=== PATIENT | male | born 1980 | race Caucasian/White ===

== ENCOUNTER → 2019-11-20 | Outpatient (CLI) | payer MEDICARE, MEDICAID ==
[~2019-11-20] MED LIST: METHACHOLINE KIT (J7674) INH ONE
--- NOTE | 2019-11-20 08:28 | PFTRPT ---
Visit Date: 11/20/2019 Referring Doctor: ALYCIA Tapia Marcus, M Height: 70.00 Inches Weight: 251.00 Lbs BSA: 2.30 Diagnosis: R06 Study of excellent technical quality. Pre and post bronchodilator study was done. At a baseline, forced vital capacity reduced. FEV1 out of proportion. Obstructive index is, therefore, reduced. Expiratory limb of the flow volume loop suggest flow rate limitation. Very favorable bronchodilator response is identified. IMPRESSION: Mild to moderate obstructive ventilatory impairment with favorable bronchodilator response. Please correlate clinically. MTDD
== END ==
LOC: M CARPUL 11-14 12:54
PROVIDERS: ATTEND Physician Assistant
DX: R06.00 Dyspnea, unspecified (principal)

== ENCOUNTER 2019-12-22 19:54 | Inpatient (IN) | payer MEDICARE, MEDICAID ==
[2019-12-23] MEDS ORDERED: LORazepam 1 MG TAB ONE (11:30)
[2019-12-24] MEDS ORDERED: TIOTROPIUM INHALER/CAPSULE (SPIRIVA) ONE (15:09)
[2019-12-24] MEDS ORDERED: traZODone 50 MG TAB ONE (21:19)
[2019-12-25] MEDS ORDERED: TIOTROPIUM INHALER/CAPSULE (SPIRIVA) ONE (09:25)
[2019-12-25] MEDS ORDERED: ONDANSETRON 4 MG TAB ONE (17:41)
[2019-12-25] MEDS ORDERED: OLANZapine ORAL DISINTEGRATING TAB 5MG ONE (21:15)
[2019-12-26] MEDS ORDERED: TIOTROPIUM INHALER/CAPSULE (SPIRIVA) ONE (09:17)
[2019-12-26] MEDS ORDERED: OLANZapine ORAL DISINTEGRATING TAB 5MG ONE (20:24)
[2019-12-27] MEDS ORDERED: OLANZapine ORAL DISINTEGRATING TAB 5MG ONE (21:47)
[2019-12-28] MEDS ORDERED: FLUoxetine 20 MG CAP ONE (10:59)
[2019-12-29] MEDS ORDERED: traZODone 50 MG TAB ONE ×2 (02:20→22:35)
[2019-12-29] MEDS ORDERED: OLANZapine ORAL DISINTEGRATING TAB 5MG ONE ×2 (02:20→20:21)
[2019-12-29] MEDS ORDERED: FLUoxetine 20 MG CAP ONE (07:47)
[2019-12-29] MEDS ORDERED: ACETAMINOPHEN TAB 650MG DOSE (2X325MG) ONE (21:29)
[2019-12-30] MEDS ORDERED: TIOTROPIUM INHALER/CAPSULE (SPIRIVA) ONE (09:41)
[2019-12-30] MEDS ORDERED: FLUoxetine 20 MG CAP ONE (09:41)
--- NOTE | 2020-02-04 14:25 | ECGEPIP ---
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
[2020-02-06 17:10] LABS: BASO % 0.1 % (0.0-1.0); EOS # 0.1 10^3/uL (0.0-0.5); EOS % 1.6 % (0.0-3.0); HEMATOCRIT 43.6 % (42.0-52.0); HEMOGLOBIN 14.8 g/dl (13.5-17.5); LYMPH # 1.2 10^3/uL (1.5-5.0); LYMPH % 16.7 % (24.0-44.0); MEAN CORPUSCULAR HGB CONC 33.9 g/dl (32.0-36.5); MEAN CORPUSCULAR VOLUME 85.3 fl (80.0-96.0); MONO # 0.4 10^3/uL (0.0-0.8); MONO % 5.8 % (0.0-5.0); NEUTROPHILS # 5.3 10^3/uL (1.5-8.5); NEUTROPHILS % 75.7 % (36.0-66.0); PLATELET COUNT, AUTOMATED 290 10^3/uL (150-450); RED BLOOD COUNT 5.11 10^6/uL (4.30-6.10)
[2020-03-04 16:54] LABS: ACETAMINOPHEN LEVEL < 2.0 UG/ML (10.0-30.0); ALBUMIN 3.9 GM/DL (3.2-5.2); ALT/SGPT 59 U/L (12-78); AMPHETAMINES LEVEL URINE NEGATIVE (NEGATIVE); BARBITURATES URINE NEGATIVE (NEGATIVE); BENZODIAZEPINES URINE NEGATIVE (NEGATIVE); BILIRUBIN,DIRECT 0.2 MG/DL (0.0-0.2); BILIRUBIN,TOTAL 0.8 MG/DL (0.2-1.0); BLOOD UREA NITROGEN 13 MG/DL (7-18); CALCIUM LEVEL 8.6 MG/DL (8.5-10.1); CANNABINOIDS URINE NEGATIVE (NEGATIVE); CARBON DIOXIDE LEVEL 26 MEQ/L (21-32); CHLORIDE LEVEL 109 MEQ/L (98-107); COCAINE METABOLITE URINE NEGATIVE (NEGATIVE); CREATININE FOR GFR 1.15 MG/DL (0.70-1.30); ETHYL ALCOHOL (ETHANOL) < 0.003 % (0.000-0.010); GLOMERULAR FILTRATION RATE > 60.0 (>60); GLUCOSE, FASTING 119 MG/DL (70-100); METHADONE URINE NEGATIVE (NEGATIVE); OPIATES URINE NEGATIVE (NEGATIVE); PHENCYCLIDINE URINE NEGATIVE (NEGATIVE); POTASSIUM SERUM 3.6 MEQ/L (3.5-5.1); SALICYLATE LEVEL < 1.7 MG/DL (5.0-30.0); SODIUM LEVEL 141 MEQ/L (136-145); TOTAL PROTEIN 7.1 GM/DL (6.4-8.2)
--- NOTE | 2020-03-19 21:01 | MHDSPDOC ---
[facility] Discharge Summary Discharge Summary DATE OF ADMISSION: Dec 22, 2019 at 20:23 DATE OF DISCHARGE: Dec 30, 2019 at 09:46 DISCHARGE DIAGNOSES: F43.24 Adjustment disorder with disturbance of conduct CONSULTANTS INVOLVED:[ None (basic hospitalist screening)] REASON FOR ADMISSION & TREATMENT AND PROGRESS ON THE UNIT : Patient was admitted to the inpatient mental health unit after reportedly making suicidal statements after recently being arrested for looking into a young girls window on multiple occasions and reportedly had been touching himself. He reported that there had been a community backlash and after being published in the news, he found himself quite upset and disturbed by the lack of support. He presented to the [facility] reporting that he had suicidal thoughts and he was brought here for assessment. When he was admitted, he appeared genuinely engaged but appeared highly focused on trying to move away from the current situation. He reported dissociative episodes but none of these were observed at the unit. He generally engaged somewhat socially at times but generally denies suicidality shortly after he had arrived. No signs of dissociative episodes have been placed. Reportedly, he had done this action when he was intoxicated. However, he did not demonstrate any unusual behaviors. I initially thought about doing an EEG but no objective signs or symptoms have been found and it appeared generally that this could be done at outpatient given the low acuity of the situation. Send patient home on seven day supply of 20 mg of Prozac, which was increased from his previous dose of 10 mg with positive effects including more engagement and less dysthymic mood. DISCHARGE ASSESSMENT[improved] Legal status considerations: The patient at the time of discharge did not meet criteria for involuntary admission/extension due to having a [normal] mental status exam, [fair] insight into the situation, They are engaged in the discharge process, as well as being friendly and amenable in behavioral control and havent been engaging in any observed concerning behavior or ideation recently. They decline voluntary extension/admission at this time and must be discharged in good jone, as Im unable to make a case for holding the patient against their will. They may have historical risk factors of admissions and other interactions with psychiatry however, those are not modifiable from a clinical perspective. The patient will need to be discharged in good jone. MENTAL STATUS EXAMINATION ON DISCHARGE: [General: Well dressed with good hygiene Speech: Spontaneous and fluid Thought processes: Linear and logical Thought content: Future orientated Abstract reasoning, and computation: Intact Description of associations: Intact Description of abnormal or psychotic thoughts:Denies any suicidal or homicidal ideation. Denies any auditory or visual hallucinations. Does not appear to be responding to internal stimuli. Does not appear to be endorsing any bizarre or paranoid ideation. Judgment: fair Insight: fair Orientation: Alert and orientated 3 Recent and remote memory: Intact Attention span and concentration: Intact Fund of knowledge: Adequate Mood: "okay" Affect: Euthymic with a full range] PLAN/FOLLOWUP ARRANGEMENTS: Follow up appointments made (PCP and MH in 5 days of D/C date) and safety plan completed. Safety Planning aspects completed prior to discharge [Medication supplies limited to 7 days with 4 refills to prevent accumulation to OD] [RN reviewed crisis hotline information and other aspects to empower patient to access care in interim before next appointment.] The amount of time spent in the coordination of care for this patient was approximately 30 minutes. Allergies Coded Allergies: No Known Allergies (Verified , 06/09/04) GLENDA MCFARLANE DO Mar 19, 2020 21:01
== END 2019-12-30 09:46 | disposition home or self-care (01) | DRG 882 ==
LOC: M ED 19:54 → M PSY 20:23
PROVIDERS: ADMIT Psychiatry & Neurology Addiction Medicine; ATTEND Psychiatry & Neurology Addiction Medicine
DX: F43.24 Adjustment disorder with disturbance of conduct (principal)

== ENCOUNTER 2020-06-04 18:03 | Emergency (ER) | payer MEDICARE, MEDICAID ==
[~2020-06-04] VITALS: Ht 177.8 cm; Wt 111.6 kg
--- OUTSIDE RECORDS SUMMARY | 2020-06-04 18:13 | CCD ---
Author Rajendra Slaughter Organization Unknown Address [address] [address] Phone Care Team Providers Care Tile Helper Name Role Phone Willa Hernández PCP Allergies, Adverse Reactions, Alerts No Data in Section Problem List Concept Problem Description Status Start Date Created Date Resolv ed Date Snomed Code F33.1 Major Depressive Disorder, Recurrent episode, Moderate Active 06/03/2020 Medications No Data in Section Social History Social History Element Description Concept Effective Date Smoking Status Unknown if ever smoked [id number] Immunizations No Data in Section Vital Signs No Data in Section Procedures Date Concept Id Description Targeted Site Concept Targeted Site Concept Type 06/01/2020 42494 Extended Individual Psychotherapy - 45 min CPT Patient has no history of implantable de vices Encounters Encounter Start Date End Date Encounter Type Description Diagnosis Di agnosis Desc Location Author First Name Author Last Name Npid Taxonomy Cod e Taxonomy Desc Phone Number Location Addr1 Location Addr2 Location [facility] Location [facility] Location [facility] [id number] 06/01/2020 06/01/2020 36512 Extended Individual Psych otherapy - 45 min F33.1 Major depressive disorder, recurrent, moderate Communi ty [facility] Edgar Crouch [id number] Business Advisor [id number] [id number] Plan of Treatment No Data in Section Lab Results No Data in Section Instructions No Data in Section Insurance Providers Insurance Id Policy Effective Date Policy Thru Date Company [employer] [id number] 2002 MEDICARE [id number] MEDICAID [id number] CRISIS
--- OUTSIDE RECORDS SUMMARY | 2020-06-04 18:13 | CCD | Continuity of Care Document ---
Author Author [facility] Address [address] [place] [address] Phone Support Name Relationship Address Phone Osvaldo Chito PRS [address] [place] [address] Seth Leonardo PRS [address] [place] [address] Doctor Provided, Family No PRS Unknown Unava ilable Chito Riley PRS [facility] [place] [address] [place] [address] [place] [address] Taina Claros PRS [address] [place] [address] Dawit Sampson PRS [address] [place] [address] Jeane Solis PRS Unknown Unavailable Gabriel Alcantara PRS [address] [place] [address] Jeanmarie Arteaga PRS [address] [place] [address] Bryant Villalba PRS [address] [place] [address] Cedric Adam PRS [address] [place] [address] Riki Collins PRS [address] [place] [address] Keith Grant PRS [address] [place] [address] Geoff Silva PRS [address] [place] [address] Mirna Varghese PRS [address] [place] [address] Leo Lee PRS [address] [place] [address] Tommie Pinon PRS [address] [place] [address] PaulJose Carlos PRS [address] [place] [address] [place] [address] Diogenes Thayer PRS [address] [place] [address] Dayton Hong PRS [address] [place] [address] Sincere HOLLING[place]TH PRS [address] [place] [address] Damaso Rodas PRS [address] [place] [address] Parviz Wright PRS [address] [place] [address] Jefferson Lei PRS [address] [place] [address] Allergies, Adverse Reactions, Alerts No known allergies. Medications Medication Status Dose Units Route Directions Qty Days Start Date End Date Instructions Budesonide-Formoterol (Symbicort) 160-4. 5 mcg/actuation HFA aerosol inhaler Discontinued 1 PUFFS IH 2 Times Per Day March 01, 2019 9:34am July 26, 2019 2:12pm Albuterol Sulfate Discontinued 2 INH IH Q6H March 01, 2019 9:39am October 02, 2019 2:58am Budesonide-Formoterol (Symbicort) 160-4. 5 mcg/actuation HFA aerosol inhaler Discontinued 1 PUFFS IH 2 Times Per Day July 26, 2019 2:12pm October 02, 2019 2:58am Fluoxetine (Prozac) 10 mg capsule Active 40 MG PO daily September 27, 2019 8:47am pneumococcal 23-luis ps vaccine 25 mcg/0. 5 mL injection syringe Discontinued 0.5 ML IM .1 0.5 March 31, 2020 10:22am March 31, 2020 12:46pm Afluria Qd 2019-(3yr up)(PF) (flu vac [id number] 36mos up(PF)) Discontinued 0.5 ML IM 1 Time/Once 0.5 March 31, 2020 10:22am March 31, 2020 12:46pm Budesonide-Formoterol (Symbicort) 160-4. 5 mcg/actuation HFA aerosol inhaler Discontinued 1 PUFFS IH 2 Times Per Day 10.2 March 31, 2020 11:12am April 14, 2020 11:34am Fluticasone Propion-Salmeterol (Advair H fa) 115-21 mcg/actuation HFA aerosol inhaler Discontinued 2 PUFFS IH 2 Times Per Day 12 April 14, 2020 11:34am April 17, 2020 12:37am Montelukast (Singulair) 10 mg tablet Discontinued 10 MG PO d aily April 20, 2020 10:25am May 03, 2020 5:40pm Amoxicillin Discontinued 500 MG PO Three times a day February 27, 2016 10:18am March 29, 2016 1:57pm Naproxen Discontinued 500 MG PO 2 Times Per Day February 27, 2016 10:40am March 29, 2016 1:57pm Ibuprofen Discontinued 2 00 MG PO Every 6 hours November 21, 2016 10:49am March 02, 2017 12:06pm Sulfamethoxazole-Trimethoprim (Bactrim D s Tablet) 800-160 mg tablet Discontinued 1 EACH PO 2 Times Per Day November 21, 2016 2:38pm January 20, 2017 10:29am Naproxen Discontinued 500 MG PO 2 Times Per Day NEEDED November 21, 2016 2:38 pm March 02, 2017 12:06pm Acetaminophen (Tylenol*) 500 MG tablet Discontinued 1 GM PO NEEDED May 05, 2017 9:05am April 10, 2018 11:20pm Ondansetron (Zofran Odt) 4 MG tablet,disintegrating Discontinued 4 MG PO Four Times a day PRN April 06, 2018 12:34am April 10, 2018 11:20pm Naproxen Discontinued 500 MG PO 2 Times Per Day February 24, 2019 10:51am February 24, 2019 11:27am Nabumetone Discontinued 750 MG PO 2 Times Per Day WI TH Meals 20 February 24, 2019 11:26am March 05, 2019 11:01pm Albuterol Sulfate Active 2 INH IH Q6H October 02, 2019 2:58am Budesonide-Formoterol (Symbicort) 160-4. 5 mcg/actuation HFA aerosol inhaler Discontinued 1 PUFFS IH 2 Times Per Day October 02, 2019 2:58am March 31, 2020 11:13am Tramadol Discontinued 50 MG PO Three times a day October 03, 2019 1:30pm February 14, 2020 12:10pm Take with meals only Hydroxyzine Hcl Active 25 MG PO 2 Times Per Day April 17, 2020 12:37am Aripiprazole Active 5 MG PO Once Per Day April 17, 2020 12:37am Budesonide-Formoterol (Symbicort) 160-4. 5 mcg/actuation HFA aerosol inhaler Discontinued 1 PUFFS IH 2 Times Per Day April 17, 2020 12:37am May 01, 2020 11:36am Prednisone Discontinued 0 PO .COMPLEX April 17, 2020 2:44am May 03, 2020 5:40pm orally per package directions Prednisone Discontinued 0 .ROUTE .COMPLEX May 03, 2020 5:40pm May 04, 2020 4:24pm orally per package directions Montelukast (Singulair) 10 mg tablet Activ e 10 MG PO daily May 03, 2020 5:40pm Fluticasone Furoate-Vilanterol (Breo Ell ipta) 100-25 mcg/dose blister with device Active 1 INH IH Q24H May 03, 2020 5:40pm Budesonide-Formoterol (Symbicort 80-4.5 Mcg Inhaler) 10.2 GM HFA aerosol inhaler Discontinued 2 PUFFS IH 2 Times Per Day July 17, 2014 3:20pm November 29, 2016 9:47am Perphenazine Discontinued 2 MG PO At Bedtime July 25, 2014 11:20am February 10, 2015 1:40pm Oxcarbazepine Discontinued 300 MG PO Once Per Day July 25, 2014 11:20am July 25, 2014 11:25am Citalopram Discontinued 20 MG PO Once Per Day July 25, 2014 11:20am February 10, 2015 1:40pm Trazodone Discontinued 1 00 MG PO At Bedtime July 25, 2014 11:20am February 10, 2015 1:40pm Risperidone Discontinued 1 MG PO 2 Times Per Day July 25, 2014 11:20am February 10, 2015 1:40pm Oxcarbazepine Discontinued 300 MG PO Once Per Day July 25, 2014 11:25am March 01, 2015 5:42pm Albuterol Sulfate (Ventolin Hfa) 18 GM HFA aerosol inh aler Discontinued 2 PUFFS IH Every 4 hours 2 February 10, 2015 1:59pm [facility] 7:58[facility] Oxcarbazepine Discontinued 600 MG PO 2 Times Per Day May 26, 2015 2:10pm February 27, 2018 9:34am Naproxen (Naprosyn) 500 MG tablet Di scontinued 1 TAB PO 2 Times Per Day March 29, 2016 2:16pm May 17, 2016 12:57pm Ondansetron Hcl (Zofran) 8 MG tablet Discontinued 8 MG PO 2 Times Per Day May 17, 2016 1:32pm November 21, 2016 10:42am take one twice daily for nausea Loperamide-Simethicone (Imodium Multi-Sy mptom Rel Cplt) 1 EACH tablet Discontinued 1 EACH PO Four Times a Day May 17, 2016 1:32pm November 21, 2016 10:43am take one after each loose stool up to 4x day Albuterol Sulfate (Ventolin Hfa) 18 GM HFA aerosol inh aler Discontinued 2 PUFFS IH Every 4 hours 2 February 02, 2017 7:58am April 04, 2018 11:56pm Budesonide-Formoterol (Symbicort 160-4.5 Mcg Inhaler) 10.2 GM HFA aerosol inhaler Discontinued 1 PUFFS IH 2 Times Per Day 1 February 27, 2018 9:55am September 19, 2018 7:53am Budesonide-Formoterol (Symbicort 160-4.5 Mcg Inhaler) 10.2 GM HFA aerosol inhaler Discontinued 1 PUFFS IH 2 Times Per Day 1 February 27, 2018 9:55am March 01, 2019 9:40am Fluticasone Furoate-Vilanterol (Breo Ell ipta) 100-25 mcg/dose blister with device Discontinued 1 INH IH Q24H April 15, 2020 2:35pm May 03, 2020 5:40pm Problems Active Problems Medical Problem Onset Date Status Abnormal echocardiogram Active Dizziness Active Depression Active Moderate persistent asthma Active Elevated serum creatinine Active Elevated BP without diagnosis of hypertension Active Prediabetes Active Obesity Active Inactive/Resolved Problems Medical Problem Onset Date Status Chest wall pain Resolv ed Exacerbation of asthma Resolved Acute epididymitis Res olved Elevated glucose level Resolved Acute right hip pain R esolved Fracture of rib of right side Resolved Lower back pain Resolv ed Unstable angina pectoris Resolved Malaise and fatigue Re solved Abdominal muscle pain Resolved Viral syndrome Resolve d Plantar fasciitis Reso lved Anterior chest wall pain Resolved Vasovagal episode Reso lved Chest pain Resolved Costochondritis, acute Resolved Asthma Resolved Left ankle sprain Reso lved Hypocalcemia Resolved Procedures Procedure Date Performed Status Xray Chest One View May 30 9:22pm completed CT Head without contrast May 032019 1:18pm completed CT C-Spine without contrast May 03, 2020 1:18pm completed Xray Chest One View May 03 1:18pm completed Xray Shoulder complete RT April 212019 1:18pm completed MRI Brain without contrast May 04, 2020 11:28am completed US Carotid art complete bilat Decemb er 2019 10:54am completed US Echo complete May 04, 2020 10:54am completed Influenza-Like Illness (PCR) Decembe r 2019 completed May 03, 2020 co mpleted Xray Chest 2 view PA/LAT April 172019 12:34am completed Blood Culture April 17, 2020 completed Respiratory Panel (PCR) April 17 0 completed Xray Chest 2 view PA/LAT April 102019 10:23pm completed Xray Abdomen 1 View (KUB) March 082019 1:36pm completed CT Abd/pel w/ contrast January 05, 2020 3:40pm completed Xray Chest 2 view PA/LAT September 26 9:44am completed Streptococcus Rapid Screen July 12, 2019 completed Relevant Diagnostic Tests and/or Laboratory Data Laboratory Results Test Date/Time Result Interpretation Reference Range Result Comment Performing Site White Blood Count May 30, 2020 7:40pm 6.5 10e3/uL 4.45-10.71 [facility], [address] [facility] White Blood Count May 04 3:55am 5.6 10e3/uL 4.45-10.71 [facility], [address] [place] [address] White Blood Count April 17 1:00am 8.1 10e3/uL 4.45-10.71 [facility], [address] [place] [address] White Blood Count January 05, 2020 3:52pm 7.0 10e3/uL 4.45-10.71 [facility], [address] [place] [address] 87495 Red Blood Count May 30, 2020 7:40pm 5.35 10e6/uL 4.3-6.1 [facility], [address] [place] [address] Red Blood Count May 04, 2020 3:55am 4.91 10e6/uL 4.3-6.1 [facility], [address] [place] [address] Red Blood Count April 17, 2020 1:00am 5.06 10e6/uL 4.3-6.1 [facility], [address] [place] [address] Red Blood Count January 05, 2020 3:52pm 5.36 10e6/uL 4.3-6.1 [facility], [address] [place] [address] Hemoglobin May 30, 2020 7:40pm 15.6 g/dL [facility], [address] [place] [address] Hemoglobin May 04, 2020 3:55am 14.6 g/dL 18 [facility], [address] [place] [address] Hemoglobin April 17, 2020 1:00am 14.8 g/dL 18 [facility], [address] [place] [address] Hemoglobin January 05, 2020 3:52pm 15.7 g/dL [facility], [address] [place] [address] 59698 Hematocrit May 30, 2020 7:40pm 46.6 % 42-52 [facility], [address] [place] [address] 03447 Hematocrit May 04, 2020 3:55am 43.3 % 42-52 [facility], [address] [place] [address] 85769 Hematocrit April 17, 2020 1:00am 44.1 % 42-52 [facility], [address] [place] [address] 23857 Hematocrit January 05, 2020 3:52pm 45.3 % 42-52 [facility], [address] [place] [address] 07596 Mean Corpuscular Volume May 30, 2020 7:40pm 87.1 fl 80-96 [facility], [address] [place] [address] 04719 Mean Corpuscular Volume April 3:55am 88.2 fl 80-96 [facility], [address] [place] [address] 60048 Mean Corpuscular Volume March 1:00am 87.2 fl 80-96 [facility], [address] [place] [address] 31333 Mean Corpuscular Volume January 05, 2020 3:52pm 84.5 fl 80-[address] [place] [address] LABORATORY, [address] [place] [address] Mean Corpuscular Hemoglobin May 30, 2020 7:40pm 29.2 pg 27-31 [facility], [address] [place] [address] 37496 Mean Corpuscular Hemoglobin May 04, 2020 3:55am 29.7 pg 27-31 [facility], [address] [place] [address] 01463 Mean Corpuscular Hemoglobin April 17, 2020 1:00am 29.2 pg 27-31 [facility], [address] [place] [address] 04938 Mean Corpuscular Hemoglobin December 202019 3:52pm 29.3 pg 27-31 [facility], [address] [place] [address] 28301 Mean Corpuscular Hemoglobin Concent May 30, 2020 7:40pm 33.5 g/dl 33-37 [facility], [address] [place] [address] 06347 Mean Corpuscular Hemoglobin Concent May 04, 2020 3:55am 33.7 g/dl 33-37 [facility], [address] [place] [address] 51937 Mean Corpuscular Hemoglobin Concent April 17, 2020 1:00am 33.6 g/dl 33-37 [facility], [address] [place] [address] 05520 Mean Corpuscular Hemoglobin Concent January 05, 2020 3:52pm 34.7 g/dl 33-37 [facility], [address] [place] [address] Red Cell Distribution Width May 30, 2020 7:40pm 12 % 11-15 [facility], [address] [place] [address] Red Cell Distribution Width May 04, 2020 3:55am 12 % 11-15 [facility], [address] [place] [address] Red Cell Distribution Width April 17, 2020 1:00am 12 % 11-15 [facility], [address] [place] [address] Red Cell Distribution Width December 202019 3:52pm 12 % 11-15 [facility], [address] [place] [address] Platelet Count May 30, 2020 7:40pm 291 10e3/ul 130-472 [facility], [address] [place] [address] Platelet Count May 04, 2020 3:55am 242 10e3/ul 130-472 [facility], [address] [place] [address] Platelet Count April 17, 2020 1:00am 306 10e3/ul 130-472 [facility], [address] [place] [address] Platelet Count January 05, 2020 3:52pm 293 10e3/ul 130-472 [facility], [address] [place] [address] 95635 Mean Platelet Volume May 30 7:40pm 9.0 fl 9.1-13.1 [facility], [address] [place] [address] Mean Platelet Volume May 04, 2020 3:55am 9.2 fl 9.1-13.1 [facility], [address] [place] [address] Mean Platelet Volume April 17, 2020 1:00am 8.9 fl 9.1-13.1 [facility], [address] [place] [address] Mean Platelet Volume January 04 3:52pm 9.1 fl 9.1-13.1 [facility], [address] [place] [address] 88226 Neutrophils (%) (Auto) May 30, 2020 7:40pm 62.7 % 41-77 [facility], [address] [place] [address] 02433 Neutrophils (%) (Auto) April 3:55am 62.4 % 41-77 [facility], [address] [place] [address] 38329 Neutrophils (%) (Auto) March 1:00am 70.3 % 4177 [facility], [address] [place] [address] 86431 Neutrophils (%) (Auto) January 05, 2020 3:52pm 70.9 % [address] [facility], [address] [place] [address] 67685 Absolute Neutrophil May 30 7:40pm 4.0 # 1.7-7.6 [facility], [address] [place] [address] 38231 Absolute Neutrophil May 04, 020 3:55am 3.5 # 1.7-7.6 [facility], [address] [place] [address] 45129 Absolute Neutrophil April 17, 020 1:00am 5.7 # 1.7-7.6 [facility], [address] [place] [address] 82803 Absolute Neutrophil January 04 0 3:52pm 5.0 # 1.7-7.6 [facility], [address] [place] [address] 00688 Lymphocytes (%) (Auto) May 30, 2020 7:40pm 26.5 % 14-46 [facility], [address] [place] [address] 64861 Lymphocytes (%) (Auto) April 3:55am 24.5 % 14-46 [facility], [address] [place] [address] 80140 Lymphocytes (%) (Auto) March 1:00am 19.3 % 14-46 [facility], [address] [place] [address] 80133 Lymphocytes (%) (Auto) January 05, 2020 3:52pm 18.8 % 14-46 [facility], [address] [place] [address] 27338 Lymphocytes # (Auto) May 30 7:40pm 1.7 # 0.6-4.6 [facility], [address] [place] [address] 99072 Lymphocytes # (Auto) May 04, 2020 3:55am 1.4 # 0.6-4.6 [facility], [address] [place] [address] 87074 Lymphocytes # (Auto) April 17, 2020 1:00am 1.6 # 0.6-4.6 [facility], [address] [place] [address] 55668 Lymphocytes # (Auto) January 04 3:52pm 1.3 # 0.6-4.6 [facility], [address] [place] [address] 85742 Monocytes (%) (Auto) May 30 7:40pm 7.4 % 4-12 [facility], [address] [place] [address] 76449 Monocytes (%) (Auto) May 04, 2020 3:55am 9.0 % 4-12 [facility], [address] [place] [address] 36511 Monocytes (%) (Auto) April 17, 2020 1:00am 8.4 % 4-12 [facility], [address] [place] [address] 42858 Monocytes (%) (Auto) January 04 3:52pm 7.4 % 4-12 [facility], [address] [place] [address] 97600 Monocytes # May 30, 2020 7:40pm 0.5 # 0.2-1.2 [facility], [address] [place] [address] 74194 Monocytes # May 04, 2020 3:55am 0.5 # 0.2-1.2 [facility], [address] [place] [address] 40057 Monocytes # April 17, 2020 1:00am 0.7 # 0.2-1.2 [facility], [address] [place] [address] 31022 Monocytes # January 05, 2020 3:52pm 0.5 # 0.2-1.2 [facility], [address] [place] [address] 93194 Eosinophils (%) (Auto) May 30, 2020 7:40pm 2.9 % 0-7 [facility], [address] [place] [address] 54563 Eosinophils (%) (Auto) April 3:55am 3.5 % 0-7 [facility], [address] [place] [address] 49073 Eosinophils (%) (Auto) March 1:00am 1.8 % 0-7 [facility], [address] [place] [address] 09134 Eosinophils (%) (Auto) January 05, 2020 3:52pm 2.3 % 0-7 [facility], [address] [place] [address] Absolute Eosinophils (CBC) May 302020 7:40pm 0.2 # 0.0-0.5 [facility], [address] [place] [address] 54733 Absolute Eosinophils (CBC) May 04, 2020 3:55am 0.2 # 0.0-0.5 [facility], [address] [place] [address] Absolute Eosinophils (CBC) April 17, 2020 1:00am 0.2 # 0.0-0.5 [facility], [address] [place] [address] Absolute Eosinophils (CBC) January 042019 3:52pm 0.2 # 0.0-0.5 [facility], [address] [place] [address] Basophils (%) (Auto) May 30 7:40pm 0.3 % 0.4-1.3 [facility], [address] [place] [address] Basophils (%) (Auto) May 04, 2020 3:55am 0.4 % 0.4-1.3 [facility], [address] [place] [address] 23651 Basophils (%) (Auto) April 17, 2020 1:00am 0.1 % 0.4-1.3 [facility], [address] [place] [address] 45227 Basophils (%) (Auto) January 04 3:52pm 0.3 % 0.4-1.3 [facility], [address] [place] [address] Absolute Basophils (CBC) May 7:40pm 0.0 # 0.0-0.2 [facility], [address] [place] [address] Absolute Basophils (CBC) May 042019 3:55am 0.0 # 0.0-0.2 [facility], [address] [place] [address] Absolute Basophils (CBC) April 172019 1:00am 0.0 # 0.0-0.2 [facility], [address] [place] [address] Absolute Basophils (CBC) December 3:52pm 0.0 # 0.0-0.2 [facility], [address] [place] [address] 08023 Immature Granulocyte % (Auto) Januar y 2020 7:40pm 0.2 % 0-2 [facility], [address] [place] [address] Immature Granulocyte % (Auto) Decemb er 2019 3:55am 0.2 % 0-2 [facility], [address] [place] [address] Immature Granulocyte % (Auto) Novem 2019 1:00am 0.1 % 0-2 [facility], [address] [place] [address] Immature Granulocyte % (Auto) January 05, 2020 3:52pm 0.3 % 0-2 [facility], [address] [place] [address] 30655 Absolute Immature Granulocyte (auto May 30, 2020 7:40pm 0.0 # 0-0.1 [facility], [address] [place] [address] Absolute Immature Granulocyte (auto May 04, 2020 3:55am 0.0 # 0-0.1 [facility], [address] [place] [address] Absolute Immature Granulocyte (auto April 17, 2020 1:00am 0.0 # 0-0.1 [facility], [address] [place] [address] 71531 Absolute Immature Granulocyte (auto January 05, 2020 3:52pm 0.0 # 0-0.1 [facility], [address] [place] [address] 64981 Add Manual Differential April 3:55am No [facility], [address] [place] [address] 37527 Add Manual Differential March 1:00am No [facility], [address] [place] [address] 36458 Add Manual Differential January 05, 2020 3:52pm No [facility], [address] [place] [address] 50359 Differential Total Cells Counted Heath uary 2020 7:40pm 100 [facility], [address] [place] [address] 90607 Neutrophils (Manual) May 30 7:40pm 56 % 41-77 [facility], [address] [place] [address] 32105 Band Neutrophils May 30, 2020 7:40pm 2 % 0-5 [facility], [address] [place] [address] 04124 Lymphocytes (Manual) May 30 7:40pm 25 % 14-46 [facility], [address] [place] [address] 27459 Monocytes (Manual) May 30, 2020 7:40p m 12 % 4-12 [facility], [address] [place] [address] 80859 Atypical Lymphocytes May 30 7:40pm 5 0-5 [facility], [address] [place] [address] 24097 Platelet Estimate May 30, 2020 7:40pm Appears normal NORMAL [facility], [address] [place] [address] 23104 RBC Morphology 2 May 30, 2020 7:40pm Appears normal NORMAL [facility], [address] [place] [address] 88804 Prothrombin Time May 30, 2020 7:40pm 10.6 SECONDS 9.6-12.3 [facility], [address] [place] [address] 17091 Prothrombin Time May 03, 2020 1:40p m 10.3 SECONDS 9.6-12.3 [facility], [address] [place] [address] 79058 INR International Normalized Ratio J anuary 2020 7:40pm 1.0 0.9-1.1 THE INR IS OPERATIONALLY DEFINED FOR BULMARO PLASMA FROMPATIENTS STABILIZED ON ORAL ANTICOAGULANTS. ROUTINE ANTICOAGULANT THERAPY 2.0-3.0RECURRENT SYSTEMIC EMBOLISM/HEART VALVE REPLACEMENT 2.5-3.5 [facility], [address] [place] [address] 86103 INR International Normalized Ratio D ecember 2019 1:40pm 1.0 0.9-1.1 THE INR IS OPERATIONALLY DEFINED FOR BULMARO SH PLASMA FROMPATIENTS STABILIZED ON ORAL ANTICOAGULANTS. ROUTINE ANTICOAGULANT THERAPY 2.0-3.0RECURRENT SYSTEMIC EMBOLISM/HEART VALVE REPLACEMENT 2.5-3.5 [facility], [address] [place] [address] 21801 Partial Thromboplastin Time - [place] J anuary 2020 7:40pm 27.7 SECONDS 22.7-31.6 [facility], [address] [place] [address] 84471 Partial Thromboplastin Time - [place] D ecember 2019 1:40pm 25.9 SECONDS 22.7-31.6 [facility], [address] [place] [id number] D-Dimer April 17, 2020 1:00am 0.46 mg/L 0.0-0.50 PLEASE NOTE: THIS TEST WAS PERFORMED USING A PARTICLE-ENHANCED, IMMUNOTURBIDIMETRIC ASSAY AND HAS A SINGLE,CLINICALLY DERIVED CUTOFF OF 0.50 MG/L. [facility], [address] [place] [address] [id number] Blood Urea Nitrogen May 30 1 7:40pm 12 mg/dL 02-11 [facility], [address] [place] [address] Blood Urea Nitrogen May 04 020 3:55am 20 mg/dL 02-11 [facility], [address] [place], [place] [id number] Blood Urea Nitrogen January 04 0 3:52pm 12 mg/dL 02-11 [facility], [address] [place], [place] [id number] Blood Urea Nitrogen December 31 0 11:16am 21 mg/dL 02-11 [facility], [address] [place] [address] Sodium Level May 30, 2020 7:40pm 141 mmol/L 132-146 [facility], [address] [place] [address] [id number] Sodium Level May 04, 2020 3:55am 142 mmol/L 132-146 [facility], [address] [place] [address] Sodium Level January 05, 2020 3:52pm 138 mmol/L 132-146 [facility], [address] [place] [address] 75457 Sodium Level January 01, 2020 11:16am 142 mmol/L 132-146 [facility], [address] [place] [address] Potassium Level May 30, 2020 7:40pm 3.4 mmol/L 3.5-5.5 [facility], [address] [place] [address] 29317 Potassium Level May 04, 2020 3:55am 4.1 mmol/L 3.5-5.5 [facility], [address] [place] [address] Potassium Level January 05, 2020 3:52pm 3.9 mmol/L 3.5-5.5 [facility], [address] [place] [address] Potassium Level January 01, 2020 11:16am 4.7 mmol/L 3.5-5.5 [facility], [address] [place] [address] 46759 Chloride Level May 30, 2020 7:40pm 108 mmol/l 99-109 [facility], [address] [place] [address] 51984 Chloride Level May 04, 2020 3:55am 109 mmol/l 99-109 [facility], [address] [place] [address] 80512 Chloride Level January 05, 2020 3:52pm 108 mmol/l 99-109 [facility], [address] [place] [address] 53073 Chloride Level January 01, 2020 11:16am 111 mmol/l 99-109 [facility], [address] [place] [address] 56218 Carbon Dioxide Level May 30 7:40pm 27 mmol/l 20-31 [facility], [address] [place] [address] 47406 Carbon Dioxide Level May 04, 2020 3:55am 27 mmol/l -31 [facility], [address] [place] [address] 28911 Carbon Dioxide Level January 04 3:52pm 25 mmol/l 20-31 [facility], [address] [place] [address] 35243 Carbon Dioxide Level December 31 11:16am 24 mmol/l 20-31 [facility], [address] [place] [address] 20831 Anion Gap May 30, 2020 7:40pm 9 mmol/l 8-16 [facility], [address] [place] [address] 19311 Anion Gap May 04, 2020 3:55am 10 mmol/l 8-16 [facility], [address] [place] [address] 71938 Anion Gap January 05, 2020 3:52pm 9 mmol/l 8-16 [facility], [address] [place] [address] 68925 Anion Gap January 01, 2020 11:16am 12 mmol/l 8-16 [facility], [address] [place] [address] 26335 Glucose Level May 30, 2020 7:40pm 98 mg/dL 74-106 [facility], [address] [place] [address] 14325 Glucose Level May 04, 2020 3:55am 102 mg/dL 74-106 [facility], [address] [place] [address] 03412 Glucose Level January 05, 2020 3:52pm 107 mg/dL 74-106 [facility], [address] [place] [address] 88233 Glucose Level January 01, 2020 11:16am 107 mg/dL 74-106 [facility], [address] [place] [address] 99781 Creatinine May 30, 2020 7:40pm 1.0 mg/dL 0.5-1.1 [facility], [address] [place] [address] Creatinine May 04, 2020 3:55am 1.0 mg/dL 0.5-1.1 [facility], [address] [place] [address] Creatinine January 05, 2020 3:52pm 1.0 mg/dL 0.5-1.1 [facility], [address] [place] [address] Creatinine January 01, 2020 11:16am 1.2 mg/dL 0.5-1.1 [facility], [address] [place] [address] 39763 Glomerular Filtration Rate Calc Filemon darrin 2020 7:40pm Greater than 60 ml/min ABOVE 60 [facility], [address] [place] [address] 42001 Glomerular Filtration Rate Calc Dece mber 2019 3:55am Greater than 60 ml/min ABOVE 60 [facility], [address] [place] [address] 19748 Glomerular Filtration Rate Calc Augu st 2019 3:52pm Greater than 60 ml/min ABOVE 60 [facility], [address] [place] [address] 70071 Glomerular Filtration Rate Calc Augu st 2019 11:16am Greater than 60 ml/min ABOVE 60 [facility], [address] [place] [address] Alanine Aminotransferase (ALT/SGPT) May 30, 2020 7:40pm 56 U/L 10-49 [facility], [address] [place] [address] Alanine Aminotransferase (ALT/SGPT) May 04, 2020 3:55am 60 U/L 10-49 [facility], [address] [place] [address] Alanine Aminotransferase (ALT/SGPT) January 05, 2020 3:52pm 65 U/L 10-49 [facility], [address] [place] [address] Alanine Aminotransferase (ALT/SGPT) January 01, 2020 11:16am 66 U/L 10-49 [facility], [address] [place] [address] 87818 Aspartate Amino Transf (AST/SGOT) Ja nuary 2020 7:40pm 24 U/L 0-33 [facility], [address] [place] [address] 63596 Aspartate Amino Transf (AST/SGOT) De cember 2019 3:55am 28 U/L 0-33 [facility], [address] [place] [address] 28775 Aspartate Amino Transf (AST/SGOT) Au abraham 2019 3:52pm 30 U/L 0-33 [facility], [address] [place] [address] 03504 Aspartate Amino Transf (AST/SGOT) Au abraham 2019 11:16am 22 U/L 0-33 [facility], [address] [place] [address] 46624 Alkaline Phosphatase May 30 7:40pm 70 U/L 45-129 [facility], [address] [place] [address] Alkaline Phosphatase May 04, 2020 3:55am 65 U/L 45-129 [facility], [address] [place] [address] 29895 Alkaline Phosphatase January 04 3:52pm 77 U/L 45-129 [facility], [address] [place] [address] 37577 Alkaline Phosphatase December 31 11:16am 77 U/L 45-129 [facility], [address] [place] [address] 42558 Lipase May 30, 2020 7:40pm 106 U/L 73-393 [facility], [address] [place] [address] 37030 Calcium Level May 30, 2020 7:40pm 8.6 mg/dL 8.5-10.1 [facility], [address] [place] [address] 93643 Calcium Level May 04, 2020 3:55am 8.4 mg/dL 8.5-10.1 [facility], [address] [place] [address] Calcium Level January 05, 2020 3:52pm 8.9 mg/dL 8.5-10.1 [facility], [address] [place] [address] 42350 Calcium Level January 01, 2020 11:16am 9.0 mg/dL 8.5-10.1 Delta: 8.0 on 10/02/19-524Repeated by: Tammy Griffiths 01/01/20 1339.Result Confirmation: 8.7 mg/dL [facility], [address] [place], [place] [id number] Total Bilirubin May 30, 2020 7:40pm 0.7 mg/dL 0.3-1.2 [facility], [address] [place], [place] [address] Total Bilirubin May 04, 2020 3:55am 0.6 mg/dL 0.3-1.2 [facility], [address] [place], [place] [address] Total Bilirubin January 05, 2020 3:52pm 0.6 mg/dL 0.3-1.2 [facility], [address] [place] [address] Total Bilirubin January 01, 2020 11:16am 0.4 mg/dL 0.3-1.2 [facility], [address] [place], [place] [address] Albumin May 30, 2020 7:40pm 4.1 g/dL 3.2-4.8 [facility], [address] [place], [place] [address] Albumin May 04, 2020 3:55am 3.4 g/dL 3.2-4.8 [facility], [address] [place], [place] [address] Albumin January 05, 2020 3:52pm 3.7 g/dL 3.2-4.8 [facility], [address] [place], [place] [address] Albumin January 01, 2020 11:16am 3.9 g/dL 3.2-4.8 [facility], [address] [place] [address] Serum Total Protein May 30 1 7:40pm 7.7 g/dL 5.7-8.2 [facility], [address] [place], [place] [address] Serum Total Protein May 04, 2 020 3:55am 6.7 g/dL 5.7-8.2 [facility], [address] [place] [address] Serum Total Protein January 04 0 3:52pm 7.0 g/dL 5.7-8.2 [facility], [address] [place] [address] Serum Total Protein December 31 0 11:16am 7.0 g/dL 5.7-8.2 [facility], [address] [place] [address] 63118 Phosphorus Level January 01, 2020 11:16am 3.1 mg/dL 2.4-5.1 [facility], [address] [place] [address] 40412 Magnesium Level January 01, 2020 11:16am 2.4 mg/dL 1.3-2.7 [facility], [address] [place] [address] 43310 Urine Marijuana (THC) Screen 2019 3:00pm Negative ng/mL Cutoff 50 [facility], [address] [place] [address] Urine Phencyclidine Screen May 03, 2020 3:00pm Negative ng/mL Cutoff 25 [facility], [address] [place] [address] Urine Cocaine Screen May 03, 2020 3:00pm Negative ng/mL Cutoff 150 [facility], [address] [place] [address] 90176 Urine Methamphetamines Screen 2019 3:00pm Negative ng/mL Cutoff 500 [facility], [address] [place] [address] Urine Opiates Screen May 03, 2020 3:00pm Negative ng/mL Cutoff 100 [facility], [address] [place] [address] 05385 Urine Amphetamines Screen April 212019 3:00pm Negative ng/mL Cutoff 500 [facility], [address] [place] [address] 37626 Urine Benzodiazepines Screen 2019 3:00pm Negative ng/mL Cutoff 150 [facility], [address] [place] [address] 69480 Ur Tricyclic Antidepressants Screen May 03, 2020 3:00pm Negative ng/mL Cutoff 300 [facility], [address] [place] [address] 47322 Urine Methadone Screen April 3:00pm Negative ng/mL Cutoff 200 [facility], [address] [place] [address] 62165 Urine Barbiturates May 03 3:00pm Negative ng/mL Cutoff 200 [facility], [address] [place] [address] 39849 Urine Oxycodone Screen April 3:00pm Negative ng/mL Cutoff 100 [facility], [address] [place] [address] 59189 Urine Propoxyphene Screen April 212019 3:00pm Negative ng/mL Cutoff 300 [facility], [address] [place] [address] Urine Buprenorphine Screen May 03, 2020 3:00pm Negative ng/mL Cutoff 10 [facility], [address] [place] [address] Creatine Kinase May 30, 2020 7:40pm 65 U/L 33-211 [facility], [address] [place] [address] Creatine Kinase MB May 30, 2020 7:40p m Less than 1.0 ng/mL 0.0-5.0 [facility], [address] [place] [address] Creatine Kinase MB % May 30 7:40pm Not Reported [facility], [address] [place] [address] Troponin I May 30, 2020 7:40pm Less than 0.015 ng/mL 0.00-0.09 Less than 0.09 NG/ML Negative0.10 - 0.77 NG/ML High Risk0.78 NG/ML or Greater Positive The WHO defined the cutoff (definition for diagnosis of [place])for this method as 0.78 ng/ml. [facility], [address] [place] [address] Troponin I May 04, 2020 3:55am Less than 0.015 ng/mL 0.00-0.09 Less than 0.09 NG/ML Negative0.10 - 0.77 NG/ML High Risk0.78 NG/ML or Greater Positive The WHO defined the cutoff (definition for diagnosis of [place])for this method as 0.78 ng/ml. , [address] [place] [address] 49717 Troponin I January 05, 2020 3:52pm Less than 0.015 ng/mL 0.00-0.09 Less than 0.09 NG/ML Negative0.10 - 0.77 NG/ML High Risk0.78 NG/ML or Greater Positive The WHO defined the cutoff (definition for diagnosis of [place])for this method as 0.78 ng/ml. [facility], [address] [place] [address] Thyroid Stimulating Hormone (TSH) Au 2019 11:16am 1.04 uIU/mL 0.35-5.50 [facility], [address] [place] [address] Hemoglobin A1c January 01, 2020 11:16am 6.1 % 4.0-6.0 The following ranges may be used for interpretation of results: HGBA1C degree of glucose control: Greater than 8%: Action Suggested * Less than 7%: Goal of Diabetic Therapy Less than 6%: Normal Factors such as duration of diabetes, adherence to therapyand the age of the patient should also be considered inassessing the degree of blood glucose control. * High risk of developing terminal operations supervisor complications such asretinopathy, nephropathy, neuropathy, cardiopathy, etc. Some danger of hypoglycemic reaction in Type I diabetics.Some glucose intolerant individuals and "Sub Clinical"diabetics may demonstrate HGBA1C levels in this area. [facility], [address] [place] [address] Estimated Average Glucose (eAG) 2019 11:16am 128 mg/dl An A1C of 7% - the goal of diabetic ther apy - is equivalentto an EAG of 154 mg/dl. [facility], [address] [place] [address] Microbiology Results Procedure Source Result Collection Date/Time Result Date/Time Result Comment Performing Site Streptococcus Rapid Screen Throat July 12, 2019 12:05pm July 13, 2019 9:35am [facility], [address] [place] [address] Blood Culture Venous blood No growth. April 17, 2020 1:00am April 22, 2020 1:07am [facility], [address] [place] [address] Influenza-Like Illness (PCR) Nasopharyngea l No Organisms Detected May 03, 2020 4:15pm May 03, 2020 4:48pm [facility], [address] [place] [address] Nasopharyngeal May 03, 2020 4:15pm May 03, 2020 4:48pm [facility], [address] [place] [address] Respiratory Panel (PCR) Nasopharyngeal No Organisms Detected April 17, 2020 1:10am April 17, 2020 2:02am [facility], [address] [place] [address] Diagnostic Imaging Reports Report Dictated Date/Time Dictated By Status Radiology Report September 27, 2019 10:48am Jalen Diamond MD completed [address] [place] [address] [phone] NAME SEX PT STATUS ACCOUNT NUMBER Taina Mata REG REF [id number] ORDERING PHYSICIAN LOCATION MEDICAL RECORD NO. FLOR BATES [facility] [id number] ATTENDING PHYSICIAN DATE OF DATE OF EXAM/TIME Chito Riley MD 1980 09/27/194 TYPE / EXAM Xray Chest 2 view PA/LAT REASON FOR EXAM DYSPNEA, UNSPECIFIED COMPARISON: May 05, 2017 FINDINGS: The cardiac and mediastinal silhouettes appear normal and the lungs are clear. The bones and soft tissues are normal. The upper abdomen is unremarkable. IMPRESSION: No acute cardiopulmonary disease. Reported By Jalen Diamond MD on 09/27/191047 Signed By Jalen Diamond MD on 09/27/191047 Date Time CC: Chito Riley MD; Jalen Diamond MD Techn: PELBU Trans Dt/Tm: Trans by: DT Prt Dt/Tm: [id number]: Total DLP = 0.00 mGy-cm Fluoroscopy Time (in secs): Radiology Report January 05, 2020 6:33pm Luigi Gordon MD completed [id number] [place] [address] [phone] NAME SEX PT STATUS ACCOUNT NUMBER TAINA MATA [facility] [id number] ORDERING PHYSICIAN LOCATION [id number] ATTENDING PHYSICIAN DATE OF DATE OF EXAM/TIME Taina Claros DO 1980 01/05/20 / 1639 TYPE / EXAM CT Abd/pel w/ contrast REASON FOR EXAM abdominal pain, hx of abdominal hernia Clinical History/Indication for Exam: Abdominal pain, hx of abdominal hernia. Best images possible, the contrast injection made the patient nauseous. A second scan was done due to patient motion. BME CT ABDOMEN AND PELVIS WITH INTRAVENOUS CONTRAST INDICATION: Abdominal pain, hx of abdominal hernia. Best images possible, the contrast injection made the patient nauseous. A second scan was done due to patient motion. BME TECHNIQUE: Axial computed tomography images of the abdomen and pelvis with intravenous contrast. Sagittal and coronal reformatted images were created and reviewed. This CT exam was performed using one or more of the following dose reduction techniques: automated exposure control, adjustment of the mA and/or kV according to patient size, and/or use of iterative reconstruction technique. COMPARISON: No relevant prior studies available. FINDINGS: Lung bases: Unremarkable. No mass. No consolidation. ABDOMEN: Liver: The liver is fatty infiltrated. Gallbladder and bile ducts: Unremarkable. No calcified stones. No ductal dilation. Pancreas: Unremarkable. No mass. No ductal dilation. Spleen: Unremarkable. No splenomegaly. Adrenals: Unremarkable. No mass. Kidneys and ureters: Unremarkable. No solid mass. No hydronephrosis. Stomach and bowel: There is a right inguinal hernia without bowel involvement. No obstruction. No mucosal thickening. PELVIS: Appendix: No findings to suggest acute appendicitis. Bladder: Unremarkable. No mass. Reproductive: Unremarkable as visualized. ABDOMEN and PELVIS: Intraperitoneal space: Unremarkable. No free air. No significant fluid collection. Bones/joints: No acute fracture. No dislocation. Soft tissues: See above. Vasculature: Unremarkable. No abdominal aortic aneurysm. Lymph nodes: Unremarkable. No enlarged lymph nodes. IMPRESSION: 1. Fatty liver. Right inguinal hernia without bowel involvement. 2. No acute findings. Automatic exposure control was used as a dose lowering technique. Contrast Type: Isovue 300. Contrast Volume: 100 mL REPORT SIGNATURE ON FILE 01/05/2020 (18:33 Eastern Time ) Signed by: Luigi Gordon M.D. Reported By Luigi Gordon MD on 01/05/201832 Signed By Luigi Gordon MD on 01/05/201832 Date Time CC: Taina Claros DO; Luigi Gordon MD Techn: EBEBR Trans Dt/Tm: Trans by: DT Prt Dt/Tm: : Total DLP = 2510.00 mGy-cm : Total Radiation Dose = 37.6500 mSv Lifetime Dose: 37.6500 mS v Radiology Report March 08, 2020 2:53pm Mesha Mccabe MD completed [facility] [address] [id number] [phone] NAME SEX PT STATUS ACCOUNT NUMBER TAINA MATA [facility] ER [id number] ORDERING PHYSICIAN LOCATION MEDICAL RECORD NO. Cedric Adam MD ER [id number] ATTENDING PHYSICIAN DATE OF DATE OF EXAM/TIME Taina Claros DO 1980 03/08/20 1436 TYPE / EXAM Xray Abdomen 1 View (KUB) REASON FOR EXAM r/o constipation Clinical History/Indication for Exam: r/o constipation RADIOGRAPH OF THE ABDOMEN 1 VIEW INDICATION: r/o constipation COMPARISON: CT abdomen 01/05/2020 FINDINGS: Lower thorax: The lung bases are clear. Intraperitoneal space: There is no evidence of intraperitoneal free air. Gastrointestinal tract: There is no evidence of bowel obstruction. Fecal material is seen in the right colon and in the distal colon. Bones/joints: Unremarkable. Other findings: AP supine abdomen, 2 views IMPRESSION: No acute abnormality is seen. REPORT SIGNATURE ON FILE 03/08/2020 (14:53 Eastern Time ) Signed by: Mesha Mccabe M.D. Reported By Mesha Mccabe MD on 03/08/201452 Signed By Mesha Mccabe MD on 03/08/201452 Date Time CC: Taina Claros DO; Mesha Mccabe MD Techn: MORSA Trans Dt/Tm: Trans by: DT Prt Dt/Tm: [id number]: Total DLP = 0.00 mGy-cm Fluoroscopy Time (in secs): Radiology Report April 11, 2020 12:02am Kraig Walker MD completed [facility] [address] [place] [address] [phone] NAME SEX PT STATUS ACCOUNT NUMBER TAINA MATA [facility] ER [id number] ORDERING PHYSICIAN LOCATION MEDICAL RECORD NO. Geoff Silva DO ER [id number] ATTENDING PHYSICIAN DATE OF DATE OF EXAM/TIME Taina Claros 1980 04/10/203 TYPE / EXAM Xray Chest 2 view PA/LAT REASON FOR EXAM asthma exacerbation, cough, rhonchi RML, no fever Clinical History/Indication for Exam: asthma exacerbation, cough, rhonchi RML, no fever RADIOGRAPHS OF THE CHEST 2 VIEWS INDICATION: asthma exacerbation, cough, rhonchi RML, no fever COMPARISON: September 27, 2019 FINDINGS: Lungs: Unremarkable. No consolidation. Pleural space: Unremarkable. No pneumothorax. Heart: Unremarkable. No cardiomegaly. Mediastinum: Unremarkable. Bones/joints: Unremarkable. IMPRESSION: Normal chest x-rays. REPORT SIGNATURE ON FILE 04/11/2020 (00:02 Eastern Time ) Signed by: Kraig Walker M.D. Reported By Kraig Walker MD on 04/11/20 0002 Signed By Kraig Walker MD on 04/11/20 0002 Date Time CC: Taina Claros DO; Kraig Walker MD Techn: PALHE Trans Dt/Tm: Trans by: DT Prt Dt/Tm: 1830-1426: Total DLP = 0.00 mGy-cm Fluoroscopy Time (in secs): Radiology Report April 17, 2020 2:38a m Cedric Harding MD completed [id number] [place] [address] [phone] NAME SEX PT STATUS ACCOUNT NUMBER TAINA MATA [facility] [id number] ORDERING PHYSICIAN LOCATION MEDICAL RECORD NO. Mirna Varghese MD ER [id number] ATTENDING PHYSICIAN DATE OF DATE OF EXAM/TIME Taina Claros DO 1980 04/17/20 / 4 TYPE / EXAM Xray Chest 2 view PA/LAT REASON FOR EXAM sob Clinical History/Indication for Exam: sob RADIOGRAPHS OF THE CHEST 2 VIEWS INDICATION: sob COMPARISON: Chest radiograph of 04/10/2020 FINDINGS: Lungs: Unremarkable. No consolidation. Pleural space: No gross pleural effusion. No pneumothorax. Heart: Cardiac silhouette appears prominent. Mediastinum: Unremarkable. Bones/joints: Unremarkable. Other findings: Skinfold overlying the right lateral chest. IMPRESSION: Cardiac silhouette appears prominent. REPORT SIGNATURE ON FILE 04/17/2020 (02:38 Eastern Time ) Signed by: Cedric Harding M.D. Reported By Cedric Harding MD on 04/17/20237 Signed By Cedric Harding MD on 04/17/20237 Date Time CC: Taina Claros DO; Cedric Harding MD Techn: [id number] Trans Dt/Tm: Trans by: DT Prt Dt/Tm: 3148-3554: Total DLP = 0.00 mGy-cm Fluoroscopy Time (in secs): Radiology Report May 03, 2020 2:42p m Suyapa Armando MD completed [address] [id number] [phone] NAME SEX PT STATUS ACCOUNT NUMBER TAINA MATA [facility] ER [id number] ORDERING PHYSICIAN LOCATION MEDICAL RECORD NO. Leo Lee MD ER [id number] ATTENDING PHYSICIAN DATE OF DATE OF EXAM/TIME Taina Claros DO 1980 05/03/201317 TYPE / EXAM CT C-Spine without contrast REASON FOR EXAM Trauma and pain Clinical History/Indication for Exam: Trauma and pain CT CERVICAL SPINE WITHOUT INTRAVENOUS CONTRAST INDICATION: Trauma and pain TECHNIQUE: Axial computed tomography images of the cervical spine without intravenous contrast. Sagittal and coronal reformatted images were created and reviewed. This CT exam was performed using one or more of the following dose reduction techniques: automated exposure control, adjustment of the mA and/or kV according to patient size, and/or use of iterative reconstruction technique. COMPARISON: No relevant prior studies available. FINDINGS: Vertebrae: The cervical vertebral column is well aligned. No acute fracture. Discs/spinal canal/neural foramina: No acute findings. No spinal canal stenosis. Soft tissues: The prevertebral soft tissues are normal. The cervical vertebral column is straightened, most likely related to muscular spasm. IMPRESSION: 1. No acute fracture of the cervical spine. 2. No traumatic misalignment of the cervical spine. Automatic exposure control was used as a dose lowering technique. REPORT SIGNATURE ON FILE 05/03/2020 (14:42 Eastern Time ) Signed by: Suyapa Armando M.D. Reported By Suyapa Armando MD on 05/03/201441 Signed By Suyapa Armando MD on 05/03/201441 Date Time CC: Taina Claros DO; Suyapa Armando MD Techn: EBEBR Trans Dt/Tm: Trans by: DT Prt Dt/Tm: 4674-8608: Total DLP = 630.00 mGy-cm : Total Radiation Dose = 0.0000 mSv Lifetime Dose: 39.5875 mSv Radiology Report May 03, 2020 2:58p m Suyapa Armando MD completed [id number] [place] [address] [phone] NAME SEX PT STATUS ACCOUNT NUMBER TAINA MATA [facility] ER [id number] ORDERING PHYSICIAN LOCATION MEDICAL RECORD NO. Leo Lee MD ER [id number] ATTENDING PHYSICIAN DATE OF DATE OF EXAM/TIME AngelaTaina 1980 05/03/20 / 8 TYPE / EXAM CT Head without contrast REASON FOR EXAM Syncope Clinical History/Indication for Exam: Syncope CT HEAD WITHOUT INTRAVENOUS CONTRAST INDICATION: Syncope TECHNIQUE: Axial computed tomography images of the head/brain without intravenous contrast. Sagittal and coronal reformatted images were created and reviewed. This CT exam was performed using one or more of the following dose reduction techniques: automated exposure control, adjustment of the mA and/or kV according to patient size, and/or use of iterative reconstruction technique. COMPARISON: CT head dated April 05, 2018. FINDINGS: Brain: No intracranial mass lesion. No acute intracranial hemorrhage. The diaz and white matter structures of the cerebral and cerebellar hemispheres are within normal limits. Brainstem: The brainstem is within normal limits. Midline shift: No midline shift. Bones/joints: Bony calvarium is unremarkable. No acute fracture. Sinuses: Mild mucosal thickening present in the RIGHT maxillary sinus. Mastoid air cells: Unremarkable as visualized. No mastoid effusion. Orbits: Unremarkable as visualized. Sella: The sella and parasellar regions are within normal limits. IMPRESSION: 1. No intracranial mass lesion. 2. No acute intracranial hemorrhage. 3. No acute intracranial pathology. Automatic exposure control was used as a dose lowering technique. REPORT SIGNATURE ON FILE 05/03/2020 (14:58 Eastern Time ) Signed by: Suyapa Armando M.D. Reported By Suyapa Armando MD on 05/03/201457 Signed By Suyapa Armando MD on 05/03/201457 Date Time CC: Taina Claros DO; Suyapa Armando MD Techn: EBEBR Trans Dt/Tm: Trans by: DT Prt Dt/Tm: [id number]: Total DLP = 625.00 mGy-cm 7165-9688: Total Radiation Dose = 1.9375 mSv Lifetime Dose: 39.5875 mSv Radiology Report May 03, 2020 3:00p m Ayden Miller MD [address] [place] [address] [phone] NAME SEX PT STATUS ACCOUNT NUMBER TAINA MATA [facility] [id number] ORDERING PHYSICIAN LOCATION MEDICAL RECORD NO. Leo Lee MD [id number] ATTENDING PHYSICIAN DATE OF DATE OF EXAM/TIME Taina Claros DO 1980 05/03/20 / 8 TYPE / EXAM Xray Chest One View REASON FOR EXAM Syncope Clinical History/Indication for Exam: Syncope. Chest xray was done PA. CHEST: Clinical indication: Syncope Comparison: April 17, 2020 Findings: Single frontal view of the chest is interpreted with prior study for comparison. The trachea is midline. The cardiac silhouette is enlarged and pulmonary vascularity are within normal limits. The lungs are clear. The costophrenic angles are sharp. IMPRESSION: 1. Cardiomegaly. No evidence of acute cardiopulmonary disease. REPORT SIGNATURE ON FILE 05/03/2020 (15:00 Eastern Time ) Signed by: Ayden Miller M.D. Reported By Ayden Miller MD on 05/03/20 1500 Signed By Ayden Miller MD on 05/03/201499 Date Time CC: Taina Claros DO; Ayden Miller MD Techn: EBEBR Trans Dt/Tm: Trans by: DT Prt Dt/Tm: [id number]: Total DLP = 0.00 mGy-cm Fluoroscopy Time (in secs): Radiology Report May 03, 2020 3:00p maryellen Miller MD completed [id number] [place] [id number] [phone] NAME SEX PT STATUS ACCOUNT NUMBER TAINA MATA [facility] ER [id number] ORDERING PHYSICIAN LOCATION MEDICAL RECORD NO. Leo Lee MD ER [id number] ATTENDING PHYSICIAN DATE OF DATE OF EXAM/TIME Taina Claros DO 1980 05/03/201317 TYPE / EXAM Xray Shoulder complete RT REASON FOR EXAM Trauma and pain Clinical History/Indication for Exam: Trauma and pain RIGHT SHOULDER: Clinical indication: Pain Comparison: None Findings: 2 views of the right shoulder are interpreted without prior studies for comparison. There is no evidence of fracture dislocation of the visualized osseous structures of the right shoulder. Bony mineralization and alignment are unremarkable. The acromioclavicular joint is intact. IMPRESSION: 1. No evidence of acute fractures or dislocation of the right shoulder. REPORT SIGNATURE ON FILE 05/03/2020 (15:00 Eastern Time ) Signed by: Ayden Miller M.D. Reported By Ayden Miller MD on 05/03/20 1500 Signed By Ayden Miller MD on 05/03/20 1500 Date Time CC: Taina Claros DO; Ayden Miller MD Techn: EBEBR Trans Dt/Tm: Trans by: DT Prt Dt/Tm: : Total DLP = 0.00 mGy-cm Fluoroscopy Time (in secs): Radiology Report May 04, 2020 11:41am Lm Machuca MD completed [facility] [address] [facility] [address] [place] [id number] [phone] NAME SEX PT STATUS ACCOUNT NUMBER TAINA MATA ADM YONI [id number] ORDERING PHYSICIAN LOCATION MEDICAL RECORD NO. Tommie Pinon MD [id number] ATTENDING PHYSICIAN DATE OF DATE OF EXAM/TIME Taina Claros DO 1980 05/04/201127 TYPE / EXAM MRI Brain without contrast REASON FOR EXAM syncope Clinical History/Indication for Exam: syncope MRI BRAIN WITHOUT INTRAVENOUS CONTRAST INDICATION: syncope TECHNIQUE: Magnetic resonance images of the head/brain without intravenous contrast in multiple planes. COMPARISON: CT May 03, 2020 FINDINGS: Brain: No acute infarction. No acute hemorrhage. No mass-effect. No parenchymal signal abnormality identified. Midline shift: None. Ventricles: Normal in caliber. Basal cisterns are clear. Bones/joints: Intact. No acute fracture. Soft tissues: Scalp is intact. Sinuses: Clear. Mastoid air cells: Clear. Orbits: Within normal limits. Other vasculature: Major intracranial flow voids are preserved. IMPRESSION: Unremarkable MRI of the brain. REPORT SIGNATURE ON FILE 05/04/2020 (11:41 Eastern Time ) Signed by: Lm Machuca MD, PhD. Reported By Lm Machuca MD on 05/04/20 1141 Signed By Lm Machuca MD on 05/04/20 1141 Date Time CC: Taina Claros DO; mL Machuca MD Techn: EUN Trans Dt/Tm: Trans by: DT Prt Dt/Tm: : Total DLP = 0.00 mGy-cm : Total Radiation Dose = 0.0000 mSv Lifetime Dose: 39.5875 mSv Radiology Report May 04, 2020 4:51p m Isamar Llamas MD completed [id number] [place] [address] [phone] NAME SEX PT STATUS ACCOUNT NUMBER TAINA MATA ADM YONI [id number] ORDERING PHYSICIAN LOCATION MEDICAL RECORD NO. Horace CROWE [id number] ATTENDING PHYSICIAN DATE OF DATE OF EXAM/TIME Taina Claros DO 1980 05/04/20 / 1053 TYPE / EXAM US Carotid art complete bilat REASON FOR EXAM syncope Comparison: None FINDINGS: No evidence of significant plaque. Antegrade flow vertebral arteries. Peak flow velocities are as follows: RIGHT CCA: 72.1 cm/s. RIGHT ICA: 70.5 cm/s. RIGHT ECA: 117.3 cm/s. RIGHT ICA/CCA RATIO: 1.1 LEFT CCA: 80.8 cm/s. LEFT ICA: 67.2 cm/s. LEFT ECA: 9.2 cm/s. LEFT ICA/CCA RATIO: 0.8 A tortuous left ICA is incidentally noted. IMPRESSION: No ultrasonographic evidence of a hemodynamically significant stenosis. NASCET method was utilized while determining significance of stenosis on ultrasound of the carotids. Reported By Isamar Llamas MD on 05/04/201650 Signed By Isamar Llamas MD on 05/04/201651 Date Time CC: Taina Claros DO; Isamar Llamas MD Techn: FREST Trans Dt/Tm: Trans by: DT Prt Dt/Tm: : Total DLP = 0.00 mGy-cm : Total Radiation Dose = 0.0000 mSv Lifetime Dose: 39.5875 mSv Radiology Report May 04, 2020 6:47p m Adam Cabello completed [facility] [address] [place] [address] [phone] NAME SEX PT STATUS ACCOUNT NUMBER TAINA MATA DIS YONI [id number] ORDERING PHYSICIAN LOCATION MEDICAL RECORD NO. Horace CROWE [id number] ATTENDING PHYSICIAN DATE OF DATE OF EXAM/TIME AngelaTaina LOPES 1980 05/04/201053 TYPE / EXAM US Echo complete REASON FOR EXAM syncope 2D AND M-MODE STUDY Aortic root 3.2 cm, left atrium 3.9 cm, left ventricle end diastole 5.5 cm. FINDINGS 1. Normal chamber sizes. Normal sized aortic root. 2. Normal aortic, mitral, tricuspid luis ves. 3. Global hypokinesis of the left ventr icle, estimated EF 35-40%. 4. No pericardial effusion. 5. Mild MR and PI with moderate TR. CONCLUSION 1. Significant LV dysfunction. 2. Mild MR and PI with moderate TR. Reported By Adam Cabello MD on 05/04/201846 Signed By Adam Cabello MD on 05/26/20 1707 <<Signature on File>> Date Time CC: Taina Claros DO; Adam Cabello M.D. Techn: HUY Trans Dt/Tm: 05/05/20 0828 Trans by: ROSANNE Gomez Dt/Tm: [id number]: Total DLP = 0.00 mGy-cm 7784-8527: Total Radiation Dose = 0.0000 mSv Lifetime Dose: 39.5875 mSv Health Concerns Health Concerns may be documented in an alternate section. Advance Directives Advance Directive Response Recorded Date/Time Advanced Directive No Carlito peters 2020 6:41pm MOLST No May 08, 2020 10:26am Advance Directives on File or in chart? No May 08, 2020 10:26am Does Patient have a DNR? No May 30, 2020 6:41pm Healthcare Proxy Yes Heath melvalizzie 2020 6:41pm Health Care Proxy Name yeimi ro May 08, 2020 10:26am Health Care Proxy Phone Number May 08, 2020 10:26am Living Will No May 08, 2020 10:26am Chief Complaint and Reason for Visit Chief Complaint Sore Throat J02.9 Asthma follow-up Respiratory complaints Asthma Asthma DYSPNEA Hernia Hernia Amb Documentation Post Op Incision check Medicare Annual Wellness subsequent E83.51,R73.09,E53.81,R53.83 CHEST TIGHTNESS, SIDE PAIN Depression follow-up Depression follow-up cardio assessment SIDE PAIN EAR PAIN E66.9,R73.03 Ear Complaint PAIN IN RIGHT ARM AND NECK TROUBLE BREATHING PULMONARY Hospital Discharge Follow-up SOB Asthma follow-uptaina claros Test result SYNCOPE RIGHT SHOULDER Depression follow-up syncope R55 Shoulder pain/injury SOB Telemed Visit Reason for Visit Dizziness Obesity Depression Depression Moderate persistent asthma Elevated BP without diagnosis of hypertension Depression Chest pain Encounters Encounter Location(s) Ar rival/Admit Date Discharge/Depart Date Provider(s) Departed Physician/Provider Office Visit [facility] July 12, 2019 11:03am July 12, 2019 12:57pm Seth Leonardo DO Registered Referred [facility] Drop Off July 12, 2019 12:05pm Seth Leonardo DO Departed Physician/Provider Office Visit [facility] July 26, 2019 1:34pm July 26, 2019 2:34pm Chito Riley MD Departed Physician/Provider Office Visit [facility] August 08, 2019 2:50pm August 08, 2019 3:58pm Chito Riley MD Departed Physician/Provider Office Visit [facility] August 29, 2019 1:15pm August 29, 2019 2:06pm Chito Riley MD Departed Physician/Provider Office Visit [facility] September 27, 2019 8:42am September 27, 2019 9:35am Maryellen Shelton Registered Referred [facility]Radiology September 27, 2019 9:33am S STEVO RAY Registered Outpatient [facility] Surgery October 02, 2019 2:26am Dawit Sampson MD Registered Outpatient [facility] Surgery October 03, 2019 6:42am October 04, 2019 7:30am Dawit Sampson MD Registered Outpatient [facility] October 07, 2019 1:34pm Jeane Solis RN Departed Physician/Provider Office Visit [facility] Surgery October 11, 2019 11:39am October 11, 2019 11:49am Maryellen Obregon Departed Physician/Provider Office Visit [facility] January 01, 2020 9:32am January 01, 2020 12:12pm Taina Claros , DO Registered Referred [facility]Laboratory January 01, 2020 11:05am Taina Claros DO Departed Emergency [facility]Emergency Room ER January 05, 2020 3:17pm January 05, 2020 5:45pm null Departed Physician/Provider Office Visit [facility] January 10, 2020 11:33am January 10, 2020 12:18pm Taina Claros , DO Departed Physician/Provider Office Visit [facility] February 14, 2020 11:37am February 14, 2020 12:32pm Taina Claros , DO Registered Outpatient [facility] March 04, 2020 11:56am Taina Claros DO Departed Emergency [facility]Emergency Room ER March 08, 2020 11:04am March 08, 2020 2:00pm null Departed Emergency [facility]Emergency Room ER March 17, 2020 9:49pm March 17, 2020 10:33pm null Registered Clinical [facility] March 20, 2020 11:43am Taina Claros DO Departed Physician/Provider Office Visit [facility] March 31, 2020 10:22am March 31, 2020 11:47am Taina Claros DO Departed Emergency [facility] ER April 01, 2020 8:39pm April 01, 2020 9:32pm null Departed Emergency [facility] ER April 10, 2020 9:36pm April 10, 2020 11:40pm null Registered Outpatient [facility] April 13, 2020 12:55pm Taina Claros DO Departed Physician/Provider Office Visit [facility] April 14, 2020 9:16am April 14, 2020 1:07pm Taina Claros DO Departed Emergency [facility] ER April 17, 2020 12:07am April 17, 2020 3:00am null Departed Physician/Provider Office Visit [facility] April 20, 2020 9:12am April 20, 2020 10:34am Taina Claros DO Departed Physician/Provider Office Visit [facility] May 01, 2020 10:42am May 01, 2020 11:57am Taina Claros DO Discharged Inpatient [facility] May 03, 2020 5:16pm May 04, 2020 5:30pm Tommie Pinon MD Registered Outpatient [facility] May 04, 2020 6:14pm Damaso Rodas MD Departed Physician/Provider Office Visit [facility] May 08, 2020 1:30pm May 08, 2020 2:23pm Taina Claros DO Registered Referred [facility]Res[facility] Therapy May 11, 2020 8:09am Taina Claros DO Departed Physician/Provider Office Visit [facility] May 11, 2020 3:14pm May 11, 2020 4:40pm Taina Claros DO Departed Emergency [facility] ER May 30, 2020 2:47pm May 30, 2020 10:15pm null Departed Physician/Provider Office Visit [facility] June 01, 2020 8:05am June 01, 2020 1:43pm Taina Claros DO Recent Diagnosis Onset Date Dizziness Obesity Depression Depression Moderate persistent asthma Elevated BP without diagnosis of hypertension Depression Chest pain Assessments Work-up negative for pneumonia. D-dimer negative. EKG shows no ST segment elevation. Physical exam shows no evidence of fluid overload. Symptoms significantly improved with DuoNeb. Family History Relationship Condition A ge at Onset Recorded Date/Time Not Specified Sleep apnea Unknown Diabetes mellitus Unkn own Cardiac disease Unknown Asthma Unknown Not Specified Asthma Unk nown Functional Status Observation Response Raymond e Recorded Functional Status Complete Prospect May 03, 2020 5:42pm Goals Goals may be documented in an alternate section. Immunizations Immunization Event Date Not Given Reason Dose Number Natural Resources Specialist Lot Number Vaccine Information Statement (VIS) Deta il influenza vaccine, inactivated Novem 2019 [id number] pneumococcal polysaccharide PPV23 vaccine March 31, 2020 [id number] Mental Status Observation Response Raymond e Recorded Impairments No impairments or barriers May 30, 2020 2:47pm Cognitive Status Normal Cognition May 03, 2020 5:42pm Medical Equipment No Medical Equipment Information available Insurance Providers Guarantor TAINA MATA Address [address] [place] [address] Contact Info. Home Phone: Payer Policy Id Coverage Id Subscriber's Name Subscriber Id Effective Date Expiration Date MEDICARE [employer] [id number] TAINA MATA [id number] [place] [id number] TAINA MATA [id number] MEDICAID [facility] [id number] TAINA MATA [id number] 2013 MED[facility]ID [facility] 2ND R [id number] TAINA MATA [id number] MEDICAID [id number] TAINA MATA [id number] MEDICARE [id number] TAINA MATA [id number] Self Pay Self N/A Plan of Treatment stable continue current medical treatment f/u mental health f/u psych if condition worsens, then go to ER bp diary f/u one month telemedicine if condition worsens, then go to ER has resolved avoid heavy lifting f/u prn f/u assembl[employer] if condition worsens, then go to ER he agrees to plan stable continue current medical treatment f/u pulmonary letter was written and sent to help patient get an early appt with mary Palafox. gave copy of pulm consultation from summer 2019 to patient. patient has not done the allergy labs yet; he does not know what triggers his as thma he will try and get appt with pulm apr 2020 if he gets labs done, then i can copy of lab results if he does not get any labs done, then he may benefit from seeing president financial institution in n ear future. he agrees to plan if condition worsens, then go to ER f/u three months recently in the ER for asthma exacerbation discontinue symbicort begin advair f/u in one month f/u pulmonary next year if condition worsens, then go to ER reviewed lung function test with patient gave copy of report to patient f/u ultrasound technol; continue current medical treatment if condition worsens, then go to ER he agrees to plan most likely from TMJ dysfunction ibuprofen prn avoid shellfish avoid big bites small bites to avoid stress on the TMJ f/u dentist for cavities he agrees to plan if condition worsens, then go to emergency room stable pft as ordered refilled symbicort he agrees to pneumonia 23 vaccine if condition worsens, then go to ER stable continue current medical treatment f/u mental health avoid heavy lifting avoid strenuous exercise if condition worsens, then go to ER needs improvement f/u mental health continue prozac if condition worsens then go to ER completed wellness exam a1c lifestyle modifications cmp mg phosphorus if condition worsens then go to ER lifestyle modifications f/u 1 week labs as ordered labs as ordered retrieve worship records from recent psych hospitalization if condition worsens, then go to ER Recheck as scheduled with pulmonology for further investigation and treatment. Recheck here 3 months, sooner as needed. Stable. Waiting for a appointment with pulmonary. Recheck one month, sooner as needed. 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 Continue Symbicort and refer to pulmonology. Well controlled and back to baseline except for a lingering cough. Get PFTs as scheduled today and recheck 6 months. Continue current plan for now. Taina Mata is a 38-year-old male with past medical history of asthma with HPI and physical examination indicative of viral URI versus bacterial pharyngitis. Rapid strep i s negative. There is no current indication for asthma exacerbation. Rapid strep with reflex to culture Twice daily salt water gargle Encouraged rest and fluids Continue asthma medications Encouraged to call for worrisome symptoms and signs Future Tests Future scheduled test information is unavailable Pending Tests Pending diagnostic test information is unavailable Future Visits Future appointment information is unavailable Referrals to Other Providers Reason for Referral Referral Start Date Provider Provider Conta ct Information Provider Address Taina Claros DO Email: [email or web address] Phone: [phone] [facility] [address] office closed at this time, we will call you tomorrow when we set you up and appointment. Taina Claros DO Email: [email or web address] Phone: [phone] [facility] [address] Follow-up in 3 to 5 days. Referral to pulmonology per primary. Taina Claros DO Email: [email or web address] Phone: [address] [place] [address] Taina Claros DO Email: [email or web address] Phone: [address] [place] [address] Armen Dunlap MD Work Phone: [facility] [address] [place] [address] Gabriel Alcantara MD Email: [email or web address] Phone: [address] [place] [address] Taina Claros DO Email: [email or web address] Phone: [address] [address] Your follow up appointment has been made for MondayOctober [address] Camilla Sampson MD Work Phone: [phone] [place] [address] Future Procedures Future procedure information is unavailable Future Medications Future medication information is unavailable Patient Instructions Acute Abdominal Pain (DC) Gas and Bloating (GEN) Ventral Hernia Repair (DC) Earache (ED) Contusion in Adults (ED) Asthma (ED) Syncope (ED) Epilepsy (ED) Chest Pain (ED) Social History Smoking Status Status Date of Observation Never smoker May 30, 2020 7:58p m Observation Status Observation Response Raymond e of Response Smoking Status Never smoker May 30, 2020 7:58pm Alcohol Use No May 302020 7:58pm Substance Use No May 30, 2020 7:58pm Assigned Sex Male Vital Signs Vital Reading Result Ref erence Range Collection Date/Time Height 71 [in_i] July 12, 2019 11:24am Weight 253.12 [lb_av] July 12, 2019 11:24am Body Temperature 97.5 [degF] 97.6-99.5 July 12, 2019 11:24am Heart Rate 74 /min 60-100 July 12, 2019 11:24am Respiratory rate 16 /min 12-24 July 12, 2019 11:24am Oxygen saturation by Pulse oximetry 92 % 95- 100 July 12, 2019 11:24am BP Systolic 130 mm[Hg] July 12, 2019 11:24am BP Diastolic 84 mm[Hg] July 12, 2019 11:24am BMI (Body Mass Index) 35.3 kg/m2 July 12, 2019 11:24am Height 71 [in_i] July 26, 2019 1:45pm Weight 251.00 [lb_av] July 26, 2019 1:45pm Heart Rate 78 /min 60-100 July 26, 2019 1:45pm Respiratory rate 18 /min -July 26, 2019 1:45pm Oxygen saturation by Pulse oximetry 97 % 95- 100 July 26, 2019 1:45pm BP Systolic 118 mm[Hg] July 26, 2019 1:45pm BP Diastolic 80 mm[Hg] July 26, 2019 1:45pm BMI (Body Mass Index) 34.9 kg/m2 July 26, 2019 1:45pm Height 71 [in_i] August 08, 2019 4:33pm Weight 251.00 [lb_av] August 08, 2019 4:33pm Heart Rate 70 /min 60-100 August 08, 2019 4:33pm Respiratory rate 16 /min 05-14August 08, 2019 4:33pm Oxygen saturation by Pulse oximetry 99 % 95- 100 August 08, 2019 4:33pm BP Systolic 122 mm[Hg] August 08, 2019 4:33pm BP Diastolic 80 mm[Hg] August 08, 2019 4:33pm BMI (Body Mass Index) 34.9 kg/m2 August 08, 2019 4:33pm Height 71 [in_i] August 29, 2019 2:33pm Weight 248.37 [lb_av] August 29, 2019 2:33pm Body Temperature 98.2 [degF] 97.6-99.5 August 29, 2019 2:33pm Heart Rate 78 /min 60-100 August 29, 2019 2:33pm Respiratory rate 20 /min 05-14August 29, 2019 2:33pm Oxygen saturation by Pulse oximetry 95 % 95- 100 August 29, 2019 2:33pm BP Systolic 118 mm[Hg] August 29, 2019 2:33pm BP Diastolic 62 mm[Hg] August 29, 2019 2:33pm BMI (Body Mass Index) 34.6 kg/m2 August 29, 2019 2:33pm Height 71 [in_i] September 27, 2019 9:43am Weight 253.00 [lb_av] September 27, 2019 9:43am Body Temperature 98.0 [degF] 97.6-99.5 September 27, 2019 9:43am Heart Rate 78 /min 60-100 September 27, 2019 9:43am Respiratory rate 18 /min -September 27, 2019 9:43am Oxygen saturation by Pulse oximetry 98 % 95- 100 September 27, 2019 9:43am BP Systolic 128 mm[Hg] September 27, 2019 9:43am BP Diastolic 88 mm[Hg] September 27, 2019 9:43am BMI (Body Mass Index) 35.2 kg/m2 September 27, 2019 9:43am Height 70 [in_i] October 02, 2019 3:46am Weight 254.00 [lb_av] October 02, 2019 3:46am Body Temperature 97.9 [degF] 97.6-99.5 October 04, 2019 7:15am Heart Rate 86 /min 60-100 October 04, 2019 7:15am Respiratory rate 16 /min -October 04, 2019 7:15am Oxygen saturation by Pulse oximetry 94 % 95- 100 October 04, 2019 7:15am BP Systolic 120 mm[Hg] October 04, 2019 7:15am BP Diastolic 78 mm[Hg] October 04, 2019 7:15am BMI (Body Mass Index) 36.3 kg/m2 October 02, 2019 3:45am Height 70 [in_i] October 11, 2019 12:40pm Weight 254.00 [lb_av] October 11, 2019 12:40pm Body Temperature 97.7 [degF] 97.6-99.5 October 11, 2019 12:40pm Heart Rate 81 /min 60-100 October 11, 2019 12:40pm Respiratory rate 18 /min -October 11, 2019 12:40pm Oxygen saturation by Pulse oximetry 97 % 95- 100 October 11, 2019 12:40pm BP Systolic 130 mm[Hg] October 11, 2019 12:40pm BP Diastolic 86 mm[Hg] October 11, 2019 12:40pm BMI (Body Mass Index) 36.4 kg/m2 October 11, 2019 12:40pm Height 70 [in_i] January 01, 2020 11:08am Weight 243.12 [lb_av] January 01, 2020 11:08am Heart Rate 88 /min 60-100 January 01, 2020 11:08am Respiratory rate 16 /min -January 01, 2020 11:08am Oxygen saturation by Pulse oximetry 95 % 95- 100 January 01, 2020 11:08am BP Systolic 110 mm[Hg] January 01, 2020 11:08am BP Diastolic 90 mm[Hg] January 01, 2020 11:08am BMI (Body Mass Index) 34.9 kg/m2 January 01, 2020 11:08am Height 70 [in_i] January 05, 2020 4:22pm Weight 242.00 [lb_av] January 05, 2020 4:22pm Body Temperature 98.4 [degF] 97.6-99.5 January 05, 2020 4:29pm Heart Rate 83 /min 60-100 January 05, 2020 4:29pm Respiratory rate 18 /min -January 05, 2020 4:29pm Oxygen saturation by Pulse oximetry 97 % 95- 100 January 05, 2020 4:29pm BP Systolic 156 mm[Hg] January 05, 2020 4:29pm BP Diastolic 96 mm[Hg] January 05, 2020 4:29pm Height 70 [in_i] January 10, 2020 12:53pm Weight 245.00 [lb_av] January 10, 2020 12:53pm Heart Rate 86 /min 60-100 January 10, 2020 12:53pm Respiratory rate 16 /min -January 10, 2020 12:53pm Oxygen saturation by Pulse oximetry 94 % 95- 100 January 10, 2020 12:53pm BP Systolic 110 mm[Hg] January 10, 2020 12:53pm BP Diastolic 82 mm[Hg] January 10, 2020 12:53pm BMI (Body Mass Index) 35.2 kg/m2 January 10, 2020 12:53pm Height 70 [in_i] February 14, 2020 1:05pm Weight 244.12 [lb_av] February 14, 2020 1:05pm Heart Rate 88 /min 60-100 February 14, 2020 1:05pm Respiratory rate 16 /min -February 14, 2020 1:05pm Oxygen saturation by Pulse oximetry 97 % 95- 100 February 14, 2020 1:05pm BP Systolic 110 mm[Hg] February 14, 2020 1:05pm BP Diastolic 88 mm[Hg] February 14, 2020 1:05pm BMI (Body Mass Index) 35.0 kg/m2 February 14, 2020 1:05pm Height 70 [in_i] March 08, 2020 12:05pm Weight 242.00 [lb_av] March 08, 2020 12:05pm Body Temperature 97.5 [degF] 97.6-99.5 March 08, 2020 12:05pm Heart Rate 71 /min 60-100 March 08, 2020 12:05pm Respiratory rate 16 /min -March 08, 2020 12:05pm Oxygen saturation by Pulse oximetry 97 % 95- 100 March 08, 2020 12:05pm BP Systolic 124 mm[Hg] March 08, 2020 12:05pm BP Diastolic 84 mm[Hg] March 08, 2020 12:05pm Height 70 [in_i] March 17, 2020 10:55pm Weight 240.00 [lb_av] March 17, 2020 10:55pm Body Temperature 97.5 [degF] 97.6-99.5 March 17, 2020 10:50pm Heart Rate 103 /min 60-1 March 17, 2020 10:50pm Respiratory rate 20 /min -March 17, 2020 10:50pm Oxygen saturation by Pulse oximetry 98 % 95- 100 March 17, 2020 10:50pm BP Systolic 149 mm[Hg] March 17, 2020 10:50pm BP Diastolic 93 mm[Hg] March 17, 2020 10:50pm Height 70 [in_i] March 24, 2020 11:34am Weight 244.00 [lb_av] March 24, 2020 11:34am BMI (Body Mass Index) 34.9 kg/m2 March 24, 2020 11:34am Height 70 [in_i] March 31, 2020 10:54am Weight 251.12 [lb_av] March 31, 2020 10:54am Heart Rate 80 /min 60-March 31, 2020 10:54am Respiratory rate 16 /min 05-14March 31, 2020 10:54am Oxygen saturation by Pulse oximetry 94 % 95- 100 March 31, 2020 10:54am BP Systolic 110 mm[Hg] March 31, 2020 10:54am BP Diastolic 90 mm[Hg] March 31, 2020 10:54am BMI (Body Mass Index) 36.0 kg/m2 March 31, 2020 10:54am Height 70 [in_i] April 01, 2020 9:02pm Weight 251.00 [lb_av] April 01, 2020 9:02pm Body Temperature 97.3 [degF] 97.6-99.5 April 01, 2020 8:41pm Heart Rate 106 /min 60-1 April 01, 2020 8:41pm Respiratory rate 20 /min -April 01, 2020 8:41pm Oxygen saturation by Pulse oximetry 96 % 95- 100 April 01, 2020 8:41pm BP Systolic 147 mm[Hg] April 01, 2020 8:41pm BP Diastolic 97 mm[Hg] April 01, 2020 8:41pm Height 70 [in_i] April 10, 2020 9:39pm Weight 215.00 [lb_av] April 10, 2020 9:39pm Body Temperature 98.1 [degF] 97.6-99.5 April 10, 2020 9:54pm Heart Rate 100 /min 60-1 April 10, 2020 9:54pm Respiratory rate 20 /min -April 10, 2020 9:54pm Oxygen saturation by Pulse oximetry 95 % 95- 100 April 10, 2020 9:54pm BP Systolic 146 mm[Hg] April 10, 2020 9:54pm BP Diastolic 92 mm[Hg] April 10, 2020 9:54pm Height 70 [in_i] April 17, 2020 12:25am Weight 251.00 [lb_av] April 17, 2020 12:25am Body Temperature 98.8 [degF] 97.6-99.5 April 17, 2020 2:46am Heart Rate 87 /min 60-100 April 17, 2020 2:46am Respiratory rate 18 /min -April 17, 2020 2:46am Oxygen saturation by Pulse oximetry 100 % 95-100 April 17, 2020 2:46am BP Systolic 149 mm[Hg] April 17, 2020 2:46am BP Diastolic 89 mm[Hg] April 17, 2020 2:46am Height 70 [in_i] April 20, 2020 9:36am Weight 251.25 [lb_av] April 20, 2020 9:36am Heart Rate 84 /min 60-April 20, 2020 9:36am Respiratory rate 16 /min -24 April 20, 2020 9:36am Oxygen saturation by Pulse oximetry 94 % 95- 100 April 20, 2020 9:36am BP Systolic 122 mm[Hg] April 20, 2020 9:36am BP Diastolic 90 mm[Hg] April 20, 2020 9:36am BMI (Body Mass Index) 36.0 kg/m2 April 20, 2020 9:36am Height 70 [in_i] May 01, 2020 11:31am Weight 256.12 [lb_av] May 01, 2020 11:31am Heart Rate 102 /min 60-1 May 01, 2020 11:31am Respiratory rate 16 /min 12-May 01, 2020 11:31am Oxygen saturation by Pulse oximetry 97 % 95- 100 May 01, 2020 11:31am BP Systolic 120 mm[Hg] May 01, 2020 11:31am BP Diastolic 90 mm[Hg] May 01, 2020 11:31am BMI (Body Mass Index) 36.7 kg/m2 May 01, 2020 11:31am Height 70 [in_i] May 04, 2020 4:12pm Weight 255.00 [lb_av] May 04, 2020 4:12pm Body Temperature 98.1 [degF] 97.6-99.5 May 04, 2020 4:00pm Heart Rate 87 /min 60-100 May 04, 2020 4:00pm Respiratory rate 18 /min -May 04, 2020 4:00pm Oxygen saturation by Pulse oximetry 95 % 95- 100 May 04, 2020 4:00pm BP Systolic 134 mm[Hg] May 04, 2020 4:00pm BP Diastolic 82 mm[Hg] May 04, 2020 4:00pm BMI (Body Mass Index) 36.6 kg/m2 May 04, 2020 4:12pm Height 70 [in_i] May 08, 2020 1:42pm Weight 247.37 [lb_av] May 08, 2020 1:42pm Heart Rate 90 /min 60-100 May 08, 2020 1:42pm Respiratory rate 16 /min 12-May 08, 2020 1:42pm Oxygen saturation by Pulse oximetry 94 % 95- 100 May 08, 2020 1:42pm BP Systolic 120 mm[Hg] May 08, 2020 1:42pm BP Diastolic 90 mm[Hg] May 08, 2020 1:42pm BMI (Body Mass Index) 35.4 kg/m2 May 08, 2020 1:42pm Height 70 [in_i] May 11, 2020 3:56pm Weight 249.37 [lb_av] May 11, 2020 3:56pm Heart Rate 88 /min 60-100 May 11, 2020 3:56pm Respiratory rate 18 /min 12-May 11, 2020 3:56pm Oxygen saturation by Pulse oximetry 96 % 95- 100 May 11, 2020 3:56pm BP Systolic 132 mm[Hg] May 11, 2020 3:56pm BP Diastolic 62 mm[Hg] May 11, 2020 3:56pm BMI (Body Mass Index) 35.7 kg/m2 May 11, 2020 3:56pm Height 70 [in_i] May 30, 2020 6:41pm Weight 275.00 [lb_av] May 30, 2020 6:41pm Body Temperature 98.0 [degF] 97.6-99.5 May 30, 2020 10:15pm Heart Rate 68 /min 60-100 May 30, 2020 10:15pm Respiratory rate 20 /min 12-24 May 30, 2020 10:15pm Oxygen saturation by Pulse oximetry 98 % 95- 100 May 30, 2020 10:15pm BP Systolic 126 mm[Hg] May 30, 2020 10:15pm BP Diastolic 79 mm[Hg] May 30, 2020 10:15pm
[2020-06-04] MEDS ORDERED: MONT10TA10 (18:14)
[2020-06-04] MEDS ORDERED: ARIP1TAB6 (18:14)
[2020-06-04] MEDS ORDERED: FLUO40CA (18:14)
[2020-06-04] MEDS ORDERED: BREO1INH3 (18:14)
--- OUTSIDE RECORDS SUMMARY | 2020-06-04 18:14 | CCD ---
Author Rajendra Slaughter Organization Unknown Address [address] [address] Phone Care Team Providers Care Chief Enterprise Architect Name Role Phone Willa Hernández PCP Allergies, Adverse Reactions, Alerts No Data in Section Problem List Concept Problem Description Status Start Date Created Date Resolv ed Date Snomed Code F33.1 Major Depressive Disorder, Recurrent episode, Moderate Active 05/26/2020 Medications No Data in Section Social History Social History Element Description Concept Effective Date Smoking Status Unknown if ever smoked [id number] Immunizations No Data in Section Vital Signs No Data in Section Procedures Date Concept Id Description Targeted Site Concept Targeted Site Concept Type 05/26/2020 89742-02 [facility] Tele[facility] E/M Lvl 3--Est pt CPT Patient has no history of implantable de vices Encounters Encounter Start Date End Date Encounter Type Description Diagnosis Di agnosis Desc Location Author First Name Author Last Name Npid Taxonomy Cod e Taxonomy Desc Phone Number Location Addr1 Location Addr2 Location [facility] Location [facility] Location [facility] [id number] 05/26/2020 05/26/2020 [id number] [facility] Telemed E/M Lvl 3--Est p t F33.1 Major depressive disorder, recurrent, moderate [facility] Crouch [id number] 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
--- OUTSIDE RECORDS SUMMARY | 2020-06-04 18:14 | CCD | Continuity of Care Document ---
Author Author [facility] Address [address] [place] [address] Phone Support Name Relationship Address Phone Osvaldo Chito PRS [address] [place] [address] Seth Leonardo PRS [address] [place] [address] Doctor Provided, Family No PRS Unknown Unava ilable Chito Riley PRS [facility] [place] [address] [place] [address] [place] [address] Taina Miller PRS [address] [place] [address] Dawit Sampson PRS [address] [place] [address] Jeane Solis PRS Unknown Unavailable Gabriel Alcantara PRS [address] [place] [address] Jeanmarie Arteaga PRS [address] [place] [address] Bryant Villalba PRS [address] [place] [address] Cedric Adam PRS [address] [place] [address] Riki Collins PRS [address] [place] [address] Keith Grant PRS [address] [place] [address] Geoff Silva PRS [address] [place] [address] Mirna Varghese PRS [address] [place] [address] Leo Lee PRS [address] [place] [address] Tommie Pinon PRS [address] [place] [address] PaulJose Carlos PRS [address] [place] [address] Er[place] [address] Diogenes Thayer PRS [address] [place] [address] Dayton Hong PRS [address] [place] [address] Sincere HOLLINGSWORTH PRS [address] [place] [address] Damaso Rodas PRS [address] [place] [address] Parviz Wright PRS [address] [place] [address] Jefferson Lei PRS [address] [place] [address] Allergies, Adverse Reactions, Alerts No known allergies. [...] 12:46pm Afluria Qd 2019-(3yr up)(PF) (flu vac [id number] 36mos up(PF)) Discontinued 0.5 ML IM 1 [...] 4 hours 2 February 10, 2015 1:59pm [facility] Oxcarbazepine Discontinued 600 MG PO 2 [...] Active Problems Medical Problem Onset Date Status Dizziness Active Depression Active Moderate persistent asthma [...] wall pain Resolved Vasovagal episode Reso lved Costochondritis, acute Resolved Asthma Resolved Left ankle sprain Reso lved Hypocalcemia Resolved Procedures Procedure Date Performed Status CT Head without contrast May 032019 1:18pm completed CT C-Spine without contrast May 03, 2020 1:18pm completed Xray Chest One View May 03 1:18pm completed Xray Shoulder complete RT April [id number] 1:18pm completed US Echo complete May 04, 2020 10:54am active MRI Brain without contrast May 04, 2020 11:28am completed US Carotid art complete bilat Decemb er 2019 10:54am completed Influenza-Like Illness (PCR) Decembe r [...] Comment Performing Site White Blood Count May 04 0 3:55am 5.6 10e3/uL 4.45-10.71 [facility], [address] [facility] [address] White Blood Count April 17 0 1:00am 8.1 10e3/uL 4.45-10.71 [facility], [address] [place] [address] White Blood Count January 05, 2020 3:52pm 7.0 10e3/uL 4.45-10.71 [facility], [address] [place] [address] Red Blood Count May 04, 2020 3:55am 4.91 10e6/uL 4.3-6.1 [facility], [address] [place] [address] Red Blood Count April 17, 2020 1:00am 5.06 10e6/uL 4.3-6.1 [facility], [address] [place] [address] Red Blood Count January 05, 2020 3:52pm 5.36 10e6/uL 4.3-6.1 [facility], [address] [place] [address] Hemoglobin May 04, 2020 3:55am 14.6 g/dL [facility], [address] [place] [address] Hemoglobin April 17, 2020 1:00am 14.8 g/dL [facility], [address] [place] [address] Hemoglobin January 05, 2020 3:52pm 15.7 g/dL [facility], [address] [place] [address] Hematocrit May 04, 2020 3:55am 43.3 % 42-52 [facility], [address] [place] [address] Hematocrit April 17, 2020 1:00am 44.1 % 42-52 [facility], [address] [place] [address] Hematocrit January 05, 2020 3:52pm 45.3 % 42-52 [facility], [address] [place] [address] Mean Corpuscular Volume April 3:55am 88.2 fl 80-96 [facility], [address] [place] [address] Mean Corpuscular Volume March 1:00am 87.2 fl 80-96 [facility], [address] [place] [address] Mean Corpuscular Volume January 05, 2020 3:52pm 84.5 fl 80-96 [facility], [address] [place] [address] Mean Corpuscular Hemoglobin May 04, 2020 3:55am 29.7 pg 31 [facility], [address] [place] [address] Mean Corpuscular Hemoglobin April 17, 2020 1:00am 29.2 pg 31 [facility], [address] [place] [address] Mean Corpuscular Hemoglobin December 202019 3:52pm 29.3 pg 31 [facility], [address] [place] [address] Mean Corpuscular Hemoglobin Concent May 04, 2020 3:55am 33.7 g/dl [address] [facility], [address] [place] [address] Mean Corpuscular Hemoglobin Concent April 17, 2020 1:00am 33.6 g/dl [address] [place] [address] LABORATORY, [address] [place] [address] Mean Corpuscular Hemoglobin Concent January 05, 2020 3:52pm 34.7 g/dl [address] [place] [address] LABORATORY, [address] [place] [address] Red Cell Distribution Width May 04, 2020 3:55am 12 % 11-15 [facility], [address] [place] [address] Red Cell Distribution Width April 17, 2020 1:00am 12 % 11-15 [facility], [address] [place] [address] Red Cell Distribution Width December 202019 3:52pm 12 % 11-15 [facility], [address] [place] [address] Platelet Count May 04, 2020 3:55am 242 10e3/ul 130-472 [facility], [address] [place] [address] Platelet Count April 17, 2020 1:00am 306 10e3/ul 130-472 [facility], [address] [place] [address] Platelet Count January 05, 2020 3:52pm 293 10e3/ul 130-472 [facility], [address] [place] [address] Mean Platelet Volume May 04, 2020 3:55am 9.2 fl 9.1-13.1 [facility], [address] [place] [address] Mean Platelet Volume April 17, 2020 1:00am 8.9 fl 9.1-13.1 [facility], [address] [place] [address]30[address] Mean Platelet Volume January 04 3:52pm 9.1 fl 9.1-13.1 [facility], [address] [place] [address] Neutrophils (%) (Auto) April 3:55am 62.4 % [address] [facility], [address] [place] [address] 22542 Neutrophils (%) (Auto) March 1:00am 70.3 % [address] [facility], [address] [place] [address] 28976 Neutrophils (%) (Auto) January 05, 2020 3:52pm 70.9 % [address] [facility], [address] [place] [address] 38649 Absolute Neutrophil May 04, 020 3:55am 3.5 # 1.7-7.6 [facility], [address] [place] [address] 35380 Absolute Neutrophil April 17, 2 020 1:00am 5.7 # 1.7-7.6 [facility], [address] [place] [address] 70931 Absolute Neutrophil January 04 0 3:52pm 5.0 # 1.7-7.6 [facility], [address] [place] [address] 09633 Lymphocytes (%) (Auto) April 3:55am 24.5 % 14-46 [facility], [address] [place] [address] 43138 Lymphocytes (%) (Auto) March 1:00am 19.3 % 14-46 [facility], [address] [place] [address] 63561 Lymphocytes (%) (Auto) January 05, 2020 3:52pm 18.8 % 14-46 [facility], [address] [place] [address] 07533 Lymphocytes # (Auto) May 04, 2020 3:55am 1.4 # 0.6-4.6 [facility], [address] [place] [address] 26751 Lymphocytes # (Auto) April 17, 2020 1:00am 1.6 # 0.6-4.6 [facility], [address] [place] [address] 38201 Lymphocytes # (Auto) January 04 3:52pm 1.3 # 0.6-4.6 [facility], [address] [place] [address] 32269 Monocytes (%) (Auto) May 04, 2020 3:55am 9.0 % 4-12 [facility], [address] [place] [address] 70411 Monocytes (%) (Auto) April 17, 2020 1:00am 8.4 % 4-12 [facility], [address] [place] [address] 60843 Monocytes (%) (Auto) January 04 3:52pm 7.4 % 4-12 [facility], [address] [place] [address] 80386 Monocytes # May 04, 2020 3:55am 0.5 # 0.2-1.2 [facility], [address] [place] [address] 61711 Monocytes # April 17, 2020 1:00am 0.7 # 0.2-1.2 [facility], [address] [place] [address] 79294 Monocytes # January 05, 2020 3:52pm 0.5 # 0.2-1.2 [facility], [address] [place] [address] 45463 Eosinophils (%) (Auto) April 3:55am 3.5 % 0-7 [facility], [address] [place] [address] 63271 Eosinophils (%) (Auto) March 1:00am 1.8 % 0-7 [facility], [address] [place] [address] 87208 Eosinophils (%) (Auto) January 05, 2020 3:52pm 2.3 % 0-7 [facility], [address] [place] [address] 17250 Absolute Eosinophils (CBC) May 04, 2020 3:55am 0.2 # 0.0-0.5 [facility], [address] [place] [address] 81819 Absolute Eosinophils (CBC) April 17, 2020 1:00am 0.2 # 0.0-0.5 [facility], [address] [place] [address] 14351 Absolute Eosinophils (CBC) January 042019 3:52pm 0.2 # 0.0-0.5 [facility], [address] [place] [address] 96675 Basophils (%) (Auto) May 04, 2020 3:55am 0.4 % 0.4-1.3 [facility], [address] [place] [address] 97717 Basophils (%) (Auto) April 17, 2020 1:00am 0.1 % 0.4-1.3 [facility], [address] [place] [address] Basophils (%) (Auto) January 04 3:52pm 0.3 % 0.4-1.3 [facility], [address] [place] [address] Absolute Basophils (CBC) May 042019 3:55am 0.0 # 0.0-0.2 [facility], [address] [place] [address] Absolute Basophils (CBC) April 172019 1:00am 0.0 # 0.0-0.2 [facility], [address] [place] [address] Absolute Basophils (CBC) December 3:52pm 0.0 # 0.0-0.2 [facility], [address] [place] [address] 53510 Immature Granulocyte % (Auto) [facility] [place] 2019 3:55am 0.2 % 0-2 [facility], [address] [place] [address] Immature Granulocyte % (Auto) [facility] 2019 1:00am 0.1 % 0-2 [facility], [address] [place] [address] Immature Granulocyte % (Auto) January 05, 2020 3:52pm 0.3 % 0-2 [facility], [address] [place] [address] 23271 Absolute Immature Granulocyte (auto May 04, 2020 3:55am 0.0 # 0-0.1 [facility], [address] [place] [address] Absolute Immature Granulocyte (auto April 17, 2020 1:00am 0.0 # 0-0.1 [facility], [address] [place] [address] Absolute Immature Granulocyte (auto January 05, 2020 3:52pm 0.0 # 0-0.1 [facility], [address] [place] [address] 24524 Add Manual Differential April 3:55am No [facility], [address] [place] [address] Add Manual Differential March 1:00am No [facility], [address] [place] [address] 44369 Add Manual Differential January 05, 2020 3:52pm No [facility], [address] [place] [address] Prothrombin Time May 03, 2020 1:40p m 10.3 SECONDS 9.6-12.3 [facility], [address] [place] [address] 03200 INR International Normalized Ratio D ecember 2019 1:40pm 1.0 0.9-1.1 THE INR IS OPERATIONALLY DEFINED FOR BULMARO SH PLASMA FROMPATIENTS STABILIZED ON ORAL ANTICOAGULANTS. ROUTINE ANTICOAGULANT THERAPY 2.0-3.0RECURRENT SYSTEMIC EMBOLISM/HEART VALVE REPLACEMENT 2.5-3.5 [facility], [address] [place] [address] Partial Thromboplastin Time - Jermaine D 2019 1:40pm 25.9 SECONDS 22.7-31.6 [facility], [address] [place] [address] D-Dimer April 17, 2020 1:00am 0.46 mg/L 0.0-0.50 PLEASE NOTE: THIS TEST WAS PERFORMED USING A PARTICLE-ENHANCED, IMMUNOTURBIDIMETRIC ASSAY AND HAS A SINGLE,CLINICALLY DERIVED CUTOFF OF 0.50 MG/L. [facility], [address] [place] [address] Blood Urea Nitrogen May 04 020 3:55am 20 mg/dL 02-11 [facility], [address] [place] [address] Blood Urea Nitrogen January 04 0 3:52pm 12 mg/dL 02-11 [facility], [address] [place] [address] Blood Urea Nitrogen December 31 0 11:16am 21 mg/dL 02-11 [facility], [address] [place] [address] Sodium Level May 04, 2020 3:55am 142 mmol/L 132-146 [facility], [address] [place] [address] Sodium Level January 05, 2020 3:52pm 138 mmol/L 132-146 [facility], [address] [place] [address] Sodium Level January 01, 2020 11:16am 142 mmol/L 132-146 [facility], [address] [place] [address] Potassium Level May 04, 2020 3:55am 4.1 mmol/L 3.5-5.5 [facility], [address] [place] [address] 05847 Potassium Level January 05, 2020 3:52pm 3.9 mmol/L 3.5-5.5 [facility], [address] [place] [address] 88001 Potassium Level January 01, 2020 11:16am 4.7 mmol/L 3.5-5.5 [facility], [address] [place] [address] 95065 Chloride Level May 04, 2020 3:55am 109 mmol/l 99-109 [facility], [address] [place] [address] 08549 Chloride Level January 05, 2020 3:52pm 108 mmol/l 99-109 [facility], [address] [place] [address] 63531 Chloride Level January 01, 2020 11:16am 111 mmol/l 99-109 [facility], [address] [place] [address] 21154 Carbon Dioxide Level May 04, 2020 3:55am 27 mmol/l 20-31 [facility], [address] [place] [address] 96852 Carbon Dioxide Level January 04 3:52pm 25 mmol/l 20-31 [facility], [address] [place] [address] 73549 Carbon Dioxide Level December 31 11:16am 24 mmol/l - [facility], [address] [place] [address] 43388 Anion Gap May 04, 2020 3:55am 10 mmol/l 8-16 [facility], [address] [place] [address] 97657 Anion Gap January 05, 2020 3:52pm 9 mmol/l 8-16 [facility], [address] [place] [address] 68929 Anion Gap January 01, 2020 11:16am 12 mmol/l 8-16 [facility], [address] [place] [address] 16674 Glucose Level May 04, 2020 3:55am 102 mg/dL 74-106 [facility], [address] [place] [address] 48035 Glucose Level January 05, 2020 3:52pm 107 mg/dL 74-106 [facility], [address] [place] [address] 02132 Glucose Level January 01, 2020 11:16am 107 mg/dL 74-106 [facility], [address] [place] [address] 37645 Creatinine May 04, 2020 3:55am 1.0 mg/dL 0.5-1.1 [facility], [address] [place] [address] Creatinine January 05, 2020 3:52pm 1.0 mg/dL 0.5-1.1 [facility], [address] [place] [address] Creatinine January 01, 2020 11:16am 1.2 mg/dL 0.5-1.1 [facility], [address] [place] [address] Glomerular Filtration Rate Calc Dece mber 2019 3:55am Greater than 60 ml/min ABOVE 60 [facility], [address] [place] [address] Glomerular Filtration Rate Calc Augu st 2019 3:52pm Greater than 60 ml/min ABOVE 60 [facility], [address] [place] [address] Glomerular Filtration Rate Calc Augu st 2019 11:16am Greater than 60 ml/min ABOVE 60 [facility], [address] [place] [address] 32928 Alanine Aminotransferase (ALT/SGPT) May 04, 2020 3:55am 60 U/L 10-49 [facility], [address] [place] [address] Alanine Aminotransferase (ALT/SGPT) January 05, 2020 3:52pm 65 U/L 10-49 [facility], [address] [place] [address] Alanine Aminotransferase (ALT/SGPT) January 01, 2020 11:16am 66 U/L 10-49 [facility], [address] [place] [address] 11868 Aspartate Amino Transf (AST/SGOT) De cember 2019 3:55am 28 U/L 0-33 [facility], [address] [place] [address] Aspartate Amino Transf (AST/SGOT) Au abraham 2019 3:52pm 30 U/L 0-33 [facility], [address] [place] [address] Aspartate Amino Transf (AST/SGOT) Au abraham 2019 11:16am 22 U/L 0-33 [facility], [address] [place] [address] Alkaline Phosphatase May 04, 2020 3:55am 65 U/L 45-129 [facility], [address] [place] [address] Alkaline Phosphatase January 04 3:52pm 77 U/L 45-129 [facility], [address] [place] [address] 39883 Alkaline Phosphatase December 31 11:16am 77 U/L 45-129 [facility], [address] [place] [address] 42758 Calcium Level May 04, 2020 3:55am 8.4 mg/dL 8.5-10.1 [facility], [address] [place] [address] Calcium Level January 05, 2020 3:52pm 8.9 mg/dL 8.5-10.1 [facility], [address] [place], [place] [id number] Calcium Level January 01, 2020 11:16am 9.0 mg/dL 8.5-10.1 Delta: 8.0 on 10/02/19-524Repeated by: Tammy Griffiths 01/01/20 1339.Result Confirmation: 8.7 mg/dL [facility], [address] [place], [place] [id number] Total Bilirubin May 04, 2020 3:55am 0.6 mg/dL 0.3-1.2 [facility], [address] [place], [place] [id number] Total Bilirubin January 05, 2020 3:52pm 0.6 mg/dL 0.3-1.2 [facility], [address] [place], [place] [id number] Total Bilirubin January 01, 2020 11:16am 0.4 mg/dL 0.3-1.2 [facility], [address] [place] [address] 04176 Albumin May 04, 2020 3:55am 3.4 g/dL 3.2-4.8 [facility], [address] [place], [place] [id number] Albumin January 05, 2020 3:52pm 3.7 g/dL 3.2-4.8 [facility], [address] [place], [place] [id number] Albumin January 01, 2020 11:16am 3.9 g/dL 3.2-4.8 [facility], [address] [place] [address] 71641 Serum Total Protein May 04, 020 3:55am 6.7 g/dL 5.7-8.2 [facility], [address] [place] [address] Serum Total Protein January 04 0 3:52pm 7.0 g/dL 5.7-8.2 [facility], [address] [place] [address] 27161 Serum Total Protein December 31 11:16am 7.0 g/dL 5.7-8.2 [facility], [address] [place] [address] 92445 Phosphorus Level January 01, 2020 11:16am 3.1 mg/dL 2.4-5.1 [facility], [address] [place] [address] 32447 Magnesium Level January 01, 2020 11:16am 2.4 mg/dL 1.3-2.7 [facility], [address] [place] [address] 30054 Urine Marijuana (THC) Screen 2019 3:00pm Negative ng/mL Cutoff 50 [facility], [address] [place] [address] 82689 Urine Phencyclidine Screen May 03, 2020 3:00pm Negative ng/mL Cutoff 25 [facility], [address] [place] [address] 73312 Urine Cocaine Screen May 03, 2020 3:00pm Negative ng/mL Cutoff 150 [facility], [address] [place] [address] 84346 Urine Methamphetamines Screen 2019 3:00pm Negative ng/mL Cutoff 500 [facility], [address] [place] [address] Urine Opiates Screen May 03, 2020 3:00pm Negative ng/mL Cutoff 100 [facility], [address] [place] [address] 86495 Urine Amphetamines Screen April 212019 3:00pm Negative ng/mL Cutoff 500 [facility], [address] [place] [id number] Urine Benzodiazepines Screen 2019 3:00pm Negative ng/mL Cutoff 150 [facility], [address] [place] [id number] Ur Tricyclic Antidepressants Screen May 03, 2020 3:00pm Negative ng/mL Cutoff 300 [facility], [address] [place] [id number] Urine Methadone Screen April 3:00pm Negative ng/mL Cutoff 200 [facility], [address] [place] [id number] Urine Barbiturates May 03 3:00pm Negative ng/mL Cutoff 200 [facility], [address] [place] [address] Urine Oxycodone Screen April 3:00pm Negative ng/mL Cutoff 100 [facility], [address] [place] [address] Urine Propoxyphene Screen April [id number] 3:00pm Negative ng/mL Cutoff 300 [facility], [address] [place] [address] Urine Buprenorphine Screen May 03, 2020 3:00pm Negative ng/mL Cutoff 10 [facility], [address] [place] [address] Troponin I May 04, 2020 3:55am Less than 0.015 ng/mL 0.00-0.09 Less than 0.09 NG/ML Negative0.10 - 0.77 NG/ML High Risk0.78 NG/ML or Greater Positive The WHO defined the cutoff (definition for diagnosis of DC)for this method as 0.78 ng/ml. [facility], [address] [place] [address] Troponin I January 05, 2020 3:52pm Less than 0.015 ng/mL 0.00-0.09 Less than 0.09 NG/ML Negative0.10 - 0.77 NG/ML High Risk0.78 NG/ML or Greater Positive The WHO defined the cutoff (definition for diagnosis of DC)for this method as 0.78 ng/ml. [facility], [address] [place] [address] Thyroid Stimulating Hormone (TSH) Au 2019 11:16am 1.04 uIU/mL 0.35-5.50 [facility], [address] [place] [address] Hemoglobin A1c January 01, 2020 11:16am 6.1 [...] glucose control. * High risk of developing middle or intermediate school principal complications such asretinopathy, nephropathy, neuropathy, cardiopathy, etc. Some danger of hypoglycemic reaction in Type I diabetics.Some glucose intolerant individuals and "Sub Clinical"diabetics may demonstrate HGBA1C levels in this area. [facility], [address] [place] [address] Estimated Average Glucose (eAG) Augu 2019 11:16am 128 mg/dl An A1C of 7% - the goal of diabetic ther apy - is equivalentto an EAG of 154 mg/dl. [facility], [address] [place] [id number] Microbiology Results Procedure Source Result Collection Date/Time Result Date/Time Result Comment Performing Site Streptococcus Rapid Screen Throat July 12, 2019 12:05pm July 13, 2019 9:35am [facility], [address] [place] [address] Blood Culture Venous blood No growth. April 17, 2020 1:00am April 22, 2020 1:07am [facility], [address] [place] [address] Influenza-Like Illness (PCR) Nasopharyngea l No Organisms Detected May 03, 2020 4:15pm May 03, 2020 4:48pm [facility], [address] [place] [address] Nasopharyngeal May 03, 2020 4:15pm May 03, 2020 4:48pm [facility], [address] [place] [address] Respiratory Panel (PCR) Nasopharyngeal No Organisms Detected April 17, 2020 1:10am April 17, 2020 2:02am [facility], [address] [place] [address] Diagnostic Imaging Reports Report Dictated Date/Time Dictated By Status Radiology Report September 27, 2019 10:48am Jalen Diamond MD completed [place] [address] [facility] [place] [address] [phone] NAME SEX PT STATUS ACCOUNT NUMBER Taina Mata REG REF [id number] ORDERING PHYSICIAN LOCATION MEDICAL RECORD NO. [facility] [id number] ATTENDING PHYSICIAN DATE OF DATE OF EXAM/TIME Chito Riley MD 1980 09/27/19 / 1043 TYPE / EXAM Xray Chest 2 view [...] Trans Dt/Tm: Trans by: DT Prt Dt/Tm: [id number]: Total DLP = 0.00 mGy-cm Fluoroscopy Time (in secs): Radiology Report January 05, 2020 6:33pm Luigi Gordon MD completed [facility] [address] [place] [id number] [phone] NAME SEX PT STATUS ACCOUNT NUMBER TAINA MATA [facility] [id number] ORDERING PHYSICIAN LOCATION MEDICAL RECORD NO. Jeanmarie CABRAL [facility] [id number] ATTENDING PHYSICIAN DATE OF DATE OF EXAM/TIME Taina Miller DO 1980 01/05/20 / 1639 TYPE / [...] MD on 01/05/201832 Date Time CC: Taina Miller DO; Luigi Gordon MD Techn: EBEBR Trans Dt/Tm: Trans by: DT Prt Dt/Tm: : Total DLP = 2510.00 mGy-cm : Total Radiation Dose = 37.6500 mSv Lifetime Dose: 37.6500 mS v Radiology Report March 08, 2020 2:53pm Mesha Mccabe MD completed [facility] [address] [place] [id number] [phone] NAME SEX PT STATUS ACCOUNT NUMBER TAINA MATA [facility] [id number] ORDERING PHYSICIAN LOCATION MEDICAL RECORD NO. Cedric Adam MD ER [id number] ATTENDING PHYSICIAN DATE OF DATE OF EXAM/TIME Taina Miller DO 1980 03/08/20 / 6 TYPE / EXAM Xray Abdomen 1 View [...] MD on 03/08/201452 Date Time CC: Taina Miller DO; Mesha Mccabe MD Techn: MORSA Trans Dt/Tm: Trans by: DT Prt Dt/Tm: [id number]: Total DLP = 0.00 mGy-cm Fluoroscopy Time (in secs): Radiology Report April 11, 2020 12:02am Kraig Walker MD completed [facility] [address] [place] [address] [phone] NAME SEX PT STATUS ACCOUNT NUMBER TAINA MATA [facility] [id number] ORDERING PHYSICIAN LOCATION MEDICAL RECORD NO. Geoff Silva DO [id number] ATTENDING PHYSICIAN DATE OF DATE OF EXAM/TIME Taina Miller DO 1980 04/10/202222 TYPE / EXAM Xray Chest 2 view [...] on 04/11/20 0002 Date Time CC: Taina Miller DO; Kraig Walker MD Techn: PALHE Trans Dt/Tm: Trans by: DT Prt Dt/Tm: [id number]: Total DLP = 0.00 mGy-cm Fluoroscopy Time (in secs): Radiology Report April 17, 2020 2:38a m Cedric Harding MD completed [place] [id number] [place] [address]67 [phone] NAME SEX PT STATUS ACCOUNT NUMBER TAINA MATA [facility] [id number] ORDERING PHYSICIAN LOCATION MEDICAL RECORD NO. Mirna Varghese MD ER [id number] ATTENDING PHYSICIAN DATE OF DATE OF EXAM/TIME Taina Miller DO 1980 04/17/2033 TYPE / EXAM Xray Chest 2 view [...] MD on 04/17/20237 Date Time CC: Taina Miller DO; Cedric Harding MD Techn: ORIANA Trans Dt/Tm: Trans by: DT Prt Dt/Tm: [id number]: Total DLP = 0.00 mGy-cm Fluoroscopy Time (in secs): Radiology Report May 03, 2020 2:42p m Suyapa Armando MD completed [facility] [address] [place] [address] [phone] NAME SEX PT STATUS ACCOUNT NUMBER TAINA MATA [facility] ER [id number] ORDERING PHYSICIAN LOCATION MEDICAL RECORD NO. Leo Lee MD ER [id number] ATTENDING PHYSICIAN DATE OF DATE OF EXAM/TIME Taina Miller DO 1980 05/03/201317 TYPE / EXAM CT [...] MD on 05/03/201441 Date Time CC: Taina Miller DO; Suyapa Armando MD Techn: EBEBR Trans Dt/Tm: Trans by: DT Prt Dt/Tm: [id number]: Total DLP = 630.00 mGy-cm 6266-0704: Total Radiation Dose = 0.0000 mSv Lifetime Dose: 39.5875 mSv Radiology Report May 03, 2020 2:58p m Suyapa Armando MD completed [facility] [address] [facility] [address] [place] [address] [phone] NAME SEX PT STATUS ACCOUNT NUMBER TAINA MATA [facility] ER [id number] ORDERING PHYSICIAN LOCATION MEDICAL RECORD NO. Leo Lee MD ER [id number] ATTENDING PHYSICIAN DATE OF DATE OF EXAM/TIME Taina Miller DO 1980 05/03/201317 TYPE / EXAM CT Head without contrast [...] M.D. Reported By Suyapa Armando MD on 05/03/20 1458 Signed By Suyapa Armando MD on 05/03/20 145 Date Time CC: aTina Miller DO; Suyapa Armando MD Techn: EBEBR Trans Dt/Tm: Trans by: DT Prt Dt/Tm: : Total DLP = 625.00 mGy-cm : Total Radiation Dose = 1.9375 mSv Lifetime Dose: 39.5875 mSv Radiology Report May 03, 2020 3:00p maryellen Miller MD completed [place] [id number] [place] [address] [phone] NAME SEX PT STATUS ACCOUNT NUMBER TAINA MATA [facility] ER [id number] ORDERING PHYSICIAN LOCATION MEDICAL RECORD NO. Leo Lee MD ER [id number] ATTENDING PHYSICIAN DATE OF DATE OF EXAM/TIME Taina Miller DO 1980 05/03/201317 TYPE / EXAM Xray Chest One View [...] on 05/03/20 1500 Date Time CC: Taina Miller DO; Ayden Miller MD Techn: EBEBR Trans Dt/Tm: Trans by: DT Prt Dt/Tm: [id number]: Total DLP = 0.00 mGy-cm Fluoroscopy Time (in secs): Radiology Report May 03, 2020 3:00p m Ayden Miller MD completed [address] [address] [phone] NAME SEX PT STATUS ACCOUNT NUMBER TAINA MATA [facility] ER [id number] ORDERING PHYSICIAN LOCATION MEDICAL RECORD NO. Leo Lee MD ER [id number] ATTENDING PHYSICIAN DATE OF DATE OF EXAM/TIME Taina Miller DO 1980 05/03/201317 TYPE / EXAM Xray [...] on 05/03/20 1500 Date Time CC: Taina Miller DO; Ayden Miller MD Techn: EBEBR Trans Dt/Tm: Trans by: DT Prt Dt/Tm: [id number]: Total DLP = 0.00 mGy-cm Fluoroscopy Time (in secs): Radiology Report May 04, 2020 11:41am Lm aMchuca MD completed [place] [address] [place] [address] [phone] NAME SEX PT STATUS ACCOUNT NUMBER TAINA MATA [facility] [id number] ORDERING PHYSICIAN LOCATION MEDICAL RECORD NO. Tommie Pinon MD [id number] ATTENDING PHYSICIAN DATE OF DATE OF EXAM/TIME Taina Miller 1980 05/04/208 TYPE / EXAM MRI Brain without contrast [...] on 05/04/20 1141 Date Time CC: Taina Miller DO; Lm Machuca MD Techn: EUN Trans Dt/Tm: Trans by: DT Prt Dt/Tm: : Total DLP = 0.00 mGy-cm : Total Radiation Dose = 0.0000 mSv Lifetime Dose: 39.5875 mSv Radiology Report May 04, 2020 4:51p m Isamar Llamas MD completed [facility] [address] [facility] [address] [place] [address] [phone] NAME SEX PT STATUS ACCOUNT NUMBER TAINA MATA [facility] [id number] ORDERING PHYSICIAN LOCATION MEDICAL RECORD NO. Horace Mcnulty [id number] ATTENDING PHYSICIAN DATE OF DATE OF EXAM/TIME Taina Miller 1980 05/04/20 1054 TYPE / EXAM US Carotid art complete [...] MD on 05/04/201651 Date Time CC: Taina Miller DO; Isamar Llamas MD Techn: FREST Trans Dt/Tm: Trans by: DT Prt Dt/Tm: : Total DLP = 0.00 mGy-cm : Total Radiation Dose = 0.0000 mSv Lifetime Dose: 39.5875 mSv Health Concerns Health Concerns may be documented in an alternate section. Advance Directives Advance Directive Response Recorded Date/Time Advanced Directive No 2019 10:26am MOLST No May 08, 2020 10:26am Advance Directives on File or in chart? No May 08, 2020 10:26am Does Patient have a DNR? No May 08, 2020 10:26am Healthcare Proxy Yes Dec emb2019 10:26am Health Care Proxy Name yeimi ro May [...] BREATHING PULMONARY Hospital Discharge Follow-up SOB Asthma follow-upxiangeltaina Test result SYNCOPE Depression follow-up syncope R55 Shoulder pain/injury Reason for Visit Dizziness Obesity Depression Depression Moderate persistent asthma Elevated BP without diagnosis of hypertension Depression Encounters Encounter Location(s) Ar rival/Admit Date Discharge/Depart Date Provider(s) Departed Physician/Provider Office Visit [facility] July 12, 2019 11:03am July 12, 2019 12:57pm Seth Leonardo DO Registered Referred [facility] Drop Off July 12, 2019 12:05pm Seth Leonardo DO Departed Physician/Provider Office Visit [facility] July 26, 2019 1:34pm July 26, 2019 2:34pm Chito Riley MD Departed Physician/Provider Office Visit [facility] August 08, 2019 2:50pm August 08, 2019 3:58pm Chito Riley MD Departed Physician/Provider Office Visit [facility] August 29, 2019 1:15pm August 29, 2019 2:06pm Chito Riley MD Departed Physician/Provider Office Visit [facility] September 27, 2019 8:42am September 27, 2019 9:35am Maryellen Shelton Registered Referred [facility]Rad[facility] September 27, 2019 9:33am S STEVO RAY Registered Outpatient [facility] October 02, 2019 2:26am Dawit Sampson MD Registered Outpatient [facility] October 03, 2019 6:42am October 04, 2019 7:30am Dawit Sampson MD Registered Outpatient [facility] October 07, 2019 1:34pm Jeane Solis RN Departed Physician/Provider Office Visit [facility] October 11, 2019 11:39am October 11, 2019 11:49am Maryellen Obregon Departed Physician/Provider Office Visit [facility] January 01, 2020 9:32am January 01, 2020 12:12pm Taina Miller , DO Registered Referred [facility]Labor[facility] January 01, 2020 11:05am Taina Miller , DO Departed Emergency [facility] ER January 05, 2020 3:17pm January 05, 2020 5:45pm null Departed Physician/Provider Office Visit [facility] January 10, 2020 11:33am January 10, 2020 12:18pm Taina Miller , DO Departed Physician/Provider Office Visit [facility] February 14, 2020 11:37am February 14, 2020 12:32pm Taina Miller , DO Registered Outpatient [facility] March 04, 2020 11:56am Taina Miller , DO Departed Emergency [facility] ER March 08, 2020 11:04am March 08, 2020 2:00pm null Departed Emergency [facility] ER March 17, 2020 9:49pm March 17, 2020 10:33pm null Registered Clinical [facility] March 20, 2020 11:43am Taina Miller , DO Departed Physician/Provider Office Visit [facility] March 31, 2020 10:22am March 31, 2020 11:47am Taina Miller DO Departed Emergency [facility] ER April 01, 2020 8:39pm April 01, 2020 9:32pm null Departed Emergency [facility] April 10, 2020 9:36pm April 10, 2020 11:40pm null Registered Outpatient [facility] April 13, 2020 12:55pm Taina Miller , DO Departed Physician/Provider Office Visit [facility] April 14, 2020 9:16am April 14, 2020 1:07pm Taina Miller DO Departed Emergency [facility] April 17, 2020 12:07am April 17, 2020 3:00am null Departed Physician/Provider Office Visit [facility] April 20, 2020 9:12am April 20, 2020 10:34am Taina Miller , DO Departed Physician/Provider Office Visit [facility] May 01, 2020 10:42am May 01, 2020 11:57am Taina Miller DO Discharged Inpatient [facility] May 03, 2020 5:16pm May 04, 2020 5:30pm Tommie Pinon MD Departed Physician/Provider Office Visit [facility] May 08, 2020 1:30pm May 08, 2020 2:23pm Taina Miller DO Registered Referred [facility]Res[facility] May 11, 2020 8:09am Taina Miller DO Departed Physician/Provider Office Visit [facility] May 11, 2020 3:14pm May 11, 2020 4:40pm Taina Miller DO Recent Diagnosis Onset Date Dizziness Obesity Depression Depression Moderate persistent asthma Elevated BP without diagnosis of hypertension Depression Assessments Work-up negative for pneumonia. D-dimer negative. [...] Response Raymond e Recorded Functional Status Complete Esmeralda May 03, 2020 5:42pm Goals Goals may be documented in an alternate section. Immunizations Immunization Event Date Not Given Reason Dose Number [employer] Lot Number Vaccine Information Statement (VIS) Deta il influenza vaccine, inactivated Novem 2019 [id number] pneumococcal polysaccharide PPV23 vaccine March 31, 2020 [id number] Mental Status Observation Response Raymond e Recorded Cognitive Status Normal Cognition May 03, 2020 5:42pm Impairments No impairments or barriers May 08, 2020 10:26am Medical Equipment No Medical Equipment Information available Insurance Providers Guarantor TAINA MATA Address [address] [place] [address] Contact Info. Home Phone: Payer Policy Id Coverage Id Subscriber's Name Subscriber Id Effective Date Expiration Date MEDICARE [employer] [id number] TAINA MATA [id number] [place] [id number] TAINA MATA [id number] [place] [id number] TAINA MATA [id number] [place] R [id number] TAINA MATA [id number] MEDICAID [id number] TAINA MATA [id number] MEDICARE [id number] TAINA MATA [id number] Self Pay Self N/A Plan of Treatment stable continue current medical treatment f/u mental health f/u psych if condition worsens, then go to ER bp diary f/u one month telemedicine if condition worsens, then go to ER has resolved avoid heavy lifting f/u prn stable continue current medical treatment f/u pulmonary [...] done, then 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 Continue Symbicort and refer to pulmonology. Well [...] Provider Provider Conta ct Information Provider Address office closed at this time, we will call you tomorrow when we set you up and appointment. Taina Miller DO Email: [email or web address] Phone: [address] [place] [phone] Follow-up in 3 to 5 days. Referral to pulmonology per primary. Taina Miller DO Email: [email or web address] Phone: [address] [place] [phone] Taina Miller DO Email: [email or web address] Phone: [address] [place] [phone] Armen Dunlap MD Work Phone: [facility] [address] [place] [address] Gabriel Alcantara MD Email: [email or web address] Phone: [address] [place] [phone] Taina Miller DO Email: [email or web address] Phone: [address] [place] [phone] Your follow up appointment has been made for MondayOctober [address] Camilla Sampson MD Work Phone: [address] [place] [address] Future Procedures Future procedure information is unavailable Future Medications Future medication information is unavailable Patient Instructions Acute Abdominal Pain (DC) Gas and Bloating (GEN) Ventral Hernia Repair (DC) Earache (ED) Contusion in Adults (ED) Asthma (ED) Syncope (ED) Epilepsy (ED) Social History Smoking Status Status Date of Observation Never smoker May 08, 2020 10: 26am Observation Status Observation Response Raymond e of Response Smoking Status Never smoker May 08, 2020 10:26am Alcohol Use No May 08, 2020 10:26am Substance Use No [facility] 2019 10:26am Assigned Sex Male Vital Signs Vital Reading Result Ref erence Range Collection Date/Time Height 71 [in_i] July 12, 2019 11:24am Weight 253.12 [lb_av] July 12, 2019 11:24am Body Temperature 97.5 [degF] 97.6-99.5 July 12, 2019 11:24am Heart Rate 74 /min 60-100 July 12, 2019 11:24am Respiratory rate 16 /min 12-July 12, 2019 11:24am Oxygen saturation by Pulse [...] 26, 2019 1:45pm Respiratory rate 18 /min 12-24 July 26, 2019 1:45pm Oxygen saturation by Pulse [...] 08, 2019 4:33pm Respiratory rate 16 /min 12-August 08, 2019 4:33pm Oxygen saturation by Pulse [...] 29, 2019 2:33pm Respiratory rate 20 /min -August 29, 2019 2:33pm Oxygen saturation by Pulse [...] 04, 2019 7:15am Respiratory rate 16 /min 12-October 04, 2019 7:15am Oxygen saturation by Pulse [...] 31, 2020 10:54am Heart Rate 80 /min 60-100 March 31, 2020 10:54am Respiratory rate 16 /min -March 31, 2020 10:54am Oxygen saturation by Pulse [...] 10, 2020 9:54pm Respiratory rate 20 /min 12-April 10, 2020 9:54pm Oxygen saturation by Pulse [...] 20, 2020 9:36am Heart Rate 84 /min 60-100 April 20, 2020 9:36am Respiratory rate 16 /min -April 20, 2020 9:36am Oxygen saturation by Pulse [...] 01, 2020 11:31am Respiratory rate 16 /min -May 01, 2020 11:31am Oxygen saturation by Pulse [...] 08, 2020 1:42pm Respiratory rate 16 /min -May 08, 2020 1:42pm Oxygen saturation by Pulse [...] 11, 2020 3:56pm Respiratory rate 18 /min -May 11, 2020 3:56pm Oxygen saturation by Pulse oximetry 96 % 95- 100 May 11, 2020 3:56pm BP Systolic 132 mm[Hg] May 11, 2020 3:56pm BP Diastolic 62 mm[Hg] May 11, 2020 3:56pm BMI (Body Mass Index) 35.7 kg/m2 May 11, 2020 3:56pm
--- OUTSIDE RECORDS SUMMARY | 2020-06-04 18:14 | CCD | Continuity of Care Document ---
Author Author [facility] Address [address] [place] [address] Phone Support Name Relationship Address Phone Osvaldo Chito PRS [address] [place] [address] Seth Leonardo PRS [address] [place] [address] Doctor Provided, Family No PRS Unknown Unava ilable Chito Riley PRS [facility] [place] [address] [place] [address] [place] [address] Taina Claros PRS [address] [place] [address] Dawit Sampson PRS [address] [place] [address] Jeane Solis PRS Unknown Unavailable Gabriel Alcatnara PRS [address] [place] [address] Jeanmarie Arteaga PRS [address] [place] [address] Bryant Villalba PRS [address] [place] [address] Cedric Adam PRS [address] [place] [address] Riki Collnis PRS [address] [place] [address] Keith Grant PRS [address] [place] [address] Geoff Silva PRS [address] [place] [address] Mirna Varghese PRS [address] [place] [address] Leo Lee PRS [address] [place] [address] Tommie Pinon PRS [address] [place] [address] PaulJose Carlos PRS [address] [place] [address] [place] [address] Diogenes Thayer PRS [address] [place] [address] Dayton Hong PRS [address] [place] [address] Sincere HOLLING[place]ORTH PRS [address] [place] [address] Damaso Rodas PRS [address] [place] [address] Parviz Wright PRS [address] [place] [address] Jefferson Lei PRS [address] [place] [address] Allergies, Adverse Reactions, Alerts No known allergies. [...] 12:46pm Afluria Qd 2019-(3yr up)(PF) (flu vac [id number] 36mos up(PF)) Discontinued 0.5 ML IM 1 [...] 4 hours 2 February 10, 2015 1:59pm [facility] 7[facility]58am Oxcarbazepine Discontinued 600 MG PO [...] May 30, 2020 7:40pm 6.5 10e3/uL 4.45-10.71 [facility], [address] [facility] [address] White Blood Count May 04 3:55am 5.6 10e3/uL 4.45-10.71 [facility], [address] [place] [address] White Blood Count April 17 1:00am 8.1 10e3/uL 4.45-10.71 [facility], [address] [place] [address] White Blood Count January 05, 2020 3:52pm 7.0 10e3/uL 4.45-10.71 [facility], [address] [place] [address] Red Blood Count May 30, 2020 7:40pm 5.35 10e6/uL 4.3-6.1 [facility], [address] [place] [address] Red Blood Count May 04, 2020 3:55am 4.91 10e6/uL 4.3-6.1 [facility], [address] [place] [address] Red Blood Count April 17, 2020 1:00am 5.06 10e6/uL 4.3-6.1 [facility], [address] [place] [address]50[address] Red Blood Count January 05, 2020 3:52pm 5.36 10e6/uL 4.3-6.1 [facility], [address] [place] [address] Hemoglobin May 30, 2020 7:40pm 15.6 g/dL [facility], [address] [place] [address] Hemoglobin May 04, 2020 3:55am 14.6 g/dL [facility], [address] [place] [address] Hemoglobin April 17, 2020 1:00am 14.8 g/dL 18 [facility], [address] [place] [address] Hemoglobin January 05, 2020 3:52pm 15.7 g/dL 18 [facility], [address] [place] [address] 96931 Hematocrit May 30, 2020 7:40pm 46.6 % 42-52 [facility], [address] [place] [address] 70997 Hematocrit May 04, 2020 3:55am 43.3 % 42-52 [facility], [address] [place] [address] 59722 Hematocrit April 17, 2020 1:00am 44.1 % 42-52 [facility], [address] [place] [address] 45420 Hematocrit January 05, 2020 3:52pm 45.3 % 42-52 [facility], [address] [place] [address] 12397 Mean Corpuscular Volume May 30, 2020 7:40pm 87.1 fl 8096 [facility], [address] [place] [address] 96136 Mean Corpuscular Volume April 3:55am 88.2 fl 80-96 [facility], [address] [place] [address] 65131 Mean Corpuscular Volume March 1:00am 87.2 fl 80-96 [facility], [address] [place] [address] 00692 Mean Corpuscular Volume January 05, 2020 3:52pm 84.[address] [facility], [address] [place] [address] 47084 Mean Corpuscular Hemoglobin May 30, 2020 7:40pm 29.2 pg 27-31 [facility], [address] [place] [address] 65611 Mean Corpuscular Hemoglobin May 04, 2020 3:55am 29.7 pg 27-31 [facility], [address] [place] [address] 50631 Mean Corpuscular Hemoglobin April 17, 2020 1:00am 29.2 pg 27-31 [facility], [address] [place] [address] 90821 Mean Corpuscular Hemoglobin December 202019 3:52pm 29.3 pg 27-31 [facility], [address] [place] [address] 06071 Mean Corpuscular Hemoglobin Concent May 30, 2020 7:40pm 33.5 g/dl 33-37 [facility], [address] [place] [address] 66561 Mean Corpuscular Hemoglobin Concent May 04, 2020 3:55am 33.7 g/dl 33-37 [facility], [address] [place] [address] 22873 Mean Corpuscular Hemoglobin Concent April 17, 2020 1:00am 33.6 g/dl 33-37 [facility], [address] [place] [address] 85186 Mean Corpuscular Hemoglobin Concent January 05, 2020 3:52pm 34.7 g/dl 33-37 [facility], [address] [place] [address] Red Cell Distribution Width May 30, 2020 7:40pm 12 % 11-15 [facility], [address] [place] [address] Red Cell Distribution Width May 04, 2020 3:55am 12 % 11-15 [facility], [address] [place] [address] Red Cell Distribution Width April 17, 2020 1:00am 12 % 11-15 [facility], [address] [place] [address] Red Cell Distribution Width December 202019 3:52pm 12 % 11-15 [facility], [address] [place] [address] Platelet Count May 30, 2020 7:40pm 291 10e3/ul 130-472 [facility], [address] [place] [address] Platelet Count May 04, 2020 3:55am 242 10e3/ul 130-472 [facility], [address] [place] [address] Platelet Count April 17, 2020 1:00am 306 10e3/ul 130-472 [facility], [address] [place] [address] Platelet Count January 05, 2020 3:52pm 293 10e3/ul 130-472 [facility], [address] [place] [address] Mean Platelet Volume May 30 7:40pm 9.0 fl 9.1-13.1 [facility], [address] [place] [address] Mean Platelet Volume May 04, 2020 3:55am 9.2 fl 9.1-13.1 [facility], [address] [place] [address] Mean Platelet Volume April 17, 2020 1:00am 8.9 fl 9.1-13.1 [facility], [address] [place] [address] Mean Platelet Volume January 04 3:52pm 9.1 fl 9.1-13.1 [facility], [address] [place] [address] Neutrophils (%) (Auto) May 30, 2020 7:40pm 62.7 % 41-77 [facility], [address] [place] [address] Neutrophils (%) (Auto) April 3:55am 62.4 % 41-77 [facility], [address] [place] [address] 38109 Neutrophils (%) (Auto) March 1:00am 70.3 % 4177 [facility], [address] [place] [address] 45140 Neutrophils (%) (Auto) January 05, 2020 3:52pm 70.9 % 41-[address] [place] [address] [facility]ATORY, [address] [place] [address] 15203 Absolute Neutrophil May 30 7:40pm 4.0 # 1.7-7.6 [facility], [address] [place] [address] 91249 Absolute Neutrophil May 04, 020 3:55am 3.5 # 1.7-7.6 [facility], [address] [place] [address] 74566 Absolute Neutrophil April 17, 020 1:00am 5.7 # 1.7-7.6 [facility], [address] [place] [address] 08674 Absolute Neutrophil January 04 0 3:52pm 5.0 # 1.7-7.6 [facility], [address] [place] [address] 41995 Lymphocytes (%) (Auto) May 30, 2020 7:40pm 26.5 % 14-46 [facility], [address] [place] [address] 04076 Lymphocytes (%) (Auto) April 3:55am 24.5 % 14-46 [facility], [address] [place] [address] 64658 Lymphocytes (%) (Auto) March 1:00am 19.3 % 14-46 [facility], [address] [place] [address] 00125 Lymphocytes (%) (Auto) January 05, 2020 3:52pm 18.8 % 14-46 [facility], [address] [place] [address] 31393 Lymphocytes # (Auto) May 30 7:40pm 1.7 # 0.6-4.6 [facility], [address] [place] [address] 16514 Lymphocytes # (Auto) May 04, 2020 3:55am 1.4 # 0.6-4.6 [facility], [address] [place] [address] 06289 Lymphocytes # (Auto) April 17, 2020 1:00am 1.6 # 0.6-4.6 [facility], [address] [place] [address] 10856 Lymphocytes # (Auto) January 04 3:52pm 1.3 # 0.6-4.6 [facility], [address] [place] [address] 68142 Monocytes (%) (Auto) May 30 7:40pm 7.4 % 4-12 [facility], [address] [place] [address] 03548 Monocytes (%) (Auto) May 04, 2020 3:55am 9.0 % 4-12 [facility], [address] [place] [address] 80260 Monocytes (%) (Auto) April 17, 2020 1:00am 8.4 % 4-12 [facility], [address] [place] [address] 66116 Monocytes (%) (Auto) January 04 3:52pm 7.4 % 4-12 [facility], [address] [place] [address] 41445 Monocytes # May 30, 2020 7:40pm 0.5 # 0.2-1.2 [facility], [address] [place] [address] 78361 Monocytes # May 04, 2020 3:55am 0.5 # 0.2-1.2 [facility], [address] [place] [address] 46833 Monocytes # April 17, 2020 1:00am 0.7 # 0.2-1.2 [facility], [address] [place] [address] 62689 Monocytes # January 05, 2020 3:52pm 0.5 # 0.2-1.2 [facility], [address] [place] [address] 92876 Eosinophils (%) (Auto) May 30, 2020 7:40pm 2.9 % 0-7 [facility], [address] [place] [address] 72601 Eosinophils (%) (Auto) April 3:55am 3.5 % 0-7 [facility], [address] [place] [address] 25852 Eosinophils (%) (Auto) March 1:00am 1.8 % 0-7 [facility], [address] [place] [address] 33083 Eosinophils (%) (Auto) January 05, 2020 3:52pm 2.3 % 0-7 [facility], [address] [place] [address] 35428 Absolute Eosinophils (CBC) May 302020 7:40pm 0.2 # 0.0-0.5 [facility], [address] [place] [address] 23543 Absolute Eosinophils (CBC) May 04, 2020 3:55am 0.2 # 0.0-0.5 [facility], [address] [place] [address] 70825 Absolute Eosinophils (CBC) April 17, 2020 1:00am 0.2 # 0.0-0.5 [facility], [address] [place] [address] Absolute Eosinophils (CBC) January 042019 3:52pm 0.2 # 0.0-0.5 [facility], [address] [place] [address] Basophils (%) (Auto) May 30 7:40pm 0.3 % 0.4-1.3 [facility], [address] [place] [address] 39102 Basophils (%) (Auto) May 04, 2020 3:55am 0.4 % 0.4-1.3 [facility], [address] [place] [address] 52970 Basophils (%) (Auto) April 17, 2020 1:00am 0.1 % 0.4-1.3 [facility], [address] [place] [address] 88003 Basophils (%) (Auto) January 04 3:52pm 0.3 % 0.4-1.3 [facility], [address] [place] [address] Absolute Basophils (CBC) May 7:40pm 0.0 # 0.0-0.2 [facility], [address] [place] [address] Absolute Basophils (CBC) May 042019 3:55am 0.0 # 0.0-0.2 [facility], [address] [place] [address] Absolute Basophils (CBC) April 172019 1:00am 0.0 # 0.0-0.2 [facility], [address] [place] [address] Absolute Basophils (CBC) December 3:52pm 0.0 # 0.0-0.2 [facility], [address] [place] [address] 02132 Immature Granulocyte % (Auto) Januar y 2020 7:40pm 0.2 % 0-2 [facility], [address] [place] [address] Immature Granulocyte % (Auto) [facility] 2019 3:55am 0.2 % 0-2 [facility], [address] [place] [address] Immature Granulocyte % (Auto) [facility] 2019 1:00am 0.1 % 0-2 [facility], [address] [place] [address] Immature Granulocyte % (Auto) January 05, 2020 3:52pm 0.3 % 0-2 [facility], [address] [place] [address] 36576 Absolute Immature Granulocyte (auto May 30, 2020 7:40pm 0.0 # 0-0.1 [facility], [address] [place] [address] 25357 Absolute Immature Granulocyte (auto May 04, 2020 3:55am 0.0 # 0-0.1 [facility], [address] [place] [address] Absolute Immature Granulocyte (auto April 17, 2020 1:00am 0.0 # 0-0.1 [facility], [address] [place] [address] 47072 Absolute Immature Granulocyte (auto January 05, 2020 3:52pm 0.0 # 0-0.1 [facility], [address] [place] [address] 16533 Add Manual Differential April 3:55am No [facility], [address] [place] [address] 95533 Add Manual Differential March 1:00am No [facility], [address] [place] [address] 84249 Add Manual Differential January 05, 2020 3:52pm No [facility], [address] [place] [address] 57566 Differential Total Cells Counted Heath uary 2020 7:40pm 100 [facility], [address] [place] [address] 33467 Neutrophils (Manual) May 30 7:40pm 56 % 41-77 [facility], [address] [place] [address] 64938 Band Neutrophils May 30, 2020 7:40pm 2 % 0-5 [facility], [address] [place] [address] 44500 Lymphocytes (Manual) May 30 7:40pm 25 % 14-46 [facility], [address] [place] [address] 91907 Monocytes (Manual) May 30, 2020 7:40p m 12 % 4-12 [facility], [address] [place] [address] 22330 Atypical Lymphocytes May 30 7:40pm 5 0-5 [facility], [address] [place] [address] 60801 Platelet Estimate May 30, 2020 7:40pm Appears normal NORMAL [facility], [address] [place] [address] 65986 RBC Morphology 2 May 30, 2020 7:40pm Appears normal NORMAL [facility], [address] [place] [address] 37761 Prothrombin Time May 30, 2020 7:40pm 10.6 SECONDS 9.6-12.3 [facility], [address] [place] [address] 76685 Prothrombin Time May 03, 2020 1:40p m 10.3 SECONDS 9.6-12.3 [facility], [address] [place] [address] 95676 INR International Normalized Ratio J anuary 2020 7:40pm 1.0 0.9-1.1 THE INR IS OPERATIONALLY DEFINED FOR [facility] PLASMA FROMPATIENTS STABILIZED ON ORAL ANTICOAGULANTS. ROUTINE ANTICOAGULANT THERAPY 2.0-3.0RECURRENT SYSTEMIC EMBOLISM/HEART VALVE REPLACEMENT 2.5-3.5 [facility], [address] [place] [address] 83438 INR International Normalized Ratio D ecember 2019 1:40pm 1.0 0.9-1.1 THE INR IS OPERATIONALLY DEFINED FOR [facility] PLASMA FROMPATIENTS STABILIZED ON ORAL ANTICOAGULANTS. ROUTINE ANTICOAGULANT THERAPY 2.0-3.0RECURRENT SYSTEMIC EMBOLISM/HEART VALVE REPLACEMENT 2.5-3.5 [facility], [address] [place] [address] 76850 Partial Thromboplastin Time - [place] J anuary 2020 7:40pm 27.7 SECONDS 22.7-31.6 [facility], [address] [place] [address] 48144 Partial Thromboplastin Time - [place] D ecember 2019 1:40pm 25.9 SECONDS 22.7-31.6 [facility], [address] [place] [address] 47884 D-Dimer April 17, 2020 1:00am 0.46 mg/L 0.0-0.50 PLEASE NOTE: THIS TEST WAS PERFORMED USING A PARTICLE-ENHANCED, IMMUNOTURBIDIMETRIC ASSAY AND HAS A SINGLE,CLINICALLY DERIVED CUTOFF OF 0.50 MG/L. [facility], [address] [place] [address] 98201 Blood Urea Nitrogen May 30 1 7:40pm 12 mg/dL 02-11 [facility], [address] [place] [address] 75645 Blood Urea Nitrogen May 04 020 3:55am 20 mg/dL 02-11 [facility], [address] [place] [address] Blood Urea Nitrogen January 04 0 3:52pm 12 mg/dL 02-11 [facility], [address] [place] [address] Blood Urea Nitrogen December 31 0 11:16am 21 mg/dL 02-11 [facility], [address] [place] [address] 52417 Sodium Level May 30, 2020 7:40pm 141 mmol/L 132-146 [facility], [address] [place] [address] 88185 Sodium Level May 04, 2020 3:55am 142 mmol/L 132-146 [facility], [address] [place] [address] 84432 Sodium Level January 05, 2020 3:52pm 138 mmol/L 132-146 [facility], [address] [place] [address] 00054 Sodium Level January 01, 2020 11:16am 142 mmol/L 132-146 [facility], [address] [place] [address] 09958 Potassium Level May 30, 2020 7:40pm 3.4 mmol/L 3.5-5.5 [facility], [address] [place] [address] 43570 Potassium Level May 04, 2020 3:55am 4.1 mmol/L 3.5-5.5 [facility], [address] [place] [address] 05297 Potassium Level January 05, 2020 3:52pm 3.9 mmol/L 3.5-5.5 [facility], [address] [place] [address] 12731 Potassium Level January 01, 2020 11:16am 4.7 mmol/L 3.5-5.5 [facility], [address] [place] [address] 60823 Chloride Level May 30, 2020 7:40pm 108 mmol/l 99-109 [facility], [address] [place] [address] 59446 Chloride Level May 04, 2020 3:55am 109 mmol/l 99-109 [facility], [address] [place] [address] 09075 Chloride Level January 05, 2020 3:52pm 108 mmol/l 99-109 [facility], [address] [place] [address] 01657 Chloride Level January 01, 2020 11:16am 111 mmol/l 99-109 [facility], [address] [place] [address] 98698 Carbon Dioxide Level May 30 7:40pm 27 mmol/l -31 [facility], [address] [place] [address] 57468 Carbon Dioxide Level May 04, 2020 3:55am 27 mmol/l -31 [facility], [address] [place] [address] 60277 Carbon Dioxide Level January 04 3:52pm 25 mmol/l -31 [facility], [address] [place] [address] 19198 Carbon Dioxide Level December 31 11:16am 24 mmol/l 20-31 [facility], [address] [place] [address] 00213 Anion Gap May 30, 2020 7:40pm 9 mmol/l 8-16 [facility], [address] [place] [address] 23396 Anion Gap May 04, 2020 3:55am 10 mmol/l 8-16 [facility], [address] [place] [address] 01523 Anion Gap January 05, 2020 3:52pm 9 mmol/l 8-16 [facility], [address] [place] [address] 96843 Anion Gap January 01, 2020 11:16am 12 mmol/l 8-16 [facility], [address] [place] [address] 34791 Glucose Level May 30, 2020 7:40pm 98 mg/dL 74-106 [facility], [address] [place] [address] 73188 Glucose Level May 04, 2020 3:55am 102 mg/dL 74-106 [facility], [address] [place] [address] 29472 Glucose Level January 05, 2020 3:52pm 107 mg/dL 74-106 [facility], [address] [place] [address] 81709 Glucose Level January 01, 2020 11:16am 107 mg/dL 74-106 [facility], [address] [place] [address] 39386 Creatinine May 30, 2020 7:40pm 1.0 mg/dL 0.5-1.1 [facility], [address] [place] [address] Creatinine May 04, 2020 3:55am 1.0 mg/dL 0.5-1.1 [facility], [address] [place] [address] Creatinine January 05, 2020 3:52pm 1.0 mg/dL 0.5-1.1 [facility], [address] [place] [address] 94198 Creatinine January 01, 2020 11:16am 1.2 mg/dL 0.5-1.1 [facility], [address] [place] [address] 27543 Glomerular Filtration Rate Calc Filemon darrin 2020 7:40pm Greater than 60 ml/min ABOVE 60 [facility], [address] [place] [address] 84969 Glomerular Filtration Rate Calc Dece mber 2019 3:55am Greater than 60 ml/min ABOVE 60 [facility], [address] [place] [address] 36996 Glomerular Filtration Rate Calc Augu st 2019 3:52pm Greater than 60 ml/min ABOVE 60 [facility], [address] [place] [address] [id number] Glomerular Filtration Rate Calc Augu st 2019 11:16am Greater than 60 ml/min ABOVE 60 [facility], [address] [place] [address] [id number] Alanine Aminotransferase (ALT/SGPT) May 30, 2020 7:40pm 56 U/L 10-49 [facility], [address] [place] [address] [id number] Alanine Aminotransferase (ALT/SGPT) May 04, 2020 3:55am 60 U/L 10-49 [facility], [address] [place] [address] Alanine Aminotransferase (ALT/SGPT) January 05, 2020 3:52pm 65 U/L 10-49 [facility], [address] [place] [address] [id number] Alanine Aminotransferase (ALT/SGPT) January 01, 2020 11:16am 66 U/L 10-49 [facility], [address] [place] [address] 56035 Aspartate Amino Transf (AST/SGOT) Ja nuary 2020 7:40pm 24 U/L 0-33 [facility], [address] [place] [address] 54244 Aspartate Amino Transf (AST/SGOT) De cember 2019 3:55am 28 U/L 0-33 [facility], [address] [place] [address] [id number] Aspartate Amino Transf (AST/SGOT) Au abraham 2019 3:52pm 30 U/L 0-33 [facility], [address] [place] [address] [id number] Aspartate Amino Transf (AST/SGOT) Au abraham 2019 11:16am 22 U/L 0-33 [facility], [address] [place] [address] 24624 Alkaline Phosphatase May 30 7:40pm 70 U/L 45-129 [facility], [address] [place] [address] 40312 Alkaline Phosphatase May 04, 2020 3:55am 65 U/L 45-129 [facility], [address] [place] [address] 18941 Alkaline Phosphatase January 04 3:52pm 77 U/L 45-129 [facility], [address] [place] [address] 45631 Alkaline Phosphatase December 31 11:16am 77 U/L 45-129 [facility], [address] [place] [address] 11475 Lipase May 30, 2020 7:40pm 106 U/L 73-393 [facility], [address] [place] [address] 35397 Calcium Level May 30, 2020 7:40pm 8.6 mg/dL 8.5-10.1 [facility], [address] [place] [address] 55931 Calcium Level May 04, 2020 3:55am 8.4 mg/dL 8.5-10.1 [facility], [address] [place] [address] 45393 Calcium Level January 05, 2020 3:52pm 8.9 mg/dL 8.5-10.1 [facility], [address] [place] [address] 47873 Calcium Level January 01, 2020 11:16am 9.0 mg/dL 8.5-10.1 Delta: 8.0 on 10/02/19-524Repeated by: Tammy Griffiths 01/01/20 1339.Result Confirmation: 8.7 mg/dL [facility], [address] [place] [address] Total Bilirubin May 30, 2020 7:40pm 0.7 mg/dL 0.3-1.2 [facility], [address] [place] [address] Total Bilirubin May 04, 2020 3:55am 0.6 mg/dL 0.3-1.2 [facility], [address] [place] [address] Total Bilirubin January 05, 2020 3:52pm 0.6 mg/dL 0.3-1.2 [facility], [address] [place] [address] Total Bilirubin January 01, 2020 11:16am 0.4 mg/dL 0.3-1.2 [facility], [address] [place] [address] Albumin May 30, 2020 7:40pm 4.1 g/dL 3.2-4.8 [facility], [address] [place] [address] Albumin May 04, 2020 3:55am 3.4 g/dL 3.2-4.8 [facility], [address] [place] [address] Albumin January 05, 2020 3:52pm 3.7 g/dL 3.2-4.8 [facility] [facility], [address] [place] [address] Albumin January 01, 2020 11:16am 3.9 g/dL 3.2-4.8 [facility], [address] [place] [address] Serum Total Protein May 30 1 7:40pm 7.7 g/dL 5.7-8.2 [facility], [address] [place], [place] [id number] Serum Total Protein May 04, 2 020 3:55am 6.7 g/dL 5.7-8.2 [facility], [address] [place], [place] [id number] Serum Total Protein January 04 0 3:52pm 7.0 g/dL 5.7-8.2 [facility], [address] [place] [address] Serum Total Protein December 31 0 11:16am 7.0 g/dL 5.7-8.2 [facility], [address] [place] [address] Phosphorus Level January 01, 2020 11:16am 3.1 mg/dL 2.4-5.1 [facility], [address] [place] [address] Magnesium Level January 01, 2020 11:16am 2.4 mg/dL 1.3-2.7 [facility], [address] [place] [address] 40581 Urine Marijuana (THC) Screen 2019 3:00pm Negative ng/mL Cutoff 50 [facility], [address] [place] [address] 84118 Urine Phencyclidine Screen May 03, 2020 3:00pm Negative ng/mL Cutoff 25 [facility], [address] [place] [address] 47134 Urine Cocaine Screen May 03, 2020 3:00pm Negative ng/mL Cutoff 150 [facility], [address] [place] [address] 98887 Urine Methamphetamines Screen 2019 3:00pm Negative ng/mL Cutoff 500 [facility], [address] [place] [address] Urine Opiates Screen May 03, 2020 3:00pm Negative ng/mL Cutoff 100 [facility], [address] [place] [address] 35511 Urine Amphetamines Screen April 212019 3:00pm Negative ng/mL Cutoff 500 [facility], [address] [place] [address] 21253 Urine Benzodiazepines Screen 2019 3:00pm Negative ng/mL Cutoff 150 [facility], [address] [place] [address] 46016 Ur Tricyclic Antidepressants Screen May 03, 2020 3:00pm Negative ng/mL Cutoff 300 [facility], [address] [place] [address] 33766 Urine Methadone Screen April 3:00pm Negative ng/mL Cutoff 200 [facility], [address] [place] [address] 63738 Urine Barbiturates May 03 3:00pm Negative ng/mL Cutoff 200 [facility], [address] [place] [address] 26212 Urine Oxycodone Screen April 3:00pm Negative ng/mL Cutoff 100 [facility], [address] [place] [address] 76265 Urine Propoxyphene Screen April 212019 3:00pm Negative ng/mL Cutoff 300 [facility], [address] [address] Urine Buprenorphine Screen May 03, 2020 3:00pm Negative ng/mL Cutoff 10 [facility], [address] [address] Creatine Kinase May 30, 2020 7:40pm 65 U/L 33-211 [facility], [address] [address] Creatine Kinase MB May 30, 2020 7:40p m Less than 1.0 ng/mL 0.0-5.0 [facility], [address] [address] Creatine Kinase MB % May 30 7:40pm Not Reported [facility], [address] [place] [address] Troponin I May 30, 2020 7:40pm Less than 0.015 ng/mL 0.00-0.09 Less than 0.09 NG/ML Negative0.10 - 0.77 NG/ML High Risk0.78 NG/ML or Greater Positive The WHO defined the cutoff (definition for diagnosis of [place])for this method as 0.78 ng/ml. [facility], [address] [address] Troponin I May 04, 2020 3:55am Less than 0.015 ng/mL 0.00-0.09 Less than 0.09 NG/ML Negative0.10 - 0.77 NG/ML High Risk0.78 NG/ML or Greater Positive The WHO defined the cutoff (definition for diagnosis of [place])for this method as 0.78 ng/ml. [facility], [address] [place] [address] 86605 Troponin I January 05, 2020 3:52pm Less than 0.015 ng/mL 0.00-0.09 Less than 0.09 NG/ML Negative0.10 - 0.77 NG/ML High Risk0.78 NG/ML or Greater Positive The WHO defined the cutoff (definition for diagnosis of [place])for this method as 0.78 ng/ml. [facility], [address] [address] Thyroid Stimulating Hormone (TSH) Au 2019 11:16am 1.04 uIU/mL 0.35-5.50 [facility], [address] [place] [address] 43721 Hemoglobin A1c January 01, 2020 11:16am 6.1 [...] glucose control. * High risk of developing rn long term care complications such asretinopathy, nephropathy, neuropathy, cardiopathy, etc. Some danger of hypoglycemic reaction in Type I diabetics.Some glucose intolerant individuals and "Sub Clinical"diabetics may demonstrate HGBA1C levels in this area. [facility], [address] [address] Estimated Average Glucose (eAG) 2019 11:16am 128 mg/dl An A1C of 7% - the goal of diabetic ther apy - is equivalentto an EAG of 154 mg/dl. [facility], [address] [address] Microbiology Results Procedure Source Result Collection Date/Time Result Date/Time Result Comment Performing Site Streptococcus Rapid Screen Throat July 12, 2019 12:05pm July 13, 2019 9:35am [facility], [address] [place] [address] Blood Culture Venous blood No growth. April 17, 2020 1:00am April 22, 2020 1:07am [facility], [address] [address] Influenza-Like Illness (PCR) Nasopharyngea l No Organisms Detected May 03, 2020 4:15pm May 03, 2020 4:48pm [facility], [address] [address] Nasopharyngeal May 03, 2020 4:15pm May 03, 2020 4:48pm [facility], [address] [address] Respiratory Panel (PCR) Nasopharyngeal No Organisms Detected April 17, 2020 1:10am April 17, 2020 2:02am [facility], [address] [place] [address] Diagnostic Imaging Reports Report Dictated Date/Time Dictated By Status Radiology Report September 27, 2019 10:48am Jalen Diamond MD completed [address] [address] [place] [address] [phone] NAME SEX PT STATUS ACCOUNT NUMBER Taina Mata REG REF [id number] ORDERING PHYSICIAN LOCATION MEDICAL RECORD NO. [facility] [id number] ATTENDING PHYSICIAN DATE OF DATE OF EXAM/TIME [...] Trans Dt/Tm: Trans by: DT Prt Dt/Tm: [id number]: Total DLP = 0.00 mGy-cm Fluoroscopy Time (in secs): Radiology Report January 05, 2020 6:33pm Luigi Gordon MD completed [place] [address] [place] [id number] [phone] NAME SEX PT STATUS ACCOUNT NUMBER TAINA MATA [facility] [id number] ORDERING PHYSICIAN LOCATION [id number] ATTENDING PHYSICIAN DATE OF DATE OF EXAM/TIME Taina Claros DO 1980 01/05/201639 TYPE / EXAM CT Abd/pel w/ contrast [...] MD Techn: EBEBR Trans Dt/Tm: Trans by: BRIAN Prt Dt/Tm: : Total DLP = 2510.00 mGy-cm : Total Radiation Dose = 37.6500 mSv Lifetime Dose: 37.6500 mS v Radiology Report March 08, 2020 2:53pm Mesha Mccabe MD completed [facility] [address] [place] [address] [phone] NAME SEX PT STATUS ACCOUNT NUMBER TAINA MATA [facility] ER [id number] ORDERING PHYSICIAN LOCATION MEDICAL RECORD NO. Cedric Adam MD ER [id number] ATTENDING PHYSICIAN DATE OF DATE OF EXAM/TIME Taina Claros DO 1980 03/08/201435 TYPE / EXAM Xray Abdomen 1 View [...] Taina Claros DO; Mesha Mccabe MD Techn: CHRISTOPHER Trans Dt/Tm: Trans by: DT Prt Dt/Tm: [id number]: Total DLP = 0.00 mGy-cm Fluoroscopy Time (in secs): Radiology Report April 11, 2020 12:02am Kraig Walker MD completed [facility] [address] [facility] [place] [address] [phone] NAME SEX PT STATUS ACCOUNT NUMBER TAINA MATA [facility] ER [id number] ORDERING PHYSICIAN LOCATION MEDICAL RECORD NO. Geoff Silva DO ER [id number] ATTENDING PHYSICIAN DATE OF DATE OF EXAM/TIME Taina Claros DO 1980 04/10/203 TYPE / EXAM Xray Chest [...] Trans Dt/Tm: Trans by: DT Prt Dt/Tm: [id number]: Total DLP = 0.00 mGy-cm Fluoroscopy Time (in secs): Radiology Report April 17, 2020 2:38a m Cedric Harding MD completed [id number] [place] [address] [phone] NAME SEX PT STATUS ACCOUNT NUMBER TAINA MATA [facility] [id number] ORDERING PHYSICIAN LOCATION MEDICAL RECORD NO. Mirna Varghese MD ER [id number] ATTENDING PHYSICIAN DATE OF DATE OF EXAM/TIME [...] MD on 04/17/20237 Date Time CC: Taina Claors DO; Cedric Harding MD Techn: SNYDU Trans Dt/Tm: Trans by: DT Prt Dt/Tm: [id number]: Total DLP = 0.00 mGy-cm Fluoroscopy Time (in secs): Radiology Report May 03, 2020 2:42p m Suyapa Armando MD [place] [address] [address] [place] [address] [phone] NAME SEX PT STATUS ACCOUNT NUMBER TAINA MATA [facility] ER [id number] ORDERING PHYSICIAN LOCATION MEDICAL RECORD NO. Leo Lee MD ER [id number] ATTENDING PHYSICIAN DATE OF DATE OF EXAM/TIME [...] Trans Dt/Tm: Trans by: DT Prt Dt/Tm: [id number]: Total DLP = 630.00 mGy-cm 8820-7571: Total Radiation Dose = 0.0000 mSv Lifetime Dose: 39.5875 mSv Radiology Report May 03, 2020 2:58p m Suyapa Armando MD [place] [address] [place] [id number] [phone] NAME SEX PT STATUS ACCOUNT NUMBER TAINA MATA [facility] [id number] ORDERING PHYSICIAN LOCATION MEDICAL RECORD NO. Leo Lee MD ER [id number] ATTENDING PHYSICIAN DATE OF DATE OF EXAM/TIME [...] Trans Dt/Tm: Trans by: DT Prt Dt/Tm: [id number]: Total DLP = 625.00 mGy-cm 0349-5153: Total Radiation Dose = 1.9375 mSv Lifetime Dose: 39.5875 mSv Radiology Report May 03, 2020 3:00p m Ayden Miller MD [place] [address] [place] [id number] [phone] NAME SEX PT STATUS ACCOUNT NUMBER TAINA MATA [facility] [id number] ORDERING PHYSICIAN LOCATION MEDICAL RECORD NO. Leo Lee MD ER [id number] ATTENDING PHYSICIAN DATE OF DATE OF EXAM/TIME [...] Trans Dt/Tm: Trans by: DT Prt Dt/Tm: [id number]: Total DLP = 0.00 mGy-cm Fluoroscopy Time (in secs): Radiology Report May 03, 2020 3:00p m Ayden Miller MD completed [facility] [address] [place] [id number] [phone] NAME SEX PT STATUS ACCOUNT NUMBER TAINA MATA [facility] [id number] ORDERING PHYSICIAN LOCATION MEDICAL RECORD NO. Leo Lee MD ER [id number] ATTENDING PHYSICIAN DATE OF DATE OF EXAM/TIME [...] 04, 2020 11:41am Lm Machuca MD completed [facility] [address] [facility] [address] [place] [id number] [phone] NAME SEX PT STATUS ACCOUNT NUMBER TAINA MATA ADM [facility] [id number] ORDERING PHYSICIAN LOCATION MEDICAL RECORD NO. Tommie Pinon MD EW [id number] ATTENDING PHYSICIAN DATE OF DATE OF EXAM/TIME Taina Claros DO 1980 05/04/20 / 1127 TYPE / EXAM MRI Brain without contrast [...] 1141 Date Time CC: Taina Claros DO; Lm Machuca MD Techn: EUN Trans Dt/Tm: Trans by: DT Prt Dt/Tm: : Total DLP = 0.00 mGy-cm : Total Radiation Dose = 0.0000 mSv Lifetime Dose: 39.5875 mSv Radiology Report May 04, 2020 4:51p m Isamar Llamas MD completed [facility] [address] [place] [address] [phone] NAME SEX PT STATUS ACCOUNT NUMBER TAINA MATA ADM YONI [id number] ORDERING PHYSICIAN LOCATION MEDICAL RECORD NO. Horace CROWE [id number] ATTENDING PHYSICIAN DATE OF DATE OF EXAM/TIME Taina Claros DO 1980 05/04/201053 TYPE / EXAM US Carotid art complete [...] 04, 2020 6:47p m Adam Cabello completed [facility] [address] [place] [address] [phone] NAME SEX PT STATUS ACCOUNT NUMBER TAINA MATA [facility] [id number] ORDERING PHYSICIAN LOCATION MEDICAL RECORD NO. Horace CROWE [id number] ATTENDING PHYSICIAN DATE OF DATE OF EXAM/TIME Taina Claros DO 1980 05/04/201053 TYPE / EXAM US Echo [...] TR. Reported By Adam Cabello MD on 05/04/20 1847 Signed By dAam Cabello MD on 05/26/20 1707 <<Signature on File>> Date Time CC: Taina Claros DO; Adam Cabello M.D. Techn: HUY Trans Dt/Tm: 05/05/20 0828 Trans by: ROSANNE Gomez Dt/Tm: : Total DLP = 0.00 mGy-cm [...] 30, 2020 6:41pm Healthcare Proxy Yes Heath john 2020 6:41pm Health Care Proxy Name yeimi ro May 08, 2020 10:26am Health Care Proxy Phone Number [phone] May 08, 2020 10:26am Living Will No [...] Depression follow-up syncope R55 Shoulder pain/injury SOB Reason for Visit Dizziness Obesity Depression Depression Moderate persistent asthma Elevated BP without diagnosis of hypertension Depression Encounters Encounter Location(s) Ar rival/Admit Date Discharge/Depart Date Provider(s) Departed Physician/Provider Office Visit [facility] July 12, 2019 11:03am July 12, 2019 12:57pm Seth Leonardo DO Registered Referred [facility]-Lab Drop Off July 12, 2019 12:05pm Seth Leonardo DO Departed Physician/Provider Office Visit [facility] July 26, 2019 1:34pm July 26, 2019 2:34pm Chito Riley MD Departed Physician/Provider Office Visit [facility] August 08, 2019 2:50pm August 08, 2019 3:58pm Chito Riley MD Departed Physician/Provider Office Visit [facility] August 29, 2019 1:15pm August 29, 2019 2:06pm Chito Riley MD Departed Physician/Provider Office Visit [facility] September 27, 2019 8:42am September 27, 2019 9:35am Maryellen Shelton Registered Referred [facility]-Radiology September 27, 2019 9:33am S STEVO RAY Registered Outpatient [facility] Surgery October 02, 2019 2:26am Dawit Sampson MD Registered Outpatient [facility] Surgery October 03, 2019 6:42am October 04, 2019 7:30am Dawit Sampson MD Registered Outpatient [facility] October 07, 2019 1:34pm Jeane Solis RN Departed Physician/Provider Office Visit [facility] Surgery October 11, 2019 11:39am October 11, 2019 11:49am Maryellen Obregon Departed Physician/Provider Office Visit [facility] January 01, 2020 9:32am January 01, 2020 12:12pm Taina Claros , DO Registered Referred [facility]Laboratory January 01, 2020 11:05am Taina Claros , DO Departed Emergency [facility]Emergency Room ER January 05, 2020 3:17pm January 05, 2020 5:45pm null Departed Physician/Provider Office Visit [facility] January 10, 2020 11:33am January 10, 2020 12:18pm Taina Claros DO Departed Physician/Provider Office Visit [facility] February 14, 2020 11:37am February 14, 2020 12:32pm Taina Claros DO Registered Outpatient [facility] March 04, 2020 11:56am Taina Claros DO Departed Emergency [facility] ER March 08, 2020 11:04am March 08, 2020 2:00pm null Departed Emergency [facility] ER March 17, 2020 9:49pm March 17, 2020 10:33pm null Registered Clinical [facility]-Nutrition March 20, 2020 11:43am Taina Claros DO Departed Physician/Provider Office Visit [facility] March 31, 2020 10:22am March 31, 2020 11:47am Taina Claros DO Departed Emergency [facility] ER April 01, 2020 8:39pm April 01, 2020 9:32pm null Departed Emergency [facility] ER April 10, 2020 9:36pm April 10, 2020 11:40pm null Registered Outpatient [facility] April 13, 2020 12:55pm Taina Claros DO Departed Physician/Provider Office Visit [facility] April 14, 2020 9:16am April 14, 2020 1:07pm Taina Claros DO Departed Emergency [facility] ER April 17, 2020 12:07am April 17, 2020 3:00am null Departed Physician/Provider Office Visit [facility] April 20, 2020 9:12am April 20, 2020 10:34am Taina Claros DO Departed Physician/Provider Office Visit [facility] May 01, 2020 10:42am May 01, 2020 11:57am Taina Claros DO Discharged Inpatient [facility] May 03, 2020 5:16pm May 04, 2020 5:30pm Tommie Pinon MD Registered Outpatient [facility] May 04, 2020 6:14pm Damaso Rodas MD Departed Physician/Provider Office Visit [facility] May 08, 2020 1:30pm May 08, 2020 2:23pm Taina Claros DO Registered Referred [facility]Respiratory Therapy May 11, 2020 8:09am Taina Claros DO Departed Physician/Provider Office Visit [facility] May 11, 2020 3:14pm May 11, 2020 4:40pm Taina Claros DO Departed Emergency [facility] ER May 30, 2020 2:47pm May 30, 2020 10:15pm null Recent Diagnosis Onset Date Dizziness Obesity Depression Depression Moderate persistent asthma Elevated BP without diagnosis of hypertension Depression Assessments Work-up negative for pneumonia. D-dimer negative. EKG shows no ST segment elevation. Physical exam shows no evidence of fluid overload. Symptoms significantly improved with DuoNeb. Family History Relationship Condition A at Onset Recorded Date/Time Not Specified Sleep apnea Unknown Diabetes mellitus Unkn own Cardiac disease Unknown Asthma Unknown Not Specified Asthma Unk nown Functional Status Observation Response Raymond e Recorded Functional Status Complete [place] May 03, 2020 5:42pm Goals Goals may be documented in an alternate section. Immunizations Immunization Event Date Not Given Reason Dose Number Cardiology Physician Assistant Lot Number Vaccine Information Statement (VIS) Deta il influenza vaccine, inactivated Novem 2019 [id number] pneumococcal polysaccharide PPV23 vaccine March 31, 2020 [id number] Mental Status Observation Response Raymond e Recorded Impairments No impairments or barriers May 30, 2020 2:47pm Cognitive Status Normal Cognition May 03, 2020 5:42pm Medical Equipment No Medical Equipment Information available Insurance Providers Guarantor TAINA MATA Address [place] [address] Contact Info. Home Phone: Payer Policy Id Coverage Id Subscriber's Name Subscriber Id Effective Date Expiration Date MEDICARE [employer] [id number] TAINA MATA [id number] [place] [id number] TAINA MATA [id number] [place] [facility] [id number] TAINA MATA [id number] [facility] [place] [facility] [id number] [id number] TAINA MATA [id number] MEDICAID [id number] TAINA MATA [id number] MEDICARE [id number] TAINA MATA [id number] Self Pay Self N/A Plan of Treatment [...] patient get an early appt with mary Palafox pulmaryellen. gave copy of pulm consultation from summer 2019 to patient. 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 Continue Symbicort and refer to pulmonology. Well [...] Provider Address Taina Claros DO Email: [email or web address] Phone: [phone] [facility] [address] office closed at this time, we will call you tomorrow when we set you up and appointment. Taina Claros DO Email: [email or web address] Work Phone: [phone] [facility] [phone] Follow-up in 3 to 5 days. Referral to pulmonology per primary. Taina Claros DO Email: [email or web address] Phone: [phone] [facility] [phone] Taina Claros DO Email: [email or web address] Phone: [phone] [facility] [phone] Armen Dunlap MD Work Phone: [facility] [address] [place] [address] Gabriel Alcantara MD Email: [email or web address] Phone: [phone] [address] Taina Claros DO Email: [email or web address] Phone: [address] [phone] Your follow up appointment has been made for MondayOctober [address] Camilla Sampson MD Work Phone: [phone] [place] [address] Future Procedures Future procedure information is unavailable [...] 26, 2019 1:45pm Respiratory rate 18 /min 12-July 26, 2019 1:45pm Oxygen saturation by Pulse [...] 08, 2019 4:33pm Respiratory rate 16 /min -August 08, 2019 4:33pm Oxygen saturation by Pulse [...] 27, 2019 9:43am Respiratory rate 18 /min 12-September 27, 2019 9:43am Oxygen saturation by Pulse [...] 05, 2020 4:29pm Respiratory rate 18 /min 12-January 05, 2020 4:29pm Oxygen saturation by Pulse oximetry 97 % 95- 100 January 05, 2020 4:29pm BP Systolic 156 mm[Hg] January 05, 2020 4:29pm BP Diastolic 96 mm[Hg] January 05, 2020 4:29pm Height 70 [in_i] January 10, 2020 12:53pm Weight 245.00 [lb_av] January 10, 2020 12:53pm Heart Rate 86 /min 60-100 January 10, 2020 12:53pm Respiratory rate 16 /min 12-January 10, 2020 12:53pm Oxygen saturation by Pulse [...] 08, 2020 12:05pm Respiratory rate 16 /min 12-March 08, 2020 12:05pm Oxygen saturation by Pulse oximetry 97 % 95- 100 March 08, 2020 12:05pm BP Systolic 124 mm[Hg] March 08, 2020 12:05pm BP Diastolic 84 mm[Hg] March 08, 2020 12:05pm Height 70 [in_i] March 17, 2020 10:55pm Weight 240.00 [lb_av] March 17, 2020 10:55pm Body Temperature 97.5 [degF] 97.6-99.5 March 17, 2020 10:50pm Heart Rate 103 /min 60-March 17, 2020 10:50pm Respiratory rate 20 /min [...] 30, 2020 10:15pm Respiratory rate 20 /min -May 30, 2020 10:15pm Oxygen saturation by Pulse oximetry 98 % 95- 100 May 30, 2020 10:15pm BP Systolic 126 mm[Hg] May 30, 2020 10:15pm BP Diastolic 79 mm[Hg] May 30, 2020 10:15pm
--- OUTSIDE RECORDS SUMMARY | 2020-06-04 18:15 | CCD | Continuity of Care Document ---
Author Author [facility] Organization [facility] Address [address] [place] [address] Phone Support Name Relationship Address Phone Chito Riley PRS [address] [place] [address] LeonardoSeth chavarria PRS [address] [place] [address] Doctor Provided, Family No PRS Unknown Unava ilable Chito Riley PRS [facility] [place] [address] Kostaselaine, Darryl Flor PRS [address] [place] [address] Taina Miller PRS [address] [place] [address] Dawit Sampson PRS [address] [place] [address] Jeane Solis PRS Unknown Unavailable Gabriel Alcantara PRS [address] [place] [address] Jeanmarie Arteaga PRS [address] [place] [address] Bryant Villalba PRS [address] [place] [address] Cedric Adam PRS [address] [place] [address] Riki Collins PRS [address] [place] [address] Keith Grant PRS [address] [place] [address] Geoff Silva PRS [address] [place] [address] Mirna Varghese PRS [address] [place] [address] Leo Lee PRS [address] [place] [address] JoycelynTommie nicole PRS [address] [place] [address] PaulJose Carlos martin PRS [address] [place] [address] [place] [address] Diogenes Thayer PRS [address] [place] [address] Dayton Hong PRS [address] [place] [address] Sincere HOLLINGSWORTH PRS [address] [place] [address] Damaso Rodas PRS [address] [place] [address] Parviz Wright PRS [address] [place] [address] Jefferson Lei PRS [address] [place] [address] Allergies, Adverse Reactions, Alerts No known allergies. [...] 12:46pm Afluria Qd 2019-(3yr up)(PF) (flu vac mg2237-11 36mos up(PF)) Discontinued 0.5 ML IM 1 [...] 4 hours 2 February 10, 2015 1:59pm [facility] 7:58am Oxcarbazepine Discontinued 600 MG PO [...] 1 PUFFS IH 2 Times Per Day February 27, 2018 9:55am March 01, 2019 9:40am Fluticasone Furoate-Vilanterol (Breo Ell ipta) 100-25 mcg/dose blister with device Discontinued 1 INH IH Q24H 28 April 15, 2020 2:35pm May 03, 2020 5:40pm Problems Active Problems Medical Problem Onset Date Status Dizziness Active Depression Active Moderate persistent asthma Active Elevated serum creatinine Active Prediabetes Active Obesity Active Inactive/Resolved Problems [...] May 04 0 3:55am 5.6 10e3/uL 4.45-10.71 [facility], [address] [facility] [address] White Blood Count April 17 0 1:00am 8.1 10e3/uL 4.45-10.71 [facility], [address] [place] [address] White Blood Count January 05, 2020 3:52pm 7.0 10e3/uL 4.45-10.71 [facility], [address] [place] [address] Red Blood Count May 04, 2020 3:55am 4.91 10e6/uL 4.3-6.1 [facility], [address] [place] [address] Red Blood Count April 17, 2020 1:00am 5.06 10e6/uL 4.3-6.1 [facility], [address] [place] [address] Red Blood Count January 05, 2020 3:52pm 5.36 10e6/uL 4.3-6.1 [facility], [address] [place] [address] Hemoglobin May 04, 2020 3:55am 14.6 g/dL [facility], [address] [place] [address] Hemoglobin April 17, 2020 1:00am 14.8 g/dL [facility], [address] [place] [address] Hemoglobin January 05, 2020 3:52pm 15.7 g/dL [facility], [address] [place] [address] Hematocrit May 04, 2020 3:55am 43.3 % 42-52 [facility], [address] [place] [address] Hematocrit April 17, 2020 1:00am 44.1 % 42-52 [facility], [address] [place] [address] Hematocrit January 05, 2020 3:52pm 45.3 % 42-52 [facility], [address] [place] [address] Mean Corpuscular Volume April 3:55am 88.2 fl 80-96 [facility], [address] [place] [address] Mean Corpuscular Volume March 1:00am 87.2 fl 80-96 [facility], [address] [place] [address] Mean Corpuscular Volume January 05, 2020 3:52pm 84.5 fl 80-96 [facility], [address] [place] [address] Mean Corpuscular Hemoglobin May 04, 2020 3:55am 29.7 pg -31 [facility], [address] [place] [address] Mean Corpuscular Hemoglobin April 17, 2020 1:00am 29.2 pg -31 [facility], [address] [place] [address] 88122 Mean Corpuscular Hemoglobin December 202019 3:52pm 29.3 pg 31 [facility], [address] [place] [address] 48479 Mean Corpuscular Hemoglobin Concent May 04, 2020 3:55am 33.7 g/dl [address] [facility], [address] [place] [address] 75288 Mean Corpuscular Hemoglobin Concent April 17, 2020 1:00am 33.6 g/dl [address] [facility], [address] [place] [address] 20922 Mean Corpuscular Hemoglobin Concent January 05, 2020 3:52pm 34.7 g/dl [address] [place] [address] LABORATORY, [address] [place] [address] Red Cell Distribution Width May 04, 2020 3:55am 12 % 11-15 [facility], [address] [place] [address] Red Cell Distribution Width April 17, 2020 1:00am 12 % 11-15 [facility], [address] [place] [address] Red Cell Distribution Width December 202019 3:52pm 12 % 11-15 [facility], [address] [place] [address] Platelet Count May 04, 2020 3:55am 242 10e3/ul 130-472 [facility], [address] [place] [address] Platelet Count April 17, 2020 1:00am 306 10e3/ul 130-472 [facility], [address] [place] [address] Platelet Count January 05, 2020 3:52pm 293 10e3/ul 130-472 [facility], [address] [place] [address] Mean Platelet Volume May 04, 2020 3:55am 9.2 fl 9.1-13.1 [facility], [address] [place] [address] Mean Platelet Volume April 17, 2020 1:00am 8.9 fl 9.1-13.1 [facility], [address] [place] [address] 33348 Mean Platelet Volume January 04 3:52pm 9.1 fl 9.1-13.1 [facility], [address] [place] [address] 29898 Neutrophils (%) (Auto) April 3:55am 62.4 % [address] [facility], [address] [place] [address] 48131 Neutrophils (%) (Auto) March 1:00am 70.3 % [address] [facility], [address] [place] [address] 44513 Neutrophils (%) (Auto) January 05, 2020 3:52pm 70.9 % 41-[address] [place] [address] LABORATORY, [address] [place] [address] 94644 Absolute Neutrophil May 04, 020 3:55am 3.5 # 1.7-7.6 [facility], [address] [place] [address] 99018 Absolute Neutrophil April 17, 2 020 1:00am 5.7 # 1.7-7.6 [facility], [address] [place] [address] 49693 Absolute Neutrophil January 04 0 3:52pm 5.0 # 1.7-7.6 [facility], [address] [place] [address] 76709 Lymphocytes (%) (Auto) April 3:55am 24.5 % 14-46 [facility], [address] [place] [address] 61563 Lymphocytes (%) (Auto) March 1:00am 19.3 % 14-46 [facility], [address] [place] [address] 07643 Lymphocytes (%) (Auto) January 05, 2020 3:52pm 18.8 % 14-46 [facility], [address] [place] [address] 50735 Lymphocytes # (Auto) May 04, 2020 3:55am 1.4 # 0.6-4.6 [facility], [address] [place] [address] 17248 Lymphocytes # (Auto) April 17, 2020 1:00am 1.6 # 0.6-4.6 [facility], [address] [place] [address] 28533 Lymphocytes # (Auto) January 04 3:52pm 1.3 # 0.6-4.6 [facility], [address] [place] [address] 44292 Monocytes (%) (Auto) May 04, 2020 3:55am 9.0 % 4-12 [facility], [address] [place] [address] 54143 Monocytes (%) (Auto) April 17, 2020 1:00am 8.4 % 4-12 [facility], [address] [place] [address] 97564 Monocytes (%) (Auto) January 04 3:52pm 7.4 % 4-12 [facility], [address] [place] [address] 92283 Monocytes # May 04, 2020 3:55am 0.5 # 0.2-1.2 [facility], [address] [place] [address] 25283 Monocytes # April 17, 2020 1:00am 0.7 # 0.2-1.2 [facility], [address] [place] [address] 54943 Monocytes # January 05, 2020 3:52pm 0.5 # 0.2-1.2 [facility], [address] [place] [address] 30008 Eosinophils (%) (Auto) April 3:55am 3.5 % 0-7 [facility], [address] [place] [address] 75438 Eosinophils (%) (Auto) March 1:00am 1.8 % 0-7 [facility], [address] [place] [address] 68748 Eosinophils (%) (Auto) January 05, 2020 3:52pm 2.3 % 0-7 [facility], [address] [place] [address] 08936 Absolute Eosinophils (CBC) May 04, 2020 3:55am 0.2 # 0.0-0.5 [facility], [address] [place] [address] 24417 Absolute Eosinophils (CBC) April 17, 2020 1:00am 0.2 # 0.0-0.5 [facility], [address] [place] [address] 73156 Absolute Eosinophils (CBC) January 042019 3:52pm 0.2 # 0.0-0.5 [facility], [address] [place] [address] 60527 Basophils (%) (Auto) May 04, 2020 3:55am 0.4 % 0.4-1.3 [facility], [address] [place] [address] 09263 Basophils (%) (Auto) April 17, 2020 1:00am 0.1 % 0.4-1.3 [facility], [address] [place] [address] 32160 Basophils (%) (Auto) January 04 3:52pm 0.3 % 0.4-1.3 [facility], [address] [place] [address] 85007 Absolute Basophils (CBC) May 042019 3:55am 0.0 # 0.0-0.2 [facility], [address] [place] [address] Absolute Basophils (CBC) April 172019 1:00am 0.0 # 0.0-0.2 [facility], [address] [place] [address] Absolute Basophils (CBC) December 3:52pm 0.0 # 0.0-0.2 [facility], [address] [place] [address] 64066 Immature Granulocyte % (Auto) Dece 2019 3:55am 0.2 % 0-2 [facility], [address] [place] [address] 33315 Immature Granulocyte % (Auto) [facility] 2019 1:00am 0.1 % 0-2 [facility], [address] [place] [address] Immature Granulocyte % (Auto) January 05, 2020 3:52pm 0.3 % 0-2 [facility], [address] [place] [address] 61784 Absolute Immature Granulocyte (auto May 04, 2020 3:55am 0.0 # 0-0.1 [facility], [address] [place] [address] 82021 Absolute Immature Granulocyte (auto April 17, 2020 1:00am 0.0 # 0-0.1 [facility], [address] [place] [address] 05903 Absolute Immature Granulocyte (auto January 05, 2020 3:52pm 0.0 # 0-0.1 [facility], [address] [place] [address] 90320 Add Manual Differential April 3:55am No [facility], [address] [place] [address] 87246 Add Manual Differential March 1:00am No [facility], [address] [place] [address] 97210 Add Manual Differential January 05, 2020 3:52pm No [facility], [address] [place] [address] Prothrombin Time May 03, 2020 1:40p m 10.3 SECONDS 9.6-12.3 [facility], [address] [place] [address] 72349 INR International Normalized Ratio D ecember 2019 1:40pm 1.0 0.9-1.1 THE INR IS OPERATIONALLY DEFINED FOR BULMARO SH PLASMA FROMPATIENTS STABILIZED ON ORAL ANTICOAGULANTS. ROUTINE ANTICOAGULANT THERAPY 2.0-3.0RECURRENT SYSTEMIC EMBOLISM/HEART VALVE REPLACEMENT 2.5-3.5 [facility], [address] [place], [place] [id number] Partial Thromboplastin Time - Treasure D ec2019 1:40pm 25.9 SECONDS 22.7-31.6 [facility], [address] [place], [place] [id number] D-Dimer April 17, 2020 1:00am 0.46 mg/L 0.0-0.50 PLEASE NOTE: THIS TEST WAS PERFORMED USING A PARTICLE-ENHANCED, IMMUNOTURBIDIMETRIC ASSAY AND HAS A SINGLE,CLINICALLY DERIVED CUTOFF OF 0.50 MG/L. [facility], [address] [place] [address] Blood Urea Nitrogen May 04 020 3:55am 20 mg/dL 02-11 [facility], [address] [place] [address] Blood Urea Nitrogen January 04 0 3:52pm 12 mg/dL 02-11 [facility], [address] [place] [address] Blood Urea Nitrogen December 31 0 11:16am 21 mg/dL 02-11 [facility], [address] [place] [address] Sodium Level May 04, 2020 3:55am 142 mmol/L 132-146 [facility], [address] [place] [address] Sodium Level January 05, 2020 3:52pm 138 mmol/L 132-146 [facility], [address] [place] [address] Sodium Level January 01, 2020 11:16am 142 mmol/L 132-146 [facility], [address] [place] [address] Potassium Level May 04, 2020 3:55am 4.1 mmol/L 3.5-5.5 [facility], [address] [place] [address] 72031 Potassium Level January 05, 2020 3:52pm 3.9 mmol/L 3.5-5.5 [facility], [address] [place] [address] 03978 Potassium Level January 01, 2020 11:16am 4.7 mmol/L 3.5-5.5 [facility], [address] [place] [address] 20695 Chloride Level May 04, 2020 3:55am 109 mmol/l 99-109 [facility], [address] [place] [address] 01437 Chloride Level January 05, 2020 3:52pm 108 mmol/l 99-109 [facility], [address] [place] [address] 89332 Chloride Level January 01, 2020 11:16am 111 mmol/l 99-109 [facility], [address] [place] [address] 48408 Carbon Dioxide Level May 04, 2020 3:55am 27 mmol/l 20-31 [facility], [address] [place] [address] 93503 Carbon Dioxide Level January 04 3:52pm 25 mmol/l 20-31 [facility], [address] [place] [address] 73996 Carbon Dioxide Level December 31 11:16am 24 mmol/l 20-31 [facility], [address] [place] [address] 53991 Anion Gap May 04, 2020 3:55am 10 mmol/l 8-16 [facility], [address] [place] [address] 61115 Anion Gap January 05, 2020 3:52pm 9 mmol/l 8-16 [facility], [address] [place] [address] 60613 Anion Gap January 01, 2020 11:16am 12 mmol/l 8-16 [facility], [address] [place] [address] 27253 Glucose Level May 04, 2020 3:55am 102 mg/dL 74-106 [facility], [address] [place] [address] 23694 Glucose Level January 05, 2020 3:52pm 107 mg/dL 74-106 [facility], [address] [place] [address] 07964 Glucose Level January 01, 2020 11:16am 107 mg/dL 74-106 [facility], [address] [place] [address] 85443 Creatinine May 04, 2020 3:55am 1.0 mg/dL 0.5-1.1 [facility], [address] [place] [address] 25294 Creatinine January 05, 2020 3:52pm 1.0 mg/dL 0.5-1.1 [facility], [address] [place] [address] Creatinine January 01, 2020 11:16am 1.2 mg/dL 0.5-1.1 [facility], [address] [place] [address] Glomerular Filtration Rate Calc Dece mber 2019 3:55am Greater than 60 ml/min ABOVE 60 [facility], [address] [place] [address] Glomerular Filtration Rate Calc Augu st 2019 3:52pm Greater than 60 ml/min ABOVE 60 [facility], [address] [place] [address] Glomerular Filtration Rate Calc Augu st 2019 11:16am Greater than 60 ml/min ABOVE 60 [facility], [address] [place] [address] Alanine Aminotransferase (ALT/SGPT) May 04, 2020 3:55am 60 U/L 10-49 [facility], [address] [place] [address] Alanine Aminotransferase (ALT/SGPT) January 05, 2020 3:52pm 65 U/L 10-49 [facility], [address] [place] [address] Alanine Aminotransferase (ALT/SGPT) January 01, 2020 11:16am 66 U/L 10-49 [facility], [address] [place] [address] Aspartate Amino Transf (AST/SGOT) De cember 2019 3:55am 28 U/L 0-33 [facility], [address] [place] [address] Aspartate Amino Transf (AST/SGOT) Au abraham 2019 3:52pm 30 U/L 0-33 [facility], [address] [place] [address] Aspartate Amino Transf (AST/SGOT) Au abraham 2019 11:16am 22 U/L 0-33 [facility], [address] [place] [address] Alkaline Phosphatase May 04, 2020 3:55am 65 U/L 45-129 [facility], [address] [place] [address] Alkaline Phosphatase January 04 3:52pm 77 U/L 45-129 [facility], [address] [place] [address] 03294 Alkaline Phosphatase December 31 11:16am 77 U/L 45-129 [facility], [address] [place], [place] [id number] Calcium Level May 04, 2020 3:55am 8.4 mg/dL 8.5-10.1 [facility], [address] [place] [address] Calcium Level January 05, 2020 3:52pm 8.9 mg/dL 8.5-10.1 [facility], [address] [place] [address] Calcium Level January 01, 2020 11:16am 9.0 mg/dL 8.5-10.1 Delta: 8.0 on 10/02/19-524Repeated by: Tammy Griffiths 01/01/20 1339.Result Confirmation: 8.7 mg/dL [facility], [address] [place], [place] [id number] Total Bilirubin May 04, 2020 3:55am 0.6 mg/dL 0.3-1.2 [facility], [address] [place], [place] [id number] Total Bilirubin January 05, 2020 3:52pm 0.6 mg/dL 0.3-1.2 [facility], [address] [place], [place] [id number] Total Bilirubin January 01, 2020 11:16am 0.4 mg/dL 0.3-1.2 [facility], [address] [place], [place] [id number] Albumin May 04, 2020 3:55am 3.4 g/dL 3.2-4.8 [facility], [address] [place], [place] [id number] Albumin January 05, 2020 3:52pm 3.7 g/dL 3.2-4.8 [facility], [address] [place], [place] [id number] Albumin January 01, 2020 11:16am 3.9 g/dL 3.2-4.8 [facility], [address] [place] [address] 50886 Serum Total Protein May 04, 020 3:55am 6.7 g/dL 5.7-8.2 [facility], [address] [place] [address] Serum Total Protein January 04 0 3:52pm 7.0 g/dL 5.7-8.2 [facility], [address] [place] [address] 97675 Serum Total Protein December 31 0 11:16am 7.0 g/dL 5.7-8.2 [facility], [address] [place] [address] 10071 Phosphorus Level January 01, 2020 11:16am 3.1 mg/dL 2.4-5.1 [facility], [address] [place] [address] 40455 Magnesium Level January 01, 2020 11:16am 2.4 mg/dL 1.3-2.7 [facility], [address] [place] [address] 84156 Urine Marijuana (THC) Screen 2019 3:00pm Negative ng/mL Cutoff 50 [facility], [address] [place] [address] Urine Phencyclidine Screen May 03, 2020 3:00pm Negative ng/mL Cutoff 25 [facility], [address] [place] [address] Urine Cocaine Screen May 03, 2020 3:00pm Negative ng/mL Cutoff 150 [facility], [address] [place] [address] 86853 Urine Methamphetamines Screen 2019 3:00pm Negative ng/mL Cutoff 500 [facility], [address] [place] [address] 09524 Urine Opiates Screen May 03, 2020 3:00pm Negative ng/mL Cutoff 100 [facility], [address] [place] [address] 01595 Urine Amphetamines Screen April 212019 3:00pm Negative ng/mL Cutoff 500 [facility], [address] [place] [address] 70078 Urine Benzodiazepines Screen 2019 3:00pm Negative ng/mL Cutoff 150 [facility], [address] [place] [address] 64587 Ur Tricyclic Antidepressants Screen May 03, 2020 3:00pm Negative ng/mL Cutoff 300 [facility], [address] [place] [address] 25001 Urine Methadone Screen April 3:00pm Negative ng/mL Cutoff 200 [facility], [address] [place] [address] 59207 Urine Barbiturates May 03 3:00pm Negative ng/mL Cutoff 200 [facility], [address] [place] [address] Urine Oxycodone Screen April 3:00pm Negative ng/mL Cutoff 100 [facility], [address] [place] [address] Urine Propoxyphene Screen April 212019 3:00pm Negative ng/mL Cutoff 300 [facility], [address] [place] [address] Urine Buprenorphine Screen May 03, 2020 3:00pm Negative ng/mL Cutoff 10 [facility], [address] [place] [address] Troponin I May 04, 2020 3:55am Less than 0.015 ng/mL 0.00-0.09 Less than 0.09 NG/ML Negative0.10 - 0.77 NG/ML High Risk0.78 NG/ML or Greater Positive The WHO defined the cutoff (definition for diagnosis of NV)for this method as 0.78 ng/ml. [facility], [address] [place] [address] Troponin I January 05, 2020 3:52pm Less than 0.015 ng/mL 0.00-0.09 Less than 0.09 NG/ML Negative0.10 - 0.77 NG/ML High Risk0.78 NG/ML or Greater Positive The WHO defined the cutoff (definition for diagnosis of NV)for this method as 0.78 ng/ml. [facility], [address] [place] [address] Thyroid Stimulating Hormone (TSH) Au 2019 11:16am 1.04 uIU/mL 0.35-5.50 [facility], [address] [place] [address] Hemoglobin A1c January 01, 2020 11:16am 6.1 [...] glucose control. * High risk of developing keno terminal operator complications such asretinopathy, nephropathy, neuropathy, cardiopathy, etc. Some danger of hypoglycemic reaction in Type I diabetics.Some glucose intolerant individuals and "Sub Clinical"diabetics may demonstrate HGBA1C levels in this area. [facility], [address] [place] [address] Estimated Average Glucose (eAG) Augu 2019 11:16am 128 mg/dl An A1C of 7% - the goal of diabetic ther apy - is equivalentto an EAG of 154 mg/dl. [facility], [address] [place] [address] 65995 Microbiology Results Procedure Source Result Collection Date/Time Result Date/Time Result Comment Performing Site Streptococcus Rapid Screen Throat July 12, 2019 12:05pm July 13, 2019 9:35am [facility], [address] [place] [address] Blood Culture Venous blood No growth. April 17, 2020 1:00am April 22, 2020 1:07am [facility], [address] [place] [address] 24198 Influenza-Like Illness (PCR) Nasopharyngea l No Organisms Detected May 03, 2020 4:15pm May 03, 2020 4:48pm [facility], [address] [place] [address] 52434 Nasopharyngeal May 03, 2020 4:15pm May 03, 2020 4:48pm [facility], [address] [place] [address] Respiratory Panel (PCR) Nasopharyngeal No Organisms Detected April 17, 2020 1:10am April 17, 2020 2:02am [facility], [address] [place] [id number] Diagnostic Imaging Reports Report Dictated Date/Time Dictated By Status Radiology Report September 27, 2019 10:48am Jalen Diamond MD completed [place] [id number] [address] [facility] TE [place] [id number] [phone] NAME SEX PT STATUS ACCOUNT NUMBER Taina Mata REG REF [id number] ORDERING PHYSICIAN LOCATION MEDICAL RECORD NO. [facility] [id number] ATTENDING PHYSICIAN DATE OF DATE OF EXAM/TIME Chito Riley MD 1980 09/27/[id number] TYPE / EXAM Xray Chest 2 view [...] Trans Dt/Tm: Trans by: DT Prt Dt/Tm: 2090-1200: Total DLP = 0.00 mGy-cm Fluoroscopy Time (in secs): Radiology Report January 05, 2020 6:33pm Luigi Gordon MD completed [facility] [address] [place] [address] [phone] NAME SEX PT STATUS ACCOUNT NUMBER TAINA MATA [facility] [id number] ORDERING PHYSICIAN LOCATION MEDICAL RECORD NO. Jeanmarie Arteaga [id number] ATTENDING PHYSICIAN DATE OF DATE OF EXAM/TIME [...] March 08, 2020 2:53pm Mesha Mccabe MD [address] [place] [address] [phone] NAME SEX PT STATUS ACCOUNT NUMBER TAINA MATA [facility] [id number] ORDERING PHYSICIAN LOCATION MEDICAL RECORD NO. Cedric Adam MD ER [id number] ATTENDING PHYSICIAN DATE OF DATE OF EXAM/TIME Taina Miller DO 1980 03[birth year]/201435 TYPE / EXAM Xray [...] M.D. Reported By Mesha Mccabe MD on 03/08/20 1453 Signed By Mesha Mccabe MD on 03/08/20 145 Date Time CC: Taina Miller DO; Mesha Mccabe MD Techn: MORSA Trans Dt/Tm: Trans by: DT Prt Dt/Tm: [id number]: Total DLP = 0.00 mGy-cm Fluoroscopy Time (in secs): Radiology Report April 11, 2020 12:02am Kraig Walker MD completed [facility] [address] [id number] [phone] NAME SEX PT STATUS ACCOUNT NUMBER TAINA MATA [facility] [id number] ORDERING PHYSICIAN LOCATION MEDICAL RECORD NO. Geoff Silva [id number] ATTENDING PHYSICIAN DATE OF DATE OF EXAM/TIME [...] Trans Dt/Tm: Trans by: DT Prt Dt/Tm: [id number]: Total DLP = 0.00 mGy-cm Fluoroscopy Time (in secs): Radiology Report April 17, 2020 2:38a m Cedric Harding MD completed [id number] [id number] [phone] NAME SEX PT STATUS ACCOUNT NUMBER TAINA MATA [facility] ER [id number] ORDERING PHYSICIAN LOCATION MEDICAL RECORD NO. Mirna Varghese MD ER [id number] ATTENDING PHYSICIAN DATE OF DATE OF EXAM/TIME [...] Taina Miller DO; Cedric Harding MD Techn: SNYDU Trans Dt/Tm: Trans by: DT Prt Dt/Tm: [id number]: Total DLP = 0.00 mGy-cm Fluoroscopy Time (in secs): Health Concerns Health Concerns may be documented in an alternate section. Advance Directives Advance Directive Response Recorded Date/Time Advanced Directive No 2019 5:42pm MOLST No May 03, 2020 5:42pm Advance Directives on File or in chart? No May 03, 2020 5:42pm Does Patient have a DNR? No May 03, 2020 5:42pm Healthcare Proxy Yes Dec 2019 5:42pm Health Care Proxy Name yeimi ro May 03, 2020 5:42pm Health Care Proxy Phone Number May 03, 2020 5:42pm Living Will No July 12, 2019 2:21pm Chief Complaint and Reason for Visit Chief Complaint Sore Throat J02.9 Asthma follow-up Respiratory complaints Asthma Asthma DYSPNEA Hernia Hernia Amb Documentation Post Op Incision check Medicare Annual Wellness subsequent E83.51,R73.09,E53.81,R53.83 CHEST TIGHTNESS, SIDE PAIN Depression follow-up Depression follow-up cardio assessment SIDE PAIN EAR PAIN E66.9,R73.03 Ear Complaint PAIN IN RIGHT ARM AND NECK TROUBLE BREATHING j45.909 Hospital Discharge Follow-up SOB Asthma follow-uptaina miller Test result SYNCOPE Reason for Visit Dizziness Obesity Depression Depression Moderate persistent asthma Encounters Encounter Location(s) Ar rival/Admit Date Discharge/Depart Date Provider(s) Departed Physician/Provider Office Visit -[facility] July 12, 2019 11:03am July 12, 2019 12:57pm Seth Leonardo DO Registered Referred -Lab Drop Off July 12, 2019 12:05pm Fay Nuno Departed Physician/Provider Office Visit -[facility] July 26, 2019 1:34pm July 26, 2019 2:34pm Chito Riley MD Departed Physician/Provider Office Visit -[facility] August 08, 2019 2:50pm August 08, 2019 3:58pm Chito Riley MD Departed Physician/Provider Office Visit -[facility] August 29, 2019 1:15pm August 29, 2019 2:06pm Chito Riley MD Departed Physician/Provider Office Visit -[facility] September 27, 2019 8:42am September 27, 2019 9:35am Chito Rliey MD Registered Referred -Radiology September 27, 2019 9:33am PAULO RAY Registered Outpatient -[facility] October 02, 2019 2:26am Dawit Sampson MD Registered Outpatient -[facility] Surgery October 03, 2019 6:42am October 04, 2019 7:30am Dawit Sampson MD Registered Outpatient -[facility] October 07, 2019 1:34pm Jeane Solis RN Departed Physician/Provider Office Visit -[facility] Surgery October 11, 2019 11:39am October 11, 2019 11:49am Gabriel Alcantara MD Departed Physician/Provider Office Visit -[facility] January 01, 2020 9:32am January 01, 2020 12:12pm Taina Miller DO Registered Referred -Laboratory January 01, 2020 11:05am Taina Miller DO Departed Emergency -Emergency Room ER January 05, 2020 3:17pm January 05, 2020 5:45pm null Departed Physician/Provider Office Visit -[facility] January 10, 2020 11:33am January 10, 2020 12:18pm Taina Miller DO Departed Physician/Provider Office Visit -[facility] February 14, 2020 11:37am February 14, 2020 12:32pm Taina Miller , DO Registered Outpatient -[facility] March 04, 2020 11:56am Taina Miller DO Departed Emergency -Emergency Room ER March 08, 2020 11:04am March 08, 2020 2:00pm null Departed Emergency -Emergency Room ER March 17, 2020 9:49pm March 17, 2020 10:33pm null Registered Clinical -Nutrition March 20, 2020 11:43am Taina Miller DO Departed Physician/Provider Office Visit -[facility] March 31, 2020 10:22am March 31, 2020 11:47am Taina Miller DO Departed Emergency -Emergency Room ER April 01, 2020 8:39pm April 01, 2020 9:32pm null Departed Emergency -Emergency Room ER April 10, 2020 9:36pm April 10, 2020 11:40pm null Registered Referred -Respiratory Therapy April 13, 2020 12:55pm Taina Miller DO Departed Physician/Provider Office Visit -[facility] April 14, 2020 9:16am April 14, 2020 1:07pm Taina Miller DO Departed Emergency -Emergency Room ER April 17, 2020 12:07am April 17, 2020 3:00am null Departed Physician/Provider Office Visit -[facility] April 20, 2020 9:12am April 20, 2020 10:34am Taina Miller DO Departed Physician/Provider Office Visit -[facility] May 01, 2020 10:42am May 01, 2020 11:57am Taina Miller DO Discharged Inpatient -[facility] May 03, 2020 5:16pm May 04, 2020 5:30pm Tommie Pinon MD Recent Diagnosis Onset Date Dizziness Obesity Depression Depression Moderate persistent asthma Assessments Work-up negative for pneumonia. D-dimer negative. [...] Response Raymond e Recorded Functional Status Complete [place] May 03, 2020 5:42pm Goals Goals may be documented in an alternate section. Immunizations Immunization Event Date Not Given Reason Dose Number Pressure Controller Lot Number Vaccine Information Statement (VIS) Deta il influenza vaccine, inactivated Novem 2019 [id number] pneumococcal polysaccharide PPV23 vaccine March 31, 2020 [id number] Mental Status Observation Response Raymond e Recorded Cognitive Status Normal Cognition May 03, 2020 5:42pm Impairments No impairments or barriers April 17, 2020 12:07am Medical Equipment No Medical Equipment Information available Insurance Providers Guarantor TAINA MATA Address [address] [place] [address] Contact Info. 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 Continue Symbicort and refer to pulmonology. Well [...] up and appointment. Taina Miller DO Email: [email or web address] Phone: [address] [place], [place] [phone] Follow-up in 3 to 5 days. Referral to pulmonology per primary. Taina Miller DO Email: [email or web address] Phone: [address] [place] [phone] Taina Miller DO Email: [email or web address] Phone: [address] [place] [phone] Armen Dunlap MD Work Phone: [facility] [address] [place] [phone] Gabriel Alcantara MD Email: [email or web address] Phone: [address] [place] [phone] Taina Miller DO Email: [email or web address] Phone: [address] [place] [phone] Your follow up appointment has been made for MondayOctober [address] Camilla Sampson MD Work Phone: [address] [place] [phone] Future Procedures Future procedure information is unavailable Future Medications Future medication information is unavailable Patient Instructions Acute Abdominal Pain (DC) Gas and Bloating (GEN) Ventral Hernia Repair (DC) Earache (ED) Contusion in Adults (ED) Asthma (ED) Syncope (ED) Epilepsy (ED) Social History Smoking Status Status Date of Observation Never smoker May 04, 2020 4:1 2pm Observation Status Observation Response Raymond e of Response Smoking Status Never smoker May 04, 2020 4:12pm Alcohol Use No May 03, 2020 4:27pm Substance Use No Loy rainey 2019 4:27pm Assigned Sex Male Vital Signs Vital Reading [...] 08, 2019 4:33pm Respiratory rate 16 /min 12-24 August 08, 2019 4:33pm Oxygen saturation by Pulse [...] 10, 2020 9:54pm Respiratory rate 20 /min 05-14April 10, 2020 9:54pm Oxygen saturation by Pulse [...] 17, 2020 2:46am Respiratory rate 18 /min 12-24 April 17, 2020 2:46am Oxygen saturation by Pulse oximetry 100 % 95-100 April 17, 2020 2:46am BP Systolic 149 mm[Hg] April 17, 2020 2:46am BP Diastolic 89 mm[Hg] April 17, 2020 2:46am Height 70 [in_i] April 20, 2020 9:36am Weight 251.25 [lb_av] April 20, 2020 9:36am Heart Rate 84 /min 60-100 April 20, 2020 9:36am Respiratory rate 16 /min 12-April 20, 2020 9:36am Oxygen saturation by Pulse oximetry 94 % 95- 100 April 20, 2020 9:36am BP Systolic 122 mm[Hg] April 20, 2020 9:36am BP Diastolic 90 mm[Hg] April 20, 2020 9:36am BMI (Body Mass Index) 36.0 kg/m2 April 20, 2020 9:36am Height 70 [in_i] May 01, 2020 11:31am Weight 256.12 [lb_av] May 01, 2020 11:31am Heart Rate 102 /min 60-1 00 May 01, 2020 11:31am Respiratory rate 16 [...] 04, 2020 4:00pm Respiratory rate 18 /min 12-May 04, 2020 4:00pm Oxygen saturation by Pulse oximetry 95 % 95- 100 May 04, 2020 4:00pm BP Systolic 134 mm[Hg] May 04, 2020 4:00pm BP Diastolic 82 mm[Hg] May 04, 2020 4:00pm BMI (Body Mass Index) 36.6 kg/m2 May 04, 2020 4:12pm
--- OUTSIDE RECORDS SUMMARY | 2020-06-04 18:15 | CCD ---
Author Rajendra Slaughter Organization Unknown Address [address] [address] Phone Care Team Providers Care Insole And Outsole Preparer Name Role Phone Willa Hernández PCP Allergies, Adverse Reactions, Alerts No Data in Section Problem List Concept Problem Description Status Start Date Created Date Resolv ed Date Snomed Code F33.1 Major Depressive Disorder, Recurrent episode, Moderate Active 05/05/2020 Medications Rx Norm Medication Route Route Concept Start Date Stop Date Dosage Ankit quency Duration Formula Strength Dosage Form Dosage Form Code Dosage Description Medication Id Account Npid Author First Name Author Last Name Taxonomy Code Taxonomy Desc Phone Number [id number] fluoxetine by mouth [id number] 03/18/2020 05/17/2020 once a day 30 40 mg capsule [phone] Amber Egorho [id number] Nurse Pr actitioner [phone] [id number] aripiprazole by mouth [id number] 03/18/2020 05/17/2020 once a day 30 5 mg tablet [id number] [phone] Amber Egorho [id number] Nurse Pra ctitioner [id number] Social History Social History Element Description Concept Effective Date Smoking Status Unknown if ever smoked [id number] Immunizations No Data in Section Vital Signs No Data in Section Procedures Date Concept Id Description Targeted Site Concept Targeted Site Concept Type 05/05/2020 86156 Extended Individual Psychotherapy - 45 min CPT Patient has no history of implantable de vices Encounters Encounter Start Date End Date Encounter Type Description Diagnosis Di agnosis Desc Location Author First Name Author Last Name Npid Taxonomy Cod e Taxonomy Desc Phone Number Location Addr1 Location Addr2 Location City Location Sta te Location Zip [id number] 05/05/2020 05/05/2020 909[address] Extended Individual Psych otherapy - 45 min F33.1 Major depressive disorder, recurrent, moderate Communi ty Clinic [facility] Edgar Crouch [phone] [id number] [employer] Access[employer] Salesperson [phone] [address] Plan of Treatment No Data in Section Lab Results No Data in Section Instructions No Data in Section Insurance Providers Insurance Id Policy Effective Date Policy Thru Date Company Kenneth trotter [id number] 2002 MEDICARE [id number] MEDICAID [id number] CRISIS
--- OUTSIDE RECORDS SUMMARY | 2020-06-04 18:15 | CCD | Continuity of Care Document ---
Author Author [facility] Address [address] [place] [address] Phone Support Name Relationship Address Phone Osvaldo Chito PRS [address] [place] [address] Seth Leonardo PRS [address] [place] [address] Doctor Provided, Family No PRS Unknown Unava ilable Chito Riley PRS [facility] [place] [address] Darryl Bates [place] [address] [place] [address] Taina Miller PRS [address] [place] [address] Dawit Sampson PRS [address] [place] [address] Jeane Solis PRS Unknown Unavailable Gabriel Alcantara PRS [address] [place] [address] Jeanmarie Arteaga PRS [address] [place] [address] Bryant Villalba PRS [address] [place] [address] Cedric Adam PRS [address] [place] [address] Riki Collins PRS [address] [place] [address] Keith Grant PRS [address] [place] [address] Geoff Silva PRS [address] [place] [address] Mirna Varghese PRS [address] [place] [address] Leo Lee PRS [address] [place] [address] Tommie Pinon PRS [address] [place] [address] PaulJose Carlos PRS [address] [place] [address] [place] [address] Diogenes Thayer PRS [address] [place] [address] Dayton Hong PRS [address] [place] [address] Sincere HOLLINGSWORTH PRS [address] [place] [address] Damaso Rodas PRS [address] [place] [address] Parviz Wright PRS [address] [place] [address] Jefferson Lei PRS [address] [place] [address] Allergies, Adverse Reactions, Alerts No known allergies. [...] 12:46pm Afluria Qd 2019-(3yr up)(PF) (flu vac [id number] 36mos up(PF)) Discontinued 0.5 ML IM 1 [...] 4 hours 2 February 10, 2015 1:59pm [facility]58[facility] Oxcarbazepine Discontinued 600 MG [...] May 04 0 3:55am 5.6 10e3/uL 4.45-10.71 [facility], [address] [facility] [address] White Blood Count April 17 0 1:00am 8.1 10e3/uL 4.45-10.71 [facility], [address] [place] [address] White Blood Count January 05, 2020 3:52pm 7.0 10e3/uL 4.45-10.71 [facility], [address] [place] [address] Red Blood Count May 04, 2020 3:55am 4.91 10e6/uL 4.3-6.1 [facility], [address] [place] [address] Red Blood Count April 17, 2020 1:00am 5.06 10e6/uL 4.3-6.1 [facility], [address] [place] [address] Red Blood Count January 05, 2020 3:52pm 5.36 10e6/uL 4.3-6.1 [facility], [address] [place] [address] Hemoglobin May 04, 2020 3:55am 14.6 g/dL [facility], [address] [place] [address] Hemoglobin April 17, 2020 1:00am 14.8 g/dL [facility], [address] [place] [address] Hemoglobin January 05, 2020 3:52pm 15.7 g/dL [facility], [address] [place] [address] Hematocrit May 04, 2020 3:55am 43.3 % 42-52 [facility], [address] [place] [address] Hematocrit April 17, 2020 1:00am 44.1 % 42-52 [facility], [address] [place] [address] Hematocrit January 05, 2020 3:52pm 45.3 % 42-52 [facility], [address] [place] [address] Mean Corpuscular Volume April 3:55am 88.2 fl 80-96 [facility], [address] [place] [address] Mean Corpuscular Volume March 1:00am 87.2 fl 80-96 [facility], [address] [place] [address] Mean Corpuscular Volume January 05, 2020 3:52pm 84.5 fl 80-96 [facility], [address] [place] [address] Mean Corpuscular Hemoglobin May 04, 2020 3:55am 29.7 pg -31 [facility], [address] [place] [address] Mean Corpuscular Hemoglobin April 17, 2020 1:00am 29.2 pg -31 [facility], [address] [place] [address] Mean Corpuscular Hemoglobin December 202019 3:52pm 29.3 pg 31 [facility], [address] [place] [address] 02220 Mean Corpuscular Hemoglobin Concent May 04, 2020 3:55am 33.7 g/dl [address] [facility], [address] [place] [address] Mean Corpuscular Hemoglobin Concent April 17, 2020 1:00am 33.6 g/dl [address] [facility], [address] [place] [address] 88530 Mean Corpuscular Hemoglobin Concent January 05, 2020 3:52pm 34.7 g/dl [address] [place] [address] LABORATORY, [address] [place] [address] Red Cell Distribution Width May 04, 2020 3:55am 12 % 11-15 [facility], [address] [place] [address] Red Cell Distribution Width April 17, 2020 1:00am 12 % 11-15 [facility], [address] [place] [address] Red Cell Distribution Width December 202019 3:52pm 12 % 11-15 [facility], [address] [place] [address] 29870 Platelet Count May 04, 2020 3:55am 242 10e3/ul 130-472 [facility], [address] [place] [address] Platelet Count April 17, 2020 1:00am 306 10e3/ul 130-472 [facility], [address] [place] [address] Platelet Count January 05, 2020 3:52pm 293 10e3/ul 130-472 [facility], [address] [place] [address] Mean Platelet Volume May 04, 2020 3:55am 9.2 fl 9.1-13.1 [facility], [address] [place] [address] Mean Platelet Volume April 17, 2020 1:00am 8.9 fl 9.1-13.1 [facility], [address] [place] [address] 68740 Mean Platelet Volume January 04 3:52pm 9.1 fl 9.1-13.1 [facility], [address] [place] [address] 07813 Neutrophils (%) (Auto) April 3:55am 62.4 % [address] [facility], [address] [place] [address] 37020 Neutrophils (%) (Auto) March 1:00am 70.3 % [address] [facility], [address] [place] [address] 53927 Neutrophils (%) (Auto) January 05, 2020 3:52pm 70.9 % 41-[address] [place] [address] LABORATORY, [address] [place] [address] 00195 Absolute Neutrophil May 04, 020 3:55am 3.5 # 1.7-7.6 [facility], [address] [place] [address] Absolute Neutrophil April 17, 2 020 1:00am 5.7 # 1.7-7.6 [facility], [address] [place] [address] 54530 Absolute Neutrophil January 04 0 3:52pm 5.0 # 1.7-7.6 [facility], [address] [place] [address] 83523 Lymphocytes (%) (Auto) April 3:55am 24.5 % 14-46 [facility], [address] [place] [address] 40333 Lymphocytes (%) (Auto) March 1:00am 19.3 % 14-46 [facility], [address] [place] [address] 96079 Lymphocytes (%) (Auto) January 05, 2020 3:52pm 18.8 % 14-46 [facility], [address] [place] [address] 69489 Lymphocytes # (Auto) May 04, 2020 3:55am 1.4 # 0.6-4.6 [facility], [address] [place] [address] 67064 Lymphocytes # (Auto) April 17, 2020 1:00am 1.6 # 0.6-4.6 [facility], [address] [place] [address] 39332 Lymphocytes # (Auto) January 04 3:52pm 1.3 # 0.6-4.6 [facility], [address] [place] [address] 85768 Monocytes (%) (Auto) May 04, 2020 3:55am 9.0 % 4-12 [facility], [address] [place] [address] 03295 Monocytes (%) (Auto) April 17, 2020 1:00am 8.4 % 4-12 [facility], [address] [place] [address] 01531 Monocytes (%) (Auto) January 04 3:52pm 7.4 % 4-12 [facility], [address] [place] [address] 15733 Monocytes # May 04, 2020 3:55am 0.5 # 0.2-1.2 [facility], [address] [place] [address] 64239 Monocytes # April 17, 2020 1:00am 0.7 # 0.2-1.2 [facility], [address] [place] [address] 59733 Monocytes # January 05, 2020 3:52pm 0.5 # 0.2-1.2 [facility], [address] [place] [address] 55522 Eosinophils (%) (Auto) April 3:55am 3.5 % 0-7 [facility], [address] [place] [address] 51433 Eosinophils (%) (Auto) March 1:00am 1.8 % 0-7 [facility], [address] [place] [address] 71413 Eosinophils (%) (Auto) January 05, 2020 3:52pm 2.3 % 0-7 [facility], [address] [place] [address] 36107 Absolute Eosinophils (CBC) May 04, 2020 3:55am 0.2 # 0.0-0.5 [facility], [address] [place] [address] 53265 Absolute Eosinophils (CBC) April 17, 2020 1:00am 0.2 # 0.0-0.5 [facility], [address] [place] [address] 84756 Absolute Eosinophils (CBC) January 042019 3:52pm 0.2 # 0.0-0.5 [facility], [address] [place] [address] 27505 Basophils (%) (Auto) May 04, 2020 3:55am 0.4 % 0.4-1.3 [facility], [address] [place] [address] 35109 Basophils (%) (Auto) April 17, 2020 1:00am 0.1 % 0.4-1.3 [facility], [address] [place] [address] 84800 Basophils (%) (Auto) January 04 3:52pm 0.3 % 0.4-1.3 [facility], [address] [place] [address] 01546 Absolute Basophils (CBC) May 042019 3:55am 0.0 # 0.0-0.2 [facility], [address] [place] [address] Absolute Basophils (CBC) April 172019 1:00am 0.0 # 0.0-0.2 [facility], [address] [place] [address] Absolute Basophils (CBC) December 3:52pm 0.0 # 0.0-0.2 [facility], [address] [place] [address] 05904 Immature Granulocyte % (Auto) Dece 2019 3:55am 0.2 % 0-2 [facility], [address] [place] [address] 04531 Immature Granulocyte % (Auto) [facility] 2019 1:00am 0.1 % 0-2 [facility], [address] [place] [address] Immature Granulocyte % (Auto) January 05, 2020 3:52pm 0.3 % 0-2 [facility], [address] [place] [address] 62601 Absolute Immature Granulocyte (auto May 04, 2020 3:55am 0.0 # 0-0.1 [facility], [address] [place] [address] 06376 Absolute Immature Granulocyte (auto April 17, 2020 1:00am 0.0 # 0-0.1 [facility], [address] [place] [address] 04162 Absolute Immature Granulocyte (auto January 05, 2020 3:52pm 0.0 # 0-0.1 [facility], [address] [place] [address] 89599 Add Manual Differential April 3:55am No [facility], [address] [place] [address] 99259 Add Manual Differential March 1:00am No [facility], [address] [place] [address] 67846 Add Manual Differential January 05, 2020 3:52pm No [facility], [address] [place] [address] Prothrombin Time May 03, 2020 1:40p m 10.3 SECONDS 9.6-12.3 [facility], [address] [place] [address] 54438 INR International Normalized Ratio D ecember 2019 1:40pm 1.0 0.9-1.1 THE INR IS OPERATIONALLY DEFINED FOR BULMARO SH PLASMA FROMPATIENTS STABILIZED ON ORAL ANTICOAGULANTS. ROUTINE ANTICOAGULANT THERAPY 2.0-3.0RECURRENT SYSTEMIC EMBOLISM/HEART VALVE REPLACEMENT 2.5-3.5 [facility], [address] [place], [place] [address] Partial Thromboplastin Time - Jermaine D ec2019 1:40pm 25.9 SECONDS 22.7-31.6 [facility], [address] [place], [place] [address] D-Dimer April 17, 2020 1:00am 0.46 mg/L 0.0-0.50 PLEASE NOTE: THIS TEST WAS PERFORMED USING A PARTICLE-ENHANCED, IMMUNOTURBIDIMETRIC ASSAY AND HAS A SINGLE,CLINICALLY DERIVED CUTOFF OF 0.50 MG/L. [facility], [address] [place] [address] Blood Urea Nitrogen May 04 020 3:55am 20 mg/dL 02-11 [facility], [address] [place] [address] Blood Urea Nitrogen January 04 0 3:52pm 12 mg/dL 02-11 [facility], [address] [place] [address] Blood Urea Nitrogen December 31 0 11:16am 21 mg/dL 02-11 [facility], [address] [place] [address] Sodium Level May 04, 2020 3:55am 142 mmol/L 132-146 [facility], [address] [place] [address] Sodium Level January 05, 2020 3:52pm 138 mmol/L 132-146 [facility], [address] [place] [address] Sodium Level January 01, 2020 11:16am 142 mmol/L 132-146 [facility], [address] [place] [address] Potassium Level May 04, 2020 3:55am 4.1 mmol/L 3.5-5.5 [facility], [address] [place] [address] 51103 Potassium Level January 05, 2020 3:52pm 3.9 mmol/L 3.5-5.5 [facility], [address] [place] [address] 32740 Potassium Level January 01, 2020 11:16am 4.7 mmol/L 3.5-5.5 [facility], [address] [place] [address] 71068 Chloride Level May 04, 2020 3:55am 109 mmol/l 99-109 [facility], [address] [place] [address] 83814 Chloride Level January 05, 2020 3:52pm 108 mmol/l 99-109 [facility], [address] [place] [address] 89934 Chloride Level January 01, 2020 11:16am 111 mmol/l 99-109 [facility], [address] [place] [address] 46583 Carbon Dioxide Level May 04, 2020 3:55am 27 mmol/l 20-31 [facility], [address] [place] [address] 34374 Carbon Dioxide Level January 04 3:52pm 25 mmol/l 20-31 [facility], [address] [place] [address] 50475 Carbon Dioxide Level December 31 11:16am 24 mmol/l 20-31 [facility], [address] [place] [address] 00664 Anion Gap May 04, 2020 3:55am 10 mmol/l 8-16 [facility], [address] [place] [address] 93379 Anion Gap January 05, 2020 3:52pm 9 mmol/l 8-16 [facility], [address] [place] [address] 01851 Anion Gap January 01, 2020 11:16am 12 mmol/l 8-16 [facility], [address] [place] [address] 78583 Glucose Level May 04, 2020 3:55am 102 mg/dL 74-106 [facility], [address] [place] [address] 81038 Glucose Level January 05, 2020 3:52pm 107 mg/dL 74-106 [facility], [address] [place] [address] 17507 Glucose Level January 01, 2020 11:16am 107 mg/dL 74-106 [facility], [address] [place] [address] 91985 Creatinine May 04, 2020 3:55am 1.0 mg/dL 0.5-1.1 [facility], [address] [place] [address] 32082 Creatinine January 05, 2020 3:52pm 1.0 mg/dL 0.5-1.1 [facility], [address] [place] [address] Creatinine January 01, 2020 11:16am 1.2 mg/dL 0.5-1.1 [facility], [address] [place] [address] Glomerular Filtration Rate Calc Dece mber 2019 3:55am Greater than 60 ml/min ABOVE 60 [facility], [address] [place] [address] Glomerular Filtration Rate Calc Augu st 2019 3:52pm Greater than 60 ml/min ABOVE 60 [facility], [address] [place] [address] Glomerular Filtration Rate Calc Augu st 2019 11:16am Greater than 60 ml/min ABOVE 60 [facility], [address] [place] [address] Alanine Aminotransferase (ALT/SGPT) May 04, 2020 3:55am 60 U/L 10-49 [facility], [address] [place] [address] Alanine Aminotransferase (ALT/SGPT) January 05, 2020 3:52pm 65 U/L 10-49 [facility], [address] [place] [address] Alanine Aminotransferase (ALT/SGPT) January 01, 2020 11:16am 66 U/L 10-49 [facility], [address] [place] [address] Aspartate Amino Transf (AST/SGOT) De cember 2019 3:55am 28 U/L 0-33 [facility], [address] [place] [address] Aspartate Amino Transf (AST/SGOT) Au abraham 2019 3:52pm 30 U/L 0-33 [facility], [address] [place] [address] Aspartate Amino Transf (AST/SGOT) Au abraham 2019 11:16am 22 U/L 0-33 [facility], [address] [place] [address] Alkaline Phosphatase May 04, 2020 3:55am 65 U/L 45-129 [facility], [address] [place] [address] Alkaline Phosphatase January 04 3:52pm 77 U/L 45-129 [facility], [address] [place], [place] [address] Alkaline Phosphatase December 31 11:16am 77 U/L 45-129 [facility], [address] [place], [place] [address] Calcium Level May 04, 2020 3:55am 8.4 mg/dL 8.5-10.1 [facility], [address] [place] [address] Calcium Level January 05, 2020 3:52pm 8.9 mg/dL 8.5-10.1 [facility], [address] [place] [address] Calcium Level January 01, 2020 11:16am 9.0 mg/dL 8.5-10.1 Delta: 8.0 on 10/02/19-524Repeated by: Tammy Griffiths 01/01/20 1339.Result Confirmation: 8.7 mg/dL [facility], [address] [place], [place] [address] Total Bilirubin May 04, 2020 3:55am 0.6 mg/dL 0.3-1.2 [facility], [address] [place], [place] [address] Total Bilirubin January 05, 2020 3:52pm 0.6 mg/dL 0.3-1.2 [facility], [address] [place], [place] [address] Total Bilirubin January 01, 2020 11:16am 0.4 mg/dL 0.3-1.2 [facility], [address] [place] [address] 51645 Albumin May 04, 2020 3:55am 3.4 g/dL 3.2-4.8 [facility], [address] [place], [place] [address] Albumin January 05, 2020 3:52pm 3.7 g/dL 3.2-4.8 [facility], [address] [place], [place] [address] Albumin January 01, 2020 11:16am 3.9 g/dL 3.2-4.8 [facility], [address] [place] [address] 62172 Serum Total Protein May 04, 020 3:55am 6.7 g/dL 5.7-8.2 [facility], [address] [place] [address] Serum Total Protein January 04 0 3:52pm 7.0 g/dL 5.7-8.2 [facility], [address] [place] [address] 52017 Serum Total Protein December 31 0 11:16am 7.0 g/dL 5.7-8.2 [facility], [address] [place] [address] 05383 Phosphorus Level January 01, 2020 11:16am 3.1 mg/dL 2.4-5.1 [facility], [address] [place] [address] 62155 Magnesium Level January 01, 2020 11:16am 2.4 mg/dL 1.3-2.7 [facility], [address] [place] [address] 42967 Urine Marijuana (THC) Screen 2019 3:00pm Negative ng/mL Cutoff 50 [facility], [address] [place] [address] Urine Phencyclidine Screen May 03, 2020 3:00pm Negative ng/mL Cutoff 25 [facility], [address] [place] [address] Urine Cocaine Screen May 03, 2020 3:00pm Negative ng/mL Cutoff 150 [facility], [address] [place] [address] 09300 Urine Methamphetamines Screen 2019 3:00pm Negative ng/mL Cutoff 500 [facility], [address] [place] [address] 43003 Urine Opiates Screen May 03, 2020 3:00pm Negative ng/mL Cutoff 100 [facility], [address] [place] [address] 61881 Urine Amphetamines Screen April 212019 3:00pm Negative ng/mL Cutoff 500 [facility], [address] [place] [address] 87279 Urine Benzodiazepines Screen 2019 3:00pm Negative ng/mL Cutoff 150 [facility], [address] [place] [address] 89887 Ur Tricyclic Antidepressants Screen May 03, 2020 3:00pm Negative ng/mL Cutoff 300 [facility], [address] [place] [address] 65646 Urine Methadone Screen April 3:00pm Negative ng/mL Cutoff 200 [facility], [address] [place] [address] 25944 Urine Barbiturates May 03 3:00pm Negative ng/mL Cutoff 200 [facility], [address] [place] [address] Urine Oxycodone Screen April 3:00pm Negative ng/mL Cutoff 100 [facility], [address] [place] [address] Urine Propoxyphene Screen April 212019 3:00pm Negative ng/mL Cutoff 300 [facility], [address] [place] [address] Urine Buprenorphine Screen May 03, 2020 3:00pm Negative ng/mL Cutoff 10 [facility], [address] [place] [address] Troponin I May 04, 2020 3:55am Less than 0.015 ng/mL 0.00-0.09 Less than 0.09 NG/ML Negative0.10 - 0.77 NG/ML High Risk0.78 NG/ML or Greater Positive The WHO defined the cutoff (definition for diagnosis of [place])for this method as 0.78 ng/ml. [facility], [address] [place] [address] Troponin I January 05, 2020 3:52pm Less than 0.015 ng/mL 0.00-0.09 Less than 0.09 NG/ML Negative0.10 - 0.77 NG/ML High Risk0.78 NG/ML or Greater Positive The WHO defined the cutoff (definition for diagnosis of [place])for this method as 0.78 ng/ml. [facility], [address] [place] [address] Thyroid Stimulating Hormone (TSH) Au 2019 11:16am 1.04 uIU/mL 0.35-5.50 [facility], [address] [place] [address] Hemoglobin A1c January 01, 2020 11:16am 6.1 [...] glucose control. * High risk of developing fpc complications such asretinopathy, nephropathy, neuropathy, cardiopathy, etc. Some danger of hypoglycemic reaction in Type I diabetics.Some glucose intolerant individuals and "Sub Clinical"diabetics may demonstrate HGBA1C levels in this area. [facility], [address] [place] [address] Estimated Average Glucose (eAG) Augu 2019 11:16am 128 mg/dl An A1C of 7% - the goal of diabetic ther apy - is equivalentto an EAG of 154 mg/dl. [facility], [address] [place] [id number] Microbiology Results Procedure Source Result Collection Date/Time Result Date/Time Result Comment Performing Site Streptococcus Rapid Screen Throat July 12, 2019 12:05pm July 13, 2019 9:35am [facility], [address] [place] [address] Blood Culture Venous blood No growth. April 17, 2020 1:00am April 22, 2020 1:07am [facility], [address] [place] [address] Influenza-Like Illness (PCR) Nasopharyngea l No Organisms Detected May 03, 2020 4:15pm May 03, 2020 4:48pm [facility], [address] [place] [id number] Nasopharyngeal May 03, 2020 4:15pm May 03, 2020 4:48pm [facility], [address] [place] [address] Respiratory Panel (PCR) Nasopharyngeal No Organisms Detected April 17, 2020 1:10am April 17, 2020 2:02am [facility], [address] [place] [id number] Diagnostic Imaging Reports Report Dictated Date/Time Dictated By Status Radiology Report September 27, 2019 10:48am Jalen Diamond MD completed [place] [id number] [place] [id number] [phone] NAME SEX PT STATUS ACCOUNT NUMBER Taina Mata REG REF [id number] ORDERING PHYSICIAN LOCATION MEDICAL RECORD NO. [facility] [id number] ATTENDING PHYSICIAN DATE OF DATE OF EXAM/TIME [...] Trans Dt/Tm: Trans by: DT Prt Dt/Tm: [id number]: Total DLP = 0.00 mGy-cm Fluoroscopy Time (in secs): Radiology Report January 05, 2020 6:33pm Luigi Gordon MD completed [facility] [address] [place] [address] [phone] NAME SEX PT STATUS ACCOUNT NUMBER TAINA MATA [facility] [id number] ORDERING PHYSICIAN LOCATION MEDICAL RECORD NO. Jeanmarie Arteaga [id number] ATTENDING PHYSICIAN DATE OF DATE OF EXAM/TIME Taina Miller DO 1980 01[birth year]/201639 TYPE / EXAM CT [...] 08, 2020 2:53pm Mesha Mccabe MD completed [place] [address] [place] [address] [phone] NAME SEX PT STATUS ACCOUNT NUMBER TAINA MATA [facility] [id number] ORDERING PHYSICIAN LOCATION MEDICAL RECORD NO. Cedric Adam MD ER [id number] ATTENDING PHYSICIAN DATE OF DATE OF EXAM/TIME [...] Reported By Mesha Mccabe MD on 03/08/20 145 Signed By Mesha Mccabe MD on 03/08/20 145 Date Time CC: Taina Miller DO; Mesha Mccabe MD Techn: MORSA Trans Dt/Tm: Trans by: DT Prt Dt/Tm: [id number]: Total DLP = 0.00 mGy-cm Fluoroscopy Time (in secs): Radiology Report April 11, 2020 12:02am Kraig Walker MD completed [facility] [address] [place] [address] [phone] NAME SEX PT STATUS ACCOUNT NUMBER TAINA MATA [facility] [id number] ORDERING PHYSICIAN LOCATION MEDICAL RECORD NO. Geoff Silva [id number] ATTENDING PHYSICIAN DATE OF DATE OF EXAM/TIME [...] Trans Dt/Tm: Trans by: DT Prt Dt/Tm: [id number]: Total DLP = 0.00 mGy-cm Fluoroscopy Time (in secs): Radiology Report April 17, 2020 2:38a m Cedric Harding MD completed [place] [id number] [place] [id number] [phone] NAME SEX PT STATUS ACCOUNT NUMBER TAINA MATA [facility] ER [id number] ORDERING PHYSICIAN LOCATION MEDICAL RECORD NO. Mirna Varghese MD ER [id number] ATTENDING PHYSICIAN DATE OF DATE OF EXAM/TIME [...] Trans Dt/Tm: Trans by: DT Prt Dt/Tm: [id number]: Total DLP = 0.00 mGy-cm Fluoroscopy Time (in secs): Radiology Report May 03, 2020 2:42p m Suyapa Armando MD completed [facility] [address] [place] [address] [phone] NAME SEX PT STATUS ACCOUNT NUMBER TAINA MATA [facility] ER [id number] ORDERING PHYSICIAN LOCATION MEDICAL RECORD NO. Leo Lee MD ER [id number] ATTENDING PHYSICIAN DATE OF DATE OF EXAM/TIME [...] Trans Dt/Tm: Trans by: DT Prt Dt/Tm: [id number]: Total DLP = 630.00 mGy-cm 5630-3991: Total Radiation Dose = 0.0000 mSv Lifetime Dose: 39.5875 mSv Radiology Report May 03, 2020 2:58p m Suyapa Armando MD completed [facility] [address] [place] [id number] [phone] NAME SEX PT STATUS ACCOUNT NUMBER TAINA MATA [facility] ER [id number] ORDERING PHYSICIAN LOCATION MEDICAL RECORD NO. Leo Lee MD ER [id number] ATTENDING PHYSICIAN DATE OF DATE OF EXAM/TIME [...] Signed By Suyapa Armando MD on 05/03/20 1456 Date Time CC: Taina Miller DO; Suyapa Armando MD Techn: EBEBR Trans Dt/Tm: Trans by: DT Prt Dt/Tm: : Total DLP = 625.00 mGy-cm : Total Radiation Dose = 1.9375 mSv Lifetime Dose: 39.5875 mSv Radiology Report May 03, 2020 3:00p maryellen Miller MD completed [facility] [address] [place] [id number] [phone] NAME SEX PT STATUS ACCOUNT NUMBER TAINA MATA [facility] ER [id number] ORDERING PHYSICIAN LOCATION MEDICAL RECORD NO. Leo Lee MD ER [id number] ATTENDING PHYSICIAN DATE OF DATE OF EXAM/TIME Taina Miller DO 1980 05/03/20 / 1317 TYPE / EXAM Xray Chest One View [...] M.D. Reported By Ayden Miller MD on 05/03/201499 Signed By Ayden Miller MD on 05/03/20 1500 Date Time CC: Taina Miller DO; Ayden Miller MD Techn: EBEBR Trans Dt/Tm: Trans by: DT Prt Dt/Tm: [id number]: Total DLP = 0.00 mGy-cm Fluoroscopy Time (in secs): Radiology Report May 03, 2020 3:00p m Ayden Miller MD completed [place] [address] [place] [address] [phone] NAME SEX PT STATUS ACCOUNT NUMBER TAINA MATA [facility] [id number] ORDERING PHYSICIAN LOCATION MEDICAL RECORD NO. Leo Lee MD ER [id number] ATTENDING PHYSICIAN DATE OF DATE OF EXAM/TIME [...] Trans Dt/Tm: Trans by: DT Prt Dt/Tm: [id number]: Total DLP = 0.00 mGy-cm Fluoroscopy Time (in secs): Radiology Report May 04, 2020 11:41am Lm Machuca MD completed [place] [address] [place] [address] [phone] NAME SEX PT STATUS ACCOUNT NUMBER ATINA MATA [facility] [id number] ORDERING PHYSICIAN LOCATION MEDICAL RECORD NO. Tommie Pinon MD [id number] ATTENDING PHYSICIAN DATE OF DATE OF EXAM/TIME Taina Miller DO 1980 05[birth year]/201127 TYPE / EXAM MRI [...] 2020 4:51p m Isamar Llamas MD completed [facility] [address] [place] [address] [phone] NAME SEX PT STATUS ACCOUNT NUMBER TAINA MATA [facility] [id number] ORDERING PHYSICIAN LOCATION MEDICAL RECORD NO. Horace Mcnulty [id number] ATTENDING PHYSICIAN DATE OF DATE OF EXAM/TIME Taina Miller DO 1980 05[birth year]04/201053 TYPE / EXAM US [...] 08, 2020 10:26am Healthcare Proxy Yes Dec 2019 10:26am Health Care Proxy Name yeimi ro [...] SOB Asthma follow-uptaina miller Test result SYNCOPE Depression follow-up Reason for Visit Dizziness Obesity Depression Depression Moderate persistent asthma Depression Encounters Encounter Location(s) Ar rival/Admit Date Discharge/Depart Date Provider(s) Departed Physician/Provider Office Visit [facility] July 12, 2019 11:03am July 12, 2019 12:57pm Seth Leonardo DO Registered Referred [facility]Lab Drop Off July 12, 2019 12:05pm Seth Leonardo DO Departed Physician/Provider Office Visit [facility] July 26, 2019 1:34pm July 26, 2019 2:34pm Chito Riley MD Departed Physician/Provider Office Visit [facility] August 08, 2019 2:50pm August 08, 2019 3:58pm Chito Riley MD Departed Physician/Provider Office Visit [facility] August 29, 2019 1:15pm August 29, 2019 2:06pm Chito Riley MD Departed Physician/Provider Office Visit [facility] September 27, 2019 8:42am September 27, 2019 9:35am Maryellen Shelton Registered Referred [facility]Radiology September 27, 2019 9:33am S STEVO RAY Registered Outpatient [facility] Surgery October 02, 2019 2:26am Dawit Sampson MD Registered Outpatient [facility] Surgery October 03, 2019 6:42am October 04, 2019 7:30am Dawit Sampson MD Registered Outpatient [facility] October 07, 2019 1:34pm Jeane Solis RN Departed Physician/Provider Office Visit [facility] October 11, 2019 11:39am October 11, 2019 11:49am Maryellen Obregon Departed Physician/Provider Office Visit [facility] January 01, 2020 9:32am January 01, 2020 12:12pm Taina Angela , DO Registered Referred [facility]Laboratory January 01, 2020 11:05am Taina Miller DO Departed Emergency [facility]-Emergency Room ER January 05, 2020 3:17pm January 05, 2020 5:45pm null Departed Physician/Provider Office Visit [facility] January 10, 2020 11:33am January 10, 2020 12:18pm Taina Miller , DO Departed Physician/Provider Office Visit [facility] February 14, 2020 11:37am February 14, 2020 12:32pm Taina Miller , DO Registered Outpatient [facility] March 04, 2020 11:56am Taina Miller , DO Departed Emergency [facility]-Emergency Room ER March 08, 2020 11:04am March 08, 2020 2:00pm null Departed Emergency [facility]Emergency Room ER March 17, 2020 9:49pm March 17, 2020 10:33pm null Registered Clinical [facility]Nutrition March 20, 2020 11:43am Taina Miller , DO Departed Physician/Provider Office Visit [facility] March 31, 2020 10:22am March 31, 2020 11:47am Taina Miller DO Departed Emergency [facility]-Emergency Room ER April 01, 2020 8:39pm April 01, 2020 9:32pm null Departed Emergency [facility]Emergency Room ER April 10, 2020 9:36pm April 10, 2020 11:40pm null Registered Referred [facility]Respiratory Therapy April 13, 2020 12:55pm Taina Miller DO Departed Physician/Provider Office Visit [facility] April 14, 2020 9:16am April 14, 2020 1:07pm Taina Miller DO Departed Emergency [facility]Emergency Room ER April 17, 2020 12:07am April 17, 2020 3:00am null Departed Physician/Provider Office Visit [facility] April 20, 2020 9:12am April 20, 2020 10:34am Taina Miller DO Departed Physician/Provider Office Visit [facility] May 01, 2020 10:42am May 01, 2020 11:57am Taina Angela , DO Discharged Inpatient [facility] May 03, 2020 5:16pm May 04, 2020 5:30pm Tommie Pinon MD Departed Physician/Provider Office Visit [facility] May 08, 2020 1:30pm May 08, 2020 2:23pm Taina Miller DO Recent Diagnosis Onset Date Dizziness Obesity Depression Depression Moderate persistent asthma Depression Assessments Work-up negative for pneumonia. D-dimer [...] Response Raymond e Recorded Functional Status Complete Z[place] May 03, 2020 5:42pm Goals Goals may be documented in an alternate section. Immunizations Immunization Event Date Not Given Reason Dose Number [employer] Lot Number Vaccine Information Statement (VIS) Deta il influenza vaccine, inactivated Novem 2019 [id number] pneumococcal polysaccharide PPV23 vaccine March 31, 2020 [id number] Mental Status Observation Response Raymond e Recorded Cognitive Status Normal Cognition May 03, 2020 5:42pm Impairments No impairments or barriers May 08, 2020 10:26am Medical Equipment No Medical Equipment Information available Insurance Providers Guarantor TAINA MATA Address [address] [place] [address] Contact Info. Home Phone: Payer Policy Id Coverage Id Subscriber's Name Subscriber Id Effective Date Expiration Date MEDICARE [employer] [id number] TAINA MATA [id number] [place] [id number] TAINA MATA [id number] [facility] [id number] TAINA MATA [id number] [place] [id number] TAINA MATA [id number] MEDICAID [id number] TAINA MATA [id number] MEDICARE [id number] TAINA MATA [id number] Self Pay Self N/A Plan of Treatment stable continue current medical treatment f/u mental health f/u psych if condition worsens, then go to ER stable continue current medical treatment f/u pulmonary [...] done, then he may benefit from seeing 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 Continue Symbicort and refer to pulmonology. Well [...] up and appointment. Taina Miller DO Email: Work Phone: [address] [place] [phone] Follow-up in 3 to 5 days. Referral to pulmonology per primary. Taina Miller DO Email: [email or web address] Phone: [address] [place] [phone] Taina Miller DO Email: [email or web address] Phone: [address] [place] [phone] Armen Dunlap MD Work Phone: [facility] [address] [place] [address] Gabriel Alcantara MD Email: [email or web address] Phone: [address] [place] [phone] Taina Miller DO Email: [email or web address] Phone: [address] [place] [phone] Your follow up appointment has been made for MondayOctober [address] Camilla Sampson MD Work Phone: [address] [place] [phone] Future Procedures Future procedure information is unavailable [...] May 08, 2020 10:26am Substance Use No [facility] 2019 10:26am Assigned Sex Male Vital Signs [...] 29, 2019 2:33pm Respiratory rate 20 /min 12-August 29, 2019 2:33pm Oxygen saturation by Pulse [...] 14, 2020 1:05pm Respiratory rate 16 /min 05-14February 14, 2020 1:05pm Oxygen saturation by Pulse [...] 08, 2020 12:05pm Respiratory rate 16 /min 05-14March 08, 2020 12:05pm Oxygen saturation by Pulse [...] 17, 2020 10:50pm Respiratory rate 20 /min 05-14March 17, 2020 10:50pm Oxygen saturation by Pulse [...] 08, 2020 1:42pm Respiratory rate 16 /min 12-24 May 08, 2020 1:42pm Oxygen saturation by Pulse oximetry 94 % 95- 100 May 08, 2020 1:42pm BP Systolic 120 mm[Hg] May 08, 2020 1:42pm BP Diastolic 90 mm[Hg] May 08, 2020 1:42pm BMI (Body Mass Index) 35.4 kg/m2 May 08, 2020 1:42pm
--- OUTSIDE RECORDS SUMMARY | 2020-06-04 18:15 | CCD | Summary of Care ---
Demographics Preferred Language Unknown Marital Status Unknown Yazidism Affiliation Unknown Race Unknown Ethnic Group Unknown Author Author [facility] Address Unknown Phone Unavailable Care Team Providers Care Pharmacology Associate Name Role Phone PCP Unavailable Encounter Details Care Team Description Date Type Department 05/04/2020 [facility] TRANSFER CE NTER Encounter [address] [place] [address] Allergies Not on Filedocumented as of this encounter (statuses as of 05/19/2020) Medications Not on filedocumented as of this encounter (statuses as of 05/19/2020) Active Problems Not on filedocumented as of this encounter (statuses as of 05/19/2020) Social History Date Tobacco Use Types Packs/Day Years Used Never Assessed Sex Assigned at Date Recorded Not on file documented as of this encounter Last Filed Vital Signs Not on filedocumented in this encounter Plan of Treatment Health Maintenance Due Date Last Done Comments MMR Vaccines (1 of - 1982 Standard series) Varicella Vaccines (1 of 1982 2 - 2-dose childhood series) DTaP,Tdap,and Td Vaccines 1988 (1 - Tdap) HIV Screening 1994 Influenza Vaccine 02/20/2020 Pneumococcal Vaccine: 65+ 2046 Years (1 of 1 - PPSV23) HIB Vaccines Aged Out No longer eligible based on patient's age to complete this topic Hepatitis A Vaccines Aged Out No longer eligibl e based on patient's age to complete this topic Hepatitis B Vaccines Aged Out No longer eligibl e based on patient's age to complete this topic IPV Vaccines Aged Out No longer eligible based on patient's age to complete this topic Pneumococcal Vaccine: Aged Out No longer eligib le based on patient's age to Pediatrics (0 to 5 Years) complete this topic and At-Risk Patients (6 to 64 Years) documented as of this encounter Results Not on filedocumented in this encounter
--- OUTSIDE RECORDS SUMMARY | 2020-06-04 18:16 | CCD | Continuity of Care Document ---
Author Author [facility] Organization [facility] Address [address] [place] [address] Phone Support Name Relationship Address Phone Chito Riley PRS [address] [place] [address] LeonardoSeth chavarria PRS [address] [place] [address] Doctor Provided, Family No PRS Unknown Unava ilable Chito Riley PRS [facility] [place] [address] Kostaselaine, Darryl [place] [address] [place] [address] Taina Miller PRS [address] [place] [address] Dawit Sampson PRS [address] [place] [address] Jeane Solis PRS Unknown Unavailable Gabriel Alcantara PRS [address] [place] [address] Jeanmarie Arteaga PRS [address] [place] [address] Bryant Villalba PRS [address] [place] [address] Cedric Adam PRS [address] [place] [address] Riki Collins PRS [address] [place] [address] Keith Grant PRS [address] [place] [address] Geoff Silva PRS [address] [place] [address] Mirna Varghese PRS [address] [place] [address] Allergies, Adverse Reactions, Alerts No known allergies. Medications Medication Status Dose Units Route Directions Qty Days Start Date End Date Instructions Budesonide-Formoterol (Symbicort) 160-4. 5 mcg/actuation HFA aerosol inhaler Discontinued 1 PUFFS IH 2 Times Per Day 1 March 01, 2019 9:34am July 26, 2019 2:12pm Albuterol Sulfate Discontinued 2 INH IH Q6H 1 March 01, 2019 9:39am October 02, 2019 2:58am Budesonide-Formoterol (Symbicort) 160-4. 5 mcg/actuation HFA aerosol inhaler Discontinued 1 PUFFS IH 2 Times Per Day 1 July 26, 2019 2:12pm October 02, 2019 2:58am Fluoxetine (Prozac) 10 mg capsule Active 20 MG PO daily September 27, 2019 8:47am pneumococcal 23-luis ps vaccine 25 mcg/0. 5 mL injection syringe Discontinued 0.5 ML IM .1 0.5 March 31, 2020 10:22am March 31, 2020 12:46pm Afluria Qd 2020-21(3yr up)(PF) (flu vac [id number] 36mos up(PF)) Discontinued 0.5 ML IM 1 [...] 2020 12:37am Montelukast (Singulair) 10 mg tablet Activ e 10 MG PO daily April 20, 2020 10:25am Amoxicillin Discontinued 500 MG PO Three times a day February 27, 2016 10:18am March 29, 2016 1:57pm Naproxen Discontinued 500 MG PO 2 Times Per Day 14 February 27, 2016 10:40am March 29, 2016 [...] 750 MG PO 2 Times Per Day Meals 10 03February 24, 2019 11:26am March 05, 2019 11:01pm [...] 2020 12:37am May 01, 2020 11:36am Prednisone Active 0 PO .COMPLEX April 17, 2020 2:44am orally per package directions Budesonide-Formoterol (Symbicort 80-4.5 Mcg Inhaler) 10.2 GM [...] 4 hours 2 February 10, 2015 1:59pm [facility] 7:58am Oxcarbazepine Discontinued 600 MG PO 2 [...] Times Per Day February 27, 2018 9:55am September 19, 2018 7:53am Budesonide-Formoterol (Symbicort 160-4.5 Mcg Inhaler) 10.2 GM HFA aerosol inhaler Discontinued 1 PUFFS IH 2 Times Per Day 1 February 27, 2018 9:55am March 01, 2019 9:40am Fluticasone Furoate-Vilanterol (Breo Ell ipta) 100-25 mcg/dose blister with device Active 1 INH IH Q24H April 15, 2020 2:35pm Problems Active Problems Medical Problem Onset Date [...] Procedures Procedure Date Performed Status Xray Chest 2 view PA/LAT April 172019 [...] Result Comment Performing Site White Blood Count April 17 0 1:00am 8.1 10e3/uL 4.45-10.71 [facility], [address] [place] [address] 63418 White Blood Count January 05, 2020 3:52pm 7.0 10e3/uL 4.45-10.71 [facility], [address] [place] [address] 43122 Red Blood Count April 17, 2020 1:00am 5.06 10e6/uL 4.3-6.1 [facility], [address] [place] [address] 32487 Red Blood Count January 05, 2020 3:52pm 5.36 10e6/uL 4.3-6.1 [facility], [address] [place] [address] 68719 Hemoglobin April 17, 2020 1:00am 14.8 g/dL [facility], [address] [place] [address] Hemoglobin January 05, 2020 3:52pm 15.7 g/dL [facility], [address] [place] [address] Hematocrit April 17, 2020 1:00am 44.1 % 42-52 [facility], [address] [place] [address] 55027 Hematocrit January 05, 2020 3:52pm 45.3 % 42-52 [facility], [address] [place] [address] 49486 Mean Corpuscular Volume March 1:00am 87.2 fl 80-96 [facility], [address] [place] [address] Mean Corpuscular Volume January 05, 2020 3:52pm 84.5 fl 80-96 [facility], [address] [place] [address] 20215 Mean Corpuscular Hemoglobin April 17, 2020 1:00am 29.2 pg 27-31 [facility], [address] [place] [address] 52955 Mean Corpuscular Hemoglobin December 202019 3:52pm 29.3 pg 27-31 [facility], [address] [place] [address] 13423 Mean Corpuscular Hemoglobin Concent April 17, 2020 1:00am 33.6 g/dl -37 [facility], [address] [place] [address] 90010 Mean Corpuscular Hemoglobin Concent January 05, 2020 3:52pm 34.7 g/dl 33-37 [facility], [address] [place] [address] Red Cell Distribution Width April 17, 2020 1:00am 12 % 11-15 [facility], [address] [place] [address] Red Cell Distribution Width December 202019 3:52pm 12 % 11-15 [facility], [address] [place] [address] 28753 Platelet Count April 17, 2020 1:00am 306 10e3/ul 130-472 [facility], [address] [place] [address] 85053 Platelet Count January 05, 2020 3:52pm 293 10e3/ul 130-472 [facility], [address] [place] [address] 71847 Mean Platelet Volume April 17, 2020 1:00am 8.9 fl 9.1-13.1 [facility], [address] [place] [address] 17328 Mean Platelet Volume January 04 3:52pm 9.1 fl 9.1-13.1 [facility], [address] [place] [address] 40037 Neutrophils (%) (Auto) March 1:00am 70.3 % [address] [place] [address] LABORATORY, [address] [place] [address] 85787 Neutrophils (%) (Auto) January 05, 2020 3:52pm 70.9 % [address] [place] [address], [address] [place] [address] 21369 Absolute Neutrophil April 17 020 1:00am 5.7 # 1.7-7.6 [facility], [address] [place] [address] 81407 Absolute Neutrophil January 04 0 3:52pm 5.0 # 1.7-7.6 [facility], [address] [place] [address] 48083 Lymphocytes (%) (Auto) March 1:00am 19.3 % 14-46 [facility], [address] [place] [address] 35764 Lymphocytes (%) (Auto) January 05, 2020 3:52pm 18.8 % 14-46 [facility], [address] [place] [address] 19033 Lymphocytes # (Auto) April 17, 2020 1:00am 1.6 # 0.6-4.6 [facility], [address] [place] [address] 32375 Lymphocytes # (Auto) January 04 3:52pm 1.3 # 0.6-4.6 [facility], [address] [place] [address] 12124 Monocytes (%) (Auto) April 17, 2020 1:00am 8.4 % 4-[address] [facility], [address] [place] [address] 35986 Monocytes (%) (Auto) January 04 3:52pm 7.4 % 4-[address] [facility], [address] [place] [address] 79962 Monocytes # April 17, 2020 1:00am 0.7 # 0.2-1.2 [facility], [address] [place] [address] 51019 Monocytes # January 05, 2020 3:52pm 0.5 # 0.2-1.2 [facility], [address] [place] [address] 47613 Eosinophils (%) (Auto) March 1:00am 1.8 % 0-7 [facility], [address] [place] [address] 27862 Eosinophils (%) (Auto) January 05, 2020 3:52pm 2.3 % 0-7 [facility], [address] [place] [address] 95264 Absolute Eosinophils (CBC) April 17, 2020 1:00am 0.2 # 0.0-0.5 [facility], [address] [place] [address] 86095 Absolute Eosinophils (CBC) January 042019 3:52pm 0.2 # 0.0-0.5 [facility], [address] [place] [address] Basophils (%) (Auto) April 17, 2020 1:00am 0.1 % 0.4-1.3 [facility], [address] [place] [address] 36617 Basophils (%) (Auto) January 04 3:52pm 0.3 % 0.4-1.3 [facility], [address] [place] [address] 06704 Absolute Basophils (CBC) April 172019 1:00am 0.0 # 0.0-0.2 [facility], [address] [place] [address] Absolute Basophils (CBC) December 3:52pm 0.0 # 0.0-0.2 [facility], [address] [place] [address] 33527 Immature Granulocyte % (Auto) Novemb 2019 1:00am 0.1 % 0-2 [facility], [address] [place] [address] 27230 Immature Granulocyte % (Auto) January 05, 2020 3:52pm 0.3 % 0-2 [facility], [address] [place] [address] 14721 Absolute Immature Granulocyte (auto April 17, 2020 1:00am 0.0 # 0-0.1 [facility], [address] [place] [address] 28699 Absolute Immature Granulocyte (auto January 05, 2020 3:52pm 0.0 # 0-0.1 [facility], [address] [place] [address] 17930 Add Manual Differential March 1:00am No [facility], [address] [place], [place] [id number] Add Manual Differential January 05, 2020 3:52pm No [facility], [address] [place], [place] [id number] D-Dimer April 17, 2020 1:00am 0.46 mg/L 0.0-0.50 PLEASE NOTE: THIS TEST WAS PERFORMED USING A PARTICLE-ENHANCED, IMMUNOTURBIDIMETRIC ASSAY AND HAS A SINGLE,CLINICALLY DERIVED CUTOFF OF 0.50 MG/L. [facility], [address] [place], [place] [id number] Blood Urea Nitrogen January 04 0 3:52pm 12 mg/dL 02-11 [facility], [address] [place] [address] Blood Urea Nitrogen December 31 0 11:16am 21 mg/dL 02-11 [facility], [address] [place] [address] Sodium Level January 05, 2020 3:52pm 138 mmol/L 132-146 [facility], [address] [place] [address] 56166 Sodium Level January 01, 2020 11:16am 142 mmol/L 132-146 [facility], [address] [place] [address] 04403 Potassium Level January 05, 2020 3:52pm 3.9 mmol/L 3.5-5.5 [facility], [address] [place] [address] 04631 Potassium Level January 01, 2020 11:16am 4.7 mmol/L 3.5-5.5 [facility], [address] [place] [address] 97307 Chloride Level January 05, 2020 3:52pm 108 mmol/l 99-109 [facility], [address] [place] [address] 34257 Chloride Level January 01, 2020 11:16am 111 mmol/l 99-109 [facility], [address] [place] [address] 12131 Carbon Dioxide Level January 04 3:52pm 25 mmol/l [facility], [address] [place] [address] 64166 Carbon Dioxide Level December 31 11:16am 24 mmol/l 20-31 [facility], [address] [place] [address] 84264 Anion Gap January 05, 2020 3:52pm 9 mmol/l 8-16 [facility], [address] [place] [address] 01442 Anion Gap January 01, 2020 11:16am 12 mmol/l 8-16 [facility], [address] [place] [address] 21680 Glucose Level January 05, 2020 3:52pm 107 mg/dL 74-106 [facility], [address] [place] [address] 67852 Glucose Level January 01, 2020 11:16am 107 mg/dL 74-106 [facility], [address] [place] [address] 12396 Creatinine January 05, 2020 3:52pm 1.0 mg/dL 0.5-1.1 [facility], [address] [place] [address] 48901 Creatinine January 01, 2020 11:16am 1.2 mg/dL 0.5-1.1 [facility], [address] [place] [address] 13301 Glomerular Filtration Rate Calc Augu st 2019 3:52pm Greater than 60 ml/min ABOVE 60 [facility], [address] [place] [address] 58044 Glomerular Filtration Rate Calc Augu st 2019 11:16am Greater than 60 ml/min ABOVE 60 [facility], [address] [place] [address] 21274 Alanine Aminotransferase (ALT/SGPT) January 05, 2020 3:52pm 65 U/L 10-49 [facility], [address] [place] [address] 68266 Alanine Aminotransferase (ALT/SGPT) January 01, 2020 11:16am 66 U/L 10-49 [facility], [address] [place] [address] 37706 Aspartate Amino Transf (AST/SGOT) Au abraham 2019 3:52pm 30 U/L 0-33 [facility], [address] [place] [address] Aspartate Amino Transf (AST/SGOT) Au abraham 2019 11:16am 22 U/L 0-33 [facility], [address] [place] [address] 82899 Alkaline Phosphatase January 04 3:52pm 77 U/L 45-129 [facility], [address] [place] [address] 08600 Alkaline Phosphatase December 31 11:16am 77 U/L 45-129 [facility], [address] [place] [address] 12251 Calcium Level January 05, 2020 3:52pm 8.9 mg/dL 8.5-10.1 [facility], [address] [place] [address] 29962 Calcium Level January 01, 2020 11:16am 9.0 mg/dL 8.5-10.1 Delta: 8.0 on 10/02/19-25Repeated by: Tammy Griffiths 01/01/20 1339.Result Confirmation: 8.7 mg/dL [facility], [address] [place] [address] 79376 Total Bilirubin January 05, 2020 3:52pm 0.6 mg/dL 0.3-1.2 [facility], [address] [place] [address] 51442 Total Bilirubin January 01, 2020 11:16am 0.4 mg/dL 0.3-1.2 [facility], [address] [place] [address] 39261 Albumin January 05, 2020 3:52pm 3.7 g/dL 3.2-4.8 [facility], [address] [place] [address] 09473 Albumin January 01, 2020 11:16am 3.9 g/dL 3.2-4.8 [facility], [address] [place] [address] 85764 Serum Total Protein January 04 0 3:52pm 7.0 g/dL 5.7-8.2 [facility], [address] [place] [address] 63765 Serum Total Protein December 31 0 11:16am 7.0 g/dL 5.7-8.2 [facility], [address] [place] [address] 42436 Phosphorus Level January 01, 2020 11:16am 3.1 mg/dL 2.4-5.1 [facility], [address] [place] [address] 50729 Magnesium Level January 01, 2020 11:16am 2.4 mg/dL 1.3-2.7 [facility], [address] [place] [address] 93451 Troponin I January 05, 2020 3:52pm Less than 0.015 ng/mL 0.00-0.09 Less than 0.09 NG/ML Negative0.10 - 0.77 NG/ML High Risk0.78 NG/ML or Greater Positive The WHO defined the cutoff (definition for diagnosis of [place])for this method as 0.78 ng/ml. [facility], [address] [place] [address] Thyroid Stimulating Hormone (TSH) Au 2019 11:16am 1.04 uIU/mL 0.35-5.50 [facility], [address] [place] [address] Hemoglobin A1c January 01, 2020 11:16am 6.1 [...] glucose control. * High risk of developing alf complications such asretinopathy, nephropathy, neuropathy, cardiopathy, etc. Some danger of hypoglycemic reaction in Type I diabetics.Some glucose intolerant individuals and "Sub Clinical"diabetics may demonstrate HGBA1C levels in this area. [facility], [address] [place] [address] Estimated Average Glucose (eAG) [facility] 2019 11:16am 128 mg/dl An A1C of 7% - the goal of diabetic ther apy - is equivalentto an EAG of 154 mg/dl. [facility], [address] [place] [address] Microbiology Results Procedure Source Result Collection Date/Time Result Date/Time Result Comment Performing Site Streptococcus Rapid Screen Throat July 12, 2019 12:05pm July 13, 2019 9:35am [facility], [address] [place] [address] Blood Culture Venous blood No growth. April 17, 2020 1:00am April 22, 2020 1:07am [facility], [address] [place] [address] Respiratory Panel (PCR) Nasopharyngeal No Organisms Detected April 17, 2020 1:10am April 17, 2020 2:02am [facility], [address] [place] [address] Diagnostic Imaging Reports Report Dictated Date/Time Dictated By Status Radiology Report September 27, 2019 10:48am Jalen Diamond MD completed [id number] [place] [address] [phone] NAME SEX PT STATUS ACCOUNT NUMBER Taina Mata REG REF [id number] ORDERING PHYSICIAN LOCATION MEDICAL RECORD NO. [facility] [id number] ATTENDING PHYSICIAN DATE OF DATE OF EXAM/TIME [...] Trans Dt/Tm: Trans by: DT Prt Dt/Tm: [id number]: Total DLP = 0.00 mGy-cm Fluoroscopy Time (in secs): Radiology Report January 05, 2020 6:33pm Luigi Gordon MD completed [address] [place] [address] [phone] NAME SEX PT STATUS ACCOUNT NUMBER TAINA MATA REG ER [id number] ORDERING PHYSICIAN LOCATION MEDICAL RECORD NO. Jeanmarie Arteaga [id number] ATTENDING PHYSICIAN DATE OF DATE OF EXAM/TIME AngelaTaina 1980 01/05/201639 TYPE / EXAM CT Abd/pel [...] 08, 2020 2:53pm Mesha Mccabe MD completed [address] [place] [address] [phone] NAME SEX PT STATUS ACCOUNT NUMBER TAINA MATA [facility] ER [id number] ORDERING PHYSICIAN LOCATION MEDICAL RECORD NO. Cedric Adam MD ER [id number] ATTENDING PHYSICIAN DATE OF DATE OF EXAM/TIME Taina Miller DO 1980 03/08/20 / 1436 TYPE / EXAM Xray Abdomen 1 [...] Trans Dt/Tm: Trans by: DT Prt Dt/Tm: [id number]: Total DLP = 0.00 mGy-cm Fluoroscopy Time (in secs): Radiology Report April 11, 2020 12:02am Kraig Walker MD completed [address] [place] [address] [phone] NAME SEX PT STATUS ACCOUNT NUMBER TAINA MATA [facility] ER [id number] ORDERING PHYSICIAN LOCATION MEDICAL RECORD NO. Geoff Silva DO ER [id number] ATTENDING PHYSICIAN DATE OF DATE OF EXAM/TIME [...] Trans Dt/Tm: Trans by: DT Prt Dt/Tm: [id number]: Total DLP = 0.00 mGy-cm Fluoroscopy Time (in secs): Radiology Report April 17, 2020 2:38a m Cedric Harding MD [facility] [id number] [phone] NAME SEX PT STATUS ACCOUNT NUMBER TAINA MATA [facility] ER [id number] ORDERING PHYSICIAN LOCATION MEDICAL RECORD NO. Mirna Varghese MD ER [id number] ATTENDING PHYSICIAN DATE OF DATE OF EXAM/TIME Taina Miller 1980 04/17/2033 TYPE / EXAM Xray Chest [...] Trans Dt/Tm: Trans by: DT Prt Dt/Tm: [id number]: Total DLP = 0.00 mGy-cm Fluoroscopy Time (in secs): Health Concerns Health Concerns may be documented in an alternate section. Advance Directives Advance Directive Response Recorded Date/Time Advanced Directive No No 2019 12:25am MOLST No October 02, 2019 2:40am Advance Directives on File or in chart? No October 02, 2019 2:45am Does Patient have a DNR? No April 17, 2020 12:25am Healthcare Proxy No Kiran [facility] 2019 12:25am Living Will No July 12, 2019 2:21pm [...] Follow-up SOB Asthma follow-uptaina miller Test result Reason for Visit Dizziness Obesity Depression Depression Moderate persistent asthma Encounters Encounter Location(s) Ar rival/Admit Date Discharge/Depart Date Provider(s) Departed Physician/Provider Office Visit -[facility] July 12, 2019 11:03am July 12, 2019 12:57pm Seth Leonardo DO Registered Referred -Lab Drop Off July 12, 2019 12:05pm Fay Nuno Departed Physician/Provider Office Visit -[facility] July 26, 2019 1:34pm July 26, 2019 2:34pm Chito Riley MD Departed Physician/Provider Office Visit -[facility] August 08, 2019 2:50pm August 08, 2019 3:58pm Chito Riley MD Departed Physician/Provider Office Visit -[facility] August 29, 2019 1:15pm August 29, 2019 2:06pm Chito Riley MD Departed Physician/Provider Office Visit -[facility] September 27, 2019 8:42am September 27, 2019 9:35am Chito Riley MD Registered Referred -Radiology September 27, 2019 9:33am PAULO RAY Registered Outpatient -[facility] Surgery October 02, 2019 2:26am Dawit Sampson MD Registered Outpatient -[facility] Surgery October 03, 2019 6:42am October 04, 2019 7:30am Dawit Sampson MD Registered Outpatient -[facility] October 07, 2019 1:34pm Jeane Solis RN Departed Physician/Provider Office Visit -[facility] Surgery October 11, 2019 11:39am October 11, 2019 11:49am Gabriel Alcantara MD Departed Physician/Provider Office Visit -[facility] January 01, 2020 9:32am January 01, 2020 12:12pm Taina Miller DO Registered Referred -Laboratory January 01, 2020 11:05am Taina Miller DO Departed Emergency -Emergency Room ER January 05, 2020 3:17pm January 05, 2020 5:45pm null Departed Physician/Provider Office Visit -[facility] January 10, 2020 11:33am January 10, 2020 12:18pm Taina Miller DO Departed Physician/Provider Office Visit -[facility] February 14, 2020 11:37am February 14, 2020 12:32pm Taina Miller DO Registered Outpatient -[facility] March 04, 2020 11:56am Taina Miller DO Departed Emergency -Emergency Room ER March 08, 2020 11:04am March 08, 2020 2:00pm null Departed Emergency -Emergency Room ER March 17, 2020 9:49pm March 17, 2020 10:33pm null Registered Clinical -Nutrition March 20, 2020 11:43am Taina Miller DO Departed Physician/Provider Office Visit -[facility] March 31, 2020 10:22am March 31, 2020 11:47am Taina Miller DO Departed Emergency -Emergency Room ER April 01, 2020 8:39pm April 01, 2020 9:32pm null Departed Emergency -Emergency Room ER April 10, 2020 9:36pm April 10, 2020 11:40pm null Registered Referred -Respiratory Therapy April 13, 2020 12:55pm Taina Miller DO Departed Physician/Provider Office Visit -[facility] April 14, 2020 9:16am April 14, 2020 1:07pm Tania Miller DO Departed Emergency -Emergency Room ER April 17, 2020 12:07am April 17, 2020 3:00am null Departed Physician/Provider Office Visit -[facility] April 20, 2020 9:12am April 20, 2020 10:34am Taina Miller DO Departed Physician/Provider Office Visit -[facility] May 01, 2020 10:42am May 01, 2020 11:57am Taina Miller DO Recent Diagnosis Onset Date [...] Not Specified Asthma Unk nown Functional Status No Functional Status information available Goals Goals may be documented in an alternate section. Immunizations Immunization Event Date Not Given Reason Dose Number Reporter Lot Number Vaccine Information Statement (VIS) Deta il influenza vaccine, inactivated Novem 2019 [id number] pneumococcal polysaccharide PPV23 vaccine March 31, 2020 [id number] Mental Status Observation Response Raymond e Recorded Impairments No impairments or barriers April 17, 2020 12:07am Medical Equipment No Medical Equipment Information available Insurance Providers Guarantor TAINA MATA Address [address] [place] [address] Contact Info. Home Phone: Payer Policy Id Coverage Id Subscriber's Name Subscriber Id Effective Date Expiration Date [place]ARE [place] [id number] TAINA MATA [id number] [place] [id number] TAINA MATA [id number] [facility] [id number] TAINA MATA [id number] [facility] 2ND R [id number] TAINA MATA [id number] MEDICAID [id number] TAINA MATA [id number] MEDICARE [id number] TAINA MATA [id number] Self Pay Self N/A Plan of Treatment stable continue current medical treatment f/u pulmonary letter was written and sent to help patient get an early appt with mary Palafox. gave copy of pulm consultation from summer 2019 to patient. patient has not done the allergy labs yet; he does not know what triggers his as thma he will try and get appt with pulmaryellen apr 2020 if he gets labs done, then i can copy of lab results if he does not get any labs done, then he may benefit from seeing rheumatologist in n ear future. 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 Continue Symbicort and refer to pulmonology. Well [...] Provider Provider Conta ct Information Provider Address Follow-up in 3 to 5 days. Referral to pulmonology per primary. Taina Miller DO Email: [email or web address] Phone: [phone] [facility] [address] Taina Miller DO Email: [email or web address] Phone: [address] [place] [phone] Armen Dunlap MD Work Phone: [facility] [address] [place] [id number] Gabriel Alcantara MD Email: [email or web address] Work Phone: [phone] [phone] Taina Miller DO Email: [email or web address] Phone: [phone] [facility] [phone] Your follow up appointment has been made for MondayOctober [address] Camilla Sampson MD Work Phone: [phone] [address] Future Procedures Future procedure information is unavailable Future Medications Future medication information is unavailable Patient Instructions Acute Abdominal Pain (DC) Gas and Bloating (GEN) Ventral Hernia Repair (DC) Earache (ED) Contusion in Adults (ED) Asthma (ED) Social History Smoking Status Status Date of Observation Never smoker April 17, 2020 12: 47am Observation Status Observation Response Raymond e of Response Smoking Status Never smoker April 17, 2020 12:47am Alcohol Use No April 17, 2020 12:47am Substance Use No Novembe r 2019 12:47am Assigned Sex Male Vital Signs Vital Reading [...] 2020 10:50pm Heart Rate 103 /min 60-1 00 March 17, 2020 10:50pm Respiratory rate 20 [...] 17, 2020 2:46am Respiratory rate 18 /min 12-April 17, 2020 2:46am Oxygen saturation by Pulse [...]
--- OUTSIDE RECORDS SUMMARY | 2020-06-04 18:16 | CCD | Continuity of Care Document ---
Author Author [facility] Organization [facility] Address [address] [place] [address] Phone Support Name Relationship Address Phone Chito Riley PRS [address] [place] [address] LeonardoSeth chavarria PRS [address] [place] [address] Doctor Provided, Family No PRS Unknown Unava ilable Chito Riley PRS [facility] [place] [address] Kostaselaine, [place]ryl [place] [address] [place] [address] Taina Miller PRS [address] [place] [address] Dawit Sampson PRS [address] [place] [address] Jeane Solis PRS Unknown Unavailable Gabriel Alcantara PRS [address] [place] [address] Jeanmarie Arteaga PRS [address] [place] [address] Bryant Villalba PRS [address] [place] [address] Cedric Adam PRS [address] [place] [address] Riki Collins PRS [address] [place] [address] Keith Grant PRS [address] [place] [address] Geoff Silva PRS [address] [place] [address] Mirna Varghese PRS [address] [place] [address] Allergies, Adverse Reactions, Alerts No known allergies. [...] 12:46pm Afluria Qd 2020-21(3yr up)(PF) (flu vac se2992-83 36mos up(PF)) Discontinued 0.5 ML IM 1 [...] (Symbicort) 160-4. 5 mcg/actuation HFA aerosol inhaler Active 1 PUFFS IH 2 Times Per Day April 17, 2020 12:37am Prednisone Active 0 PO .COMPLEX April 17, [...] 4 hours 2 February 10, 2015 1:59pm [facility]2016 7:58am Oxcarbazepine Discontinued 600 MG PO 2 [...] 12:34am completed Blood Culture April 17, 2020 active Respiratory Panel (PCR) April 17 0 completed [...] April 17 0 1:00am 8.1 10e3/uL 4.45-10.71 [facility], [address] [place] [address] 13550 White Blood Count January 05, 2020 3:52pm 7.0 10e3/uL 4.45-10.71 [facility], [address] [place] [address] 96463 Red Blood Count April 17, 2020 1:00am 5.06 10e6/uL 4.3-6.1 [facility], [address] [place] [address] Red Blood Count January 05, 2020 3:52pm 5.36 10e6/uL 4.3-6.1 [facility], [address] [place] [address] Hemoglobin April 17, 2020 1:00am 14.8 g/dL [facility], [address] [place] [address] Hemoglobin January 05, 2020 3:52pm 15.7 g/dL [facility], [address] [place] [address] Hematocrit April 17, 2020 1:00am 44.1 % 42-52 [facility], [address] [place] [address] 94401 Hematocrit January 05, 2020 3:52pm 45.3 % 42-52 [facility], [address] [place] [address] 12208 Mean Corpuscular Volume March 1:00am 87.2 fl 80-96 [facility], [address] [place] [address] Mean Corpuscular Volume January 05, 2020 3:52pm 84.5 fl 80-96 [facility], [address] [place] [address] 14088 Mean Corpuscular Hemoglobin April 17, 2020 1:00am 29.2 pg 27-31 [facility], [address] [place] [address] Mean Corpuscular Hemoglobin December 202019 3:52pm 29.3 pg 27-31 [facility], [address] [place] [address] 28723 Mean Corpuscular Hemoglobin Concent April 17, 2020 1:00am 33.6 g/dl 33-37 [facility], [address] [place] [address] Mean Corpuscular Hemoglobin Concent January 05, 2020 3:52pm 34.7 g/dl 33-37 [facility], [address] [place] [address] 16879 Red Cell Distribution Width April 17, 2020 1:00am 12 % 11-15 [facility], [address] [place] [address] Red Cell Distribution Width December 202019 3:52pm 12 % 11-15 [facility], [address] [place] [address] 53061 Platelet Count April 17, 2020 1:00am 306 10e3/ul 130-472 [facility], [address] [place] [address] 44251 Platelet Count January 05, 2020 3:52pm 293 10e3/ul 130-472 [facility], [address] [place] [address] 17187 Mean Platelet Volume April 17, 2020 1:00am 8.9 fl 9.1-13.1 [facility], [address] [place] [address] 05831 Mean Platelet Volume January 04 3:52pm 9.1 fl 9.1-13.1 [facility], [address] [place] [address] 79295 Neutrophils (%) (Auto) March 1:00am 70.3 % [address] [place] [address] LABORATORY, [address] [place] [address] 62740 Neutrophils (%) (Auto) January 05, 2020 3:52pm 70.9 % [address] [facility], [address] [place] [address] 70235 Absolute Neutrophil April 17 020 1:00am 5.7 # 1.7-7.6 [facility], [address] [place], [place] [address] Absolute Neutrophil January 04 0 3:52pm 5.0 # 1.7-7.6 [facility], [address] [place] [address] 84030 Lymphocytes (%) (Auto) March 1:00am 19.3 % 14-46 [facility], [address] [place] [address] 01714 Lymphocytes (%) (Auto) January 05, 2020 3:52pm 18.8 % 14-46 [facility], [address] [place] [address] 12204 Lymphocytes # (Auto) April 17, 2020 1:00am 1.6 # 0.6-4.6 [facility], [address] [place] [address] 51961 Lymphocytes # (Auto) January 04 3:52pm 1.3 # 0.6-4.6 [facility], [address] [place] [address] 91465 Monocytes (%) (Auto) April 17, 2020 1:00am 8.4 % 4-12 [facility], [address] [place] [address] 61297 Monocytes (%) (Auto) January 04 3:52pm 7.4 % 4-12 [facility], [address] [place] [address] 07898 Monocytes # April 17, 2020 1:00am 0.7 # 0.2-1.2 [facility], [address] [place] [address] 22456 Monocytes # January 05, 2020 3:52pm 0.5 # 0.2-1.2 [facility], [address] [place] [address] 66590 Eosinophils (%) (Auto) March 1:00am 1.8 % 0-7 [facility], [address] [place] [address] Eosinophils (%) (Auto) January 05, 2020 3:52pm 2.3 % 0-7 [facility], [address] [place] [address] 05378 Absolute Eosinophils (CBC) April 17, 2020 1:00am 0.2 # 0.0-0.5 [facility], [address] [place] [address] 38952 Absolute Eosinophils (CBC) January 042019 3:52pm 0.2 # 0.0-0.5 [facility], [address] [place] [address] 97514 Basophils (%) (Auto) April 17, 2020 1:00am 0.1 % 0.4-1.3 [facility], [address] [place] [address] 04132 Basophils (%) (Auto) January 04 3:52pm 0.3 % 0.4-1.3 [facility], [address] [place] [address] 39599 Absolute Basophils (CBC) April 172019 1:00am 0.0 # 0.0-0.2 [facility], [address] [place] [address] Absolute Basophils (CBC) December 3:52pm 0.0 # 0.0-0.2 [facility], [address] [place] [address] 79571 Immature Granulocyte % (Auto) Novemb 2019 1:00am 0.1 % 0-2 [facility], [address] [place] [address] Immature Granulocyte % (Auto) January 05, 2020 3:52pm 0.3 % 0-2 [facility], [address] [place] [address] 44962 Absolute Immature Granulocyte (auto April 17, 2020 1:00am 0.0 # 0-0.1 [facility], [address] [place] [address] 62240 Absolute Immature Granulocyte (auto January 05, 2020 3:52pm 0.0 # 0-0.1 [facility], [address] [place] [address] Add Manual Differential March 1:00am No [facility], [address] [place] [address] Add Manual Differential January 05, 2020 3:52pm No [facility], [address] [place] [address] D-Dimer April 17, 2020 1:00am 0.46 mg/L 0.0-0.50 PLEASE NOTE: THIS TEST WAS PERFORMED USING A PARTICLE-ENHANCED, IMMUNOTURBIDIMETRIC ASSAY AND HAS A SINGLE,CLINICALLY DERIVED CUTOFF OF 0.50 MG/L. [facility], [address] [place] [address] Blood Urea Nitrogen January 04 0 3:52pm 12 mg/dL 02-11 [facility], [address] [place] [address] Blood Urea Nitrogen December 31 0 11:16am 21 mg/dL 02-11 [facility], [address] [place] [address] Sodium Level January 05, 2020 3:52pm 138 mmol/L 132-146 [facility], [address] [place] [address] Sodium Level January 01, 2020 11:16am 142 mmol/L 132-146 [facility], [address] [place] [address] 24463 Potassium Level January 05, 2020 3:52pm 3.9 mmol/L 3.5-5.5 [facility], [address] [place] [address] Potassium Level January 01, 2020 11:16am 4.7 mmol/L 3.5-5.5 [facility], [address] [place] [address] 67977 Chloride Level January 05, 2020 3:52pm 108 mmol/l 99-109 [facility], [address] [place] [address] 71170 Chloride Level January 01, 2020 11:16am 111 mmol/l 99-109 [facility], [address] [place] [address] Carbon Dioxide Level January 04 3:52pm 25 mmol/l [facility], [address] [place] [address] 30367 Carbon Dioxide Level December 31 11:16am 24 mmol/l 20-31 [facility], [address] [place] [address] 82612 Anion Gap January 05, 2020 3:52pm 9 mmol/l 8-16 [facility], [address] [place] [address] 18600 Anion Gap January 01, 2020 11:16am 12 mmol/l 8-16 [facility], [address] [place] [address] 82367 Glucose Level January 05, 2020 3:52pm 107 mg/dL 74-106 [facility], [address] [place] [address] 41097 Glucose Level January 01, 2020 11:16am 107 mg/dL 74-106 [facility], [address] [place] [address] 68356 Creatinine January 05, 2020 3:52pm 1.0 mg/dL 0.5-1.1 [facility], [address] [place] [address] 02216 Creatinine January 01, 2020 11:16am 1.2 mg/dL 0.5-1.1 [facility], [address] [place] [address] 73632 Glomerular Filtration Rate Calc Augu st 2019 3:52pm Greater than 60 ml/min ABOVE 60 [facility], [address] [place] [address] 40867 Glomerular Filtration Rate Calc Augu st 2019 11:16am Greater than 60 ml/min ABOVE 60 [facility], [address] [place] [address] 07622 Alanine Aminotransferase (ALT/SGPT) January 05, 2020 3:52pm 65 U/L 10-49 [facility], [address] [place] [address] 86645 Alanine Aminotransferase (ALT/SGPT) January 01, 2020 11:16am 66 U/L 10-49 [facility], [address] [place] [address] 27923 Aspartate Amino Transf (AST/SGOT) [facility] 2019 3:52pm 30 U/L 0-33 [facility], [address] [place] [address] 59561 Aspartate Amino Transf (AST/SGOT) [facility] 2019 11:16am 22 U/L 0-33 [facility], [address] [place] [address] 21123 Alkaline Phosphatase January 04 3:52pm 77 U/L 45-129 [facility], [address] [place] [address] 94956 Alkaline Phosphatase December 31 11:16am 77 U/L 45-129 [facility], [address] [place] [address] 31585 Calcium Level January 05, 2020 3:52pm 8.9 mg/dL 8.5-10.1 [facility], [address] [place], [place] [address] Calcium Level January 01, 2020 11:16am 9.0 mg/dL 8.5-10.1 Delta: 8.0 on 10/02/19-25Repeated by: Tammy Griffiths 01/01/20 1339.Result Confirmation: 8.7 mg/dL [facility], [address] [place] [address] 77158 Total Bilirubin January 05, 2020 3:52pm 0.6 mg/dL 0.3-1.2 [facility], [address] [place], [place] [address] Total Bilirubin January 01, 2020 11:16am 0.4 mg/dL 0.3-1.2 [facility], [address] [place] [address] 02956 Albumin January 05, 2020 3:52pm 3.7 g/dL 3.2-4.8 [facility], [address] [place], [place] [address] Albumin January 01, 2020 11:16am 3.9 g/dL 3.2-4.8 [facility], [address] [place] [address] 04753 Serum Total Protein January 04 0 3:52pm 7.0 g/dL 5.7-8.2 [facility], [address] [place] [address] 43062 Serum Total Protein December 31 0 11:16am 7.0 g/dL 5.7-8.2 [facility], [address] [place] [address] 53197 Phosphorus Level January 01, 2020 11:16am 3.1 mg/dL 2.4-5.1 [facility], [address] [place] [address] 77194 Magnesium Level January 01, 2020 11:16am 2.4 mg/dL 1.3-2.7 [facility], [address] [place] [address] 24510 Troponin I January 05, 2020 3:52pm Less than 0.015 ng/mL 0.00-0.09 Less than 0.09 NG/ML Negative0.10 - 0.77 NG/ML High Risk0.78 NG/ML or Greater Positive The WHO defined the cutoff (definition for diagnosis of IA)for this method as 0.78 ng/ml. [facility], [address] [place] [address] Thyroid Stimulating Hormone (TSH) Au abraham 2019 11:16am 1.04 uIU/mL 0.35-5.50 [facility], [address] [place] [address] Hemoglobin A1c January 01, 2020 11:16am 6.1 [...] glucose control. * High risk of developing intermediate manager complications such asretinopathy, nephropathy, neuropathy, cardiopathy, etc. Some danger of hypoglycemic reaction in Type I diabetics.Some glucose intolerant individuals and "Sub Clinical"diabetics may demonstrate HGBA1C levels in this area. [facility], [address] [place] [address] Estimated Average Glucose (eAG) [facility] 2019 11:16am 128 mg/dl An A1C of 7% - the goal of diabetic ther apy - is equivalentto an EAG of 154 mg/dl. [facility], [address] [place] [address] Microbiology Results Procedure Source Result Collection Date/Time Result Date/Time Result Comment Performing Site Streptococcus Rapid Screen Throat July 12, 2019 12:05pm July 13, 2019 9:35am [facility], [address] [place] [address] Respiratory Panel (PCR) Nasopharyngeal No Organisms Detected April 17, 2020 1:10am April 17, 2020 2:02am [facility], [address] [place] [address] Diagnostic Imaging Reports Report Dictated Date/Time Dictated By Status Radiology Report September 27, 2019 10:48am Jalen Diamond MD completed [address] [place] [address] [phone] NAME SEX PT STATUS ACCOUNT NUMBER Taina Mata REG REF [id number] ORDERING PHYSICIAN LOCATION MEDICAL RECORD NO. FLOR BATES [facility] [id number] ATTENDING PHYSICIAN DATE OF DATE OF EXAM/TIME [...] Trans Dt/Tm: Trans by: DT Prt Dt/Tm: [id number]: Total DLP = 0.00 mGy-cm Fluoroscopy Time (in secs): Radiology Report January 05, 2020 6:33pm Luigi Gordon MD completed [address] [place] [address] [phone] NAME SEX PT STATUS ACCOUNT NUMBER TAINA MATA [facility] [id number] ORDERING PHYSICIAN LOCATION MEDICAL RECORD [id number] ATTENDING PHYSICIAN DATE OF DATE OF EXAM/TIME [...] 08, 2020 2:53pm Mesha Mccabe MD completed [facility] [address] [address] [phone] NAME SEX PT STATUS ACCOUNT NUMBER TAINA MATA [facility] ER [id number] ORDERING PHYSICIAN LOCATION MEDICAL RECORD NO. Cedric Adam MD ER [id number] ATTENDING PHYSICIAN DATE OF DATE OF EXAM/TIME Taina Miller DO 1980 03/08/20 1436 TYPE / EXAM [...] Trans Dt/Tm: Trans by: DT Prt Dt/Tm: [id number]: Total DLP = 0.00 mGy-cm Fluoroscopy Time (in secs): Radiology Report April 11, 2020 12:02am Kraig Walker MD completed [facility] [address] [place] [address] [phone] NAME SEX PT STATUS ACCOUNT NUMBER TAINA MATA [facility] ER [id number] ORDERING PHYSICIAN LOCATION MEDICAL RECORD NO. Geoff Silva DO ER [id number] ATTENDING PHYSICIAN DATE OF DATE OF EXAM/TIME Taina Miller 1980 04/10/203 TYPE / EXAM Xray Chest [...] Trans Dt/Tm: Trans by: DT Prt Dt/Tm: [id number]: Total DLP = 0.00 mGy-cm Fluoroscopy Time (in secs): Radiology Report April 17, 2020 2:38a m Cedric Harding MD completed [address] [place] [address] [phone] NAME SEX PT STATUS ACCOUNT NUMBER TAINA MATA [facility] [id number] ORDERING PHYSICIAN LOCATION MEDICAL RECORD NO. Mirna Varghese MD ER [id number] ATTENDING PHYSICIAN DATE OF DATE OF EXAM/TIME Taina Miller DO 1980 04/17/20 / 4 TYPE / [...] Trans Dt/Tm: Trans by: DT Prt Dt/Tm: [id number]: Total DLP = 0.00 mGy-cm Fluoroscopy Time (in secs): Health Concerns Health Concerns may be documented in an alternate section. Advance Directives Advance Directive Response Recorded Date/Time Advanced Directive No No [facility] 12:25am MOL[facility] No March 31, 2020 11:45am Advance Directives on File or in chart? No March 31, 2020 11:45am Does Patient have a DNR? No April 17, 2020 12:25am Healthcare Proxy No Kiran manjarrez 2019 12:25am Living Will No March 31, 2020 11:45am Chief Complaint and Reason for Visit Chief Complaint Office visit Sore Throat J02.9 Asthma follow-up Respiratory complaints Asthma Asthma DYSPNEA Hernia Hernia Amb Documentation Post Op Incision check Medicare Annual Wellness subsequent E83.51,R73.09,E53.81,R53.83 CHEST TIGHTNESS, SIDE PAIN Depression follow-up Depression follow-up cardio assessment SIDE PAIN EAR PAIN E66.9,R73.03 Ear Complaint PAIN IN RIGHT ARM AND NECK TROUBLE BREATHING j45.909 Hospital Discharge Follow-up SOB Asthma follow-uptaina miller Reason for Visit Dizziness Obesity Depression Depression Moderate persistent asthma Encounters Encounter Location(s) Ar rival/Admit Date Discharge/Depart Date Provider(s) Departed Physician/Provider Office Visit -[facility] April 25, 2019 9:12am April 25, 2019 10:56am Chito Riley MD Departed Physician/Provider Office Visit -[facility] July 12, 2019 11:03am July 12, 2019 12:57pm Seth Leonardo DO Registered Referred -Lab Drop Off July 12, 2019 12:05pm Fay Nuno Departed Physician/Provider Office Visit -[facility] July 26, 2019 1:34pm July 26, 2019 2:34pm Chito Riley MD Departed Physician/Provider Office Visit -[facility] August 08, 2019 2:50pm August 08, 2019 3:58pm Chito Riley MD Departed Physician/Provider Office Visit -[facility] August 29, 2019 1:15pm August 29, 2019 2:06pm Chito Riley MD Departed Physician/Provider Office Visit -[facility] September 27, 2019 8:42am September 27, 2019 9:35am Chito Riley MD Registered Referred -Radiology September 27, 2019 9:33am PAULO RAY Registered Outpatient -[facility] Surgery October 02, 2019 2:26am Dawit Sampson MD Registered Outpatient -[facility] Surgery October 03, 2019 6:42am October 04, 2019 7:30am Dawit Sampson MD Registered Outpatient -[facility] October 07, 2019 1:34pm Jeane Solis RN Departed Physician/Provider Office [facility] -[facility] Surgery October 11, 2019 11:39am October 11, 2019 11:49am Gabriel Alcantara MD Departed Physician/Provider Office Visit -[facility] January 01, 2020 9:32am January 01, 2020 12:12pm Taina Miller DO Registered Referred -Laboratory January 01, 2020 11:05am Taina Miller DO Departed Emergency -Emergency Room ER January 05, 2020 3:17pm January 05, 2020 5:45pm null Departed Physician/Provider Office Visit -[facility] January 10, 2020 11:33am January 10, 2020 12:18pm Taina Miller DO Departed Physician/Provider Office Visit -[facility] February 14, 2020 11:37am February 14, 2020 12:32pm Taina Miller DO Registered Outpatient -[facility] March 04, 2020 11:56am Taina Miller DO Departed Emergency -Emergency Room ER March 08, 2020 11:04am March 08, 2020 2:00pm null Departed Emergency -Emergency Room ER March 17, 2020 9:49pm March 17, 2020 10:33pm null Registered Clinical -Nutrition March 20, 2020 11:43am Taina Miller DO Departed Physician/Provider Office Visit -[facility] March 31, 2020 10:22am March 31, 2020 11:47am Taina Miller DO Departed Emergency -Emergency Room ER April 01, 2020 8:39pm April 01, 2020 9:32pm null Departed Emergency -Emergency Room ER April 10, 2020 9:36pm April 10, 2020 11:40pm null Registered Referred -Respiratory Therapy April 13, 2020 12:55pm Taina Miller DO Departed Physician/Provider Office Visit -[facility] April 14, 2020 9:16am April 14, 2020 1:07pm Taina Miller DO Departed Emergency -Emergency Room ER April 17, 2020 12:07am April 17, 2020 3:00am null Departed Physician/Provider Office Visit -[facility] April 20, 2020 9:12am April 20, 2020 10:34am Taina Miller DO Recent Diagnosis Onset Date [...] Event Date Not Given Reason Dose Number Custodial Officer Lot Number Vaccine Information Statement (VIS) Deta il influenza vaccine, inactivated Novem 2019 [id number] pneumococcal polysaccharide PPV23 vaccine March 31, 2020 [id number] Mental Status Observation Response Raymond e Recorded Impairments No impairments or barriers April 17, 2020 12:07am Medical Equipment No Medical Equipment Information available Insurance Providers Guarantor TAINA MATA Address [address] [place] [address] Contact Info. Home Phone: Payer Policy Id Coverage Id Subscriber's Name Subscriber Id Effective Date Expiration Date MEDICARE [place] [id number] TAINA MATA [id number] [place] [id number] TAINA MATA [id number] [facility] [id number] TAINA MATA [id number] 2013 [facility] [facility] 2ND R [id number] TAINA MATA [id number] MEDICAID [id number] TAINA MATA [id number] MEDICARE [id number] TAINA MTAA [id number] Self Pay Self N/A Plan of Treatment recently in the ER for asthma exacerbation [...] labs as ordered labs as ordered retrieve muslim records from recent psych hospitalization if condition [...] 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 Continue Symbicort and refer to pulmonology. Well [...] to call for worrisome symptoms and signs Doing well. Continue counselling at [facility]. We will get the records from there for review. Recheck here 3 months, sooner as needed. Form filled out for [facility] apartment program. Future Tests Future scheduled test information is unavailable Pending Tests Pending diagnostic test information is unavailable Future Visits Future appointment information is unavailable Referrals to Other Providers Reason for Referral Referral Start Date Provider Provider Conta ct Information Provider Address Follow-up in 3 to 5 days. Referral to pulmonology per primary. Taina Miller DO Email: [email or web address] Phone: [address] [address] Taina Miller , DO Email: [email or web address] Work Phone: [address] [place] [address] Armen Dunlap MD Work Phone: [facility] [address] [place] [address] Gabriel Alcantara MD Email: [email or web address] Phone: [address] [address] Taina Miller , DO Email: [email or web address] Work Phone: [address] [place] [address] Your follow up appointment has been made for MondayOctober [address] Camilla Sampson MD Work Phone: [address] [place] [address] Future Procedures Future procedure information is unavailable [...] erence Range Collection Date/Time Height 71 [in_i] April 25, 2019 9:40am Weight 245.00 [lb_av] April 25, 2019 9:40am Body Temperature 98.1 [degF] 97.6-99.5 April 25, 2019 9:40am Heart Rate 81 /min 60-100 April 25, 2019 9:40am Respiratory rate 16 /min 12-April 25, 2019 9:40am Oxygen saturation by Pulse oximetry 97 % 95- 100 April 25, 2019 9:40am BP Systolic 122 mm[Hg] April 25, 2019 9:40am BP Diastolic 100 mm[Hg] April 25, 2019 9:40am BMI (Body Mass Index) 34.2 kg/m2 April 25, 2019 9:40am Height 71 [in_i] July 12, 2019 11:24am Weight 253.12 [lb_av] July 12, 2019 11:24am Body Temperature 97.5 [degF] 97.6-99.5 July 12, 2019 11:24am Heart Rate 74 /min 60-100 July 12, 2019 11:24am Respiratory rate 16 /min -July 12, 2019 11:24am Oxygen saturation by Pulse [...] 04, 2019 7:15am Respiratory rate 16 /min 12-24 October 04, 2019 7:15am Oxygen saturation by Pulse [...]
--- OUTSIDE RECORDS SUMMARY | 2020-06-04 18:16 | CCD | Continuity of Care Document ---
Author Author [facility] Organization [facility] Address [address] [place] [address] Phone Support Name Relationship Address Phone Chito Riley PRS [address] [place] [address] LeonardoSeth chavarria PRS [address] [place] [address] Doctor Provided, Family No PRS Unknown Unava ilable Chito Riley PRS [facility] [place] [address] Kostaselaine, Darryl [place] [address] [place] [address] Taina Miller PRS [address] [place] [address] Dawit Sampson PRS [address] [place] [address] Jeane Solis PRS Unknown Unavailable Gabriel Alcantara PRS [address] [place] [address] Jeanmarie Arteaga PRS [address] [place] [address] Bryant Villalba PRS [address] [place] [address] Cedric Adam PRS [address] [place] [address] Riki Collins PRS [address] [place] [address] Keith Grant PRS [address] [place] [address] Geoff Silva PRS [address] [place] [address] Mirna Varghese PRS [address] [place] [address] Leo Lee PRS [address] [place] [address] Tommie Pinon PRS [address] [place] [address] Allergies, Adverse Reactions, Alerts No known allergies. [...] 12:46pm Afluria Qd 2019-(3yr up)(PF) (flu vac [id number] 36mos up(PF)) Discontinued 0.5 ML IM 1 [...] MG PO 2 Times Per Day [place] Meals 10 03February 24, 2019 11:26am March [...] 4 hours 2 February 10, 2015 1:59pm 2016 7:58am Oxcarbazepine Discontinued 600 MG PO 2 Times Per Day May 26, 2015 2:10pm February 27, 2018 9:34am Naproxen (Naprosyn) 500 MG tablet Di scontinued 1 TAB PO 2 Times Per Day 60 March 29, 2016 2:16pm May 17, 2016 [...] Shoulder complete RT April 212019 1:18pm completed Influenza-Like Illness (PCR) Decembe r 2019 [...] Comment Performing Site White Blood Count May 03 0 1:40pm 8.0 10e3/uL 4.45-10.71 [facility], [address] [place] [address] White Blood Count April 17 0 1:00am 8.1 10e3/uL 4.45-10.71 [facility], [address] [place] [address] White Blood Count January 05, 2020 3:52pm 7.0 10e3/uL 4.45-10.71 [facility], [address] [place] [address] Red Blood Count May 03, 2020 1:40pm 5.23 10e6/uL 4.3-6.1 [facility], [address] [place] [address] Red Blood Count April 17, 2020 1:00am 5.06 10e6/uL 4.3-6.1 [facility], [address] [place] [address] Red Blood Count January 05, 2020 3:52pm 5.36 10e6/uL 4.3-6.1 [facility], [address] [place] [address] Hemoglobin May 03, 2020 1:40pm 15.3 g/dL [facility], [address] [place] [address] Hemoglobin April 17, 2020 1:00am 14.8 g/dL [facility], [address] [place] [address] Hemoglobin January 05, 2020 3:52pm 15.7 g/dL [facility], [address] [place] [address] Hematocrit May 03, 2020 1:40pm 45.5 % 42-52 [facility], [address] [place] [address] Hematocrit April 17, 2020 1:00am 44.1 % 42-52 [facility], [address] [place] [address] Hematocrit January 05, 2020 3:52pm 45.3 % 42-52 [facility], [address] [place] [address] Mean Corpuscular Volume April 1:40pm 87.0 fl 80-96 [facility], [address] [place] [address] 43378 Mean Corpuscular Volume March 1:00am 87.[address] [place] [address] LABORATORY, [address] [place] [address] 06568 Mean Corpuscular Volume January 05, 2020 3:52pm 84.5 fl -[address] [place] [address] LABORATORY, [address] [place] [address] 63142 Mean Corpuscular Hemoglobin May 03, 2020 1:40pm 29.3 pg 27-31 [facility], [address] [place] [address] 07182 Mean Corpuscular Hemoglobin April 17, 2020 1:00am 29.2 pg 27-31 [facility], [address] [place] [address] 31221 Mean Corpuscular Hemoglobin December 202019 3:52pm 29.3 pg 27-31 [facility], [address] [place] [address] 46746 Mean Corpuscular Hemoglobin Concent May 03, 2020 1:40pm 33.6 g/dl 3337 [facility], [address] [place] [address] 50418 Mean Corpuscular Hemoglobin Concent April 17, 2020 1:00am 33.6 g/dl 3337 [facility], [address] [place] [address] 05581 Mean Corpuscular Hemoglobin Concent January 05, 2020 3:52pm 34.7 g/dl [address] [facility], [address] [place] [address] 00930 Red Cell Distribution Width May 03, 2020 1:40pm 12 % 11-15 [facility], [address] [place] [address] Red Cell Distribution Width April 17, 2020 1:00am 12 % 11-15 [facility], [address] [place] [address] 15892 Red Cell Distribution Width December 202019 3:52pm 12 % 11-15 [facility], [address] [place] [address] Platelet Count May 03, 2020 1:40pm 281 10e3/ul 130-472 [facility], [address] [place] [address] Platelet Count April 17, 2020 1:00am 306 10e3/ul 130-472 [facility], [address] [place] [address] Platelet Count January 05, 2020 3:52pm 293 10e3/ul 130-472 [facility], [address] [place] [address] Mean Platelet Volume May 03, 2020 1:40pm 8.8 fl 9.1-13.1 [facility], [address] [place] [address] Mean Platelet Volume April 17, 2020 1:00am 8.9 fl 9.1-13.1 [facility], [address] [place] [address] Mean Platelet Volume January 04 3:52pm 9.1 fl 9.1-13.1 [facility], [address] [place] [address] Neutrophils (%) (Auto) April 1:40pm 63.3 % [address] [facility], [address] [place], [place] [id number] Neutrophils (%) (Auto) March 1:00am 70.3 % [address] [facility], [address] [place] [address] 98318 Neutrophils (%) (Auto) January 05, 2020 3:52pm 70.9 % [address] [facility], [address] [place] [address] 17205 Absolute Neutrophil May 03, 020 1:40pm 5.1 # 1.7-7.6 [facility], [address] [place] [address] 71286 Absolute Neutrophil April 17, 2 020 1:00am 5.7 # 1.7-7.6 [facility], [address] [place] [address] 87494 Absolute Neutrophil January 04 0 3:52pm 5.0 # 1.7-7.6 [facility], [address] [place] [address] 10709 Lymphocytes (%) (Auto) April 1:40pm 25.8 % 14-46 [facility], [address] [place] [address] 75384 Lymphocytes (%) (Auto) March 1:00am 19.3 % 14-46 [facility], [address] [place] [address] 15058 Lymphocytes (%) (Auto) January 05, 2020 3:52pm 18.8 % 14-46 [facility], [address] [place] [address] 29682 Lymphocytes # (Auto) May 03, 2020 1:40pm 2.1 # 0.6-4.6 [facility], [address] [place] [address] 61950 Lymphocytes # (Auto) April 17, 2020 1:00am 1.6 # 0.6-4.6 [facility], [address] [place] [address] 16356 Lymphocytes # (Auto) January 04 3:52pm 1.3 # 0.6-4.6 [facility], [address] [place] [address] 42233 Monocytes (%) (Auto) May 03, 2020 1:40pm 8.1 % 4-12 [facility], [address] [place] [address] 24274 Monocytes (%) (Auto) April 17, 2020 1:00am 8.4 % 4-12 [facility], [address] [place] [address] 36899 Monocytes (%) (Auto) January 04 3:52pm 7.4 % 4-12 [facility], [address] [place] [address] 46764 Monocytes # May 03, 2020 1:40pm 0.7 # 0.2-1.2 [facility], [address] [place] [address] 87274 Monocytes # April 17, 2020 1:00am 0.7 # 0.2-1.2 [facility], [address] [place] [address] 71442 Monocytes # January 05, 2020 3:52pm 0.5 # 0.2-1.2 [facility], [address] [place] [address] 73556 Eosinophils (%) (Auto) April 1:40pm 2.5 % 0-7 [facility], [address] [place] [address] 95594 Eosinophils (%) (Auto) March 1:00am 1.8 % 0-7 [facility], [address] [place] [address] 80916 Eosinophils (%) (Auto) January 05, 2020 3:52pm 2.3 % 0-7 [facility], [address] [place] [address] 84433 Absolute Eosinophils (CBC) May 03, 2020 1:40pm 0.2 # 0.0-0.5 [facility], [address] [place] [address] 36358 Absolute Eosinophils (CBC) April 17, 2020 1:00am 0.2 # 0.0-0.5 [facility], [address] [place] [address] 38764 Absolute Eosinophils (CBC) January 042019 3:52pm 0.2 # 0.0-0.5 [facility], [address] [place] [address] 00888 Basophils (%) (Auto) May 03, 2020 1:40pm 0.2 % 0.4-1.3 [facility], [address] [place] [address] 13679 Basophils (%) (Auto) April 17, 2020 1:00am 0.1 % 0.4-1.3 [facility], [address] [place] [address] 23260 Basophils (%) (Auto) January 04 3:52pm 0.3 % 0.4-1.3 [facility], [address] [place] [address] Absolute Basophils (CBC) May 032019 1:40pm 0.0 # 0.0-0.2 [facility], [address] [place] [address] Absolute Basophils (CBC) April 172019 1:00am 0.0 # 0.0-0.2 [facility], [address] [place] [address] Absolute Basophils (CBC) December 3:52pm 0.0 # 0.0-0.2 [facility], [address] [place] [address] 90069 Immature Granulocyte % (Auto) Dece er 2019 1:40pm 0.1 % 0-2 [facility], [address] [place] [address] Immature Granulocyte % (Auto) [facility] er 2019 1:00am 0.1 % 0-2 [facility], [address] [place] [address] Immature Granulocyte % (Auto) January 05, 2020 3:52pm 0.3 % 0-2 [facility], [address] [place] [address] Absolute Immature Granulocyte (auto May 03, 2020 1:40pm 0.0 # 0-0.1 [facility], [address] [place] [address] 57444 Absolute Immature Granulocyte (auto April 17, 2020 1:00am 0.0 # 0-0.1 [facility], [address] [place] [address] Absolute Immature Granulocyte (auto January 05, 2020 3:52pm 0.0 # 0-0.1 [facility], [address] [place] [address] Add Manual Differential April 1:40pm No [facility], [address] [place] [address] Add Manual Differential March 1:00am No [facility], [address] [place] [address] Add Manual Differential January 05, 2020 3:52pm No [facility], [address] [place], [place] [id number] Prothrombin Time May 03, 2020 1:40p m 10.3 SECONDS 9.6-12.3 [facility], [address] [place] [address] INR International Normalized Ratio D ecember 2019 1:40pm 1.0 0.9-1.1 THE INR IS OPERATIONALLY DEFINED FOR BULMARO SH PLASMA FROMPATIENTS STABILIZED ON ORAL ANTICOAGULANTS. ROUTINE ANTICOAGULANT THERAPY 2.0-3.0RECURRENT SYSTEMIC EMBOLISM/HEART VALVE REPLACEMENT 2.5-3.5 [facility], [address] [place], [place] [id number] Partial Thromboplastin Time - Jermaine D ecember 2019 1:40pm 25.9 SECONDS 22.7-31.6 [facility], [address] [place], [place] [id number] D-Dimer April 17, 2020 1:00am 0.46 mg/L 0.0-0.50 PLEASE NOTE: THIS TEST WAS PERFORMED USING A PARTICLE-ENHANCED, IMMUNOTURBIDIMETRIC ASSAY AND HAS A SINGLE,CLINICALLY DERIVED CUTOFF OF 0.50 MG/L. [facility], [address] [place] [address] Blood Urea Nitrogen May 03 020 1:40pm 20 mg/dL 02-11 [facility], [address] [place] [address] Blood Urea Nitrogen January 04 0 3:52pm 12 mg/dL 02-11 [facility], [address] [place] [address] Blood Urea Nitrogen December 31 0 11:16am 21 mg/dL 02-11 [facility], [address] [place] [address] Sodium Level May 03, 2020 1:40pm 140 mmol/L 132-146 [facility], [address] [place] [address] 43463 Sodium Level January 05, 2020 3:52pm 138 mmol/L 132-146 [facility], [address] [place] [address] 38314 Sodium Level January 01, 2020 11:16am 142 mmol/L 132-146 [facility], [address] [place] [address] 11015 Potassium Level May 03, 2020 1:40pm 3.9 mmol/L 3.5-5.5 [facility], [address] [place] [address] 27340 Potassium Level January 05, 2020 3:52pm 3.9 mmol/L 3.5-5.5 [facility], [address] [place] [address] 40168 Potassium Level January 01, 2020 11:16am 4.7 mmol/L 3.5-5.5 [facility], [address] [place] [address] 63373 Chloride Level May 03, 2020 1:40pm 109 mmol/l 99-109 [facility], [address] [place] [address] 80445 Chloride Level January 05, 2020 3:52pm 108 mmol/l 99-109 [facility], [address] [place] [address] 42993 Chloride Level January 01, 2020 11:16am 111 mmol/l 99-109 [facility], [address] [place] [address] 26606 Carbon Dioxide Level May 03, 2020 1:40pm 24 mmol/l -31 [facility], [address] [place] [address] 44972 Carbon Dioxide Level January 04 3:52pm 25 mmol/l - [facility], [address] [place] [address] 93182 Carbon Dioxide Level December 31 11:16am 24 mmol/l -31 [facility], [address] [place] [address] 59534 Anion Gap May 03, 2020 1:40pm 11 mmol/l 8-16 [facility], [address] [place] [address] 43469 Anion Gap January 05, 2020 3:52pm 9 mmol/l 8-16 [facility], [address] [place] [address] 04027 Anion Gap January 01, 2020 11:16am 12 mmol/l 8-16 [facility], [address] [place] [address] 28083 Glucose Level May 03, 2020 1:40pm 97 mg/dL 74-106 [facility], [address] [place] [address] 35179 Glucose Level January 05, 2020 3:52pm 107 mg/dL 74-106 [facility], [address] [place] [address] Glucose Level January 01, 2020 11:16am 107 mg/dL 74-106 [facility], [address] [place] [address] Creatinine May 03, 2020 1:40pm 0.9 mg/dL 0.5-1.1 [facility], [address] [place] [address] Creatinine January 05, 2020 3:52pm 1.0 mg/dL 0.5-1.1 [facility], [address] [place] [address] Creatinine January 01, 2020 11:16am 1.2 mg/dL 0.5-1.1 [facility], [address] [place] [address] 81361 Glomerular Filtration Rate Calc Dece mber 2019 1:40pm Greater than 60 ml/min ABOVE 60 [facility], [address] [place] [address] 55254 Glomerular Filtration Rate Calc Augu st 2019 3:52pm Greater than 60 ml/min ABOVE 60 [facility], [address] [place] [address] Glomerular Filtration Rate Calc Augu st 2019 11:16am Greater than 60 ml/min ABOVE 60 [facility], [address] [place] [address] Alanine Aminotransferase (ALT/SGPT) May 03, 2020 1:40pm 59 U/L 10-49 [facility], [address] [place] [address] Alanine Aminotransferase (ALT/SGPT) January 05, 2020 3:52pm 65 U/L 10-49 [facility], [address] [place] [address] Alanine Aminotransferase (ALT/SGPT) January 01, 2020 11:16am 66 U/L 10-49 [facility], [address] [place] [address] Aspartate Amino Transf (AST/SGOT) De cember 2019 1:40pm 26 U/L 0-33 [facility], [address] [place] [address] Aspartate Amino Transf (AST/SGOT) Au abraham 2019 3:52pm 30 U/L 0-33 [facility], [address] [place] [address] 36958 Aspartate Amino Transf (AST/SGOT) Au abraham 2019 11:16am 22 U/L 0-33 [facility], [address] [place] [address] Alkaline Phosphatase May 03, 2020 1:40pm 69 U/L 45-129 [facility], [address] [place] [address] Alkaline Phosphatase January 04 3:52pm 77 U/L 45-129 [facility], [address] [place] [address] Alkaline Phosphatase December 31 11:16am 77 U/L 45-129 [facility], [address] [place] [address] 37290 Calcium Level May 03, 2020 1:40pm 8.4 mg/dL 8.5-10.1 [facility], [address] [place], [place] [id number] Calcium Level January 05, 2020 3:52pm 8.9 mg/dL 8.5-10.1 [facility], [address] [place], [place] [id number] Calcium Level January 01, 2020 11:16am 9.0 mg/dL 8.5-10.1 Delta: 8.0 on 10/02/19-0525Repeated by: Tammy Griffiths 01/01/20 1339.Result Confirmation: 8.7 mg/dL [facility], [address] [place] [address] 61149 Total Bilirubin May 03, 2020 1:40pm 0.3 mg/dL 0.3-1.2 [facility], [address] [place] [address] 31975 Total Bilirubin January 05, 2020 3:52pm 0.6 mg/dL 0.3-1.2 [facility], [address] [place] [address] 91332 Total Bilirubin January 01, 2020 11:16am 0.4 mg/dL 0.3-1.2 [facility], [address] [place] [address] 41749 Albumin May 03, 2020 1:40pm 3.5 g/dL 3.2-4.8 [facility], [address] [place] [address] 06990 Albumin January 05, 2020 3:52pm 3.7 g/dL 3.2-4.8 [facility], [address] [place] [address] 34434 Albumin January 01, 2020 11:16am 3.9 g/dL 3.2-4.8 [facility], [address] [place] [address] 54563 Serum Total Protein May 03 020 1:40pm 7.1 g/dL 5.7-8.2 [facility], [address] [place] [address] 30685 Serum Total Protein January 04 0 3:52pm 7.0 g/dL 5.7-8.2 [facility], [address] [place] [address] 15564 Serum Total Protein December 31 0 11:16am 7.0 g/dL 5.7-8.2 [facility], [address] [place] [address] 82935 Phosphorus Level January 01, 2020 11:16am 3.1 mg/dL 2.4-5.1 [facility], [address] [place] [address] 76547 Magnesium Level January 01, 2020 11:16am 2.4 mg/dL 1.3-2.7 [facility], [address] [place] [address] 33408 Urine Marijuana (THC) Screen 2019 3:00pm Negative ng/mL Cutoff 50 [facility], [address] [place] [address] Urine Phencyclidine Screen May 03, 2020 3:00pm Negative ng/mL Cutoff 25 [facility], [address] [place] [address] Urine Cocaine Screen May 03, 2020 3:00pm Negative ng/mL Cutoff 150 [facility], [address] [place] [address] 88674 Urine Methamphetamines Screen 2019 3:00pm Negative ng/mL Cutoff 500 [facility], [address] [place] [address] Urine Opiates Screen May 03, 2020 3:00pm Negative ng/mL Cutoff 100 [facility], [address] [place] [address] 09123 Urine Amphetamines Screen April 212019 3:00pm Negative ng/mL Cutoff 500 [facility], [address] [place] [address] 00823 Urine Benzodiazepines Screen 2019 3:00pm Negative ng/mL Cutoff 150 [facility], [address] [place] [address] Ur Tricyclic Antidepressants Screen May 03, 2020 3:00pm Negative ng/mL Cutoff 300 [facility], [address] [place] [address] Urine Methadone Screen April 3:00pm Negative ng/mL Cutoff 200 [facility], [address] [place] [address] Urine Barbiturates May 03 3:00pm Negative ng/mL Cutoff 200 [facility], [address] [place] [address] Urine Oxycodone Screen April 3:00pm Negative ng/mL Cutoff 100 [facility], [address] [place] [address] Urine Propoxyphene Screen April 212019 3:00pm Negative ng/mL Cutoff 300 [facility], [address] [place] [address] Urine Buprenorphine Screen May 03, 2020 3:00pm Negative ng/mL Cutoff 10 [facility], [address] [place] [address] Troponin I May 03, 2020 1:40pm Less than 0.015 ng/mL 0.00-0.09 Less than 0.09 NG/ML Negative0.10 - 0.77 NG/ML High Risk0.78 NG/ML or Greater Positive The WHO defined the cutoff (definition for diagnosis of [place])for this method as 0.78 ng/ml. [facility], [address] [place] [address] Troponin I January 05, 2020 3:52pm Less than 0.015 ng/mL 0.00-0.09 Less than 0.09 NG/ML Negative0.10 - 0.77 NG/ML High Risk0.78 NG/ML or Greater Positive The WHO defined the cutoff (definition for diagnosis of [place])for this method as 0.78 ng/ml. [facility], [address] [place] [address] Thyroid Stimulating Hormone (TSH) Au 2019 11:16am 1.04 uIU/mL 0.35-5.50 [facility], [address] [place] [address] Hemoglobin A1c January 01, 2020 11:16am 6.1 [...] glucose control. * High risk of developing half-way complications such asretinopathy, nephropathy, neuropathy, cardiopathy, etc. Some danger of hypoglycemic reaction in Type I diabetics.Some glucose intolerant individuals and "Sub Clinical"diabetics may demonstrate HGBA1C levels in this area. [facility], [address] [place] [address] Estimated Average Glucose (eAG) 2019 11:16am 128 mg/dl An A1C of 7% - the goal of diabetic ther apy - is equivalentto an EAG of 154 mg/dl. [facility], [address] [place] [address] Microbiology Results Procedure Source Result Collection Date/Time Result Date/Time Result Comment Performing Site Streptococcus Rapid Screen Throat July 12, 2019 12:05pm July 13, 2019 9:35am [facility], [address] [place] [address] Blood Culture Venous blood No growth. April 17, 2020 1:00am April 22, 2020 1:07am [facility], [address] [place] [address] Influenza-Like Illness (PCR) Nasopharyngea l No Organisms Detected May 03, 2020 4:15pm May 03, 2020 4:48pm [facility], [address] [place] [address] Nasopharyngeal May 03, 2020 4:15pm May 03, 2020 4:48pm [facility], [address] [place] [address] Respiratory Panel (PCR) Nasopharyngeal No Organisms Detected April 17, 2020 1:10am April 17, 2020 2:02am [facility], [address] [place] [address] Diagnostic Imaging Reports Report Dictated Date/Time Dictated By Status Radiology Report September 27, 2019 10:48am Jalen Diamond MD completed [place] [place] [address] [phone] NAME SEX PT STATUS ACCOUNT NUMBER Taina Mata [facility] [id number] ORDERING PHYSICIAN LOCATION MEDICAL RECORD NO. [facility] [id number] ATTENDING PHYSICIAN DATE OF DATE OF EXAM/TIME [...] Trans Dt/Tm: Trans by: DT Prt Dt/Tm: [id number]: Total DLP = 0.00 mGy-cm Fluoroscopy Time (in secs): Radiology Report January 05, 2020 6:33pm Luigi Gordon MD completed [place] [address] [id number] [place] [id number] [phone] NAME SEX PT STATUS ACCOUNT NUMBER TAINA MATA [facility] [id number] ORDERING PHYSICIAN LOCATION MEDICAL RECORD NO. [facility] [id number] ATTENDING PHYSICIAN DATE OF DATE OF EXAM/TIME [...] 08, 2020 2:53pm Mesha Mccabe MD completed [facility] [address] [place] [address] [phone] NAME SEX PT STATUS ACCOUNT NUMBER TAINA MATA [facility] [id number] ORDERING PHYSICIAN LOCATION MEDICAL RECORD NO. Cedric Adam MD ER [id number] ATTENDING PHYSICIAN DATE OF DATE OF EXAM/TIME Taina Miller 1980 03/08/20 1436 TYPE / EXAM Xray [...] Trans Dt/Tm: Trans by: DT Prt Dt/Tm: [id number]: Total DLP = 0.00 mGy-cm Fluoroscopy Time (in secs): Radiology Report April 11, 2020 12:02am Kraig Walker MD completed [place] [address] [place] [id number] [phone] NAME SEX PT STATUS ACCOUNT NUMBER TAINA MATA [facility] ER [id number] ORDERING PHYSICIAN LOCATION MEDICAL RECORD NO. Geoff Silva DO ER [id number] ATTENDING PHYSICIAN DATE OF DATE OF EXAM/TIME AngelaTaina 1980 04[birth year]10/202222 TYPE / EXAM Xray Chest [...] Trans Dt/Tm: Trans by: DT Prt Dt/Tm: [id number]: Total DLP = 0.00 mGy-cm Fluoroscopy Time (in secs): Radiology Report April 17, 2020 2:38a m Cedric Harding MD completed [facility] [address] [place] [address] [phone] NAME SEX PT STATUS ACCOUNT NUMBER TAINA MATA [facility] ER [id number] ORDERING PHYSICIAN LOCATION MEDICAL RECORD NO. Mirna Varghese MD ER [id number] ATTENDING PHYSICIAN DATE OF DATE OF EXAM/TIME Taina Miller DO 1980 04/17/20 / 0034 TYPE / EXAM Xray Chest 2 view [...] M.D. Reported By Cedric Harding MD on 04/17/20 0238 Signed By Cedric Harding MD on 04/17/20237 Date Time CC: Taina Miller DO; Cedric Harding MD Techn: SNYDU Trans Dt/Tm: Trans by: DT Prt Dt/Tm: [id number]: Total DLP = 0.00 mGy-cm Fluoroscopy Time (in secs): Health Concerns Health Concerns may be documented in an alternate section. Advance Directives Advance Directive Response Recorded Date/Time Advanced Directive No 2019 1:04pm MOLST No October 02, 2019 2:40am Advance Directives on File or in chart? No October 02, 2019 2:45am Does Patient have a DNR? No May 03, 2020 1:04pm Healthcare Proxy No [facility] 2019 1:04pm Living Will No July 12, 2019 2:21pm [...] Date Provider(s) Departed Physician/Provider Office Visit -[facility] July 12, 2019 11:03am July 12, 2019 12:57pm Seth Leonardo DO Registered Referred -Lab Drop Off July 12, 2019 12:05pm Fay Nuno O Departed Physician/Provider Office Visit -[facility] July 26, 2019 1:34pm July 26, 2019 2:34pm Chito Riley MD Departed Physician/Provider Office Visit -[facility] August 08, 2019 2:50pm August 08, 2019 3:58pm Chito Riley MD Departed Physician/Provider Office Visit -[facility] August 29, 2019 1:15pm August 29, 2019 2:06pm Chito Riley MD Departed Physician/Provider Office Visit -[facility] September 27, 2019 8:42am September 27, 2019 9:35am Chito Riley MD Registered Referred -Radiology September 27, 2019 9:33am PAULO RAY Registered Outpatient -[facility] Surgery October 02, 2019 2:26am Dawit Sampson MD Registered Outpatient -[facility] Surgery October 03, 2019 6:42am October 04, 2019 7:30am Dawit Sampson MD Registered Outpatient -[facility] October 07, 2019 1:34pm Jeane Solis RN Departed Physician/Provider Office Visit -[facility] October 11, 2019 11:39am October 11, 2019 11:49am Gabriel Alcantara MD Departed Physician/Provider Office Visit -[facility] January 01, 2020 9:32am January 01, 2020 12:12pm Taina Miller DO Registered Referred -Laboratory January 01, 2020 11:05am Taina Miller DO Departed Emergency -Emergency Room ER January 05, 2020 3:17pm January 05, 2020 5:45pm null Departed Physician/Provider Office Visit -[facility] January 10, 2020 11:33am January 10, 2020 12:18pm Taina Miller DO Departed Physician/Provider Office Visit -[facility] February 14, 2020 11:37am February 14, 2020 12:32pm Taina Miller DO Registered Outpatient -[facility] March 04, 2020 11:56am Taina Miller DO Departed Emergency -Emergency Room ER March 08, 2020 11:04am March 08, 2020 2:00pm null Departed Emergency -Emergency Room ER March 17, 2020 9:49pm March 17, 2020 10:33pm null Registered Clinical -Nutrition March 20, 2020 11:43am Taina Miller DO Departed Physician/Provider Office Visit -[facility] March 31, 2020 10:22am March 31, 2020 11:47am Taina Miller DO Departed Emergency -Emergency Room ER April 01, 2020 8:39pm April 01, 2020 9:32pm null Departed Emergency -Emergency Room ER April 10, 2020 9:36pm April 10, 2020 11:40pm null Registered Referred -Respiratory Therapy April 13, 2020 12:55pm Taina Miller DO Departed Physician/Provider Office Visit -[facility] April 14, 2020 9:16am April 14, 2020 1:07pm Taina Miller DO Departed Emergency -Emergency Room ER April 17, 2020 12:07am April 17, 2020 3:00am null Departed Physician/Provider Office Visit -[facility] April 20, 2020 9:12am April 20, 2020 10:34am Taina Miller DO Departed Physician/Provider Office Visit -[facility] May 01, 2020 10:42am May 01, 2020 11:57am Taina Miller DO Admitted Inpatient -[facility] May 03, 2020 4:22pm Tommie Pinon MD Recent Diagnosis Onset Date [...] Event Date Not Given Reason Dose Number Clammer Lot Number Vaccine Information Statement (VIS) Deta il influenza vaccine, inactivated Novem 2019 [id number] pneumococcal polysaccharide PPV23 vaccine March 31, 2020 [id number] Mental Status Observation Response Raymond e Recorded Impairments No impairments or barriers April 17, 2020 12:07am Medical Equipment No Medical Equipment Information available Insurance Providers Guarantor TAINA MATA Address [place] [address] Contact Info. Home Phone: Payer Policy Id Coverage Id Subscriber's Name Subscriber Id Effective Date Expiration Date MEDICARE [employer] [id number] TAINA MATA [id number] [place] [id number] TAINA MATA [id number] [place] [facility] [id number] TAINA MATA [id number] 2013 MED[facility]ID [place] [facility] 2ND R [id number] TAINA MATA [id number] MEDICAID [id number] TAINA MATA [id number] MEDICARE [id number] TAINA MATA [id number] Self Pay Self N/A Plan of Treatment [...] done, then he may benefit from seeing cardiac care nurse in n ear future. 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 Continue Symbicort and refer to pulmonology. Well [...] pulmonology per primary. Taina Miller DO Email: [email or web address] Phone: [address] [place] [phone] Taina Miller DO Email: [email or web address] Phone: [address] [place] [phone] Armen Dunlap MD Work Phone: [facility] [address] [place] [address] Gabriel Alcantara MD Email: [email or web address] Phone: [address] [place] [phone] Taina Miller DO Email: [email or web address] Phone: [address] [place] [phone] Your follow up appointment has been made for MondayOctober [address] Camilla Sampson MD Work Phone: [address] [place] [address] Future Procedures Future procedure information is unavailable Future Medications Future medication information is unavailable Patient Instructions Acute Abdominal Pain (DC) Gas and Bloating (GEN) Ventral Hernia Repair (DC) Earache (ED) Contusion in Adults (ED) Asthma (ED) Social History Smoking Status Status Date of Observation Never smoker May 03, 2020 4:2 7pm Observation Status Observation Response Raymond e of Response Smoking Status Never smoker May 03, 2020 4:27pm Alcohol Use No May 03, 2020 4:27pm Substance Use No Nasime r 2019 4:27pm Assigned Sex Male Vital Signs [...] 01, 2020 11:31am Height 70 [in_i] May 03, 2020 1:04pm Weight 255.00 [lb_av] May 03, 2020 1:04pm Body Temperature 98.1 [degF] 97.6-99.5 May 03, 2020 4:44pm Heart Rate 82 /min 60-100 May 03, 2020 4:44pm Respiratory rate 16 /min -May 03, 2020 4:44pm Oxygen saturation by Pulse oximetry 97 % 95- 100 May 03, 2020 4:44pm BP Systolic 146 mm[Hg] May 03, 2020 4:44pm BP Diastolic 92 mm[Hg] May 03, 2020 4:44pm
--- OUTSIDE RECORDS SUMMARY | 2020-06-04 18:16 | CCD ---
Author Author Rajendra Fernandez Amber Organization Unknown Address [address] [place] [address] Phone Care Team Providers Care Building Associate Name Role Phone Amber Fernandez PCP Allergies, Adverse Reactions, Alerts No Data in Section Problem List Concept Problem Description Status Start Date Created Date Resolv ed Date Snomed Code F33.1 Major Depressive Disorder, Recurrent episode, Moderate Active 04/21/2020 Medications Rx Norm Medication Route Route Concept Start Date Stop Date Dosage Ankit quency Duration Formula Strength Dosage Form Dosage Form Code Dosage Description Medication Id Account Npid Author First Name Author Last Name Taxonomy Code Taxonomy Desc Phone Number [id number] fluoxetine by mouth [id number] 03/18/2020 05/17/2020 once a day 30 40 mg capsule 11061 [id number] Amber Fungo [id number] Nurse Pr actitioner [phone] [id number] aripiprazole by mouth [id number] 03/18/2020 05/17/2020 once a day 30 5 mg tablet 26138 [id number] [phone] Amber Fungo [id number] Nurse Pra ctitioner [phone] Social History Social History Element Description Concept Effective Date Smoking Status Unknown if ever smoked [id number] Immunizations No Data in Section Vital Signs Encounter Date Height Ins Weight Lbs Bmi Bp Systolic Bp Diastoli c Oxygen Saturation Respiration Rate Pulse Rate Body Temp Head Circumference Heigh t Lying 04/21/2020 0.00 0.00 0.00 0 0 0.00 0 0 0.00 0.0 0.0 0 Procedures Date Concept Id Description Targeted Site Concept Targeted Site Concept Type 04/21/2020 98762 E/M Level 3 - Established Patient CPT Patient has no history of implantable de vices Encounters Encounter Start Date End Date Encounter Type Description Diagnosis Di agnosis Desc Location Author First Name Author Last Name Npid Taxonomy Cod e Taxonomy Desc Phone Number Location Addr1 Location Addr2 Location City Location Sta te Location [facility] [id number] 04/21/2020 04/21/2020 04445 E/M Level 3 - Established Pa tracee F33.1 Major depressive disorder, recurrent, moderate [facility] Rebecca Clark [id number] [id number] Nurse Practitioner [phone] [address] [facility] [address] [place] [phone] Plan of Treatment No Data in Section Lab Results No Data in Section Instructions No Data in Section Functional Cognitive Status No Data in Section Insurance Providers Insurance Id Policy Effective Date Policy Thru Date Company N rose marie [id number] 2002 MEDICARE [id number] 2020 MEDICAID [id number] CRISIS
--- OUTSIDE RECORDS SUMMARY | 2020-06-04 18:16 | CCD ---
Author Rajendra Slaughter Organization Unknown Address [address] [place] [address] Phone Care Team Providers Care Vault Custodian Name Role Phone Willa Hernández PCP Allergies, Adverse Reactions, Alerts No Data in Section Problem List Concept Problem Description Status Start Date Created Date Resolv ed Date Snomed Code F33.1 Major Depressive Disorder, Recurrent episode, Moderate Active 04/22/2020 Medications Rx Norm Medication Route Route Concept Start Date Stop Date Dosage Ankit quency Duration Formula Strength Dosage Form Dosage Form Code Dosage Description Medication Id Account Npid Author First Name Author Last Name Taxonomy Code Taxonomy Desc Phone Number [phone] fluoxetine by mouth [id number] 03/18/2020 05/17/2020 once a day 30 40 mg capsule 54737 [id number] Amber Egorho [id number] Nurse Pr actitioner [phone] [id number] aripiprazole by mouth [id number] 03/18/2020 05/17/2020 once a day 30 5 mg tablet 97347 [id number] [id number] Amber Egorho [id number] Nurse Pra ctitioner [phone] Social History Social History Element Description Concept Effective Date Smoking Status Unknown if ever smoked [id number] Immunizations No Data in Section Vital Signs No Data in Section Procedures Date Concept Id Description Targeted Site Concept Targeted Site Concept Type 04/21/2020 42715 Extended Individual Psychotherapy - 45 min CPT Patient has no history of implantable de vices Encounters Encounter Start Date End Date Encounter Type Description Diagnosis Di agnosis Desc Location Author First Name Author Last Name Npid Taxonomy Cod e Taxonomy Desc Phone Number Location Addr1 Location Addr2 Location City Location Sta te Location Zip [id number] 04/21/2020 04/21/2020 68326 Extended Individual Psych otherapy - 45 min F33.1 Major depressive disorder, recurrent, moderate [facility] Edgar Crouch [phone] [id number] [address] [employer] [id number] [address] [address] Plan of Treatment No Data in Section Lab Results No Data in Section Instructions No Data in Section Insurance Providers Insurance Id Policy Effective Date Policy Thru Date Company Kenneth trotter [id number] 2002 MEDICARE [id number] 2020 MEDICAID [id number] CRISIS
--- OUTSIDE RECORDS SUMMARY | 2020-06-04 18:17 | CCD | Continuity of Care Document ---
Author Author [facility] Organization [facility] Address [address] [place] [address] Phone Support Name Relationship Address Phone Chito Riley PRS [address] [place] [address] LeonardoSaltyal PRS [address] [place] [address] Doctor Provided, Family No PRS Unknown Unava ilable Chito Riley PRS [facility] [place] [address] Kostaselaine, Darryl Flor PRS [address] [place] [address] Tirso Miller PRS [address] [place] [address] Dawit Sampson PRS [address] [place] [address] Jeane Solis PRS Unknown Unavailable Gabriel Alcantara PRS [address] [place] [address] Jeanmarie Arteaga PRS [address] [place] [address] Bryant Villalba PRS [address] [place] [address] Cedric Adam PRS [address] [place] [address] Riki Collins PRS [address] [place] [address] Keith Grant PRS [address] [place] [address] Geoff Silva PRS [address] [place] [address] Allergies, Adverse Reactions, Alerts No known allergies. [...] 2:58am Fluoxetine (Prozac) 10 mg capsule Active 10 MG PO daily September 27, 2019 8:47am pneumococcal 23-luis ps vaccine 25 mcg/0. 5 mL injection syringe Discontinued 0.5 ML IM .1 0.5 March 31, 2020 10:22am March 31, 2020 12:46pm Afluria Qd 2019-(3yr up)(PF) (flu vac [id number] 36mos up(PF)) Discontinued 0.5 ML IM 1 Time/Once 0.5 March 31, 2020 10:22am March 31, 2020 12:46pm Budesonide-Formoterol (Symbicort) 160-4. 5 mcg/actuation HFA aerosol inhaler Active 1 PUFFS IH 2 Times Per Day 10.2 March 31, 2020 11:12am Amoxicillin Discontinued 500 MG PO Three times [...] 14, 2020 12:10pm Take with meals only Budesonide-Formoterol (Symbicort 80-4.5 Mcg Inhaler) 10.2 GM [...] 4 hours 2 February 10, 2015 1:59pm [facility] 7:58am Oxcarbazepine Discontinued 600 MG PO 2 [...] 27, 2018 9:55am March 01, 2019 9:40am Problems Active Problems Medical Problem Onset Date Status Dizziness Active Depression Active Elevated serum creatinine Active Prediabetes Active Obesity Active Asthma Active Inactive/Resolved Problems Medical Problem Onset Date Status Chest wall pain Resolv ed Acute epididymitis Res olved Elevated glucose level Resolved Acute right hip pain R esolved Fracture of rib of right side Resolved Lower back pain Resolv ed Unstable angina pectoris Resolved Malaise and fatigue Re solved Abdominal muscle pain Resolved Viral syndrome Resolve d Plantar fasciitis Reso lved Anterior chest wall pain Resolved Vasovagal episode Reso lved Costochondritis, acute Resolved Left ankle sprain Reso lved Hypocalcemia Resolved Procedures Procedure Date Performed Status Xray Chest 2 view PA/LAT April 102019 10:23pm active Xray Abdomen 1 View (KUB) March 082019 1:36pm completed CT Abd/pel w/ contrast January 05, 2020 3:40pm completed Xray Chest 2 view PA/LAT September 26 9:44am completed Streptococcus Rapid Screen July 12, 2019 completed Relevant Diagnostic Tests and/or Laboratory Data Laboratory Results Test Date/Time Result Interpretation Reference Range Result Comment Performing Site White Blood Count January 05, 2020 3:52pm 7.0 10e3/uL 4.45-10.71 [facility], [address] [place] [address] 97866 Red Blood Count January 05, 2020 3:52pm 5.36 10e6/uL 4.3-6.1 [facility], [address] [place] [address] 12437 Hemoglobin January 05, 2020 3:52pm 15.7 g/dL 13-18 [facility], [address] [place] [address] 52193 Hematocrit January 05, 2020 3:52pm 45.3 % 42-52 [facility], [address] [place] [address] 38743 Mean Corpuscular Volume January 05, 2020 3:52pm 84.5 fl 80-96 [facility], [address] [place] [address] 33902 Mean Corpuscular Hemoglobin December 202019 3:52pm 29.3 pg 27-31 [facility], [address] [place] [address] 94933 Mean Corpuscular Hemoglobin Concent January 05, 2020 3:52pm 34.7 g/dl 33-37 [facility], [address] [place] [address] 69250 Red Cell Distribution Width December 202019 3:52pm 12 % 11-15 [facility], [address] [place] [address] 52773 Platelet Count January 05, 2020 3:52pm 293 10e3/ul 130-472 [facility], [address] [place] [address] 03645 Mean Platelet Volume January 04 3:52pm 9.1 fl 9.1-13.1 [facility], [address] [place] [address] 45554 Neutrophils (%) (Auto) January 05, 2020 3:52pm 70.9 % 41-77 [facility], [address] [place] [address] 81143 Absolute Neutrophil January 04 0 3:52pm 5.0 # 1.7-7.6 [facility], [address] [place] [address] 99946 Lymphocytes (%) (Auto) January 05, 2020 3:52pm 18.8 % 14-46 [facility], [address] [place] [address] 95583 Lymphocytes # (Auto) January 04 3:52pm 1.3 # 0.6-4.6 [facility], [address] [place] [address] 53750 Monocytes (%) (Auto) January 04 3:52pm 7.4 % 4-12 [facility], [address] [place] [address] 60914 Monocytes # January 05, 2020 3:52pm 0.5 # 0.2-1.2 [facility], [address] [place] [address] 54213 Eosinophils (%) (Auto) January 05, 2020 3:52pm 2.3 % 0-7 [facility], [address] [place] [address] 75379 Absolute Eosinophils (CBC) January 042019 3:52pm 0.2 # 0.0-0.5 [facility], [address] [place] [address] 22428 Basophils (%) (Auto) January 04 3:52pm 0.3 % 0.4-1.3 [facility], [address] [place] [address] Absolute Basophils (CBC) December 3:52pm 0.0 # 0.0-0.2 [facility], [address] [place] [address] 24143 Immature Granulocyte % (Auto) January 05, 2020 3:52pm 0.3 % 0-2 [facility], [address] [place] [address] 05408 Absolute Immature Granulocyte (auto January 05, 2020 3:52pm 0.0 # 0-0.1 [facility], [address] [place] [address] 87894 Add Manual Differential January 05, 2020 3:52pm No [facility], [address] [place], [place] [id number] Blood Urea Nitrogen January 04 0 3:52pm 12 mg/dL 02-11 [facility], [address] [place], [place] [address] Blood Urea Nitrogen December 31 0 11:16am 21 mg/dL 02-11 [facility], [address] [place], [place] [address] Sodium Level January 05, 2020 3:52pm 138 mmol/L 132-146 [facility], [address] [place] [address] 59008 Sodium Level January 01, 2020 11:16am 142 mmol/L 132-146 [facility], [address] [place] [address] 68502 Potassium Level January 05, 2020 3:52pm 3.9 mmol/L 3.5-5.5 [facility], [address] [place] [address] 66023 Potassium Level January 01, 2020 11:16am 4.7 mmol/L 3.5-5.5 [facility], [address] [place] [address] 75641 Chloride Level January 05, 2020 3:52pm 108 mmol/l 99-109 [facility], [address] [place] [address] 70041 Chloride Level January 01, 2020 11:16am 111 mmol/l 99-109 [facility], [address] [place] [address] 47327 Carbon Dioxide Level January 04 3:52pm 25 mmol/l 20-31 [facility], [address] [place] [address] 80599 Carbon Dioxide Level December 31 11:16am 24 mmol/l 20-31 [facility], [address] [place] [address] 71079 Anion Gap January 05, 2020 3:52pm 9 mmol/l 8-16 [facility], [address] [place] [address] 56714 Anion Gap January 01, 2020 11:16am 12 mmol/l 8-16 [facility], [address] [place] [address] 23045 Glucose Level January 05, 2020 3:52pm 107 mg/dL 74-106 [facility], [address] [place] [address] 55340 Glucose Level January 01, 2020 11:16am 107 mg/dL 74-106 [facility], [address] [place] [address] 46674 Creatinine January 05, 2020 3:52pm 1.0 mg/dL 0.5-1.1 [facility], [address] [place] [address] 30704 Creatinine January 01, 2020 11:16am 1.2 mg/dL 0.5-1.1 [facility], [address] [place] [address] 98736 Glomerular Filtration Rate Calc Augu st 2019 3:52pm Greater than 60 ml/min ABOVE 60 [facility], [address] [place] [address] 67473 Glomerular Filtration Rate Calc Augu st 2019 11:16am Greater than 60 ml/min ABOVE 60 [facility], [address] [place] [address] 93399 Alanine Aminotransferase (ALT/SGPT) January 05, 2020 3:52pm 65 U/L 10-49 [facility], [address] [place] [address] Alanine Aminotransferase (ALT/SGPT) January 01, 2020 11:16am 66 U/L 10-49 [facility], [address] [place] [address] 01519 Aspartate Amino Transf (AST/SGOT) [facility] 2019 3:52pm 30 U/L 0-33 [facility], [address] [place] [address] 25900 Aspartate Amino Transf (AST/SGOT) [facility] 2019 11:16am 22 U/L 0-33 [facility], [address] [place] [address] 01883 Alkaline Phosphatase January 04 3:52pm 77 U/L 45-129 [facility], [address] [place] [address] 04751 Alkaline Phosphatase December 31 11:16am 77 U/L 45-129 [facility], [address] [place] [address] 39255 Calcium Level January 05, 2020 3:52pm 8.9 mg/dL 8.5-10.1 [facility], [address] [place] [address] 98316 Calcium Level January 01, 2020 11:16am 9.0 mg/dL 8.5-10.1 Delta: 8.0 on 10/02/19-524Repeated by: Tammy Griffiths 01/01/20 1339.Result Confirmation: 8.7 mg/dL [facility], [address] [place] [address] 45677 Total Bilirubin January 05, 2020 3:52pm 0.6 mg/dL 0.3-1.2 [facility], [address] [place] [address] 43445 Total Bilirubin January 01, 2020 11:16am 0.4 mg/dL 0.3-1.2 [facility], [address] [place] [address] 95102 Albumin January 05, 2020 3:52pm 3.7 g/dL 3.2-4.8 [facility], [address] [place] [address] Albumin January 01, 2020 11:16am 3.9 g/dL 3.2-4.8 [facility], [address] [place] [address] Serum Total Protein January 04 0 3:52pm 7.0 g/dL 5.7-8.2 [facility], [address] [place] [address] Serum Total Protein December 31 0 11:16am 7.0 g/dL 5.7-8.2 [facility], [address] [place] [address] Phosphorus Level January 01, 2020 11:16am 3.1 mg/dL 2.4-5.1 [facility], [address] [place] [address] Magnesium Level January 01, 2020 11:16am 2.4 mg/dL 1.3-2.7 [facility], [address] [place] [address] Troponin I January 05, 2020 3:52pm Less than 0.015 ng/mL 0.00-0.09 Less than 0.09 NG/ML Negative0.10 - 0.77 NG/ML High Risk0.78 NG/ML or Greater Positive The WHO defined the cutoff (definition for diagnosis of NV)for this method as 0.78 ng/ml. [facility], [address] [place] [address] Thyroid Stimulating Hormone (TSH) Au 2019 11:16am 1.04 uIU/mL 0.35-5.50 [facility], [address] [place] [address] Hemoglobin A1c January 01, 2020 11:16am 6.1 [...] control. * High risk of developing intermediate school teacher complications such asretinopathy, nephropathy, neuropathy, cardiopathy, etc. Some danger of hypoglycemic reaction in Type I diabetics.Some glucose intolerant individuals and "Sub Clinical"diabetics may demonstrate HGBA1C levels in this area. [facility], [address] [place] [address] 45712 Estimated Average Glucose (eAG) 2019 11:16am 128 mg/dl An A1C of 7% - the goal of diabetic ther apy - is equivalentto an EAG of 154 mg/dl. [facility], [address] [place] [address] Microbiology Results Procedure Source Result Collection Date/Time Result Date/Time Result Comment Performing Site Streptococcus Rapid Screen Throat July 12, 2019 12:05pm July 13, 2019 9:35am [facility], [address] [place] [address] Diagnostic Imaging Reports Report Dictated Date/Time Dictated By Status Radiology Report September 27, 2019 10:48am Jalen Diamond MD completed [address] [place] [address] [phone] NAME SEX PT STATUS ACCOUNT NUMBER Tirso Mata REG REF [id number] ORDERING PHYSICIAN LOCATION MEDICAL RECORD NO. [facility] [id number] ATTENDING PHYSICIAN DATE OF DATE OF EXAM/TIME [...] Trans Dt/Tm: Trans by: DT Prt Dt/Tm: 9636-5079: Total DLP = 0.00 mGy-cm Fluoroscopy Time (in secs): Radiology Report January 05, 2020 6:33pm Luigi Gordon MD completed [id number] [place] [address] [phone] NAME SEX PT STATUS ACCOUNT NUMBER TIRSO MATA [facility] ER [id number] ORDERING PHYSICIAN LOCATION [id number]ENDING PHYSICIAN DATE OF DATE OF EXAM/TIME Tirso Miller DO 1980 01/[birth year]/201639 TYPE / EXAM [...] Gordon MD on 01/05/201832 Date Time CC: Tirso Miller DO; Luigi Gordon MD Techn: EBEBR Trans Dt/Tm: Trans by: DT Prt Dt/Tm: : Total DLP = 2510.00 mGy-cm : Total Radiation Dose = 37.6500 mSv Lifetime Dose: 37.6500 mS v Radiology Report March 08, 2020 2:53pm Mesha [place] [address] [phone] NAME SEX PT STATUS ACCOUNT NUMBER TIRSO MATA [facility] ER [id number] ORDERING PHYSICIAN LOCATION MEDICAL RECORD NO. Cedric Adam MD ER [id number] ATTENDING PHYSICIAN DATE OF DATE OF EXAM/TIME Tirso Miller DO 1980 03/08/20 / 1436 TYPE [...] Mccabe MD on 03/08/201452 Date Time CC: Tirso Miller DO; Mesha Mccabe MD Techn: CHRISTOPHER Trans Dt/Tm: Trans by: DT Prt Dt/Tm: [id number]: Total DLP = 0.00 mGy-cm Fluoroscopy Time (in secs): Health Concerns Health Concerns may be documented in an alternate section. Advance Directives Advance Directive Response Recorded Date/Time Advanced Directive No No 2019 9:56pm MOLST No March 31, 2020 11:45am Advance Directives on File or in chart? No March 31, 2020 11:45am Does Patient have a DNR? No April 10, 2020 9:56pm Healthcare Proxy No Kiran josseline 2019 9:56pm Living Will No March 31, 2020 11:45am [...] IN RIGHT ARM AND NECK TROUBLE BREATHING Reason for Visit Asthma Asthma Asthma Dizziness Obesity Depression Depression Asthma Encounters Encounter Location(s) Ar rival/Admit Date Discharge/Depart Date Provider(s) Departed Physician/Provider Office Visit -[facility] April 25, 2019 9:12am April 25, 2019 10:56am Chito Riley MD Departed Physician/Provider Office Visit -[facility] July 12, 2019 11:03am July 12, 2019 12:57pm Seth Leonardo DO Registered Referred -Lab Drop Off July 12, 2019 12:05pm Fay Nuno Departed Physician/Provider Office Visit -[facility] July 26, 2019 1:34pm July 26, 2019 2:34pm Chito Riley MD Departed Physician/Provider Office Visit -[facility] August 08, 2019 2:50pm August 08, 2019 3:58pm Chito Riley MD Departed Physician/Provider Office Visit -[facility] August 29, 2019 1:15pm August 29, 2019 2:06pm Chito Riley MD Departed Physician/Provider Office Visit -[facility] September 27, 2019 8:42am September 27, 2019 9:35am Chito Riley MD Registered Referred -Radiology September 27, 2019 9:33am PAULO FLOR Registered Outpatient -[facility] October 02, 2019 2:26am Dawit Sampson MD Registered Outpatient -[facility] October 03, 2019 6:42am October 04, 2019 7:30am Dawit Sampson MD Registered Outpatient -[facility] October 07, 2019 1:34pm Jeane Solis RN Departed Physician/Provider Office Visit -[facility] October 11, 2019 11:39am October 11, 2019 11:49am Gabriel Alcantara MD Departed Physician/Provider Office Visit -[facility] January 01, 2020 9:32am January 01, 2020 12:12pm Tirso Miller DO Registered Referred -Laboratory January 01, 2020 11:05am Tirso Miller DO Departed Emergency -Emergency Room ER January 05, 2020 3:17pm January 05, 2020 5:45pm null Departed Physician/Provider Office Visit -[facility] January 10, 2020 11:33am January 10, 2020 12:18pm Tirso Miller DO Departed Physician/Provider Office Visit -[facility] February 14, 2020 11:37am February 14, 2020 12:32pm Tirso Miller DO Registered Outpatient -[facility] March 04, 2020 11:56am Tirso Miller DO Departed Emergency -Emergency Room ER March 08, 2020 11:04am March 08, 2020 2:00pm null Departed Emergency -Emergency Room ER March 17, 2020 9:49pm March 17, 2020 10:33pm null Registered Clinical -Nutrition March 20, 2020 11:43am Tirso Miller DO Departed Physician/Provider Office Visit -[facility] March 31, 2020 10:22am March 31, 2020 11:47am Tirso Miller DO Departed Emergency -Emergency Room ER April 01, 2020 8:39pm April 01, 2020 9:32pm null Departed Emergency -Emergency Room ER April 10, 2020 9:36pm April 10, 2020 11:40pm null Recent Diagnosis Onset Date Asthma Asthma Asthma Dizziness Obesity Depression Depression Asthma Assessments Diagnosis Onset Date Res olution Status Asthma noneactive Asthma noneactive Asthma noneactive Dizziness acute Obesity chronic Depression chronic Depression chronic Asthma noneactive Family History Relationship Condition A ge at Onset Recorded Date/Time Not Specified Sleep apnea Unknown Diabetes mellitus Unkn own Cardiac disease Unknown Functional Status No Functional Status information available Goals Goals may be documented in an alternate section. Immunizations Immunization Event Date Not Given Reason Dose Number Acetone Button Paster Lot Number Vaccine Information Statement (VIS) Deta il influenza vaccine, inactivated Novem 2019 [id number] pneumococcal polysaccharide PPV23 vaccine March 31, 2020 [id number] Mental Status Observation Response Raymond e Recorded Impairments No impairments or barriers April 10, 2020 9:39pm Medical Equipment No Medical Equipment Information available Insurance Providers Guarantor TIRSO MATA Address [place] [address] Contact Info. 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 Continue Symbicort and refer to pulmonology. Well controlled and back to baseline except for a lingering cough. Get PFTs as scheduled today and recheck 6 months. Continue current plan for now. Tirso Mata is a 38-year-old male with past [...] and signs Doing well. Continue counselling at [facility]. We will get the records from there for review. Recheck here 3 months, sooner as needed. Form filled out for [facility] apartment program. Future Tests Future scheduled test information is unavailable Pending Tests Pending diagnostic test information is unavailable Future Visits Future appointment information is unavailable Referrals to Other Providers Reason for Referral Referral Start Date Provider Provider Conta ct Information Provider Address Tirso Miller DO Email: [email or web address] Phone: [phone] [facility] [address] Armen Dunlap MD Work Phone: [facility] [address] [place] [address] Gabriel Alcantara MD Email: [email or web address] Phone: [phone] [address] Tirso Miller DO Email: [email or web address] Phone: [address] [facility] [address] Your follow up appointment has been made for MondayOctober [address] Camilla Sampson MD Work Phone: [phone] [address] Future Procedures Future procedure information is unavailable Future Medications Future medication information is unavailable Patient Instructions Acute Abdominal Pain (DC) Gas and Bloating (GEN) Ventral Hernia Repair (DC) Earache (ED) Contusion in Adults (ED) Asthma (ED) Social History Smoking Status Status Date of Observation Never smoker April 10, 2020 11: 29pm Observation Status Observation Response Raymond e of Response Smoking Status Never smoker April 10, 2020 11:29pm Alcohol Use No April 10, 2020 11:29pm Substance Use No Novembe r 2019 11:29pm Assigned Sex Male Vital Signs Vital Reading [...] 31, 2020 10:54am Heart Rate 80 /min -March 31, 2020 10:54am Respiratory rate 16 /min [...] 2020 9:54pm Heart Rate 100 /min 60-1 00 April 10, 2020 9:54pm Respiratory rate 20 /min 12-24 April 10, 2020 9:54pm Oxygen saturation by Pulse oximetry 95 % 95- 100 April 10, 2020 9:54pm BP Systolic 146 mm[Hg] April 10, 2020 9:54pm BP Diastolic 92 mm[Hg] April 10, 2020 9:54pm
--- OUTSIDE RECORDS SUMMARY | 2020-06-04 18:17 | CCD | Continuity of Care Document ---
Author Author [facility] Organization [facility] Address [address] [place] [address] Phone Support Name Relationship Address Phone Chiot Riley PRS [address] [place] [address] LeonardoSeth chavarria PRS [address] [place] [address] Doctor Provided, Family No PRS Unknown Unava ilable Chito Riley PRS [facility] [place] [address] Kostaselaine, [place] [address] [place] [address] Tirso Miller PRS [address] [place] [address] Dawit Sampson PRS [address] [place] [address] Jeane Solis PRS Unknown Unavailable Gabriel Alcantara PRS [address] [place] [address] Jeanmarie Arteaga PRS [address] [place] [address] Bryant Villalba PRS [address] [place] [address] Cedric Adam PRS [address] [place] [address] Riki Collins PRS [address] [place] [address] Keith Grant PRS [address] [place] [address] Geoff Silva PRS [address] [place] [address] Mirna Varghese PRS [address] [place] [address] Allergies, Adverse Reactions, Alerts No known allergies. [...] 12:46pm Afluria Qd 2020-21(3yr up)(PF) (flu vac [id number] 36mos up(PF)) Discontinued 0.5 ML IM 1 [...] 14, 2020 11:34am April 17, 2020 12:37am Amoxicillin Discontinued 500 MG PO Three times [...] 4 hours 2 February 10, 2015 1:59pm [facility] [place] 7:58am Oxcarbazepine Discontinued 600 MG PO 2 [...] 2 view PA/LAT April 172019 12:34am completed Respiratory Panel (PCR) April 17 0 completed Blood Culture April 17, 2020 active Xray Chest 2 view PA/LAT April 102019 [...] 17 0 1:00am 8.1 10e3/uL 4.45-10.71 [facility], [address] [place] [address] 58063 White Blood Count January 05, 2020 3:52pm 7.0 10e3/uL 4.45-10.71 [facility], [address] [place] [address] 49128 Red Blood Count April 17, 2020 1:00am 5.06 10e6/uL 4.3-6.1 [facility], [address] [place] [address] 97311 Red Blood Count January 05, 2020 3:52pm 5.36 10e6/uL 4.3-6.1 [facility], [address] [place] [address] 48816 Hemoglobin April 17, 2020 1:00am 14.8 g/dL [facility], [address] [place] [address] 42069 Hemoglobin January 05, 2020 3:52pm 15.7 g/dL [facility], [address] [place] [address] 36922 Hematocrit April 17, 2020 1:00am 44.1 % 42-52 [facility], [address] [place] [address] 35414 Hematocrit January 05, 2020 3:52pm 45.3 % 42-52 [facility], [address] [place] [address] 87997 Mean Corpuscular Volume March 1:00am 87.2 fl 80-96 [facility], [address] [place] [address] 90987 Mean Corpuscular Volume January 05, 2020 3:52pm 84.5 fl 80-96 [facility], [address] [place] [address] 13302 Mean Corpuscular Hemoglobin April 17, 2020 1:00am 29.2 pg 27-31 [facility], [address] [place] [address] 60187 Mean Corpuscular Hemoglobin December 202019 3:52pm 29.3 pg 27-31 [facility], [address] [place] [address] 04758 Mean Corpuscular Hemoglobin Concent April 17, 2020 1:00am 33.6 g/dl -37 [facility], [address] [place] [address] 94138 Mean Corpuscular Hemoglobin Concent January 05, 2020 3:52pm 34.7 g/dl -37 [facility], [address] [place] [address] 17700 Red Cell Distribution Width April 17, 2020 1:00am 12 % 11-15 [facility], [address] [place] [address] 59184 Red Cell Distribution Width December 202019 3:52pm 12 % 11-15 [facility], [address] [place] [address] 78634 Platelet Count April 17, 2020 1:00am 306 10e3/ul 130-472 [facility], [address] [place] [address] Platelet Count January 05, 2020 3:52pm 293 10e3/ul 130-472 [facility], [address] [place] [address] 45038 Mean Platelet Volume April 17, 2020 1:00am 8.9 fl 9.1-13.1 [facility], [address] [place] [address] 54260 Mean Platelet Volume January 04 3:52pm 9.1 fl 9.1-13.1 [facility], [address] [place] [address] 94946 Neutrophils (%) (Auto) March 1:00am 70.3 % 41-[address] [place] [address] LABORATORY, [address] [place] [address] 90377 Neutrophils (%) (Auto) January 05, 2020 3:52pm 70.9 % 41-77 [facility], [address] [place] [address] 31912 Absolute Neutrophil April 17 020 1:00am 5.7 # 1.7-7.6 [facility], [address] [place] [address] 84715 Absolute Neutrophil January 04 0 3:52pm 5.0 # 1.7-7.6 [facility], [address] [place] [address] 23425 Lymphocytes (%) (Auto) March 1:00am 19.3 % 14-46 [facility], [address] [place] [address] 75835 Lymphocytes (%) (Auto) January 05, 2020 3:52pm 18.8 % 14-46 [facility], [address] [place] [address] 76623 Lymphocytes # (Auto) April 17, 2020 1:00am 1.6 # 0.6-4.6 [facility], [address] [place] [address] 33787 Lymphocytes # (Auto) January 04 3:52pm 1.3 # 0.6-4.6 [facility], [address] [place] [address] 18321 Monocytes (%) (Auto) April 17, 2020 1:00am 8.4 % 4-12 [facility], [address] [place] [address] 58926 Monocytes (%) (Auto) January 04 3:52pm 7.4 % 4-12 [facility], [address] [place] [address] 33825 Monocytes # April 17, 2020 1:00am 0.7 # 0.2-1.2 [facility], [address] [place] [address] 03122 Monocytes # January 05, 2020 3:52pm 0.5 # 0.2-1.2 [facility], [address] [place] [address] 23614 Eosinophils (%) (Auto) March 1:00am 1.8 % 0-7 [facility], [address] [place] [address] 11993 Eosinophils (%) (Auto) January 05, 2020 3:52pm 2.3 % 0-7 [facility], [address] [place] [address] Absolute Eosinophils (CBC) April 17, 2020 1:00am 0.2 # 0.0-0.5 [facility], [address] [place] [address] 63971 Absolute Eosinophils (CBC) January 042019 3:52pm 0.2 # 0.0-0.5 [facility], [address] [place] [address] 79565 Basophils (%) (Auto) April 17, 2020 1:00am 0.1 % 0.4-1.3 [facility], [address] [place] [address] 93433 Basophils (%) (Auto) January 04 3:52pm 0.3 % 0.4-1.3 [facility], [address] [place] [address] Absolute Basophils (CBC) April 172019 1:00am 0.0 # 0.0-0.2 [facility], [address] [place] [address] Absolute Basophils (CBC) December 3:52pm 0.0 # 0.0-0.2 [facility], [address] [place] [address] 10383 Immature Granulocyte % (Auto) Novemb 2019 1:00am 0.1 % 0-2 [facility], [address] [place] [address] 46801 Immature Granulocyte % (Auto) January 05, 2020 3:52pm 0.3 % 0-2 [facility], [address] [place] [address] Absolute Immature Granulocyte (auto April 17, 2020 1:00am 0.0 # 0-0.1 [facility], [address] [place] [address] 83086 Absolute Immature Granulocyte (auto January 05, 2020 3:52pm 0.0 # 0-0.1 [facility], [address] [place] [address] 34665 Add Manual Differential March 1:00am No [facility], [address] [place] [address] Add Manual Differential January 05, 2020 3:52pm No [facility], [address] [place], [place] [id number] D-Dimer April 17, 2020 1:00am 0.46 mg/L 0.0-0.50 PLEASE NOTE: THIS TEST WAS PERFORMED USING A PARTICLE-ENHANCED, IMMUNOTURBIDIMETRIC ASSAY AND HAS A SINGLE,CLINICALLY DERIVED CUTOFF OF 0.50 MG/L. [facility], [address] [place] [address] Blood Urea Nitrogen January 04 0 3:52pm 12 mg/dL 02-11 [facility], [address] [place] [address] Blood Urea Nitrogen December 31 0 11:16am 21 mg/dL 02-11 [facility], [address] [place] [address] Sodium Level January 05, 2020 3:52pm 138 mmol/L 132-146 [facility], [address] [place] [address] 10471 Sodium Level January 01, 2020 11:16am 142 mmol/L 132-146 [facility], [address] [place] [address] 63875 Potassium Level January 05, 2020 3:52pm 3.9 mmol/L 3.5-5.5 [facility], [address] [place] [address] 88820 Potassium Level January 01, 2020 11:16am 4.7 mmol/L 3.5-5.5 [facility], [address] [place] [address] 55804 Chloride Level January 05, 2020 3:52pm 108 mmol/l 99-109 [facility], [address] [place] [address] 37846 Chloride Level January 01, 2020 11:16am 111 mmol/l 99-109 [facility], [address] [place] [address] 16020 Carbon Dioxide Level January 04 3:52pm 25 mmol/l [facility], [address] [place] [address] Carbon Dioxide Level December 31 11:16am 24 mmol/l [facility], [address] [place] [address] 73600 Anion Gap January 05, 2020 3:52pm 9 mmol/l 8-16 [facility], [address] [place] [address] 58494 Anion Gap January 01, 2020 11:16am 12 mmol/l 8-16 [facility], [address] [place] [address] 33491 Glucose Level January 05, 2020 3:52pm 107 mg/dL 74-106 [facility], [address] [place] [address] 59497 Glucose Level January 01, 2020 11:16am 107 mg/dL 74-106 [facility], [address] [place] [address] 72954 Creatinine January 05, 2020 3:52pm 1.0 mg/dL 0.5-1.1 [facility], [address] [place] [address] 51020 Creatinine January 01, 2020 11:16am 1.2 mg/dL 0.5-1.1 [facility], [address] [place] [address] 27261 Glomerular Filtration Rate Calc Augu st 2019 3:52pm Greater than 60 ml/min ABOVE 60 [facility], [address] [place] [address] 18760 Glomerular Filtration Rate Calc Augu st 2019 11:16am Greater than 60 ml/min ABOVE 60 [facility], [address] [place] [address] 90819 Alanine Aminotransferase (ALT/SGPT) January 05, 2020 3:52pm 65 U/L 10-49 [facility], [address] [place] [address] 74641 Alanine Aminotransferase (ALT/SGPT) January 01, 2020 11:16am 66 U/L 10-49 [facility], [address] [place] [address] 40378 Aspartate Amino Transf (AST/SGOT) [facility] 2019 3:52pm 30 U/L 0-33 [facility], [address] [place] [address] 35020 Aspartate Amino Transf (AST/SGOT) [facility] 2019 11:16am 22 U/L 0-33 [facility], [address] [place] [address] 04379 Alkaline Phosphatase January 04 3:52pm 77 U/L 45-129 [facility], [address] [place] [address] 49516 Alkaline Phosphatase December 31 11:16am 77 U/L 45-129 [facility], [address] [place] [address] 93026 Calcium Level January 05, 2020 3:52pm 8.9 mg/dL 8.5-10.1 [facility], [address] [place] [address] Calcium Level January 01, 2020 11:16am 9.0 mg/dL 8.5-10.1 Delta: 8.0 on 10/02/19-0525Repeated by: Tammy Griffiths 01/01/20 1339.Result Confirmation: 8.7 mg/dL [facility], [address] [place] [address] Total Bilirubin January 05, 2020 3:52pm 0.6 mg/dL 0.3-1.2 [facility], [address] [place] [address] Total Bilirubin January 01, 2020 11:16am 0.4 mg/dL 0.3-1.2 [facility], [address] [place] [address] Albumin January 05, 2020 3:52pm 3.7 g/dL 3.2-4.8 [facility], [address] [place] [address] Albumin January 01, 2020 11:16am 3.9 g/dL 3.2-4.8 [facility], [address] [place] [address] Serum Total Protein January 04 0 3:52pm 7.0 g/dL 5.7-8.2 [facility], [address] [place] [address] Serum Total Protein December 31 0 11:16am 7.0 g/dL 5.7-8.2 [facility], [address] [place] [address] Phosphorus Level January 01, 2020 11:16am 3.1 mg/dL 2.4-5.1 [facility], [address] [place] [address] Magnesium Level January 01, 2020 11:16am 2.4 mg/dL 1.3-2.7 [facility], [address] [place] [address] Troponin I January 05, 2020 3:52pm Less than 0.015 ng/mL 0.00-0.09 Less than 0.09 NG/ML Negative0.10 - 0.77 NG/ML High Risk0.78 NG/ML or Greater Positive The WHO defined the cutoff (definition for diagnosis of [place])for this method as 0.78 ng/ml. [facility], [address] [place] [address] Thyroid Stimulating Hormone (TSH) [facility] 2019 11:16am 1.04 uIU/mL 0.35-5.50 [facility], [address] [place] [address] Hemoglobin A1c January 01, 2020 11:16am 6.1 [...] glucose control. * High risk of developing substation operator apprentice complications such asretinopathy, nephropathy, neuropathy, cardiopathy, etc. Some danger of hypoglycemic reaction in Type I diabetics.Some glucose intolerant individuals and "Sub Clinical"diabetics may demonstrate HGBA1C levels in this area. [facility], [address] [place] [address] Estimated Average Glucose (eAG) Augu 2019 11:16am 128 mg/dl An A1C of 7% - the goal of diabetic ther apy - is equivalentto an EAG of 154 mg/dl. [facility], [address] [place] [address] Microbiology Results Procedure Source Result Collection Date/Time Result Date/Time Result Comment Performing Site Streptococcus Rapid Screen Throat July 12, 2019 12:05pm July 13, 2019 9:35am [facility], [address] [place] [address] Respiratory Panel (PCR) Nasopharyngeal No Organisms Detected April 17, 2020 1:10am April 17, 2020 2:02am [facility], [address] [place] [address] Diagnostic Imaging Reports Report Dictated Date/Time Dictated By Status Radiology Report September 27, 2019 10:48am Jalen Diamond MD completed [place] [address] [place] [address] [phone] NAME SEX PT STATUS ACCOUNT NUMBER Tirso Mata REG REF [id number] ORDERING PHYSICIAN LOCATION MEDICAL RECORD NO. [facility] [id number] ATTENDING PHYSICIAN DATE OF DATE OF EXAM/TIME [...] Trans Dt/Tm: Trans by: DT Prt Dt/Tm: 5457-6305: Total DLP = 0.00 mGy-cm Fluoroscopy Time (in secs): Radiology Report January 05, 2020 6:33pm Luigi Gordon MD completed [facility] [address] [place], [place] [id number] [phone] NAME SEX PT STATUS ACCOUNT NUMBER TIRSO MATA [facility] [id number] ORDERING PHYSICIAN LOCATION MEDICAL RECORD NO. Jeanmarie DIRECTOR OF MATERIALS MANAGEMENT [facility] [id number] ATTENDING PHYSICIAN DATE OF DATE OF EXAM/TIME [...] 08, 2020 2:53pm Mesha Mccabe MD completed [facility] [address] [place] [id number] [phone] NAME SEX PT STATUS ACCOUNT NUMBER TIRSO MATA Car[facility] [id number] ORDERING PHYSICIAN LOCATION MEDICAL RECORD NO. Cedric Adam MD ER [id number] ATTENDING PHYSICIAN DATE OF DATE OF EXAM/TIME Tirso Miller 1980 03/08/201435 TYPE / EXAM Xray Abdomen [...] Signed by: Mesha Mccabe M.D. Reported By Mesah Mccabe MD on 03/08/201452 Signed By Mesha Mccabe MD on 03/08/201452 Date Time CC: Tirso Miller DO; Mesha Mccabe MD Techn: [email or web address] Trans Dt/Tm: Trans by: DT Prt Dt/Tm: 7008-2802: Total DLP = 0.00 mGy-cm Fluoroscopy Time (in secs): Radiology Report April 11, 2020 12:02am Kraig Walker MD completed [facility] [address] [place] [address] [phone] NAME SEX PT STATUS ACCOUNT NUMBER TIRSO MATA [facility] ER [id number] ORDERING PHYSICIAN LOCATION MEDICAL RECORD NO. Geoff Silva ER [id number] ATTENDING PHYSICIAN DATE OF DATE OF EXAM/TIME AngelaTirso 1980 04/10/203 TYPE / EXAM Xray Chest [...] MD on 04/11/20 0002 Date Time CC: Tirso Miller DO; Kraig Walker MD Techn: PALHE Trans Dt/Tm: Trans by: DT Prt Dt/Tm: [id number]: Total DLP = 0.00 mGy-cm Fluoroscopy Time (in secs): Health Concerns Health Concerns may be documented in an alternate section. Advance Directives Advance Directive Response Recorded Date/Time Advanced Directive No No 2019 12:25am [facility] No March 31, 2020 11:45am [...] TROUBLE BREATHING j45.909 Hospital Discharge Follow-up SOB Reason for Visit Asthma Asthma Asthma Dizziness Obesity Depression Depression Asthma Encounters Encounter Location(s) Ar rival/Admit Date Discharge/Depart Date Provider(s) Departed Physician/Provider Office Visit -[facility] April 25, 2019 9:12am April 25, 2019 10:56am Chito Riley MD Departed Physician/Provider Office Visit -[facility] July 12, 2019 11:03am July 12, 2019 12:57pm Seth Leonardo DO Registered Referred -Lab Drop Off July 12, 2019 12:05pm aFy Nuno Departed Physician/Provider Office Visit [facility] July 26, 2019 1:34pm July 26, 2019 2:34pm Chito Riley MD Departed Physician/Provider Office Visit -[facility] August 08, 2019 2:50pm August 08, 2019 3:58pm Chito Riley MD Departed Physician/Provider Office Visit -[facility] August 29, 2019 1:15pm August 29, 2019 2:06pm Chito Riley MD Departed Physician/Provider Office Visit -[facility] September 27, 2019 8:42am September 27, 2019 9:35am Chito Riley MD Registered Referred -Radiology September 27, 2019 9:33am PAULO RAY Registered Outpatient -[facility] October 02, 2019 2:26am Dawit Sampson MD Registered Outpatient -[facility] October 03, 2019 6:42am October 04, 2019 7:30am Dawit Sampson MD Registered Outpatient -[facility] October 07, 2019 1:34pm Jeane Solis RN Departed Physician/Provider Office [facility] October 11, 2019 11:39am October 11, 2019 11:49am Gabriel Alcantara MD Departed Physician/Provider Office Visit -[facility] January 01, 2020 9:32am January 01, 2020 12:12pm Tirso Miller DO Registered Referred -Laboratory January 01, 2020 11:05am Tirso Miller DO Departed Emergency -Emergency Room ER January 05, 2020 3:17pm January 05, 2020 5:45pm null Departed Physician/Provider Office Visit -[facility] January 10, 2020 11:33am January 10, 2020 12:18pm Tirso Miller DO Departed Physician/Provider Office Visit -[facility] February 14, 2020 11:37am February 14, 2020 12:32pm Tirso Miller DO Registered Outpatient -[facility] March 04, 2020 11:56am Tirso Miller DO Departed Emergency -Emergency Room ER March 08, 2020 11:04am March 08, 2020 2:00pm null Departed Emergency -Emergency Room ER March 17, 2020 9:49pm March 17, 2020 10:33pm null Registered Clinical -Nutrition March 20, 2020 11:43am Tirso Miller DO Departed Physician/Provider Office Visit -[facility] March 31, 2020 10:22am March 31, 2020 11:47am Tirso Miller DO Departed Emergency -Emergency Room ER April 01, 2020 8:39pm April 01, 2020 9:32pm null Departed Emergency -Emergency Room ER April 10, 2020 9:36pm April 10, 2020 11:40pm null Registered Referred -Respiratory Therapy April 13, 2020 12:55pm Tirso Miller DO Departed Physician/Provider Office Visit -[facility] April 14, 2020 9:16am April 14, 2020 1:07pm Tirso Miller DO Departed Emergency -Emergency Room ER April 17, 2020 12:07am April 17, 2020 3:00am null Recent Diagnosis Onset Date Asthma Asthma Asthma Dizziness Obesity Depression Depression Asthma Assessments Work-up negative for pneumonia. D-dimer negative. [...] Event Date Not Given Reason Dose Number Roller Painter Lot Number Vaccine Information Statement (VIS) Deta il influenza vaccine, inactivated Novem 2019 [id number] pneumococcal polysaccharide PPV23 vaccine March 31, 2020 [id number] Mental Status Observation Response Raymond e Recorded Impairments No impairments or barriers April 17, 2020 12:07am Medical Equipment No Medical Equipment Information available Insurance Providers Guarantor TIRSO MATA Address [place] [address] Contact Info. Home Phone: Payer Policy Id Coverage Id Subscriber's Name Subscriber Id Effective Date Expiration Date MEDICARE [employer] [id number] TIRSO MATA [id number] [place] [id number] TIRSO MATA [id number] [place] [facility] [id number] TIRSO MATA [id number] 2013 [place] [facility]ND R [id number] TIRSO MATA [id number] MEDICAID [id number] TIRSO MATA [id number] MEDICARE [id number] TIRSO MATA [id number] Self Pay Self N/A Plan of Treatment [...] labs as ordered labs as ordered retrieve [facility] records from recent psych hospitalization if condition [...] 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 Continue Symbicort and refer to pulmonology. Well [...] and signs Doing well. Continue counselling at [facility]. We will get the records from there for review. Recheck here 3 months, sooner as needed. Form filled out for [facility] [employer] program. Future Tests Future scheduled test information is unavailable Pending Tests Pending diagnostic test information is unavailable Future Visits Future appointment information is unavailable Referrals to Other Providers Reason for Referral Referral Start Date Provider Provider Conta ct Information Provider Address Follow-up in 3 to 5 days. Referral to pulmonology per primary. Tirso Miller , DO Email: [email or web address] Phone: [address] [place] [address] Tirso Miller , DO Email: [email or web address] Phone: [address] [place] [phone] Armen Dunlap MD Work Phone: [facility] [address] [place] [address] Gabriel Alcantara MD Email: [email or web address] Phone: [address] [place] [address] Tirso Miller , DO Email: [email or web address] Phone: [address] [place], [place] [phone] Your follow up appointment has been made for MondayOctober [address] Camilla Sampson MD Work Phone: [address] [place] [address] Future Procedures Future procedure information is unavailable [...] 17, 2020 10:50pm Respiratory rate 20 /min 12-March 17, 2020 10:50pm Oxygen saturation by Pulse [...]
--- OUTSIDE RECORDS SUMMARY | 2020-06-04 18:17 | CCD | Continuity of Care Document ---
Author Author [facility] Organization [facility] Address [address] [place] [address] Phone Support Name Relationship Address Phone Chito Riley PRS [address] [place] [address] LeonardoSaltyal PRS [address] [place] [address] Doctor Provided, Family No PRS Unknown Unava ilable Chito Riley PRS [facility] [place] [address] Kostaselaine, Darryl Flor PRS [address] [place] [address] Tirso Miller PRS [address] [place] [address] Dawit Sampson PRS [address] [place] [address] Jeane Solis PRS Unknown Unavailable Gabriel Alcantara PRS [address] [place] [address] Jeanmarie Arteaga PRS [address] [place] [address] Bryant Villalba PRS [address] [place] [address] Cedric Adam PRS [address] [place] [address] Riki Collins PRS [address] [place] [address] Keith Grant PRS [address] [place] [address] Geoff Silva PRS [address] [place] [address] Allergies, Adverse Reactions, Alerts No known allergies. [...] 12:46pm Afluria Qd 2020-21(3yr up)(PF) (flu vac [id number] 36mos up(PF)) Discontinued 0.5 ML IM 1 Time/Once 0.5 March 31, 2020 10:22am March 31, 2020 12:46pm Budesonide-Formoterol (Symbicort) 160-4. 5 mcg/actuation HFA aerosol inhaler Discontinued 1 PUFFS IH 2 Times Per Day 10.2 March 31, 2020 11:12am April 14, 2020 11:34am Fluticasone Propion-Salmeterol (Advair H fa) 115-21 mcg/actuation HFA aerosol inhaler Active 2 PUFFS IH 2 Times Per Day 12 April 14, 2020 11:34am Amoxicillin Discontinued 500 MG PO Three times [...] 4 hours 2 February 10, 2015 1:59pm Septembe r 2016 7:58am Oxcarbazepine Discontinued 600 MG PO [...] 7.0 10e3/uL 4.45-10.71 [facility], [address] [place] [address]285 Red Blood Count January 05, 2020 3:52pm 5.36 10e6/uL 4.3-6.1 [facility], [address] [place] [address] 86919 Hemoglobin January 05, 2020 3:52pm 15.7 g/dL 13-18 [facility], [address] [place] [address] 06150 Hematocrit January 05, 2020 3:52pm 45.3 % 42-52 [facility], [address] [place] [address] 80784 Mean Corpuscular Volume January 05, 2020 3:52pm 84.5 fl 80-96 [facility], [address] [place] [address] 48974 Mean Corpuscular Hemoglobin December 202019 3:52pm 29.3 pg 27-31 [facility], [address] [place] [address] 55507 Mean Corpuscular Hemoglobin Concent January 05, 2020 3:52pm 34.7 g/dl 33-37 [facility], [address] [place] [address] 29621 Red Cell Distribution Width December 202019 3:52pm 12 % 11-15 [facility], [address] [place] [address] 59295 Platelet Count January 05, 2020 3:52pm 293 10e3/ul 130-472 [facility], [address] [place] [address] 14140 Mean Platelet Volume January 04 3:52pm 9.1 fl 9.1-13.1 [facility], [address] [place] [address] 10190 Neutrophils (%) (Auto) January 05, 2020 3:52pm 70.9 % 41-77 [facility], [address] [place] [address] 64648 Absolute Neutrophil January 04 0 3:52pm 5.0 # 1.7-7.6 [facility], [address] [place] [address] 47076 Lymphocytes (%) (Auto) January 05, 2020 3:52pm 18.8 % 14-46 [facility], [address] [place] [address] Lymphocytes # (Auto) January 04 3:52pm 1.3 # 0.6-4.6 [facility], [address] [place], [place] [address] Monocytes (%) (Auto) January 04 3:52pm 7.4 % 4-12 [facility], [address] [place] [address] 51661 Monocytes # January 05, 2020 3:52pm 0.5 # 0.2-1.2 [facility], [address] [place], [place] [address] Eosinophils (%) (Auto) January 05, 2020 3:52pm 2.3 % 0-7 [facility], [address] [place], [place] [address] Absolute Eosinophils (CBC) January 042019 3:52pm 0.2 # 0.0-0.5 [facility], [address] [place], [place] [address] Basophils (%) (Auto) January 04 3:52pm 0.3 % 0.4-1.3 [facility], [address] [place] [address] Absolute Basophils (CBC) December 3:52pm 0.0 # 0.0-0.2 [facility], [address] [place], [place] [address] Immature Granulocyte % (Auto) January 05, 2020 3:52pm 0.3 % 0-2 [facility], [address] [place], [place] [address] Absolute Immature Granulocyte (auto January 05, 2020 3:52pm 0.0 # 0-0.1 [facility], [address] [place], [place] [address] Add Manual Differential January 05, 2020 3:52pm No [facility], [address] [place], [place] [address] Blood Urea Nitrogen January 04 0 3:52pm 12 mg/dL 9-23 [facility], [address] [place] [address] 00580 Blood Urea Nitrogen December 31 0 11:16am 21 mg/dL 02-11 [facility], [address] [place] [address] 53220 Sodium Level January 05, 2020 3:52pm 138 mmol/L 132-146 [facility], [address] [place] [address] 64073 Sodium Level January 01, 2020 11:16am 142 mmol/L 132-146 [facility], [address] [place] [address] 75878 Potassium Level January 05, 2020 3:52pm 3.9 mmol/L 3.5-5.5 [facility], [address] [place] [address] 58496 Potassium Level January 01, 2020 11:16am 4.7 mmol/L 3.5-5.5 [facility], [address] [place] [address] 71779 Chloride Level January 05, 2020 3:52pm 108 mmol/l 99-109 [facility], [address] [place] [address] 58968 Chloride Level January 01, 2020 11:16am 111 mmol/l 99-109 [facility], [address] [place] [address] 83987 Carbon Dioxide Level January 04 3:52pm 25 mmol/l [facility], [address] [place] [address] 57118 Carbon Dioxide Level December 31 11:16am 24 mmol/l [facility], [address] [place] [address] 36266 Anion Gap January 05, 2020 3:52pm 9 mmol/l 01-04 [facility], [address] [place] [address] 65315 Anion Gap January 01, 2020 11:16am 12 mmol/l - [facility], [address] [place] [address] 26317 Glucose Level January 05, 2020 3:52pm 107 mg/dL 74-106 [facility], [address] [place] [address] 02732 Glucose Level January 01, 2020 11:16am 107 mg/dL 74-106 [facility], [address] [place] [address] 83786 Creatinine January 05, 2020 3:52pm 1.0 mg/dL 0.5-1.1 [facility], [address] [place] [address] 50525 Creatinine January 01, 2020 11:16am 1.2 mg/dL 0.5-1.1 [facility], [address] [place] [address] 86729 Glomerular Filtration Rate Calc Augu st 2019 3:52pm Greater than 60 ml/min ABOVE 60 [facility], [address] [place] [address] 54765 Glomerular Filtration Rate Calc Augu st 2019 11:16am Greater than 60 ml/min ABOVE 60 [facility], [address] [place] [address] 80553 Alanine Aminotransferase (ALT/SGPT) January 05, 2020 3:52pm 65 U/L 10-49 [facility], [address] [place] [address] Alanine Aminotransferase (ALT/SGPT) January 01, 2020 11:16am 66 U/L 10-49 [facility], [address] [place] [address] 63970 Aspartate Amino Transf (AST/SGOT) [facility] 2019 3:52pm 30 U/L 0-33 [facility], [address] [place] [address] 30631 Aspartate Amino Transf (AST/SGOT) [facility] 2019 11:16am 22 U/L 0-33 [facility], [address] [place] [address] 76472 Alkaline Phosphatase January 04 3:52pm 77 U/L 45-129 [facility], [address] [place] [address] 50509 Alkaline Phosphatase December 31 11:16am 77 U/L 45-129 [facility], [address] [place] [address] 61314 Calcium Level January 05, 2020 3:52pm 8.9 mg/dL 8.5-10.1 [facility], [address] [place] [address] 78218 Calcium Level January 01, 2020 11:16am 9.0 mg/dL 8.5-10.1 Delta: 8.0 on 10/02/19-25Repeated by: Tammy Griffiths 01/01/20 1339.Result Confirmation: 8.7 mg/dL [facility], [address] [place] [address] 94356 Total Bilirubin January 05, 2020 3:52pm 0.6 mg/dL 0.3-1.2 [facility], [address] [place] [address] 13725 Total Bilirubin January 01, 2020 11:16am 0.4 mg/dL 0.3-1.2 [facility], [address] [place], [place] [address] Albumin January 05, 2020 3:52pm 3.7 g/dL 3.2-4.8 [facility], [address] [place] [address] Albumin January 01, 2020 11:16am 3.9 g/dL 3.2-4.8 [facility], [address] [place] [address] Serum Total Protein January 04 0 3:52pm 7.0 g/dL 5.7-8.2 [facility], [address] [place] [address] Serum Total Protein December 31 0 11:16am 7.0 g/dL 5.7-8.2 [facility], [address] [place] [address] Phosphorus Level January 01, 2020 11:16am 3.1 mg/dL 2.4-5.1 [facility], [address] [place] [address] Magnesium Level January 01, 2020 11:16am 2.4 mg/dL 1.3-2.7 [facility], [address] [place] [address] Troponin I January 05, 2020 3:52pm Less than 0.015 ng/mL 0.00-0.09 Less than 0.09 NG/ML Negative0.10 - 0.77 NG/ML High Risk0.78 NG/ML or Greater Positive The WHO defined the cutoff (definition for diagnosis of MS)for this method as 0.78 ng/ml. [facility], [address] [place] [address] Thyroid Stimulating Hormone (TSH) Au 2019 11:16am 1.04 uIU/mL 0.35-5.50 [facility], [address] [place] [address] Hemoglobin A1c January 01, 2020 11:16am 6.1 [...] glucose control. * High risk of developing senior living complications such asretinopathy, nephropathy, neuropathy, cardiopathy, etc. Some danger of hypoglycemic reaction in Type I diabetics.Some glucose intolerant individuals and "Sub Clinical"diabetics may demonstrate HGBA1C levels in this area. [facility], [address] [place] [address] Estimated Average Glucose (eAG) 2019 11:16am 128 mg/dl An A1C of 7% - the goal of diabetic ther apy - is equivalentto an EAG of 154 mg/dl. [facility], [address] [place] [address] Microbiology Results Procedure Source Result Collection Date/Time Result Date/Time Result Comment Performing Site Streptococcus Rapid Screen Throat July 12, 2019 12:05pm July 13, 2019 9:35am [facility], [address] [place] [address] Diagnostic Imaging Reports Report Dictated Date/Time Dictated By Status Radiology Report September 27, 2019 10:48am Jalen Diamond MD completed [place] [address] [place] [address] [phone] NAME SEX PT STATUS ACCOUNT NUMBER Tirso Mata REG REF [id number] ORDERING PHYSICIAN LOCATION MEDICAL RECORD NO. [facility] [id number] ATTENDING PHYSICIAN DATE OF DATE OF EXAM/TIME [...] Trans Dt/Tm: Trans by: DT Prt Dt/Tm: [id number]: Total DLP = 0.00 mGy-cm Fluoroscopy Time (in secs): Radiology Report January 05, 2020 6:33pm Luigi Gordon MD completed [facility] [address] [place] [address] [phone] NAME SEX PT STATUS ACCOUNT NUMBER [facility]SO MATA [facility] [id number] ORDERING PHYSICIAN LOCATION MEDICAL RECORD NO. Jeanmarie CABRAL [facility] [id number] ATTENDING PHYSICIAN DATE OF DATE OF EXAM/TIME [...] Date Time CC: Tirso Miller DO; Luigi Gorodn MD Techn: EBEBR Trans Dt/Tm: Trans by: DT Prt Dt/Tm: : Total DLP = 2510.00 mGy-cm : Total Radiation Dose = 37.6500 mSv Lifetime Dose: 37.6500 mS v Radiology Report March 08, 2020 2:53pm Mesha Mccabe MD completed [facility] [address] [place] [address] [phone] NAME SEX PT STATUS ACCOUNT NUMBER TIRSO MATA [facility] [id number] ORDERING PHYSICIAN LOCATION MEDICAL RECORD NO. Cedric Adam MD ER [id number] ATTENDING PHYSICIAN DATE OF DATE OF EXAM/TIME [...] Tirso Miller DO; Mesha Mccabe MD Techn: MORSA Trans Dt/Tm: Trans by: DT Prt Dt/Tm: [id number]: Total DLP = 0.00 mGy-cm Fluoroscopy Time [...] 10, 2020 9:56pm Healthcare Proxy No Kiran manjarrez 2019 9:56pm Living Will No March 31, [...] NECK TROUBLE BREATHING j45.909 Hospital Discharge Follow-up Reason for Visit Asthma Asthma Asthma Dizziness Obesity Depression Depression Asthma Encounters Encounter Location(s) Ar rival/Admit Date Discharge/Depart Date Provider(s) Departed Physician/Provider Office Visit -[facility] April 25, 2019 9:12am April 25, 2019 10:56am Chito Riley MD Departed Physician/Provider Office Visit -[facility] July 12, 2019 11:03am July 12, 2019 12:57pm Seth Leonardo DO Registered Referred -Lab Drop Off July 12, 2019 12:05pm Fay Nuno Departed Physician/Provider Office Visit -[facility] July 26, 2019 1:34pm July 26, 2019 2:34pm Chito Riley MD Departed Physician/Provider Office Visit -[facility] August 08, 2019 2:50pm August 08, 2019 3:58pm Chito Riley MD Departed Physician/Provider Office Visit -[facility] August 29, 2019 1:15pm August 29, 2019 2:06pm Chito Riley MD Departed Physician/Provider Office Visit -[facility] September 27, 2019 8:42am September 27, 2019 9:35am Chito Riley MD Registered Referred -Radiology September 27, 2019 9:33am PAULO RAY Registered Outpatient -[facility] Surgery October 02, 2019 2:26am Dawit Sampson MD Registered Outpatient -[facility] Surgery October 03, 2019 6:42am October 04, 2019 7:30am Dawit Sampson MD Registered Outpatient -[facility] October 07, 2019 1:34pm Jeane Solis RN Departed Physician/Provider Office [facility] October 11, 2019 11:39am October 11, 2019 11:49am Gabriel Alcantara MD Departed Physician/Provider Office Visit -[facility] January 01, 2020 9:32am January 01, 2020 12:12pm Tirso Miller DO Registered Referred -Laboratory January 01, 2020 11:05am Tirso Miller DO Departed Emergency -Emergency Room ER January 05, 2020 3:17pm January 05, 2020 5:45pm null Departed Physician/Provider Office [facility] January 10, 2020 11:33am January 10, 2020 12:18pm Tirso Miller DO Departed Physician/Provider Office Visit -[facility] February 14, 2020 11:37am February 14, 2020 12:32pm Tirso Miller DO Registered Outpatient -[facility] March 04, 2020 11:56am Tirso Miller DO Departed Emergency -Emergency Room ER March 08, 2020 11:04am March 08, 2020 2:00pm null Departed Emergency -Emergency Room ER March 17, 2020 9:49pm March 17, 2020 10:33pm null Registered Clinical -Nutrition March 20, 2020 11:43am Tirso Miller DO Departed Physician/Provider Office Visit -[facility] March 31, 2020 10:22am March 31, 2020 11:47am Tirso Miller DO Departed Emergency -Emergency Room ER April 01, 2020 8:39pm April 01, 2020 9:32pm null Departed Emergency -Emergency Room ER April 10, 2020 9:36pm April 10, 2020 11:40pm null Registered Referred -Respiratory Therapy April 13, 2020 12:55pm Tirso Miller DO Departed Physician/Provider Office Visit -[facility] April 14, 2020 9:16am April 14, 2020 1:07pm Tirso Miller DO Recent Diagnosis Onset Date Asthma Asthma Asthma [...] Event Date Not Given Reason Dose Number 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 Continue Symbicort and refer to pulmonology. Well [...] and signs Doing well. Continue counselling at [facility]. We will get the records from there for review. Recheck here 3 months, sooner as needed. Form filled out for [facility] apartment program. Future Tests Future scheduled test information is unavailable Pending Tests Pending diagnostic test information is unavailable Future Visits Future appointment information is unavailable Referrals to Other Providers Reason for Referral Referral Start Date Provider Provider [address] Information Provider Address Tirso Miller DO Email: [email or web address] Phone: [phone] [facility] [address] Armen Dunlap MD Work Phone: [facility] [address] [facility] [address] Gabriel Alcantara MD Email: [email or web address] Phone: [address] [address] Tirso Miller DO Email: [email or web address] Phone: [phone] [facility] [address] Your follow up appointment has been made for MondayOctober [address] Camilla Sampson MD Work Phone: [phone] [place], [place] [id number] Future Procedures Future procedure information is unavailable [...] April 10, 2020 11:29pm Substance Use No [facility] 2019 11:29pm Assigned Sex Male Vital Signs Vital Reading Result Ref erence Range Collection Date/Time Height 71 [in_i] April 25, 2019 9:40am Weight 245.00 [lb_av] April 25, 2019 9:40am Body Temperature 98.1 [degF] 97.6-99.5 April 25, 2019 9:40am Heart Rate 81 /min 60-100 April 25, 2019 9:40am Respiratory rate 16 /min 12-24 April 25, 2019 9:40am Oxygen saturation by Pulse [...] 10, 2020 12:53pm Respiratory rate 16 /min 05-14January 10, 2020 12:53pm Oxygen saturation by Pulse [...]
--- OUTSIDE RECORDS SUMMARY | 2020-06-04 18:18 | CCD | Continuity of Care Document ---
Author Author [facility] Organization [facility] Address [address] [place] [address] Phone Support Name Relationship Address Phone Osvaldo Chito PRS [address] [place] [address] SantiLottie PRS [address] [place] [address] of Carine, Medicine Occupation PRS [address] [place] [address] Unavailable Seth Leonardo PRS [address] [place] [address] Doctor Provided, Family No PRS Unknown Unava ilable Chito Riley PRS [facility] [place] [address] Darryl Bates [place]S [address] [place] [address] Tirso Miller PRS [address] [place] [address] Dawit Sampson PRS [address] [place] [address] Jeane Solis PRS Unknown Unavailable Gabriel Alcantara PRS [address] [place] [address] Jeanmarie Arteaga PRS [address] [place] [address] Bryant Villalba PRS [address] [place] [address] Cedric Adam PRS [address] [place] [address] Riki Collins PRS [address] [place] [address] Allergies, Adverse Reactions, Alerts No known allergies. [...] MG PO daily September 27, 2019 8:47am Budesonide-Formoterol (Symbicort) 160-4. 5 mcg/actuation HFA aerosol [...] 2 Times Per Day WI TH Meals 10 03February 24, 2019 11:26am March [...] 4 hours 2 February 10, 2015 1:59pm [facility] [place] Oxcarbazepine Discontinued 600 MG PO [...] Resolved Procedures Procedure Date Performed Status Xray Abdomen 1 View (KUB) March 082019 1:36pm completed CT Abd/pel w/ contrast January 05, 2020 3:40pm completed Xray Chest 2 view PA/LAT September 26 9:44am completed Streptococcus Rapid Screen July 12, 2019 completed Relevant Diagnostic Tests and/or Laboratory Data Laboratory Results Test Date/Time Result Interpretation Reference Range Result Comment Performing Site White Blood Count January 05, 2020 3:52pm 7.0 10e3/uL 4.45-10.71 [facility], [address] [facility] [address] Red Blood Count January 05, 2020 3:52pm 5.36 10e6/uL 4.3-6.1 [facility], [address] [place] [address]30[address] Hemoglobin January 05, 2020 3:52pm 15.7 g/dL 13-18 [facility], [address] [place] [address] 10774 Hematocrit January 05, 2020 3:52pm 45.3 % 42-52 [facility], [address] [place] [address] 72786 Mean Corpuscular Volume January 05, 2020 3:52pm 84.5 fl 80-96 [facility], [address] [place] [address] 29726 Mean Corpuscular Hemoglobin December 202019 3:52pm 29.3 pg 27-31 [facility], [address] [place] [address] 14012 Mean Corpuscular Hemoglobin Concent January 05, 2020 3:52pm 34.7 g/dl 33-37 [facility], [address] [place] [address] 84992 Red Cell Distribution Width December 202019 3:52pm 12 % 11-15 [facility], [address] [place] [address] 85610 Platelet Count January 05, 2020 3:52pm 293 10e3/ul 130-472 [facility], [address] [place] [address] 67168 Mean Platelet Volume January 04 3:52pm 9.1 fl 9.1-13.1 [facility], [address] [place] [address] 05126 Neutrophils (%) (Auto) January 05, 2020 3:52pm 70.9 % 41-77 [facility], [address] [place] [address] 80868 Absolute Neutrophil January 04 0 3:52pm 5.0 # 1.7-7.6 [facility], [address] [place] [address] 81599 Lymphocytes (%) (Auto) January 05, 2020 3:52pm 18.8 % 14-46 [facility], [address] [place] [address] 96976 Lymphocytes # (Auto) January 04 3:52pm 1.3 # 0.6-4.6 [facility], [address] [place] [address] 50695 Monocytes (%) (Auto) January 04 3:52pm 7.4 % 4-12 [facility], [address] [place] [address] 68718 Monocytes # January 05, 2020 3:52pm 0.5 # 0.2-1.2 [facility], [address] [place] [address] 00711 Eosinophils (%) (Auto) January 05, 2020 3:52pm 2.3 % 0-7 [facility], [address] [place] [address] 00824 Absolute Eosinophils (CBC) January 042019 3:52pm 0.2 # 0.0-0.5 [facility], [address] [place] [address] 85284 Basophils (%) (Auto) January 04 3:52pm 0.3 % 0.4-1.3 [facility], [address] [place] [address] 20641 Absolute Basophils (CBC) December 3:52pm 0.0 # 0.0-0.2 [facility], [address] [place] [address] 74947 Immature Granulocyte % (Auto) January 05, 2020 3:52pm 0.3 % 0-2 [facility], [address] [place] [address] 19810 Absolute Immature Granulocyte (auto January 05, 2020 3:52pm 0.0 # 0-0.1 [facility], [address] [place] [address] 62765 Add Manual Differential January 05, 2020 3:52pm No [facility], [address] [place] [address] 03636 Blood Urea Nitrogen January 04 0 3:52pm 12 mg/dL 02-11 [facility], [address] [place] [address] 14860 Blood Urea Nitrogen December 31 0 11:16am 21 mg/dL 02-11 [facility], [address] [place] [address] 28025 Sodium Level January 05, 2020 3:52pm 138 mmol/L 132-146 [facility], [address] [place] [address] 92972 Sodium Level January 01, 2020 11:16am 142 mmol/L 132-146 [facility], [address] [place] [address] 27145 Potassium Level January 05, 2020 3:52pm 3.9 mmol/L 3.5-5.5 [facility], [address] [place] [address] 01330 Potassium Level January 01, 2020 11:16am 4.7 mmol/L 3.5-5.5 [facility], [address] [place] [address] 62027 Chloride Level January 05, 2020 3:52pm 108 mmol/l 99-109 [facility], [address] [place] [address] 59245 Chloride Level January 01, 2020 11:16am 111 mmol/l 99-109 [facility], [address] [place] [address] 13700 Carbon Dioxide Level January 04 3:52pm 25 mmol/l - [facility], [address] [place] [address] 70679 Carbon Dioxide Level December 31 11:16am 24 mmol/l - [facility], [address] [place] [address] 40947 Anion Gap January 05, 2020 3:52pm 9 mmol/l 8- [facility], [address] [place] [address] 47006 Anion Gap January 01, 2020 11:16am 12 mmol/l - [facility], [address] [place] [address] 89690 Glucose Level January 05, 2020 3:52pm 107 mg/dL 74-106 [facility], [address] [place] [address] 97262 Glucose Level January 01, 2020 11:16am 107 mg/dL 74-106 [facility], [address] [place] [address] 32386 Creatinine January 05, 2020 3:52pm 1.0 mg/dL 0.5-1.1 [facility], [address] [place] [address] 66383 Creatinine January 01, 2020 11:16am 1.2 mg/dL 0.5-1.1 [facility], [address] [place] [address] 63605 Glomerular Filtration Rate Calc Augu st 2019 3:52pm Greater than 60 ml/min ABOVE 60 [facility], [address] [place] [address] 51548 Glomerular Filtration Rate Calc Augu st 2019 11:16am Greater than 60 ml/min ABOVE 60 [facility], [address] [place] [address] 04440 Alanine Aminotransferase (ALT/SGPT) January 05, 2020 3:52pm 65 U/L 10-49 [facility], [address] [place] [address] 47945 Alanine Aminotransferase (ALT/SGPT) January 01, 2020 11:16am 66 U/L 10-49 [facility], [address] [place] [address] 18305 Aspartate Amino Transf (AST/SGOT) Au [facility] 2019 3:52pm 30 U/L 0-33 [facility], [address] [place] [address] Aspartate Amino Transf (AST/SGOT) Au [facility] 2019 11:16am 22 U/L 0-33 [facility], [address] [place] [address] 53924 Alkaline Phosphatase January 04 3:52pm 77 U/L 45-129 [facility], [address] [place] [address] Alkaline Phosphatase December 31 11:16am 77 U/L 45-129 [facility], [address] [place] [address] 39359 Calcium Level January 05, 2020 3:52pm 8.9 mg/dL 8.5-10.1 [facility], [address] [place], [place] [address] Calcium Level January 01, 2020 11:16am 9.0 mg/dL 8.5-10.1 Delta: 8.0 on 10/02/19-524Repeated by: Tammy Griffiths 01/01/20 1339.Result Confirmation: 8.7 mg/dL [facility], [address] [place] [address] 93096 Total Bilirubin January 05, 2020 3:52pm 0.6 mg/dL 0.3-1.2 [facility], [address] [place] [address] Total Bilirubin January 01, 2020 11:16am 0.4 mg/dL 0.3-1.2 [facility], [address] [place] [address] 64094 Albumin January 05, 2020 3:52pm 3.7 g/dL 3.2-4.8 [facility], [address] [place] [address] 00825 Albumin January 01, 2020 11:16am 3.9 g/dL 3.2-4.8 [facility], [address] [place] [address] 74379 Serum Total Protein January 04 3:52pm 7.0 g/dL 5.7-8.2 [facility], [address] [place] [address] Serum Total Protein December 31 11:16am 7.0 g/dL 5.7-8.2 [facility], [address] [place] [address] 79970 Phosphorus Level January 01, 2020 11:16am 3.1 mg/dL 2.4-5.1 [facility], [address] [place] [address] Magnesium Level January 01, 2020 11:16am 2.4 mg/dL 1.3-2.7 [facility], [address] [place] [address] Troponin I January 05, 2020 3:52pm Less than 0.015 ng/mL 0.00-0.09 Less than 0.09 NG/ML Negative0.10 - 0.77 NG/ML High Risk0.78 NG/ML or Greater Positive The WHO defined the cutoff (definition for diagnosis of GA)for this method as 0.78 ng/ml. [facility], [address] [place] [address] Thyroid Stimulating Hormone (TSH) Au 2019 11:16am 1.04 uIU/mL 0.35-5.50 [facility], [address] [place] [address] Hemoglobin A1c January 01, 2020 11:16am 6.1 [...] control. * High risk of developing intermediate complications such asretinopathy, nephropathy, neuropathy, cardiopathy, etc. Some danger of hypoglycemic reaction in Type I diabetics.Some glucose intolerant individuals and "Sub Clinical"diabetics may demonstrate HGBA1C levels in this area. [facility], [address] [place] [address] Estimated Average Glucose (eAG) Augu 2019 11:16am 128 mg/dl An A1C of 7% - the goal of diabetic ther apy - is equivalentto an EAG of 154 mg/dl. [facility], [address] [place] [address] Microbiology Results Procedure Source Result Collection Date/Time Result Date/Time Result Comment Performing Site Streptococcus Rapid Screen Throat July 12, 2019 12:05pm July 13, 2019 9:35am [facility], [address] [place] [address] Diagnostic Imaging Reports Report Dictated Date/Time Dictated By Status Radiology Report September 27, 2019 10:48am Jalen Diamond MD completed [place] [id number] [place] [address] [phone] NAME SEX PT STATUS ACCOUNT NUMBER Tirso Mata REG REF [id number] ORDERING PHYSICIAN LOCATION MEDICAL RECORD NO. FLOR BATES RAD [id number] ATTENDING PHYSICIAN DATE OF DATE OF EXAM/TIME [...] Trans Dt/Tm: Trans by: DT Prt Dt/Tm: [id number]: Total DLP = 0.00 mGy-cm Fluoroscopy Time (in secs): Radiology Report January 05, 2020 6:33pm Luigi Gordon MD completed [place] [address] [place] [address] [phone] NAME SEX PT STATUS ACCOUNT NUMBER TIRSO MATA REG ER [id number] ORDERING PHYSICIAN LOCATION MEDICAL RECORD NO. Jeanmarie Arteaga [id number] ATTENDING PHYSICIAN DATE OF DATE OF EXAM/TIME Tirso Miller 1980 01/05/201639 TYPE / EXAM CT Abd/pel [...] Tirso Miller DO; Luigi Gordon MD Techn: EBHIPOLITO Trans Dt/Tm: Trans by: DT Prt Dt/Tm: : Total DLP = 2510.00 mGy-cm : Total Radiation Dose = 37.6500 mSv Lifetime Dose: 37.6500 mS v Radiology Report March 08, 2020 2:53pm Mesha Mccabe MD completed [facility] [address] [place] [address] [phone] NAME SEX PT STATUS ACCOUNT NUMBER TIRSO MATA [facility] ER [id number] ORDERING PHYSICIAN LOCATION MEDICAL RECORD NO. Cedric Adam MD ER [id number] ATTENDING PHYSICIAN DATE OF DATE OF EXAM/TIME [...] Signed By Mesha Mccabe MD on 03/08/20 1453 Date Time CC: Tirso Miller DO; Mesha Mccabe MD Techn: CHRISTOPHER Trans Dt/Tm: Trans by: DT Prt Dt/Tm: [id number]: Total DLP = 0.00 mGy-cm Fluoroscopy Time (in secs): Health Concerns Health Concerns may be documented in an alternate section. Advance Directives Advance Directive Response Recorded Date/Time Advanced Directive No No 2019 11:45am MOLST No March 31, 2020 11:45am Advance Directives on File or in chart? No March 31, 2020 11:45am Does Patient have a DNR? No March 31, 2020 11:45am Healthcare Proxy No Kiran manjarrez 2019 11:45am Living Will No March 31, 2020 11:45am Chief Complaint and Reason for Visit Chief Complaint Occ Med physical FD PHYS Office visit Sore Throat J02.9 Asthma follow-up Respiratory complaints Asthma Asthma DYSPNEA Hernia Hernia Amb Documentation Post Op Incision check Medicare Annual Wellness subsequent E83.51,R73.09,E53.81,R53.83 CHEST TIGHTNESS, SIDE PAIN Depression follow-up Depression follow-up cardio assessment SIDE PAIN EAR PAIN E66.9,R73.03 Ear Complaint Reason for Visit Asthma Asthma Asthma Dizziness Obesity Depression Depression Asthma Encounters Encounter Location(s) Ar rival/Admit Date Discharge/Depart Date Provider(s) Departed Physician/Provider Office Visit -[facility] April 04, 2019 1:46pm April 04, 2019 2:45pm Lottie Hancock Registered Referred -Occupational Medicine April 04, 2019 2:00pm [facility] Departed Physician/Provider Office Visit -[facility] April 25, 2019 9:12am April 25, 2019 10:56am Chito Riley MD Departed Physician/Provider Office Visit -[facility] July 12, 2019 11:03am July 12, 2019 12:57pm Seth Leonardo DO Registered Referred -Lab Drop Off July 12, 2019 12:05pm Fay Nuno Departed Physician/Provider Office Visit -[facility] July 26, 2019 1:34pm July 26, 2019 2:34pm Chito Riley MD Departed Physician/Provider Office Visit -[facility] August 08, 2019 2:50pm August 08, 2019 3:58pm Chito Riley MD Departed Physician/Provider Office Visit -[facility] August 29, 2019 1:15pm August 29, 2019 2:06pm Chito Riley MD Departed Physician/Provider Office Visit -[facility] September 27, 2019 8:42am September 27, 2019 9:35am Chito Riley MD Registered Referred -Radiology September 27, 2019 9:33am PAULO RAY Registered Outpatient -[facility] General Surgery October 02, 2019 2:26am Dawit Sampson MD Registered Outpatient -[facility] Surgery October 03, 2019 6:42am October 04, 2019 7:30am Dawit Sampson MD Registered Outpatient -[facility] October 07, 2019 1:34pm Jeane Solis RN Departed Physician/Provider Office Visit -[facility] Surgery October 11, 2019 11:39am October 11, 2019 11:49am Gabriel Alcantara MD Departed Physician/Provider Office Visit -[facility] January 01, 2020 9:32am January 01, 2020 12:12pm Tirso Miller DO Registered Referred -Laboratory January 01, 2020 11:05am Tirso Miller DO Departed Emergency -Emergency Room ER January 05, 2020 3:17pm January 05, 2020 5:45pm null Departed Physician/Provider Office Visit -[facility] January 10, 2020 11:33am January 10, 2020 12:18pm Tirso Miller DO Departed Physician/Provider Office Visit -[facility] February 14, 2020 11:37am February 14, 2020 12:32pm Tirso Miller DO Registered Outpatient -[facility] March 04, 2020 11:56am Tirso Miller DO Departed Emergency -Emergency Room ER March 08, 2020 11:04am March 08, 2020 2:00pm null Departed Emergency -Emergency Room ER March 17, 2020 9:49pm March 17, 2020 10:33pm null Registered Clinical -Nutrition March 20, 2020 11:43am Tirso Miller DO Departed Physician/Provider Office Visit -[facility] March 31, 2020 10:22am March 31, 2020 11:47am Tirso Miller DO Recent Diagnosis Onset Date [...] be documented in an alternate section. Immunizations No Immunization Information Available Mental Status No Mental Status Information Available Medical Equipment No Medical Equipment Information available Insurance Providers Guarantor TIRSO MATA Address [address] [place] [address] Contact Info. Home Phone: Payer Policy Id Coverage Id Subscriber's Name Subscriber Id Effective Date Expiration Date MEDICARE [employer] [id number] TIRSO MATA [id number] [place] [id number] TIRSO MATA [id number] [place] [facility] [id number] TIRSO MATA [id number] [place] [facility] 2[place] [id number] TIRSO MATA [id number] MEDICAID [id number] TIRSO MATA [id number] MEDICARE [id number] TIRSO MATA [id number] Self Pay Self N/A Plan of Treatment most likely from TMJ ibuprofen prn avoid shellfish avoid big bites small bites , and chews f/u dentist for cavitities stable pft as ordered refilled symbicort if condition worsens, then go to ER [...] labs as ordered labs as ordered retrieve mandaen records from recent psych hospitalization if condition [...] 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 Continue Symbicort and refer to pulmonology. Well [...] and signs Doing well. Continue counselling at [facility]. We will get the records from there for review. Recheck here 3 months, sooner as needed. Form filled out for [facility] apartment program. Future Tests Future scheduled test information is unavailable Pending Tests Pending diagnostic test information is unavailable Future Visits Future appointment information is unavailable Referrals to Other Providers Reason for Referral Referral Start Date Provider Provider Conta ct Information Provider Address Armen Dunlap MD Work Phone: [facility] [address] [place] [address] Gabriel Alcantara MD Email: [email or web address] Phone: [phone] [place] [phone] Tirso Miller DO Email: [email or web address] Phone: [phone] [facility] [address] Your follow up appointment has been made for MondayOctober [address] Camilla Sampson MD Work Phone: [phone] [place], [place] [phone] Future Procedures Future procedure information is unavailable Future Medications Future medication information is unavailable Patient Instructions Acute Abdominal Pain (DC) Gas and Bloating (GEN) Ventral Hernia Repair (DC) Earache (ED) Social History Smoking Status Status Date of Observation Never smoker March 31, 2020 11: 45am Observation Status Observation Response Raymond e of Response Smoking Status Never smoker March 31, 2020 11:45am Alcohol Use No March 31, 2020 11:45am Substance Use No Novembe r 2019 11:45am Assigned Sex Male Vital Signs Vital Reading Result Ref erence Range Collection Date/Time Height 71 [in_i] April 04, 2019 2:03pm Weight 248.00 [lb_av] April 04, 2019 2:03pm Heart Rate 96 /min 60-100 April 04, 2019 2:03pm Respiratory rate 18 /min 12-24 April 04, 2019 2:03pm Oxygen saturation by Pulse oximetry 98 % 95- 100 April 04, 2019 2:03pm BP Systolic 120 mm[Hg] April 04, 2019 2:03pm BP Diastolic 80 mm[Hg] April 04, 2019 2:03pm BMI (Body Mass Index) 34.5 kg/m2 April 04, 2019 2:03pm Height 71 [in_i] April 25, 2019 9:40am Weight 245.00 [lb_av] April 25, 2019 9:40am Body Temperature 98.1 [degF] 97.6-99.5 April 25, 2019 9:40am Heart Rate 81 /min 60-100 April 25, 2019 9:40am Respiratory rate 16 /min -April 25, 2019 9:40am Oxygen saturation by Pulse [...] 7:15am Respiratory rate 16 /min 12-24 October 03 2020 7:15am Oxygen saturation by Pulse oximetry 94 [...]
--- OUTSIDE RECORDS SUMMARY | 2020-06-04 18:18 | CCD | Continuity of Care Document ---
Author Author [facility] Address [address] [place] [address] Phone Support Name Relationship Address Phone Osvaldo Chito PRS [address] [place] [address] SantiLottie PRS [address] [place] [address] of Carine, Medicine Occupation PRS [address] [place] [address] Unavailable Seth Leonardo PRS [address] [place] [address] Doctor Provided, Family No PRS Unknown Unava ilable Chito Riley PRS [facility] [place] [address] KostaselaineDarryl Flor PRS [address] [place] [address] Tirso Miller PRS [address] [place] [address] Dawit Sampson PRS [address] [place] [address] Jeane Soils PRS Unknown Unavailable Gabriel Alcantara PRS [address] [place] [address] Jeanmarie Arteaga PRS [address] [place] [address] Bryant Villalba PRS [address] [place] [address] Jaylan Fernandez PRS 167 [facility], [address] [place] [address] [place] [address] Cedric Adam PRS [address] [place] [address] Riki Collins PRS [address] [place] [address] Allergies, Adverse Reactions, Alerts No known allergies. Medications Medication Status Dose Units Route Directions Qty Days Start Date End Date Instructions Budesonide-Formoterol (Symbicort) 160-4. 5 mcg/actuation HFA aerosol inhaler Discontinued 1 PUFFS IH 2 Times Per Day March 01, 2019 10:34am July 26, 2019 3:12pm Albuterol Sulfate Discontinued 2 INH IH Q6H March 01, 2019 10:39am October 02, 2019 3:58am Budesonide-Formoterol (Symbicort) 160-4. 5 mcg/actuation HFA aerosol inhaler Discontinued 1 PUFFS IH 2 Times Per Day July 26, 2019 3:12pm October 02, 2019 3:58am Fluoxetine (Prozac) 10 mg capsule Active 10 MG PO daily September 27, 2019 9:47am Amoxicillin Discontinued 500 MG PO Three times a day February 27, 2016 11:18am March 29, 2016 2:57pm Naproxen Discontinued 500 MG PO 2 Times Per Day February 27, 2016 11:40am March 29, 2016 2:57pm Ibuprofen Discontinued 2 00 MG PO Every 6 hours November 21, 2016 11:49am March 02, 2017 1:06pm Sulfamethoxazole-Trimethoprim (Bactrim D s Tablet) 800-160 mg tablet Discontinued 1 EACH PO 2 Times Per Day November 21, 2016 3:38pm January 20, 2017 11:29am Naproxen Discontinued 500 MG PO 2 Times Per Day NEEDED November 21, 2016 3:38 pm March 02, 2017 1:06pm Acetaminophen (Tylenol*) 500 MG tablet Discontinued 1 GM PO NEEDED May 05, 2017 10:05am April 11, 2018 12:20am Ondansetron (Zofran Odt) 4 MG tablet,disintegrating Discontinued 4 MG PO Four Times a day PRN April 06, 2018 1:34am April 11, 2018 12:20am Naproxen Discontinued 500 MG PO 2 Times Per Day February 24, 2019 11:51am February 24, 2019 12:27pm Nabumetone Discontinued 750 MG PO 2 Times Per Day Meals 10 03February 24, 2019 12:26pm March 06, 2019 12:01am Albuterol Sulfate Active 2 INH IH Q6H October 02, 2019 3:58am Budesonide-Formoterol (Symbicort) 160-4. 5 mcg/actuation HFA aerosol inhaler Active 1 PUFFS IH 2 Times Per Day October 02, 2019 3:58am Tramadol Discontinued 50 MG PO Three times a day October 03, 2019 2:30pm February 14, 2020 1:10pm Take with meals only Budesonide-Formoterol (Symbicort 80-4.5 Mcg Inhaler) 10.2 GM HFA aerosol inhaler Discontinued 2 PUFFS IH 2 Times Per Day July 17, 2014 4:20pm November 29, 2016 10:47am Perphenazine Discontinued 2 MG PO At Bedtime July 25, 2014 12:20pm February 10, 2015 2:40pm Oxcarbazepine Discontinued 300 MG PO Once Per Day July 25, 2014 12:20pm July 25, 2014 12:25pm Citalopram Discontinued 20 MG PO Once Per Day July 25, 2014 12:20pm February 10, 2015 2:40pm Trazodone Discontinued 1 00 MG PO At Bedtime July 25, 2014 12:20pm February 10, 2015 2:40pm Risperidone Discontinued 1 MG PO 2 Times Per Day July 25, 2014 12:20pm February 10, 2015 2:40pm Oxcarbazepine Discontinued 300 MG PO Once Per Day July 25, 2014 12:25pm March 01, 2015 6:42pm Albuterol Sulfate (Ventolin Hfa) 18 GM HFA aerosol inh aler Discontinued 2 PUFFS IH Every 4 hours February 10, 2015 2:59pm [facility] 8:58[facility] Oxcarbazepine Discontinued 600 MG PO 2 Times Per Day May 26, 2015 3:10pm February 27, 2018 10:34am Naproxen (Naprosyn) 500 MG tablet Di scontinued 1 TAB PO 2 Times Per Day March 29, 2016 3:16pm May 17, 2016 1:57pm Ondansetron Hcl (Zofran) 8 MG tablet Discontinued 8 MG PO 2 Times Per Day May 17, 2016 2:32pm November 21, 2016 11:42am take one twice daily for nausea Loperamide-Simethicone (Imodium Multi-Sy mptom Rel Cplt) 1 EACH tablet Discontinued 1 EACH PO Four Times a Day May 17, 2016 2:32pm November 21, 2016 11:43am take one after each loose stool up to 4x day Albuterol Sulfate (Ventolin Hfa) 18 GM HFA aerosol inh aler Discontinued 2 PUFFS IH Every 4 hours 2 February 02, 2017 8:58am April 05, 2018 12:56am Budesonide-Formoterol (Symbicort 160-4.5 Mcg Inhaler) 10.2 GM HFA aerosol inhaler Discontinued 1 PUFFS IH 2 Times Per Day 1 February 27, 2018 10:55am September 19, 2018 8:53am Budesonide-Formoterol (Symbicort 160-4.5 Mcg Inhaler) 10.2 GM HFA aerosol inhaler Discontinued 1 PUFFS IH 2 Times Per Day 1 February 27, 2018 10:55am March 01, 2019 10:40am Problems Active Problems Medical Problem Onset Date Status Chest wall pain Active Acute epididymitis Act candido Elevated glucose level Active Acute right hip pain A ctive Fracture of rib of right side Active Lower back pain Active Dizziness Active Unstable angina pectoris Active Depression Active Malaise and fatigue Ac tive Elevated serum creatinine Active Abdominal muscle pain Active Viral syndrome Active Plantar fasciitis Acti ve Prediabetes Active Anterior chest wall pain Active Vasovagal episode Acti ve Obesity Active Costochondritis, acute Active Asthma Active Left ankle sprain Acti ve Hypocalcemia Active Procedures Procedure Date Performed Status Xray Abdomen 1 View (KUB) March 082019 2:36pm completed CT Abd/pel w/ contrast January 05, 2020 4:40pm completed Xray Chest 2 view PA/LAT September 26 10:44am completed Streptococcus Rapid Screen July 12, 2019 completed Relevant Diagnostic Tests and/or Laboratory Data Laboratory Results Test Date/Time Result Interpretation Reference Range Result Comment Performing Site White Blood Count March 04, 2020 1:30p m 6.1 10e3/uL 4.45-10.71 LOCATED [facility], [address] [place] [address] 42009 White Blood Count January 05, 2020 4:52pm 7.0 10e3/uL 4.45-10.71 [facility], [address] [place] [address] 10709 Red Blood Count March 04, 2020 1:30pm 5.55 10e6/uL 4.3-6.1 [facility], [address] [place] [address] 11381 Red Blood Count January 05, 2020 4:52pm 5.36 10e6/uL 4.3-6.1 LOC[facility], [address] [place] [address] 95264 Hemoglobin March 04, 2020 1:30pm 16.1 g/dL LOC[facility], [address] [place] [address] Hemoglobin January 05, 2020 4:52pm 15.7 g/dL [facility], [address] [place] [address] 50767 Hematocrit March 04, 2020 1:30pm 48.6 % 42-52 [facility], [address] [place] [address] 14983 Hematocrit January 05, 2020 4:52pm 45.3 % 42-52 [facility], [address] [place] [address] 40249 Mean Corpuscular Volume February 1:30pm 87.6 fl 80-96 [facility], [address] [place] [address] Mean Corpuscular Volume January 05, 2020 4:52pm 84.5 fl 80-96 [facility], [address] [place] [address] 41727 Mean Corpuscular Hemoglobin March 04, 2020 1:30pm 29.0 pg 27-31 [facility], [address] [place] [address] Mean Corpuscular Hemoglobin December 202019 4:52pm 29.3 pg 27-31 [facility], [address] [place] [address] Mean Corpuscular Hemoglobin Concent March 04, 2020 1:30pm 33.1 g/dl -37 [facility], [address] [place] [address] Mean Corpuscular Hemoglobin Concent January 05, 2020 4:52pm 34.7 g/dl 33-37 [facility], [address] [place] [address] 15272 Red Cell Distribution Width March 04, 2020 1:30pm 13 % 11-15 [facility], [address] [place] [address] Red Cell Distribution Width December 202019 4:52pm 12 % 11-15 [facility], [address] [place] [address] Platelet Count March 04, 2020 1:30pm 312 10e3/ul 130-472 [facility], [address] [place] [address] 35503 Platelet Count January 05, 2020 4:52pm 293 10e3/ul 130-472 [facility], [address] [place] [address] 80618 Mean Platelet Volume March 04 1:30pm 9.5 fl 9.1-13.1 [facility], [address] [place] [address] 26803 Mean Platelet Volume January 04 4:52pm 9.1 fl 9.1-13.1 [facility], [address] [place] [address] 01571 Neutrophils (%) (Auto) March 04, 2020 1:30pm 64.0 % [address] [place] [address] LABORATORY, [address] [place] [address] 30765 Neutrophils (%) (Auto) January 05, 2020 4:52pm 70.9 % [address] [facility], [address] [place] [address] 13692 Absolute Neutrophil March 04 1:30pm 3.9 # 1.7-7.6 [facility], [address] [place] [address] 86683 Absolute Neutrophil January 04 0 4:52pm 5.0 # 1.7-7.6 [facility], [address] [place] [address] 01820 Lymphocytes (%) (Auto) March 04, 2020 1:30pm 26.2 % 14-46 [facility], [address] [place] [address] 80306 Lymphocytes (%) (Auto) January 05, 2020 4:52pm 18.8 % 14-46 [facility], [address] [place] [address] 77144 Lymphocytes # (Auto) March 04 1:30pm 1.6 # 0.6-4.6 [facility], [address] [place] [address] 68001 Lymphocytes # (Auto) January 04 4:52pm 1.3 # 0.6-4.6 [facility], [address] [place] [address] 18564 Monocytes (%) (Auto) March 04 1:30pm 6.3 % 4-12 [facility], [address] [place] [address] 96707 Monocytes (%) (Auto) January 04 4:52pm 7.4 % 4-12 [facility], [address] [place] [address] 80369 Monocytes # March 04, 2020 1:30pm 0.4 # 0.2-1.2 [facility], [address] [place] [address] 64768 Monocytes # January 05, 2020 4:52pm 0.5 # 0.2-1.2 [facility], [address] [place] [address] 40359 Eosinophils (%) (Auto) March 04, 2020 1:30pm 2.8 % 0-7 [facility], [address] [place] [address] Eosinophils (%) (Auto) January 05, 2020 4:52pm 2.3 % 0-7 [facility], [address] [place] [address] 83361 Absolute Eosinophils (CBC) February 192019 1:30pm 0.2 # 0.0-0.5 [facility], [address] [place] [address] 16587 Absolute Eosinophils (CBC) January 042019 4:52pm 0.2 # 0.0-0.5 [facility], [address] [place] [address] 85915 Basophils (%) (Auto) March 04 1:30pm 0.5 % 0.4-1.3 [facility], [address] [place] [address] 20828 Basophils (%) (Auto) January 04 4:52pm 0.3 % 0.4-1.3 [facility], [address] [place] [address] 48779 Absolute Basophils (CBC) February 1:30pm 0.0 # 0.0-0.2 [facility], [address] [place] [address] 40471 Absolute Basophils (CBC) December 4:52pm 0.0 # 0.0-0.2 [facility], [address] [place] [address] 17169 Immature Granulocyte % (Auto) Octobe 2019 1:30pm 0.2 % 0-2 [facility], [address] [place] [address] 14005 Immature Granulocyte % (Auto) January 05, 2020 4:52pm 0.3 % 0-2 [facility], [address] [place] [address] Absolute Immature Granulocyte (auto March 04, 2020 1:30pm 0.0 # 0-0.1 [facility], [address] [place] [address] Absolute Immature Granulocyte (auto January 05, 2020 4:52pm 0.0 # 0-0.1 [facility], [address] [place] [address] Add Manual Differential February 1:30pm No [facility], [address] [place] [address] Add Manual Differential January 05, 2020 4:52pm No [facility], [address] [place] [address] Blood Urea Nitrogen March 04 1:30pm 13 mg/dL 02-11 [facility], [address] [place] [address] Blood Urea Nitrogen January 04 0 4:52pm 12 mg/dL 02-11 [facility], [address] [place] [address] Blood Urea Nitrogen December 31 0 12:16pm 21 mg/dL 02-11 [facility], [address] [place] [address] Sodium Level March 04, 2020 1:30pm 139 mmol/L 132-146 LOC[facility], [address] [place] [address] Sodium Level January 05, 2020 4:52pm 138 mmol/L 132-146 [facility], [address] [place] [address] Sodium Level January 01, 2020 12:16pm 142 mmol/L 132-146 [facility], [address] [place] [address] Potassium Level March 04, 2020 1:30pm 4.1 mmol/L 3.5-5.5 LOC[facility], [address] [place] [address] Potassium Level January 05, 2020 4:52pm 3.9 mmol/L 3.5-5.5 LOC[facility], [address] [place] [address] Potassium Level January 01, 2020 12:16pm 4.7 mmol/L 3.5-5.5 LOC[facility], [address] [place] [address] Chloride Level March 04, 2020 1:30pm 103 mmol/l 99-109 LOC[facility], [address] [place] [address] Chloride Level January 05, 2020 4:52pm 108 mmol/l 99-109 [facility], [address] [place] [address] 17404 Chloride Level January 01, 2020 12:16pm 111 mmol/l 99-109 [facility], [address] [place] [address] 66982 Carbon Dioxide Level March 04 1:30pm 29 mmol/l -31 [facility], [address] [place] [address] Carbon Dioxide Level January 04 4:52pm 25 mmol/l - [facility], [address] [place] [address] Carbon Dioxide Level December 31 12:16pm 24 mmol/l - [facility], [address] [place] [address] 65097 Anion Gap March 04, 2020 1:30pm 11 mmol/l 8-16 [facility], [address] [place] [address] 48789 Anion Gap January 05, 2020 4:52pm 9 mmol/l - [facility], [address] [place] [address] 92048 Anion Gap January 01, 2020 12:16pm 12 mmol/l 8-16 [facility], [address] [place] [address] 98677 Glucose Level March 04, 2020 1:30pm 95 mg/dL 74-106 [facility], [address] [place] [address] 23688 Glucose Level January 05, 2020 4:52pm 107 mg/dL 74-106 [facility], [address] [place] [address] 62711 Glucose Level January 01, 2020 12:16pm 107 mg/dL 74-106 [facility], [address] [place] [address] 99238 Creatinine March 04, 2020 1:30pm 1.0 mg/dL 0.5-1.1 LOC[facility], [address] [place] [address] 55436 Creatinine January 05, 2020 4:52pm 1.0 mg/dL 0.5-1.1 LOC[facility], [address] [place] [address] 81264 Creatinine January 01, 2020 12:16pm 1.2 mg/dL 0.5-1.1 LOCATED [facility], [address] [place] [address] 60960 Glomerular Filtration Rate Calc Octo 2019 1:30pm Greater than 60 ml/min ABOVE 60 [facility], [address] [place] [address] 89211 Glomerular Filtration Rate Calc Augu st 2019 4:52pm Greater than 60 ml/min ABOVE 60 [facility], [address] [place] [address] Glomerular Filtration Rate Calc Augu st 2019 12:16pm Greater than 60 ml/min ABOVE 60 [facility], [address] [place] [address] [phone] Alanine Aminotransferase (ALT/SGPT) March 04, 2020 1:30pm 65 U/L 10-49 LOC[facility], [address] [place] [address] Alanine Aminotransferase (ALT/SGPT) January 05, 2020 4:52pm 65 U/L 10-49 [facility], [address] [place] [address] Alanine Aminotransferase (ALT/SGPT) January 01, 2020 12:16pm 66 U/L 10-49 [facility], [address] [place] [address] 67639 Aspartate Amino Transf (AST/SGOT) [facility] 2019 1:30pm 27 U/L 0-33 LOC[facility], [address] [place] [address] [phone] Aspartate Amino Transf (AST/SGOT) [facility] 2019 4:52pm 30 U/L 0-33 [facility], [address] [place] [address] Aspartate Amino Transf (AST/SGOT) [facility] 2019 12:16pm 22 U/L 0-33 [facility], [address] [place] [address] 76879 Alkaline Phosphatase March 04 1:30pm 75 U/L 45-129 [facility], [address] [place] [address] Alkaline Phosphatase January 04 4:52pm 77 U/L 45-129 [facility], [address] [place] [address] Alkaline Phosphatase December 31 12:16pm 77 U/L 45-129 [facility], [address] [place] [address] 99811 Calcium Level March 04, 2020 1:30pm 9.2 mg/dL 8.5-10.1 [facility], [address] [place] [address] Calcium Level January 05, 2020 4:52pm 8.9 mg/dL 8.5-10.1 [facility], [address] [place] [address] Calcium Level January 01, 2020 12:16pm 9.0 mg/dL 8.5-10.1 Delta: 8.0 on 10/02/19-0525Repeated by: Tammy Griffiths 01/01/20 1339.Result Confirmation: 8.7 mg/dL [facility], [address] [place] [address] 12949 Total Bilirubin March 04, 2020 1:30pm 0.8 mg/dL 0.3-1.2 [facility], [address] [place], [place] [id number] Total Bilirubin January 05, 2020 4:52pm 0.6 mg/dL 0.3-1.2 [facility], [address] [place], [place] [id number] Total Bilirubin January 01, 2020 12:16pm 0.4 mg/dL 0.3-1.2 [facility], [address] [place] [address] 01044 Albumin March 04, 2020 1:30pm 4.1 g/dL 3.2-4.8 [facility], [address] [place] [address] 63838 Albumin January 05, 2020 4:52pm 3.7 g/dL 3.2-4.8 [facility], [address] [place] [address] 15682 Albumin January 01, 2020 12:16pm 3.9 g/dL 3.2-4.8 [facility], [address] [place] [address] 73133 Serum Total Protein March 04 1:30pm 7.4 g/dL 5.7-8.2 [facility], [address] [place] [address] 88367 Serum Total Protein January 04 0 4:52pm 7.0 g/dL 5.7-8.2 [facility], [address] [place] [address] 82417 Serum Total Protein December 31 0 12:16pm 7.0 g/dL 5.7-8.2 [facility], [address] [place] [address] 74174 Phosphorus Level January 01, 2020 12:16pm 3.1 mg/dL 2.4-5.1 [facility], [address] [place] [address] 24222 Triglycerides Level March 04 4:04pm 97 mg/dL 0-150 [facility], [address] [place] [address] 73011 Cholesterol Level March 04, 2020 4:04p m 136 mg/dL 120-200 [facility], [address] [place] [address] 63897 HDL Cholesterol March 04, 2020 4:04pm 51 mg/dL HDL Less than 40 mg/dL: Major risk for CHDHDL Greater than 59 mg/dL: Low risk for CHD [facility], [address] [place] [address] 01814 LDL Cholesterol, Calculated March 04, 2020 4:04pm 66 mg/dL 0-100 [facility], [address] [place] [address] Magnesium Level January 01, 2020 12:16pm 2.4 mg/dL 1.3-2.7 [facility], [address] [place], [place] [id number] Troponin I January 05, 2020 4:52pm Less than 0.015 ng/mL 0.00-0.09 Less than 0.09 NG/ML Negative0.10 - 0.77 NG/ML High Risk0.78 NG/ML or Greater Positive The WHO defined the cutoff (definition for diagnosis of MT)for this method as 0.78 ng/ml. [facility], [address] [place], [place] [id number] Thyroid Stimulating Hormone (TSH) Oc tober 2019 1:30pm 1.72 uIU/mL 0.35-5.50 [facility], [address] [place], [place] [id number] Thyroid Stimulating Hormone (TSH) Au abraham 2019 12:16pm 1.04 uIU/mL 0.35-5.50 [facility], [address] [place] [address] 68270 Total Triiodothyronine March 04, 2020 1:30pm 113 ng/dL THIS TEST WAS PERFORMED AT:[facility] [id number] MERATI,MD [facility] Cancelled Test March 04, 2020 1:23pm Hgba1c,lipid,vitd25 LOCATED [facility], [address] [place], [place] [id number] Specimen Comment (Misc) February 1:23pm Not covered by [facility] signed Test(s) that were ordered on this requis iton were not collected. [facility], [address] [place] [address] 61067 Vitamin D 25-Hydroxy March 04 020 4:04pm 36 ng/mL Vitamin D Status 25-OH Vitamin D:Deficiency: <20 ng/mLInsufficiency: 20 - 29 ng/mLOptimal: > or = 30 ng/mLFor 25-OH Vitamin D testing on patients onD2-supplementation and patients for whom quantitationof D2 and D3 fractions is required, the Quest[facility]ureD(TM)25- OH VIT D, (D2,D3), LC/MS/MS is recommended: ordercode 14183 (patients >2yrs).See Note 1Note 1For additional information, please refer tohttp://education.[employer]/faq/LDV613(This link is being provided for informational/educational purposes only.)THIS TEST WAS PERFORMED AT:[facility] [address] MD [facility] Thyroxine (T4) March 04, 2020 1:30pm 6.3 mcg/dL THIS TEST WAS PERFORMED AT:[facility] [id number] MERATI,MD [facility] Methyl Alcohol Level March 04 4:04pm None detected mg/dL Reference Range: None Detected Reportable Limit: 5 mg/dLThis test was developed and its analytical performancecharacteristics have been determined by [employer] [facility] [place]. It hasnot been cleared or approved by the U.S. Food and DrugAdministration. This assay has been validated pursuantto the CLIA regulations and is used for clinicalpurposes. [facility] Ethyl Alcohol Screen March 04 4:04pm None detected mg/dL Reference Range: None Detected 100 mg/dL = 0.100 G%(g/dL) Reportable Limit: 10 mg/dLThis test was developed and its analytical performancecharacteristics have been determined by [employer] [place], [place]. It hasnot been cleared or approved by the U.S. Food and DrugAdministration. This assay has been validated pursuantto the CLIA regulations and is used for clinicalpurposes. [facility] Ethyl Alcohol Confirmation February 192019 4:04pm None detected g/dL(%) Reference Range: N one Detected Reportable Limit: 0.010 g/dLThis test was developed and its analytical performancecharacteristics have been determined by [facility] [place], [place]. It hasnot been cleared or approved by the U.S. Food and DrugAdministration. This assay has been validated pursuantto the CLIA regulations and is used for clinicalpurposes. [facility] Acetone Level March 04, 2020 4:04pm None detected mg/dL Reference Range: None Detected Reportable Limit: 5 mg/dLThis test was developed and its analytical performancecharacteristics have been determined by [facility] [place]. It hasnot been cleared or approved by the U.S. Food and DrugAdministration. This assay has been validated pursuantto the CLIA regulations and is used for clinicalpurposes. [facility] Isopropyl Alcohol Level, Qual Octobe r 2019 4:04pm None detected mg/dL Reference Range: N one Detected Reportable Limit: 5 mg/dLPotentially Toxic: Isopropanol: Any Detectable Amount Acetone: > 20 mg/dLThis test was developed and its analytical performancecharacteristics have been determined by [facility] [place]. It hasnot been cleared or approved by the U.S. Food and DrugAdministration. This assay has been validated pursuantto the CLIA regulations and is used for clinicalpurposes. [facility] Volatile Analysis Performed On 2019 4:04pm Serum/plasma THIS TEST WAS PERFORMED AT:[id number] [place] [address]GQRPTJQREGAN STALLINGS MD,PHD [facility] Marijuana (THC) Screen March 04, 2020 4:04pm negative [facility] Blood Amphetamines Screen March 042019 4:04pm negative [facility] Blood Barbiturates Screen March 042019 4:04pm negative [facility] Benzodiazepines Screen March 04, 2020 4:04pm negative [facility] Blood Cocaine/Metabolite Screen Octo 2019 4:04pm negative [facility] Blood Opiate Screen March 04 4:04pm negative [facility] Phencyclidine (PCP) Screen February 192019 4:04pm negative [facility] Blood Methadone Screen March 04, 2020 4:04pm negative [facility] Drug Screen Comment March 04 4:04pm See note The submitted serum specimen was tested at theimmunoassay screen cutoffs listed below and, ifPOSITIVE, were confirmed by GC/MS at the listedconfirmatory test cutoffs. Cutoffs units are ng/mL.Drug Class/ Initial Test Confirmatory Drug Level Test LevelAmphetamines 100 Amphetamine 50 Methamphetamine 50 MDMA ("Ecstacy") 50 MDA 50Barbiturates 100 Amobarbital 100 Butabarbital 100 Butalbital 100 Pentobarbital 100 Phenobarbital 100 Secobarbital 100Benzodiazepines 100 Alprazolam 10 Oxazepam 50 Lorazepam 50 Desalkylflurazepam 50 Nordiazepam 50Cocaine metabolites 100 Cocaine 20 Benzoylecgonine 20 Ecgoninemethylester 20 Cocaethylene 20Marijuana metabolites 30 THC 1 Carboxy-THC 5Methadone 25 50Opiates 100 Morphine 50 Codeine 50 Hydrocodone 50 Hydromorphone 50 Oxycodone 50Phencyclidine 10 5Propoxyphene metab. 50 200This test was developed and its analytical performancecharacteristics have been determined by [facility] [place], [place]. It hasnot b een cleared or approved by the U.S. Food and DrugAdministration. This assay has been validated pursuantto the CLIA regulations and is used for clinicalpurposes.THIS TEST WAS PERFORMED AT:[employer] [place] [address]URZCKOXREGAN STALLINGS MD,PHD [facility] Blood Propoxyphene Screen March 042019 4:04pm negative [facility] Hemoglobin A1c March 04, 2020 1:30pm 6.1 % 4.0-6.0 The following ranges may [...] glucose control. 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 Some danger of hypoglycemic reaction in Type I diabetics.Some glucose intolerant individuals and "Sub Clinical"diabetics may demonstrate HGBA1C levels in this area. LOCATED WITHIN [facility], [address] [place] [address] Hemoglobin A1c January 01, 2020 12:16pm 6.1 % 4.0-6.0 The following ranges may [...] glucose control. 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 Some danger of hypoglycemic reaction in Type I diabetics.Some glucose intolerant individuals and "Sub Clinical"diabetics may demonstrate HGBA1C levels in this area. LOCATED WITHIN [facility], [address] [place] [address] Estimated Average Glucose (eAG) 2019 1:30pm 128 mg/dl An A1C of 7% - the goal of diabetic ther apy - is equivalentto an EAG of 154 mg/dl. LOCATED [facility], [address] [place] [address] Estimated Average Glucose (eAG) 2019 12:16pm 128 mg/dl An A1C of 7% - the goal of diabetic ther apy - is equivalentto an EAG of 154 mg/dl. LOCATED [facility]IN [facility], [address] [place] [address] Microbiology Results Procedure Source Result Collection Date/Time Result Date/Time Result Comment Performing Site Streptococcus Rapid Screen Throat July 12, 2019 12:05pm July 13, 2019 9:35am LOCATED WITHIN [facility], [address] [place] [address]38 Diagnostic Imaging Reports Report Dictated Date/Time Dictated By Status Radiology Report September 27, 2019 10:48am Jalen Diamond MD completed [place] [address] [place] [address] [phone] NAME SEX PT STATUS ACCOUNT NUMBER Tirso Mata REG REF [id number] ORDERING PHYSICIAN LOCATION MEDICAL RECORD NO. [facility] [id number] ATTENDING PHYSICIAN DATE OF DATE OF EXAM/TIME [...] Trans Dt/Tm: Trans by: DT Prt Dt/Tm: [id number]: Total DLP = 0.00 mGy-cm Fluoroscopy Time (in secs): Radiology Report January 05, 2020 6:33pm Luigi Gordon MD completed [facility] [address] [id number] [phone] NAME SEX PT STATUS ACCOUNT NUMBER TIRSO MATA [facility] [id number] ORDERING PHYSICIAN LOCATION MEDICAL RECORD NO. Jeanmarie [facility] [id number] ATTENDING PHYSICIAN DATE OF DATE OF EXAM/TIME Tirso Miller DO 1980 01[birth year]20 / 1640 TYPE / EXAM CT Abd/pel w/ contrast [...] 08, 2020 2:53pm Mesha Mccabe MD completed [facility] [address], [place] [address] [phone] NAME SEX PT STATUS ACCOUNT NUMBER ADOLFOTIRSO [facility] [id number] ORDERING PHYSICIAN LOCATION MEDICAL RECORD NO. Cedric Adam MD [id number] ATTENDING PHYSICIAN DATE OF DATE OF EXAM/TIME AngelaTirso 1980 03[birth year]08/20 / 1436 TYPE / EXAM [...] Miller DO; Mesha Mccabe MD Techn: CHRISTOPHER Coats Dt/Tm: Trans by: DT Prt Dt/Tm: [id number]: Total DLP = 0.00 mGy-cm Fluoroscopy Time (in secs): Health Concerns Health Concerns may be documented in an alternate section. Advance Directives Advance Directive Response Recorded Date/Time Advanced Directive No Oc tob2019 10:55pm MOLST No October 02, 2019 3:40am Advance Directives on File or in chart? No October 02, 2019 3:45am Does Patient have a DNR? No March 17, 2020 10:55pm Healthcare Proxy No Octo 2019 10:55pm Living Will No July 10:37am Chief Complaint and Reason for Visit Chief Complaint Occ Med physical FD PHYS Office visit Sore Throat J02.9 Asthma follow-up Respiratory complaints Asthma Asthma DYSPNEA Hernia Hernia Amb Documentation Post Op Incision check Medicare Annual Wellness subsequent E83.51,R73.09,E53.81,R53.83 CHEST TIGHTNESS, SIDE PAIN Depression follow-up Depression follow-up MDD SIDE PAIN EAR PAIN Reason for Visit Asthma Asthma Asthma Dizziness Elevated glucose level Hypocalcemia Obesity Depression Abdominal muscle pain Depression Encounters Encounter Location(s) Ar rival/Admit Date Discharge/Depart Date Provider(s) Departed Physician/Provider Office Visit [facility] April 04, 2019 2:46pm April 04, 2019 3:45pm Lottie Hancock Registered Referred [facility]Occupational Medicine April 04, 2019 3:00pm [facility] Departed Physician/Provider Office Visit [facility] April 25, 2019 10:12am April 25, 2019 11:56am Chito Riley MD Departed Physician/Provider Office Visit [facility] July 12, 2019 12:03pm July 12, 2019 1:57pm Seth Leonardo DO Registered Referred [facility]-Lab Drop Off July 12, 2019 1:05pm Seth Leonardo DO Departed Physician/Provider Office Visit [facility] July 26, 2019 2:34pm July 26, 2019 3:34pm Chito Riley MD Departed Physician/Provider Office Visit [facility] August 08, 2019 3:50pm August 08, 2019 4:58pm Chito Riley MD Departed Physician/Provider Office Visit [facility] August 29, 2019 2:15pm August 29, 2019 3:06pm Chito Riley MD Departed Physician/Provider Office Visit [facility] September 27, 2019 9:42am September 27, 2019 10:35am Chito Riley MD Registered Referred [facility]-Radiology September 27, 2019 10:33am PAULO RAY Registered Outpatient [facility] Surgery October 02, 2019 3:26am Dawit Sampson MD Registered Outpatient [facility] Surgery October 03, 2019 7:42am October 04, 2019 8:30am Dawit Sampson MD Registered Outpatient [facility] October 07, 2019 2:34pm Jeane Solis RN Departed Physician/Provider Office Visit [facility] October 11, 2019 12:39pm October 11, 2019 12:49pm Carrington Obregon Departed Physician/Provider Office Visit [facility] January 01, 2020 10:32am January 01, 2020 1:12pm Tirso Miller DO Registered Referred [facility]-Laboratory January 01, 2020 12:05pm Tirso Miller DO Departed Emergency [facility]Emergency Room ER January 05, 2020 4:17pm January 05, 2020 6:45pm null Departed Physician/Provider Office Visit [facility] January 10, 2020 12:33pm January 10, 2020 1:18pm Tirso Miller DO Departed Physician/Provider Office Visit [facility] February 14, 2020 12:37pm February 14, 2020 1:32pm Tirso Miller DO Registered Referred [facility]Laboratory March 04, 2020 12:56pm [facility] Departed Emergency [facility]Emergency Room ER March 08, 2020 12:04pm March 08, 2020 3:00pm null Departed Emergency [facility]Emergency Room ER March 17, 2020 10:49pm March 17, 2020 11:33pm null Recent Diagnosis Onset Date Asthma Asthma Asthma Dizziness Elevated glucose level Hypocalcemia Obesity Depression Abdominal muscle pain Depression Assessments Diagnosis Onset Date Res olution Status Asthma noneactive Asthma noneactive Asthma noneactive Dizziness acute Elevated glucose level acute Hypocalcemia acute Obesity chronic Depression chronic Abdominal muscle pain acute Depression chronic Family History Relationship Condition A ge at Onset Recorded Date/Time Not Specified Sleep apnea Unknown Diabetes mellitus Unkn own Cardiac disease Unknown Functional Status No Functional Status information available Goals Goals may be documented in an alternate section. Immunizations No Immunization Information Available Mental Status Observation Response Raymond e Recorded Impairments No impairments or barriers March 17, 2020 10:50pm Medical Equipment No Medical Equipment Information available Insurance Providers Guarantor TIRSO MATA Address [place] [address] Contact Info. Home Phone: Payer Policy Id Coverage Id Subscriber's Name Subscriber Id Effective Date Expiration Date MEDICARE [facility] [id number] TIRSO MATA [id number] [place]ID [place] [id number] TIRSO MATA [id number] [place] [facility] [id number] TIRSO MATA [id number] 2013 [place] [facility] 2[place] R [id number] TIRSO MATA [id number] MEDICAID [id number] TIRSO MATA [id number] MEDICARE [id number] TIRSO MATA [id number] Self Pay Self N/A Plan of Treatment [...] labs as ordered labs as ordered retrieve latter day records from recent psych hospitalization if condition [...] 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 Continue Symbicort and refer to pulmonology. Well [...] and signs Doing well. Continue counselling at [facility]. We will get the records from there for review. Recheck here 3 months, sooner as needed. Form filled out for [facility] program. Future Tests Future scheduled test information is unavailable Pending Tests Pending diagnostic test information is unavailable Future Visits Future appointment information is unavailable Referrals to Other Providers Reason for Referral Referral Start Date Provider Provider [place] [address] Information Provider Address Armen Dunlap MD Work Phone: [facility] [address] [place] [address] Gabriel Alcantara MD Email: [email or web address] Phone: [address] [address] Tirso Miller DO Email: [email or web address] Phone: [phone] [phone] Your follow up appointment has been made for MondayOctober [address] Camilla Sampson MD Work Phone: [phone] [place], [place] [phone] Future Procedures Future procedure information is unavailable Future Medications Future medication information is unavailable Patient Instructions Acute Abdominal Pain (DC) Gas and Bloating (GEN) Ventral Hernia Repair (DC) Earache (ED) Social History Smoking Status Status Date of Observation Never smoker March 17, 2020 11:5 6pm Observation Status Observation Response Raymond e of Response Smoking Status Never smoker March 17, 2020 11:56pm Alcohol Use No February 202019 11:56pm Substance Use No March 17, 2020 11:56pm Assigned Sex Male Vital Signs Vital Reading [...] 08, 2019 4:33pm Respiratory rate 16 /min -24 August 08, 2019 4:33pm Oxygen saturation by [...] 08, 2020 12:05pm Heart Rate 71 /min -100 March 08, 2020 12:05pm Respiratory rate 16 [...]
--- OUTSIDE RECORDS SUMMARY | 2020-06-04 18:18 | CCD ---
Author Rajendra Slaughter Organization Unknown Address [address] [place] [address] Phone Care Team Providers Care Bulk Pallet Builder Name Role Phone Willa Hernández PCP Allergies, Adverse Reactions, Alerts No Data in Section Problem List Concept Problem Description Status Start Date Created Date Resolv ed Date Snomed Code F33.1 Major Depressive Disorder, Recurrent episode, Moderate Active 03/31/2020 Medications Rx Norm Medication Route Route Concept Start Date Stop Date Dosage Ankit quency Duration Formula Strength Dosage Form Dosage Form Code Dosage Description Medication Id Account Npid Author First Name Author Last Name Taxonomy Code Taxonomy Desc Phone Number [phone] fluoxetine by mouth [id number] 03/18/2020 05/17/2020 once a day 30 40 mg capsule 18646 [id number] Amber Egorho [id number] Nurse Pr actitioner [phone] [id number] aripiprazole by mouth [id number] 03/18/2020 05/17/2020 once a day 30 5 mg tablet 47802 [id number] Amber Egorho [id number] Nurse Pra ctitioner [phone] Social History Social History Element Description Concept Effective Date Smoking Status Unknown if ever smoked [id number] Immunizations No Data in Section Vital Signs No Data in Section Procedures Date Concept Id Description Targeted Site Concept Targeted Site Concept Type 03/30/2020 30618 Extended Individual Psychotherapy - 45 min CPT Patient has no history of implantable de vices Encounters Encounter Start Date End Date Encounter Type Description Diagnosis Di agnosis Desc Location Author First Name Author Last Name Npid Taxonomy Cod e Taxonomy Desc Phone Number Location Addr1 Location Addr2 Location City Location Sta te Location Zip [address] 03/30/2020 03/30/2020 46562 Extended Individual Psych otherapy - 45 min F33.1 Major depressive disorder, recurrent, moderate Communi ty Clinic [facility] Edgar Crouch [id number] Med Aide [id number] [address] Plan of Treatment No Data in Section Lab Results No Data in Section Instructions No Data in Section Insurance Providers Insurance Id Policy Effective Date Policy Thru Date Company Kenneth trotter [id number] 2002 MEDICARE [id number] 2020 MEDICAID [id number] CRISIS
--- OUTSIDE RECORDS SUMMARY | 2020-06-04 18:18 | CCD ---
Author Author Rajendra Fernandez Amber Organization Unknown Address [address] [place] [address] Phone Care Team Providers Care Impact Hammer Operator Name Role Phone Amber Fernandez PCP Allergies, Adverse Reactions, Alerts No Data in Section Problem List Concept Problem Description Status Start Date Created Date Resolv ed Date Snomed Code F33.1 Major Depressive Disorder, Recurrent episode, Moderate Active 03/18/2020 Medications Rx Norm Medication Route Route Concept Start Date Stop Date Dosage Ankit quency Duration Formula Strength Dosage Form Dosage Form Code Dosage Description Medication Id Account Npid Author First Name Author Last Name Taxonomy Code Taxonomy Desc Phone Number [phone] Abilify by mouth [id number] 03/04/2020 03/18/2020 once a day 14 5 mg tablet 82990 [id number] Amber Fernandez [id number] Nurse Prac titioner [phone] [id number] fluoxetine by mouth [id number] 03/18/2020 05/17/2020 once a day 30 40 mg capsule 56212 [id number] Amber Fernandez [id number] Nurse Pr actitioner [phone] [id number] aripiprazole by mouth [id number] 03/18/2020 05/17/2020 once a day 30 5 mg tablet 06788 [id number] Amber Fernandez [id number] Nurse Pra ctitioner [phone] Social History Social History Element Description Concept Effective Date Smoking Status Unknown if ever smoked [id number] Immunizations No Data in Section Vital Signs Encounter Date Height Ins Weight Lbs Bmi Bp Systolic Bp Diastoli c Oxygen Saturation Respiration Rate Pulse Rate Body Temp Head Circumference Heigh t Lying 03/18/2020 0.00 0.00 0.00 0 0 0.00 0 0 0.00 0.0 0.0 0 Procedures Date Concept Id Description Targeted Site Concept Targeted Site Concept Type 03/18/2020 04104 E/M Level 3 - Established Patient CPT Patient has no history of implantable de vices Encounters Encounter Start Date End Date Encounter Type Description Diagnosis Di agnosis Desc Location Author First Name Author Last Name Npid Taxonomy Cod e Taxonomy Desc Phone Number Location Addr1 Location Addr2 Location [facility] Location Sta te Location [facility] [id number] 03/18/2020 03/18/2020 44997 E/M Level 3 - Established Pa tracee F33.1 Major depressive disorder, recurrent, moderate [facility] Rebecca Clark [id number] Nurse Practitioner [phone] [address] [place] [phone] Plan of Treatment No Data in Section Lab Results No Data in Section Instructions No Data in Section Functional Cognitive Status No Data in Section Insurance Providers Insurance Id Policy Effective Date Policy Thru Date Naomy Cooper ame [id number] 2002 MEDICARE [id number] 2020 MEDICAID [id number] CRISIS
--- OUTSIDE RECORDS SUMMARY | 2020-06-04 18:18 | CCD | Continuity of Care Document ---
Author Author [facility] Organization [facility] Address [address] [place] [address] Phone Support Name Relationship Address Phone Osvaldo Chito PRS [address] [place] [address] Santi Lottie PRS [address] [place] [address] of Carine, Medicine Occupation PRS [address] [place] [address] Unavailable Seth Leonardo PRS [address] [place] [address] Doctor Provided, Family No PRS Unknown Unava ilable Chito Riley PRS [facility] [place] [address] Seaelaine, A Flor PRS [address] [place] [address] Tirso Miller PRS [address] [place] [address] Dawit Sampson PRS [address] [place] [address] Jeane Solis PRS Unknown Unavailable Gabriel Alcantara PRS [address] [place] [address] Jeanmarie Arteaga PRS [address] [place] [address] Bryant Villalba PRS [address] [place] [address] Cedric Adam PRS [address] [place] [address] Riki Collins PRS [address] [place] [address] Keith Grant PRS [address] [place] [address] Allergies, Adverse Reactions, Alerts No known allergies. [...] 12:46pm Afluria Qd 2019-(3yr up)(PF) (flu vac [id number] 36mos up(PF)) Discontinued 0.5 ML IM 1 [...] January 05, 2020 3:52pm 7.0 10e3/uL 4.45-10.71 [facility], [address] [place] [address] 07738 Red Blood Count January 05, 2020 3:52pm 5.36 10e6/uL 4.3-6.1 [facility], [address] [place] [address] 74568 Hemoglobin January 05, 2020 3:52pm 15.7 g/dL 13-18 [facility], [address] [place] [address] 69923 Hematocrit January 05, 2020 3:52pm 45.3 % 42-52 [facility], [address] [place] [address] 98758 Mean Corpuscular Volume January 05, 2020 3:52pm 84.5 fl 80-96 [facility], [address] [place] [address] 55406 Mean Corpuscular Hemoglobin December 202019 3:52pm 29.3 pg 27-31 [facility], [address] [place] [address] 23699 Mean Corpuscular Hemoglobin Concent January 05, 2020 3:52pm 34.7 g/dl 33-37 [facility], [address] [place] [address] 29456 Red Cell Distribution Width December 202019 3:52pm 12 % 11-15 [facility], [address] [place] [address] 68330 Platelet Count January 05, 2020 3:52pm 293 10e3/ul 130-472 [facility], [address] [place] [address] 85465 Mean Platelet Volume January 04 3:52pm 9.1 fl 9.1-13.1 [facility], [address] [place] [address] 50085 Neutrophils (%) (Auto) January 05, 2020 3:52pm 70.9 % 41-77 [facility], [address] [place] [address] 08151 Absolute Neutrophil January 04 0 3:52pm 5.0 # 1.7-7.6 [facility], [address] [place] [address] 86976 Lymphocytes (%) (Auto) January 05, 2020 3:52pm 18.8 % 14-46 [facility], [address] [place] [address] 70307 Lymphocytes # (Auto) January 04 3:52pm 1.3 # 0.6-4.6 [facility], [address] [place] [address] 38819 Monocytes (%) (Auto) January 04 3:52pm 7.4 % 4-12 [facility], [address] [place] [address] 88873 Monocytes # January 05, 2020 3:52pm 0.5 # 0.2-1.2 [facility], [address] [place] [address] 87385 Eosinophils (%) (Auto) January 05, 2020 3:52pm 2.3 % 0-7 [facility], [address] [place] [address] 56220 Absolute Eosinophils (CBC) January 042019 3:52pm 0.2 # 0.0-0.5 [facility], [address] [place] [address] 63024 Basophils (%) (Auto) January 04 3:52pm 0.3 % 0.4-1.3 [facility], [address] [place] [address] Absolute Basophils (CBC) December 3:52pm 0.0 # 0.0-0.2 [facility], [address] [place] [address] 95262 Immature Granulocyte % (Auto) January 05, 2020 3:52pm 0.3 % 0-2 [facility], [address] [place] [address] Absolute Immature Granulocyte (auto January 05, 2020 3:52pm 0.0 # 0-0.1 [facility], [address] [place] [address] 29974 Add Manual Differential January 05, 2020 3:52pm No [facility], [address] [place], [place] [address] Blood Urea Nitrogen January 04 0 3:52pm 12 mg/dL 02-11 [facility], [address] [place], [place] [address] Blood Urea Nitrogen December 31 0 11:16am 21 mg/dL 02-11 [facility], [address] [place], [place] [address] Sodium Level January 05, 2020 3:52pm 138 mmol/L 132-146 [facility], [address] [place] [address] 17043 Sodium Level January 01, 2020 11:16am 142 mmol/L 132-146 [facility], [address] [place] [address] 93953 Potassium Level January 05, 2020 3:52pm 3.9 mmol/L 3.5-5.5 [facility], [address] [place] [address] 90260 Potassium Level January 01, 2020 11:16am 4.7 mmol/L 3.5-5.5 [facility], [address] [place] [address] 74079 Chloride Level January 05, 2020 3:52pm 108 mmol/l 99-109 [facility], [address] [place] [address] 71055 Chloride Level January 01, 2020 11:16am 111 mmol/l 99-109 [facility], [address] [place] [address] 91838 Carbon Dioxide Level January 04 3:52pm 25 mmol/l 20-31 [facility], [address] [place] [address] 06043 Carbon Dioxide Level December 31 11:16am 24 mmol/l 20-31 [facility], [address] [place] [address] 67170 Anion Gap January 05, 2020 3:52pm 9 mmol/l 8-16 [facility], [address] [place] [address] 08220 Anion Gap January 01, 2020 11:16am 12 mmol/l 8-16 [facility], [address] [place] [address] 69335 Glucose Level January 05, 2020 3:52pm 107 mg/dL 74-106 [facility], [address] [place] [address] 37802 Glucose Level January 01, 2020 11:16am 107 mg/dL 74-106 [facility], [address] [place] [address] 85815 Creatinine January 05, 2020 3:52pm 1.0 mg/dL 0.5-1.1 [facility], [address] [place] [address] 23165 Creatinine January 01, 2020 11:16am 1.2 mg/dL 0.5-1.1 [facility], [address] [place] [address] 83084 Glomerular Filtration Rate Calc Augu st 2019 3:52pm Greater than 60 ml/min ABOVE 60 [facility], [address] [place] [address] 96137 Glomerular Filtration Rate Calc Augu st 2019 11:16am Greater than 60 ml/min ABOVE 60 [facility], [address] [place] [address] 09782 Alanine Aminotransferase (ALT/SGPT) January 05, 2020 3:52pm 65 U/L 10-49 [facility], [address] [place] [address] Alanine Aminotransferase (ALT/SGPT) January 01, 2020 11:16am 66 U/L 10-49 [facility], [address] [place] [address] 37857 Aspartate Amino Transf (AST/SGOT) [facility] 2019 3:52pm 30 U/L 0-33 [facility], [address] [place] [address] 08214 Aspartate Amino Transf (AST/SGOT) [facility] 2019 11:16am 22 U/L 0-33 [facility], [address] [place] [address] 22014 Alkaline Phosphatase January 04 3:52pm 77 U/L 45-129 [facility], [address] [place] [address] 16364 Alkaline Phosphatase December 31 11:16am 77 U/L 45-129 [facility], [address] [place] [address] 16538 Calcium Level January 05, 2020 3:52pm 8.9 mg/dL 8.5-10.1 [facility], [address] [place] [address] 97310 Calcium Level January 01, 2020 11:16am 9.0 mg/dL 8.5-10.1 Delta: 8.0 on 10/02/19-524Repeated by: Tammy Griffiths 01/01/20 1339.Result Confirmation: 8.7 mg/dL [facility], [address] [place] [address] 29413 Total Bilirubin January 05, 2020 3:52pm 0.6 mg/dL 0.3-1.2 [facility], [address] [place] [address] 47627 Total Bilirubin January 01, 2020 11:16am 0.4 mg/dL 0.3-1.2 [facility], [address] [place] [address] 13143 Albumin January 05, 2020 3:52pm 3.7 g/dL 3.2-4.8 [facility], [address] [place] [address] Albumin January 01, 2020 11:16am 3.9 g/dL 3.2-4.8 [facility], [address] [place] [address] Serum Total Protein January 04 0 3:52pm 7.0 g/dL 5.7-8.2 [facility], [address] [place] [address] Serum Total Protein December 31 0 11:16am 7.0 g/dL 5.7-8.2 [facility], [address] [place] [address] Phosphorus Level January 01, 2020 11:16am 3.1 mg/dL 2.4-5.1 [facility], [address] [place] [address] Magnesium Level January 01, 2020 11:16am 2.4 mg/dL 1.3-2.7 [facility], [address] [place] [address] Troponin I January 05, 2020 3:52pm Less than 0.015 ng/mL 0.00-0.09 Less than 0.09 NG/ML Negative0.10 - 0.77 NG/ML High Risk0.78 NG/ML or Greater Positive The WHO defined the cutoff (definition for diagnosis of NE)for this method as 0.78 ng/ml. [facility], [address] [place] [address] Thyroid Stimulating Hormone (TSH) Au 2019 11:16am 1.04 uIU/mL 0.35-5.50 [facility], [address] [place] [address] Hemoglobin A1c January 01, 2020 11:16am 6.1 [...] glucose control. * High risk of developing computer terminal operator complications such asretinopathy, nephropathy, neuropathy, cardiopathy, etc. Some danger of hypoglycemic reaction in Type I diabetics.Some glucose intolerant individuals and "Sub Clinical"diabetics may demonstrate HGBA1C levels in this area. [facility], [address] [place] [address] 81914 Estimated Average Glucose (eAG) 2019 11:16am 128 mg/dl An A1C of 7% - the goal of diabetic ther apy - is equivalentto an EAG of 154 mg/dl. [facility], [address] [place] [address] Microbiology Results Procedure Source Result Collection Date/Time Result Date/Time Result Comment Performing Site Streptococcus Rapid Screen Throat July 12, 2019 12:05pm July 13, 2019 9:35am [facility], [address] [place] [address] Diagnostic Imaging Reports Report Dictated Date/Time Dictated By Status Radiology Report September 27, 2019 10:48am Jalen Diamond MD completed [address] [place] [address] [phone] NAME SEX PT STATUS ACCOUNT NUMBER Tirso Mata REG REF [id number] ORDERING PHYSICIAN LOCATION MEDICAL RECORD NO. [facility] [id number] ATTENDING PHYSICIAN DATE OF DATE OF EXAM/TIME [...] Trans Dt/Tm: Trans by: DT Prt Dt/Tm: [id number]: Total DLP = 0.00 mGy-cm Fluoroscopy Time (in secs): Radiology Report January 05, 2020 6:33pm Luigi Gordon MD completed [place] [id number] [place] [address] [phone] NAME SEX PT STATUS ACCOUNT NUMBER TIRSO MATA [facility] ER [id number] ORDERING PHYSICIAN LOCATION MEDICAL RECORD [id number]ENDING PHYSICIAN DATE OF DATE OF EXAM/TIME [...] 08, 2020 2:53pm [place] [address] [phone] NAME SEX PT STATUS ACCOUNT NUMBER TIRSO MATA [facility] ER [id number] ORDERING PHYSICIAN LOCATION MEDICAL RECORD NO. Cedric Adam MD ER [id number] ATTENDING PHYSICIAN DATE OF DATE OF EXAM/TIME [...] Trans Dt/Tm: Trans by: DT Prt Dt/Tm: [id number]: Total DLP = 0.00 mGy-cm Fluoroscopy Time (in secs): Health Concerns Health Concerns may be documented in an alternate section. Advance Directives Advance Directive Response Recorded Date/Time Advanced Directive No No [email or web address] 9:02pm MOLST No March 31, 2020 11:45am Advance Directives on File or in chart? No March 31, 2020 11:45am Does Patient have a DNR? No April 01, 2020 9:02pm Healthcare Proxy No Kiran carlrandell 2019 9:02pm Living Will No March 31, 2020 11:45am [...] Complaint PAIN IN RIGHT ARM AND NECK Reason for Visit Asthma Asthma Asthma Dizziness Obesity Depression Depression Asthma Encounters Encounter Location(s) Ar rival/Admit Date Discharge/Depart Date Provider(s) Departed Physician/Provider Office Visit -[facility] April 04, 2019 1:46pm April 04, 2019 2:45pm Lottie Hancock Registered Referred -Occupational Medicine April 04, 2019 2:00pm Medicine of Occupational [facility] Departed Physician/Provider Office Visit -[facility] April 25, 2019 9:12am April 25, 2019 10:56am Chito Riley MD Departed Physician/Provider Office Visit -[facility] July 12, 2019 11:03am July 12, 2019 12:57pm Seth Leonardo DO Registered Referred -Lab Drop Off July 12, 2019 12:05pm Fay Nuno Departed Physician/Provider Office Visit -[facility] July 26, 2019 1:34pm July 26, 2019 2:34pm Chito Riley MD Departed Physician/Provider Office Visit -[facility] August 08, 2019 2:50pm August 08, 2019 3:58pm Chito Riley MD Departed Physician/Provider Office Visit -[facility] August 29, 2019 1:15pm August 29, 2019 2:06pm Chito Riley MD Departed Physician/Provider Office Visit -[facility] September 27, 2019 8:42am September 27, 2019 9:35am Chito Riley MD Registered Referred -Radiology September 27, 2019 9:33am PAULO RAY Registered Outpatient -[facility] Surgery October 02, 2019 2:26am Dawit Sampson MD Registered Outpatient -[facility] Surgery October 03, 2019 6:42am October 04, 2019 7:30am Dawit Sampson MD Registered Outpatient -[facility] October 07, 2019 1:34pm Jeane Solis RN Departed Physician/Provider Office Visit -[facility] October 11, 2019 11:39am October 11, 2019 11:49am Gabriel Alcantara MD Departed Physician/Provider Office Visit -[facility] January 01, 2020 9:32am January 01, 2020 12:12pm Tirso Miller DO Registered Referred -Laboratory January 01, 2020 11:05am Tirso Miller DO Departed Emergency -Emergency Room ER January 05, 2020 3:17pm January 05, 2020 5:45pm null Departed Physician/Provider Office [facility] -[facility] January 10, 2020 11:33am January 10, 2020 12:18pm Tirso Miller DO Departed Physician/Provider Office [facility] February 14, 2020 11:37am February 14, 2020 12:32pm Tirso Miller DO Registered Outpatient -[facility] March 04, 2020 11:56am Tirso Miller DO Departed Emergency -Emergency Room ER March 08, 2020 11:04am March 08, 2020 2:00pm null Departed Emergency -Emergency Room ER March 17, 2020 9:49pm March 17, 2020 10:33pm null Registered Clinical -Nutrition March 20, 2020 11:43am Tirso Miller DO Departed Physician/Provider Office Visit -[facility] March 31, 2020 10:22am March 31, 2020 11:47am Tirso Miller DO Departed Emergency -Emergency Room ER April 01, 2020 8:39pm April 01, 2020 9:32pm null Recent Diagnosis Onset Date Asthma Asthma [...] Event Date Not Given Reason Dose Number Blindstitch Hemmer Lot Number Vaccine Information Statement (VIS) Deta il influenza vaccine, inactivated Novem 2019 [id number] pneumococcal polysaccharide PPV23 vaccine March 31, 2020 [id number] Mental Status Observation Response Raymond e Recorded Impairments Visual Novem 2019 8:41pm Medical Equipment No Medical Equipment Information available Insurance Providers Guarantor TIRSO MATA Address [address] [place] [address] Contact Info. Home Phone: Payer Policy Id Coverage Id Subscriber's Name Subscriber Id Effective Date Expiration Date MEDICARE [employer] [id number] TIRSO MATA [id number] [place] [id number] TIRSO MATA [id number] [place] [facility] [id number] TIRSO MATA [id number] [place] [facility] R [id number] TIRSO MATA [id number] MEDICAID [id number] TIRSO MATA [id number] MEDICARE [id number] TIRSO MATA [id number] Self Pay Self N/A Plan of Treatment [...] labs as ordered labs as ordered retrieve 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 Continue Symbicort and refer to pulmonology. [...] and signs Doing well. Continue counselling at [facility]. We will get the records from there for review. Recheck here 3 months, sooner as needed. Form filled out for [facility] apartment program. Future Tests Future scheduled test information is unavailable Pending Tests Pending diagnostic test information is unavailable Future Visits Future appointment information is unavailable Referrals to Other Providers Reason for Referral Referral Start Date Provider Provider Conta ct Information Provider Address Tirso Miller DO Email: [email or web address] Phone: [phone] [facility] [address] Armen Dunlap MD Work Phone: [facility] [address] [facility] [address] Gabriel Alcantara MD Email: [email or web address] Phone: [address] [address] Tirso Miller DO Email: [email or web address] Phone: [phone] [facility] [address] Your follow up appointment has been made for MondayOctober [address] Camilla Sampson MD Work Phone: [address] [place] [address] Future Procedures Future procedure information is unavailable Future Medications Future medication information is unavailable Patient Instructions Acute Abdominal Pain (DC) Gas and Bloating (GEN) Ventral Hernia Repair (DC) Earache (ED) Contusion in Adults (ED) Social History Smoking Status Status Date of Observation Never smoker April 01, 2020 9:1 6pm Observation Status Observation Response Raymond e of Response Smoking Status Never smoker April 01, 2020 9:16pm Alcohol Use No April 01, 2020 9:16pm Substance Use No Novembe 2019 9:16pm Assigned Sex Male Vital Signs Vital Reading [...] 2020 8:41pm Heart Rate 106 /min 60-1 00 April 01, 2020 8:41pm Respiratory rate 20 /min 12-24 April 01, 2020 8:41pm Oxygen saturation by Pulse oximetry 96 % 95- 100 April 01, 2020 8:41pm BP Systolic 147 mm[Hg] April 01, 2020 8:41pm BP Diastolic 97 mm[Hg] April 01, 2020 8:41pm
--- OUTSIDE RECORDS SUMMARY | 2020-06-04 18:19 | CCD | Continuity of Care Document ---
Author Author [facility] Address [address] [place] [address] Phone Support Name Relationship Address Phone Osvaldo Chito PRS [address] [place] [address] JairCedric PRS [address] [place] [address] SantiLottie PRS [address] [place] [address] of Carine, Medicine Occupation PRS [address] [place] [address] Unavailable Seth Leonardo PRS [address] [place] [address] Doctor Provided, Family No PRS Unknown Unava ilable Chito Riley PRS [facility] [place] [address] Darryl Stoll [place] [address] [place] [address] Tirso Miller PRS [address] [place] [address] Dawit Sampson PRS [address] [place] [address] Jeane Solis PRS Unknown Unavailable Gabriel Alcantara PRS [address] [place] [address] Jeanmarie Arteaga PRS [address] [place] [address] Bryant Villalba PRS [address] [place] [address] Jaylan Fernandez PRS [address] [place] [address] Allergies, Adverse Reactions, Alerts No known allergies. [...] Day [place] Meals 10 03February 24, 2019 12:26pm March [...] Every 4 hours February 10, 2015 2:59pm [facility] 2016 8:58am Oxcarbazepine Discontinued 600 MG PO 2 [...] 04, 2020 1:30p m 6.1 10e3/uL 4.45-10.71 [facility], [address] [place] [address] 08514 White Blood Count January 05, 2020 4:52pm 7.0 10e3/uL 4.45-10.71 [facility], [address] [place] [address] 38721 White Blood Count March 16, 2019 1:10p m 6.0 10e3/uL 4.45-10.71 [facility], [address] [place] [address] 08536 Red Blood Count March 04, 2020 1:30pm 5.55 10e6/uL 4.3-6.1 [facility], [address] [place] [address] Red Blood Count January 05, 2020 4:52pm 5.36 10e6/uL 4.3-6.1 [facility], [address] [place] [address] Red Blood Count March 16, 2019 1:10pm 5.43 10e6/uL 4.3-6.1 [facility], [address] [place] [address] 35796 Hemoglobin March 04, 2020 1:30pm 16.1 g/dL [facility], [address] [place] [address] Hemoglobin January 05, 2020 4:52pm 15.7 g/dL [facility], [address] [place] [address] Hemoglobin March 16, 2019 1:10pm 15.9 g/dL [facility], [address] [place] [address] Hematocrit March 04, 2020 1:30pm 48.6 % 42-52 [facility], [address] [place] [address] 47696 Hematocrit January 05, 2020 4:52pm 45.3 % 42-52 [facility], [address] [place] [address] Hematocrit March 16, 2019 1:10pm 46.6 % 42-52 [facility], [address] [place] [address] 42463 Mean Corpuscular Volume February 1:30pm 87.6 fl 80-96 [facility], [address] [place] [address] Mean Corpuscular Volume January 05, 2020 4:52pm 84.5 fl 80-96 [facility], [address] [place] [address] 89472 Mean Corpuscular Volume February 1:10pm 85.8 fl 80-96 [facility], [address] [place] [address] 83188 Mean Corpuscular Hemoglobin March 04, 2020 1:30pm 29.0 pg 27-31 [facility], [address] [place] [address] 19558 Mean Corpuscular Hemoglobin December 202019 4:52pm 29.3 pg 27-31 [facility], [address] [place] [address] 54675 Mean Corpuscular Hemoglobin March 16, 2019 1:10pm 29.3 pg 27-31 [facility], [address] [place] [address] 02100 Mean Corpuscular Hemoglobin Concent March 04, 2020 1:30pm 33.1 g/dl [address] [facility], [address] [place] [address] 89485 Mean Corpuscular Hemoglobin Concent January 05, 2020 4:52pm 34.7 g/dl [address] [facility], [address] [place] [address] 27948 Mean Corpuscular Hemoglobin Concent March 16, 2019 1:10pm 34.1 g/dl [address] [place] [address] LABORATORY, [address] [place] [address] Red Cell Distribution Width March 04, 2020 1:30pm 13 % 11-15 [facility], [address] [place] [address] 25114 Red Cell Distribution Width December 202019 4:52pm 12 % 11-15 [facility], [address] [place] [address] 64053 Red Cell Distribution Width March 16, 2019 1:10pm 12 % 11-15 [facility], [address] [place] [address] 54239 Platelet Count March 04, 2020 1:30pm 312 10e3/ul 130-472 [facility], [address] [place] [address] 01404 Platelet Count January 05, 2020 4:52pm 293 10e3/ul 130-472 [facility], [address] [place] [address] 48735 Platelet Count March 16, 2019 1:10pm 294 10e3/ul 130-472 [facility], [address] [place] [address] 32138 Mean Platelet Volume March 04 020 1:30pm 9.5 fl 9.1-13.1 [facility], [address] [place] [address] 41661 Mean Platelet Volume January 04 20 4:52pm 9.1 fl 9.1-13.1 [facility], [address] [place] [address] 97227 Mean Platelet Volume March 16 019 1:10pm 9.1 fl 9.1-13.1 [facility], [address] [place] [address] 83351 Neutrophils (%) (Auto) March 04, 2020 1:30pm 64.0 % [address] [facility], [address] [place] [address] 30113 Neutrophils (%) (Auto) January 05, 2020 4:52pm 70.9 % [address] [facility], [address] [place] [address] 16408 Neutrophils (%) (Auto) March 16, 2019 1:10pm 64.4 % [address] [facility], [address] [place] [address] 04442 Absolute Neutrophil March 04 1:30pm 3.9 # 1.7-7.6 [facility], [address] [place] [address] 08637 Absolute Neutrophil January 04 4:52pm 5.0 # 1.7-7.6 [facility], [address] [place] [address] 94244 Absolute Neutrophil March 16 1:10pm 3.9 # 1.7-7.6 [facility], [address] [place] [address] 78057 Lymphocytes (%) (Auto) March 04, 2020 1:30pm 26.2 % 14-46 [facility], [address] [place] [address] 35456 Lymphocytes (%) (Auto) January 05, 2020 4:52pm 18.8 % 14-46 [facility], [address] [place] [address] 47957 Lymphocytes (%) (Auto) March 16, 2019 1:10pm 22.9 % 14-46 [facility], [address] [place] [address] 30379 Lymphocytes # (Auto) March 04 1:30pm 1.6 # 0.6-4.6 [facility], [address] [place] [address] 88051 Lymphocytes # (Auto) January 04 4:52pm 1.3 # 0.6-4.6 [facility], [address] [place] [address] 23373 Lymphocytes # (Auto) March 16 019 1:10pm 1.4 # 0.6-4.6 [facility], [address] [place] [address] 85481 Monocytes (%) (Auto) March 04, 020 1:30pm 6.3 % 4-12 [facility], [address] [place] [address] 23730 Monocytes (%) (Auto) January 04 4:52pm 7.4 % 4-12 [facility], [address] [place] [address] 30515 Monocytes (%) (Auto) March 16 1:10pm 8.7 % 4-12 [facility], [address] [place] [address] 39384 Monocytes # March 04, 2020 1:30pm 0.4 # 0.2-1.2 [facility], [address] [place] [address] 74893 Monocytes # January 05, 2020 4:52pm 0.5 # 0.2-1.2 [facility], [address] [place] [address] 48527 Monocytes # March 16, 2019 1:10pm 0.5 # 0.2-1.2 [facility], [address] [place] [address] 22307 Eosinophils (%) (Auto) March 04, 2020 1:30pm 2.8 % 0-7 [facility], [address] [place] [address] 39004 Eosinophils (%) (Auto) January 05, 2020 4:52pm 2.3 % 0-7 [facility], [address] [place] [address] 98254 Eosinophils (%) (Auto) March 16, 2019 1:10pm 3.5 % 0-7 [facility], [address] [place] [address] 59500 Absolute Eosinophils (CBC) February 192019 1:30pm 0.2 # 0.0-0.5 [facility], [address] [place] [address] 06179 Absolute Eosinophils (CBC) January 042019 4:52pm 0.2 # 0.0-0.5 [facility], [address] [place] [address] 56244 Absolute Eosinophils (CBC) February 202018 1:10pm 0.2 # 0.0-0.5 [facility], [address] [place] [address] 99459 Basophils (%) (Auto) March 04 1:30pm 0.5 % 0.4-1.3 [facility], [address] [place] [address] 92707 Basophils (%) (Auto) January 04 4:52pm 0.3 % 0.4-1.3 [facility], [address] [place] [address] 72820 Basophils (%) (Auto) March 16 1:10pm 0.3 % 0.4-1.3 [facility], [address] [place] [address] 52480 Absolute Basophils (CBC) February 1:30pm 0.0 # 0.0-0.2 [facility], [address] [place] [address] Absolute Basophils (CBC) December 4:52pm 0.0 # 0.0-0.2 [facility], [address] [place] [address] 16718 Absolute Basophils (CBC) February 1:10pm 0.0 # 0.0-0.2 [facility], [address] [place] [address] 25362 Immature Granulocyte % (Auto) Octobe r 2019 1:30pm 0.2 % 0-2 [facility], [address] [place] [address] 94699 Immature Granulocyte % (Auto) January 05, 2020 4:52pm 0.3 % 0-2 [facility], [address] [place] [address] 21454 Immature Granulocyte % (Auto) Octobe r 2018 1:10pm 0.2 % 0-2 [facility], [address] [place] [address] 85067 Absolute Immature Granulocyte (auto March 04, 2020 1:30pm 0.0 # 0-0.1 [facility], [address] [place] [address] 63057 Absolute Immature Granulocyte (auto January 05, 2020 4:52pm 0.0 # 0-0.1 [facility], [address] [place] [address] 64785 Absolute Immature Granulocyte (auto March 16, 2019 1:10pm 0.0 # 0-0.1 [facility], [address] [place] [address] 88253 Add Manual Differential February 1:30pm No [facility], [address] [place] [address] 86921 Add Manual Differential January 05, 2020 4:52pm No [facility], [address] [place] [address] 39228 Add Manual Differential February 1:10pm No [facility], [address] [place] [address] 72911 Blood Urea Nitrogen March 04 1:30pm 13 mg/dL 02-11 [facility], [address] [place] [address] 77266 Blood Urea Nitrogen January 04 4:52pm 12 mg/dL 02-11 [facility], [address] [place] [address] Blood Urea Nitrogen December 31 12:16pm 21 mg/dL 02-11 [facility], [address] [place] [address] Blood Urea Nitrogen March 16 1:10pm 16 mg/dL 02-11 [facility], [address] [place] [address] 28814 Sodium Level March 04, 2020 1:30pm 139 mmol/L 132-146 [facility], [address] [place] [address] 14669 Sodium Level January 05, 2020 4:52pm 138 mmol/L 132-146 [facility], [address] [place] [address] 28607 Sodium Level January 01, 2020 12:16pm 142 mmol/L 132-146 [facility], [address] [place] [address] 43105 Sodium Level March 16, 2019 1:10pm 139 mmol/L 132-146 [facility], [address] [place] [address] 45270 Potassium Level March 04, 2020 1:30pm 4.1 mmol/L 3.5-5.5 [facility], [address] [place] [address] 58235 Potassium Level January 05, 2020 4:52pm 3.9 mmol/L 3.5-5.5 [facility], [address] [place] [address] 43938 Potassium Level January 01, 2020 12:16pm 4.7 mmol/L 3.5-5.5 [facility], [address] [place] [address] 37248 Potassium Level March 16, 2019 1:10pm 4.3 mmol/L 3.5-5.5 [facility], [address] [place] [address] 29161 Chloride Level March 04, 2020 1:30pm 103 mmol/l 99-109 [facility], [address] [place] [address] 24869 Chloride Level January 05, 2020 4:52pm 108 mmol/l 99-109 [facility], [address] [place] [address] 01877 Chloride Level January 01, 2020 12:16pm 111 mmol/l 99-109 [facility], [address] [place] [address] 47758 Chloride Level March 16, 2019 1:10pm 108 mmol/l 99-109 [facility], [address] [place] [address] 21593 Carbon Dioxide Level March 04 020 1:30pm 29 mmol/l 20-31 [facility], [address] [place] [address] 39880 Carbon Dioxide Level January 04 4:52pm 25 mmol/l -31 [facility], [address] [place] [address] 34951 Carbon Dioxide Level December 31 12:16pm 24 mmol/l -31 [facility], [address] [place] [address] 58153 Carbon Dioxide Level March 16 019 1:10pm 27 mmol/l - [facility], [address] [place] [address] 58947 Anion Gap March 04, 2020 1:30pm 11 mmol/l 8-16 [facility], [address] [place] [address] 13924 Anion Gap January 05, 2020 4:52pm 9 mmol/l 8-16 [facility], [address] [place] [address] 84610 Anion Gap January 01, 2020 12:16pm 12 mmol/l 8-16 [facility], [address] [place] [address] 91043 Anion Gap March 16, 2019 1:10pm 8 mmol/l 8-16 [facility], [address] [place] [address] 21804 Glucose Level March 04, 2020 1:30pm 95 mg/dL 74-106 [facility], [address] [place] [address] 63891 Glucose Level January 05, 2020 4:52pm 107 mg/dL 74-106 [facility], [address] [place] [address] 61784 Glucose Level January 01, 2020 12:16pm 107 mg/dL 74-106 [facility], [address] [place] [address] 74619 Glucose Level March 16, 2019 1:10pm 100 mg/dL 74-106 [facility], [address] [place] [address] 92673 Creatinine March 04, 2020 1:30pm 1.0 mg/dL 0.5-1.1 [facility], [address] [place] [address] 72332 Creatinine January 05, 2020 4:52pm 1.0 mg/dL 0.5-1.1 [facility], [address] [place] [address] 25584 Creatinine January 01, 2020 12:16pm 1.2 mg/dL 0.5-1.1 [facility], [address] [place] [address] Creatinine March 16, 2019 1:10pm 1.0 mg/dL 0.5-1.1 [facility], [address] [place] [address] 48591 Glomerular Filtration Rate Calc Octo phuc 2019 1:30pm Greater than 60 ml/min ABOVE 60 [facility], [address] [place] [address] Glomerular Filtration Rate Calc Augu st 2019 4:52pm Greater than 60 ml/min ABOVE 60 [facility], [address] [place] [address] Glomerular Filtration Rate Calc Augu st 2019 12:16pm Greater than 60 ml/min ABOVE 60 [facility], [address] [place] [address] Glomerular Filtration Rate Calc Octo phuc 2018 1:10pm Greater than 60 ml/min ABOVE 60 [facility], [address] [place] [address] 15066 Alanine Aminotransferase (ALT/SGPT) March 04, 2020 1:30pm 65 U/L 10-49 [facility], [address] [place] [address] Alanine Aminotransferase (ALT/SGPT) January 05, 2020 4:52pm 65 U/L 10-49 [facility], [address] [place] [address] Alanine Aminotransferase (ALT/SGPT) January 01, 2020 12:16pm 66 U/L 10-49 [facility], [address] [place] [address] Alanine Aminotransferase (ALT/SGPT) March 16, 2019 1:10pm 51 U/L 10-49 [facility], [address] [place] [address] 34680 Aspartate Amino Transf (AST/SGOT) Oc tober 2019 1:30pm 27 U/L 0-33 [facility], [address] [place] [address] Aspartate Amino Transf (AST/SGOT) Au abraham 2019 4:52pm 30 U/L 0-33 [facility], [address] [place] [address] Aspartate Amino Transf (AST/SGOT) Au abraham 2019 12:16pm 22 U/L 0-33 [facility], [address] [place] [address] 92599 Aspartate Amino Transf (AST/SGOT) Oc tober 2018 1:10pm 24 U/L 0-33 [facility], [address] [place] [address] Alkaline Phosphatase March 04 1:30pm 75 U/L 45-129 [facility], [address] [place] [address] Alkaline Phosphatase January 04 4:52pm 77 U/L 45-129 [facility], [address] [place] [address] Alkaline Phosphatase December 31 12:16pm 77 U/L 45-129 [facility], [address] [place] [address] Alkaline Phosphatase March 16 1:10pm 86 U/L 45-129 [facility], [address] [place] [address] Calcium Level March 04, 2020 1:30pm 9.2 mg/dL 8.5-10.1 [facility], [address] [place] [address] Calcium Level January 05, 2020 4:52pm 8.9 mg/dL 8.5-10.1 [facility], [address] [place] [address] 53050 Calcium Level January 01, 2020 12:16pm 9.0 mg/dL 8.5-10.1 Delta: 8.0 on 10/02/19-524Repeated by: Tammy Griffiths 01/01/20 1339.Result Confirmation: 8.7 mg/dL [facility], [address] [place] [address] 43464 Calcium Level March 16, 2019 1:10pm 8.9 mg/dL 8.5-10.1 [facility], [address] [place] [address] 14775 Total Bilirubin March 04, 2020 1:30pm 0.8 mg/dL 0.3-1.2 [facility], [address] [place] [address] Total Bilirubin January 05, 2020 4:52pm 0.6 mg/dL 0.3-1.2 [facility], [address] [place] [address] 37023 Total Bilirubin January 01, 2020 12:16pm 0.4 mg/dL 0.3-1.2 [facility], [address] [place] [address] 35939 Total Bilirubin March 16, 2019 1:10pm 0.4 mg/dL 0.3-1.2 [facility], [address] [place] [address] 25970 Albumin March 04, 2020 1:30pm 4.1 g/dL 3.2-4.8 [facility], [address] [place] [address] Albumin January 05, 2020 4:52pm 3.7 g/dL 3.2-4.8 [facility], [address] [place] [address] 91729 Albumin January 01, 2020 12:16pm 3.9 g/dL 3.2-4.8 [facility], [address] [place] [address] 88492 Albumin March 16, 2019 1:10pm 3.7 g/dL 3.2-4.8 [facility], [address] [place] [address] 10178 Serum Total Protein March 04 1:30pm 7.4 g/dL 5.7-8.2 [facility], [address] [place] [address] 98898 Serum Total Protein January 04 0 4:52pm 7.0 g/dL 5.7-8.2 [facility], [address] [place] [address] 78408 Serum Total Protein December 31 0 12:16pm 7.0 g/dL 5.7-8.2 [facility], [address] [place] [address] 34768 Serum Total Protein March 16 1:10pm 7.1 g/dL 5.7-8.2 [facility], [address] [place] [address] 13629 Phosphorus Level January 01, 2020 12:16pm 3.1 mg/dL 2.4-5.1 [facility], [address] [place] [address] 44526 Triglycerides Level March 04 4:04pm 97 mg/dL 0-150 [facility], [address] [place] [address] 62325 Cholesterol Level March 04, 2020 4:04p m 136 mg/dL 120-200 [facility], [address] [place] [address] 03957 HDL Cholesterol March 04, 2020 4:04pm 51 mg/dL HDL Less than 40 mg/dL: Major risk for CHDHDL Greater than 59 mg/dL: Low risk for CHD [facility], [address] [place] [address] LDL Cholesterol, Calculated March 04, 2020 4:04pm 66 mg/dL 0-100 [facility], [address] [place] [address] Magnesium Level January 01, 2020 12:16pm 2.4 mg/dL 1.3-2.7 [facility], [address] [place] [address] Troponin I January 05, 2020 4:52pm Less than 0.015 ng/mL 0.00-0.09 Less than 0.09 NG/ML Negative0.10 - 0.77 NG/ML High Risk0.78 NG/ML or Greater Positive The WHO defined the cutoff (definition for diagnosis of [place])for this method as 0.78 ng/ml. [facility], [address] [place] [address] Thyroid Stimulating Hormone (TSH) Oc [facility] 2019 1:30pm 1.72 uIU/mL 0.35-5.50 [facility], [address] [place] [address] Thyroid Stimulating Hormone (TSH) Au [facility] 2019 12:16pm 1.04 uIU/mL 0.35-5.50 [facility], [address] [place] [address] Total Triiodothyronine March 04, 2020 1:30pm 113 ng/dL THIS TEST WAS PERFORMED AT:[address] [id number] MERATI,MD [facility] Cancelled Test March 04, 2020 1:23pm Hgba1c,lipid,vitd25 [facility], [address] [place] [address] Specimen Comment (Misc) February 1:23pm Not covered by [facility] signed Test(s) that were ordered on this requis iton were not collected. [facility], [address] [place] [address] Vitamin D 25-Hydroxy March 04 4:04pm 36 ng/mL Vitamin D Status 25-OH Vitamin D:Deficiency: <20 ng/mLInsufficiency: 20 - 29 ng/mLOptimal: > or = 30 ng/mLFor 25-OH Vitamin D testing on patients onD2-supplementation and patients for whom quantitationof D2 and D3 fractions is required, the [facility]()25- [place] VIT D, (D2,D3), LC/MS/MS is recommended: ordercode [id number] (patients >2yrs).See Note 1Note 1For additional information, please refer [email or web address].Carsquare/faq/NTF670(This link is being provided for informational/educational purposes only.)THIS TEST WAS PERFORMED AT:[address] [id number] TOURE MD [facility] Thyroxine (T4) March 04, 2020 1:30pm 6.3 mcg/dL THIS TEST WAS PERFORMED AT:[address] [id number] MERATI,MD [facility] Hemoglobin A1c March 04, 2020 1:30pm [...] glucose control. 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 Some danger of hypoglycemic reaction in Type I diabetics.Some glucose intolerant individuals and "Sub Clinical"diabetics may demonstrate HGBA1C levels in this area. [facility], [address] [place] [address] Hemoglobin A1c January 01, 2020 12:16pm 6.1 [...] glucose control. 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 Some danger of hypoglycemic reaction in Type I diabetics.Some glucose intolerant individuals and "Sub Clinical"diabetics may demonstrate HGBA1C levels in this area. [facility], [address] [place] [id number] Estimated Average Glucose (eAG) 2019 1:30pm 128 mg/dl An A1C of 7% - the goal of diabetic ther apy - is equivalentto an EAG of 154 mg/dl. [facility], [address] [place] [id number] Estimated Average Glucose (eAG) 2019 12:16pm 128 mg/dl An A1C of 7% - the goal of diabetic ther apy - is equivalentto an EAG of 154 mg/dl. [facility], [address] [place] [id number] Microbiology Results Procedure Source Result Collection Date/Time Result Date/Time Result Comment Performing Site Streptococcus Rapid Screen Throat July 12, 2019 12:05pm July 13, 2019 9:35am [facility], [address] [place] [address] Diagnostic Imaging Reports Report Dictated Date/Time Dictated By Status Radiology Report September 27, 2019 10:48am Jalen Diamond MD completed [place] [id number] [address] [place] [id number] [phone] NAME SEX PT STATUS ACCOUNT NUMBER Tirso Mata REG REF [id number] ORDERING PHYSICIAN LOCATION MEDICAL RECORD NO. FLOR PORTILLO [id number] ATTENDING PHYSICIAN DATE OF DATE OF EXAM/TIME [...] Trans Dt/Tm: Trans by: DT Prt Dt/Tm: 7683-5703: Total DLP = 0.00 mGy-cm Fluoroscopy Time (in secs): Radiology Report January 05, 2020 6:33pm Luigi Gordon MD completed [facility] [address] [place] [address] [phone] NAME SEX PT STATUS ACCOUNT NUMBER TIRSO MATA [facility] ER [id number] ORDERING PHYSICIAN LOCATION [id number] ATTENDING PHYSICIAN DATE OF DATE OF EXAM/TIME [...] 37.6500 mSv Lifetime Dose: 37.6500 mS v Health Concerns Health Concerns may be documented in an alternate section. Advance Directives Advance Directive Response Recorded Date/Time Advanced Directive No 2019 1:51pm MOLST No October 02, 2019 3:40am Advance Directives on File or in chart? No October 02, 2019 3:45am Does Patient have a DNR? No March 08, 2020 1:51pm Healthcare Proxy No Febo 2019 1:51pm Living Will No July 10:37am Chief Complaint and Reason for Visit Chief Complaint WEAK,DIZZY Occ Med physical FD PHYS Office visit Sore Throat J02.9 Asthma follow-up Respiratory complaints Asthma Asthma DYSPNEA Hernia Hernia Amb Documentation Post Op Incision check Medicare Annual Wellness subsequent E83.51,R73.09,E53.81,R53.83 CHEST TIGHTNESS, SIDE PAIN Depression follow-up Depression follow-up MDD SIDE PAIN Reason for Visit Asthma Asthma Asthma Dizziness Elevated glucose level Hypocalcemia Obesity Depression Abdominal muscle pain Depression Encounters Encounter Location(s) Ar rival/Admit Date Discharge/Depart Date Provider(s) Departed Emergency [facility] ER March 16, 2019 12:07pm March 16, 2019 2:15pm null Departed Physician/Provider Office Visit [facility] April 04, 2019 2:46pm April 04, 2019 3:45pm Lottie Hancock Registered Referred [facility]-Occupational Medicine April 04, 2019 3:00pm [facility] Departed Physician/Provider Office Visit [facility] April 25, 2019 10:12am April 25, 2019 11:56am Chito Riley MD Departed Physician/Provider Office Visit [facility] July 12, 2019 12:03pm July 12, 2019 1:57pm Seth Leonardo DO Registered Referred [facility]-Lab Drop Off July 12, 2019 1:05pm Seth Leonardo DO Departed Physician/Provider Office Visit [facility] July 26, 2019 2:34pm July 26, 2019 3:34pm Chito Riley MD Departed Physician/Provider Office Visit [facility] August 08, 2019 3:50pm August 08, 2019 4:58pm Chito Riley MD Departed Physician/Provider Office Visit [facility] August 29, 2019 2:15pm August 29, 2019 3:06pm Chito Riley MD Departed Physician/Provider Office Visit [facility] September 27, 2019 9:42am September 27, 2019 10:35am Chito Riley MD Registered Referred [facility]-Radiology September 27, 2019 10:33am PAULO RAY Registered Outpatient [facility] Surgery October 02, 2019 3:26am Dawit Sampson MD Registered Outpatient [facility] Surgery October 03, 2019 7:42am October 04, 2019 8:30am Dawit Sampson MD Registered Outpatient [facility] October 07, 2019 2:34pm Jeane Solis RN Departed Physician/Provider Office Visit [facility] October 11, 2019 12:39pm October 11, 2019 12:49pm Carrington Obregon Departed Physician/Provider Office Visit [facility] January 01, 2020 10:32am January 01, 2020 1:12pm Tirso Miller DO Registered Referred [facility]-Laboratory January 01, 2020 12:05pm Tirso Miller DO Departed Emergency [facility] ER January 05, 2020 4:17pm January 05, 2020 6:45pm null Departed Physician/Provider Office Visit [facility] January 10, 2020 12:33pm January 10, 2020 1:18pm Tirso Miller DO Departed Physician/Provider Office Visit [facility] February 14, 2020 12:37pm February 14, 2020 1:32pm Tirso Miller DO Registered Referred [facility]-Laboratory March 04, 2020 12:56pm Amber [facility] Departed Emergency [facility] ER March 08, 2020 12:04pm March 08, 2020 3:00pm null Recent Diagnosis Onset Date Asthma Asthma [...] e Recorded Impairments No impairments or barriers January 05, 2020 4:22pm Medical Equipment No Medical Equipment Information available Insurance Providers Guarantor TIRSO MATA Address [place] [address] Contact Info. Home Phone: Payer Policy Id Coverage Id Subscriber's Name Subscriber Id Effective Date Expiration Date MEDICARE [facility] [id number] TIRSO MATA [id number] MED[place]ID [place] [id number] TIRSO MATA [id number] [place] [facility] [id number] TIRSO MATA [id number] 2013 [place] [facility] 2ND R [id number] TIRSO MATA [id number] MEDICAID [id number] TIRSO MATA [id number] MEDICARE [id number] TIRSO MATA [id number] Self Pay Self N/A Plan of Treatment [...] labs as ordered labs as ordered retrieve yarsanism records from recent psych hospitalization if condition [...] 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 Continue Symbicort and refer to pulmonology. Well [...] and signs Doing well. Continue counselling at [facility]. We will get the records from there for review. Recheck here 3 months, sooner as needed. Form filled out for [facility] apartment program. Future Tests Future scheduled test information is unavailable Pending Tests Pending diagnostic test information is unavailable Future Visits Future appointment information is unavailable Referrals to Other Providers Reason for Referral Referral Start Date Provider Provider [address] Information Provider Address Gabriel Alcantara MD Email: [email or web address] Phone: [phone] [address] Tirso Millre DO Email: [email or web address] Phone: [phone] [facility] [address] Your follow up appointment has been made for MondayOctober [address] Camilla Sampson MD Work Phone: [address] [place] [address] Future Procedures Future procedure information is unavailable Future Medications Future medication information is unavailable Patient Instructions Acute Abdominal Pain (DC) Gas and Bloating (GEN) Ventral Hernia Repair (DC) Social History Smoking Status Status Date of Observation Never smoker March 08, 2020 1:51 pm Observation Status Observation Response Raymond e of Response Smoking Status Never smoker March 08, 2020 1:51pm Alcohol Use No February 192019 1:26pm Substance Use No March 08, 2020 1:26pm Assigned Sex Male Vital Signs Vital Reading Result Ref erence Range Collection Date/Time Height 71 [in_i] March 16, 2019 12:50pm Weight 237.00 [lb_av] March 16, 2019 12:50pm Body Temperature 98 [degF] 97.6-99.5 March 16, 2019 12:50pm Heart Rate 70 /min 60-100 March 16, 2019 12:50pm Respiratory rate 16 /min -March 16, 2019 12:50pm Oxygen saturation by Pulse oximetry 96 % 95- 100 March 16, 2019 12:50pm BP Systolic 128 mm[Hg] March 16, 2019 12:50pm BP Diastolic 92 mm[Hg] March 16, 2019 12:50pm Height 71 [in_i] April 04, 2019 2:03pm Weight 248.00 [lb_av] April 04, 2019 2:03pm Heart Rate 96 /min 60-100 April 04, 2019 2:03pm Respiratory rate 18 /min -April 04, 2019 2:03pm Oxygen saturation by Pulse [...] Diastolic 84 mm[Hg] March 08, 2020 12:05pm Hospital Discharge Instructions Additional Instructions Magnesium citrate as directed, Cortisporin otic as directed : 3 drops each ear T ID for 5 days, increase dietary fiber, avoid Q-tips
[2020-06-04] MEDS ORDERED: GI COCKTAIL 50ML BTL(HYOSCYAMINE/MAALOX/LIDOCAINE VISCOUS)(1:3:1) PO ONE (19:15)
[2020-06-04 19:22] LABS: ALBUMIN 4.1 GM/DL (3.2-5.2); ALT/SGPT 54 U/L (12-78); BILIRUBIN,DIRECT < 0.1 MG/DL (0.0-0.2); BILIRUBIN,TOTAL 1.1 MG/DL (0.2-1.0); BLOOD UREA NITROGEN 16 MG/DL (7-18); CALCIUM LEVEL 8.9 MG/DL (8.5-10.1); CARBON DIOXIDE LEVEL 27 MEQ/L (21-32); CHLORIDE LEVEL 107 MEQ/L (98-107); CREATININE FOR GFR 1.13 MG/DL (0.70-1.30); GLOMERULAR FILTRATION RATE > 60.0 (>60); GLUCOSE, FASTING 97 MG/DL (70-100); POTASSIUM SERUM 4.8 MEQ/L (3.5-5.1); SODIUM LEVEL 137 MEQ/L (136-145); TOTAL PROTEIN 7.6 GM/DL (6.4-8.2)
[2020-06-04 19:36] LABS: BASO % 0.4 % (0.0-1.0); EOS # 0.2 10^3/uL (0.0-0.5); EOS % 3.7 % (0.0-3.0); HEMATOCRIT 43.9 % (42.0-52.0); HEMOGLOBIN 14.6 g/dl (13.5-17.5); LYMPH # 1.6 10^3/uL (1.5-5.0); LYMPH % 29.4 % (24.0-44.0); MEAN CORPUSCULAR HEMOGLOBIN 29.2 pg (27.0-33.0); MEAN CORPUSCULAR HGB CONC 33.3 g/dl (32.0-36.5); MEAN CORPUSCULAR VOLUME 87.8 fl (80.0-96.0); MONO # 0.5 10^3/uL (0.0-0.8); MONO % 8.7 % (0.0-5.0); NEUTROPHILS # 3.1 10^3/uL (1.5-8.5); NEUTROPHILS % 57.4 % (36.0-66.0); PLATELET COUNT, AUTOMATED 270 10^3/uL (150-450); WHITE BLOOD COUNT 5.4 10^3/uL (4.0-10.0)
[2020-06-04 19:58] LABS: LIPASE 76 U/L (73-393)
--- NOTE | 2020-06-04 19:58 | REP ---
INDICATION: CHEST PAIN. COMPARISON: None. TECHNIQUE: Portable FINDINGS: The technique utilized in obtaining the radiograph has magnified the cardiac silhouette and accentuated the interstitial markings. The superior mediastinal structures are midline. The cardiac silhouette is unremarkable in size, shape, and position. The diaphragmatic surfaces of the lungs are regular, and the costophrenic angles are clear. The pulmonary dykes are clear. The imaged osseous structures are intact. IMPRESSION: There is no acute cardiopulmonary disease. <Electronically signed by Miles Lara > 06/04/201954
[2020-06-04] MEDS ORDERED: KETOROLAC 30 MG/ML 1ML VIAL IV ONE (21:00)
[2020-06-04 21:30] VITALS: BP 127/92
[2020-06-04] MEDS ORDERED: KETO10TAB PO (22:45)
[2020-06-04] MEDS ORDERED: OMEP40CA97 PO (22:45)
[2020-06-04] MEDS ORDERED: SUCR1TA PO (22:45)
--- NOTE | 2020-06-05 08:35 | ECGEPIP ---
[facility] - ED Test Date: 2020-06-04 Pat Name: TIRSO MATA Department: Room: - Gender: Male Circulation Man: veronica : 1980 Requested By: MEDARDO Ruiz Order Number: [id number] Reading MD: Prateek Borja Measurements Intervals [place] Rate: 73 P: 29 NV: 136 QRS: 21 QRSD: 101 T: 12 QT: 381 QTc: 422 Interpretive Statements SINUS RHYTHM NONSPECIFIC T WAVE ABNORMALITY(S) SIMILAR TO 12/23/19 Electronically Signed on 06-05-2020 8:35:14 EST by Prateek Borja
--- NOTE | 2020-06-05 08:55 | ECGEPIP ---
[facility] - ED Test Date: 2020-06-04 Pat Name: TIRSO MATA Department: Room: - Gender: Male Geochemical Manager: ty : 1980 Requested By: Sissy Hess Order Number: [id number] Reading MD: Prateek Borja Measurements Intervals [place] Rate: 56 P: 1 [place]: 127 QRS: 30 QRSD: 98 T: 15 QT: 409 QTc: 398 Interpretive Statements SINUS BRADYCARDIA WITH SINUS ARRHYTHMIA NONSPECIFIC T WAVE ABNORMALITY(S) SIMILAR TO PRIOR ON SAME DATE Electronically Signed on 06-05-2020 8:55:47 EST by Prateek Borja
== END 2020-06-04 22:55 | disposition home or self-care (01) ==
LOC: M ED 18:03
DX: R07.89 Other chest pain (principal); M25.512 Pain in left shoulder; R00.1 Bradycardia, unspecified; I10 Essential (primary) hypertension; K21.9 Gastro-esophageal reflux disease without esophagitis; J45.909 Unspecified asthma, uncomplicated; F33.9 Major depressive disorder, recurrent, unspecified; Z79.899 Other long term (current) drug therapy
CPT/HCPCS: 36415; 71045; 80048; 80076; 83690; 84484; 85025; 93005; 93041; 94760; 96374; 99285; J1885

== ENCOUNTER 2020-07-02 14:54 | Emergency (ER) | payer MEDICARE, MEDICAID ==
[~2020-07-02] VITALS: Ht 180.3 cm; Wt 115.2 kg
[~2020-07-02 14:54] MED LIST changes: +ARIP1TAB6; +BREO1INH3; +FLUO40CA; +KETO10TAB PO; -METHACHOLINE KIT (J7674) INH ONE; +MONT10TA10; +OMEP40CA97 PO; +SUCR1TA PO
--- OUTSIDE RECORDS SUMMARY | 2020-07-02 15:00 | CCD ---
Author Rajendra Virk Organization Unknown Address [address] [address] Phone Care Team Providers Care Fabrication Specialist Name Role Phone Deo Leyva PCP Allergies, Adverse Reactions, Alerts No Data in Section Problem List Concept Problem Description Status Start Date Created Date Resolv ed Date Snomed Code F33.1 Major Depressive Disorder, Recurrent episode, Moderate Active 06/16/2020 Medications No Data in Section Social History Social History Element Description Concept Effective Date Smoking Status Unknown if ever smoked [id number] Immunizations No Data in Section Vital Signs Encounter Date Height Ins Weight Lbs Bmi Bp Systolic Bp Diastoli c Oxygen Saturation Respiration Rate Pulse Rate Body Temp Head Circumference Heigh t Lying 06/16/2020 0.00 0.00 0.00 0 0 0.00 0 0 0.00 0.0 0.0 0 Procedures Date Concept Id Description Targeted Site Concept Targeted Site Concept Type 06/16/2020 64504-35 [facility] Telemed E/M Lvl 3--Est pt CPT Patient has no history of implantable de vices Encounters Encounter Start Date End Date Encounter Type Description Diagnosis Di agnosis Desc Location Author First Name Author Last Name Npid Taxonomy Cod e Taxonomy Desc Phone Number Location Addr1 Location Addr2 Location [facility] 507235 06/16/2020 06/16/2020 23933-84 [facility] Telemed E/M Lvl 3--Est p t F33.1 Major depressive disorder, recurrent, moderate [facility] Gordon Goodemond [id number] Psychiatry [id number] [address] [place], [place] 1 [facility] [address] Plan of Treatment No Data in Section Lab Results No Data in Section Instructions No Data in Section Functional Cognitive Status No Data in Section Insurance Providers Insurance Id Policy Effective Date Policy Thru Date Company N rose marie [id number] 2002 MEDICARE [id number] 2020 MEDICAID [id number] CRISIS
--- OUTSIDE RECORDS SUMMARY | 2020-07-02 15:00 | CCD ---
Author Rajendra Slaughter Organization Unknown Address [address] [place] [address] Phone Care Team Providers Care Rounding And Backing Machine Operator Name Role Phone Willa Hernández PCP Allergies, Adverse Reactions, Alerts No Data in Section Problem List Concept Problem Description Status Start Date Created Date Resolv ed Date Snomed Code F33.1 Major Depressive Disorder, Recurrent episode, Moderate Active 06/23/2020 Medications Rx Norm Medication Route Route Concept Start Date Stop Date Dosage Ankit quency Duration Formula Strength Dosage Form Dosage Form Code Dosage Description Medication Id Account Npid Author First Name Author Last Name Taxonomy Code Taxonomy Desc Phone Number [id number] aripiprazole by mouth [id number] 06/01/2020 once a day 5 mg ta blet [id number] [id number] [phone] Christina Montalvorow [id number] Psychiatric/Mental Health [id number] fluoxetine by mouth [id number] 06/01/2020 07/31/2020 every morning 30 40 mg capsule 84452 [id number] Christina [place] [id number] Psychiatric/Mental Health [id number] Social History Social History Element Description Concept Effective Date Smoking Status Unknown if ever smoked [id number] Immunizations No Data in Section Vital Signs No Data in Section Procedures Date Concept Id Description Targeted Site Concept Targeted Site Concept Type 06/22/2020 43179-97 TEMPMHCTelemed 30" Psychotherapy CPT Patient has no history of implantable de vices Encounters Encounter Start Date End Date Encounter Type Description Diagnosis Di agnosis Desc Location Author First Name Author Last Name Npid Taxonomy Cod e Taxonomy Desc Phone Number Location Addr1 Location Addr2 Location [facility] Location Sta Location [facility] 299437 06/22/2020 06/22/2020 70198-81 TEMPMHCTelemed 30" Psychothe rapy F33.1 Major depressive disorder, recurrent, moderate [facility] Edgar Crouch [id number] Ingredient Scaler [id number] [address] [address] Plan of Treatment No Data in Section Lab Results No Data in Section Instructions No Data in Section Insurance Providers Insurance Id Policy Effective Date Policy Thru Date Company N rose marie [id number] 2002 MEDICARE [id number] 2020 MEDICAID [id number] CRISIS
--- OUTSIDE RECORDS SUMMARY | 2020-07-02 15:00 | CCD ---
Author Rajendra Slaughter Organization Unknown Address [address] [address] Phone Care Team Providers Care [facility] Manager Name Role Phone Willa Hernández PCP Allergies, Adverse Reactions, Alerts No Data in Section Problem List Concept Problem Description Status Start Date Created Date Resolv ed Date Snomed Code F33.1 Major Depressive Disorder, Recurrent episode, Moderate Active 06/10/2020 Medications No Data in Section Social History Social History Element Description Concept Effective Date Smoking Status Unknown if ever smoked [id number] Immunizations No Data in Section Vital Signs No Data in Section Procedures Date Concept Id Description Targeted Site Concept Targeted Site Concept Type 06/09/2020 02814 Brief Individual Psychotherapy - 30 min CPT Patient has no history of implantable de vices Encounters Encounter Start Date End Date Encounter Type Description Diagnosis Di agnosis Desc Location Author First Name Author Last Name Npid Taxonomy Cod e Taxonomy Desc Phone Number Location Addr1 Location Addr2 Location [facility] Location [facility] Location [facility] 464752 06/09/2020 06/09/2020 64363 Brief Individual Psychoth erapy - 30 min F33.1 Major depressive disorder, recurrent, moderate Communi ty [facility] Edgar Crouch [id number] Call Or Contact Centre Coach [phone] [address] [address] Plan of Treatment No Data in Section Lab Results No Data in Section Instructions No Data in Section Insurance Providers Insurance Id Policy Effective Date Policy Thru Date Company N rose marie [id number] 2002 MEDICARE [id number] 2020 MEDICAID [id number] CRISIS
--- NOTE | 2020-07-02 15:50 | REP ---
INDICATION: fall pain since. COMPARISON: None. TECHNIQUE: Five views of the right knee are provided. FINDINGS: Five views of the right knee demonstrate soft tissue fullness in the region of the suprapatellar bursa suggestive of joint effusion. No fracture is seen. No malalignment. Bones, joints and soft tissues are otherwise unremarkable.. . . IMPRESSION: No fracture seen. Possible joint effusion.. <Electronically signed by Sae Coyle > 07/02/20 2543
[2020-07-02 16:15] VITALS: BP 151/91
== END 2020-07-02 16:23 | disposition home or self-care (01) ==
LOC: M ED 14:54
DX: S80.01XA Contusion of right knee, initial encounter (principal); W00.0XXA Fall on same level due to ice and snow, initial encounter; Y92.019 Unspecified place in single-family (private) house as the place of occurrence of the external cause; Y93.9 Activity, unspecified; Y99.9 Unspecified external cause status; F33.9 Major depressive disorder, recurrent, unspecified; F41.9 Anxiety disorder, unspecified; Z79.899 Other long term (current) drug therapy

== ENCOUNTER 2020-07-23 13:52 | Inpatient (IN) | payer MEDICARE, MEDICAID ==
[~2020-07-23] VITALS: Ht 177.8 cm; Wt 112.5 kg
[~2020-07-23 13:52] MED LIST changes: -ARIP1TAB6; +ARIP1TAB6 PO; -BREO1INH3; +BREO1INH3 INH; -FLUO40CA; +FLUO40CA PO
[2020-07-23] MEDS ORDERED: NICOTINE 21MG/24HR 1 EA TRANSDERMAL TD ONE (15:25)
[2020-07-23 15:28] LABS: HEMATOCRIT 48.7 % (42.0-52.0); HEMOGLOBIN 15.9 g/dl (13.5-17.5); MEAN CORPUSCULAR HEMOGLOBIN 28.3 pg (27.0-33.0); MEAN CORPUSCULAR HGB CONC 32.6 g/dl (32.0-36.5); MEAN CORPUSCULAR VOLUME 86.8 fl (80.0-96.0); PLATELET COUNT, AUTOMATED 313 10^3/uL (150-450); RED BLOOD COUNT 5.61 10^6/uL (4.30-6.10)
--- NOTE | 2020-07-23 15:38 | REP ---
INDICATION: fall and persistent anderson and pain COMPARISON: None. TECHNIQUE: Axial noncontrast images from the skull base to the vertex with coronal reformations. This CT examination was performed using the following dose reduction techniques: Automated exposure control, adjustment of mA and/or kv according to the patient's size, and use of iterative reconstruction technique. FINDINGS: The ventricles, sulci, and cisterns are normal in position and appearance. Alcala-white differentiation is maintained. No acute intracranial hemorrhage, mass/mass effect, pathology or trauma/injury. No evidence for acute infarction. No extra-axial fluid collection. Calvarium is intact. Paranasal sinuses and mastoid air cells are clear. IMPRESSION: Normal noncontrast head CT. No evidence for acute intracranial pathology or trauma/injury. <Electronically signed by Dereck Hopkins > 07/23/20 1686
[2020-07-23 16:00] LABS: ACETAMINOPHEN LEVEL < 2.0 UG/ML (10.0-30.0); ALBUMIN 4.2 GM/DL (3.2-5.2); ALT/SGPT 45 U/L (12-78); BILIRUBIN,DIRECT 0.1 MG/DL (0.0-0.2); BILIRUBIN,TOTAL 0.6 MG/DL (0.2-1.0); BLOOD UREA NITROGEN 16 MG/DL (7-18); CALCIUM LEVEL 8.9 MG/DL (8.5-10.1); CARBON DIOXIDE LEVEL 28 MEQ/L (21-32); CHLORIDE LEVEL 105 MEQ/L (98-107); CREATININE FOR GFR 1.12 MG/DL (0.70-1.30); ETHYL ALCOHOL (ETHANOL) 0.003 % (0.000-0.010); GLOMERULAR FILTRATION RATE > 60.0 (>60); GLUCOSE, FASTING 109 MG/DL (70-100); POTASSIUM SERUM 3.8 MEQ/L (3.5-5.1); SALICYLATE LEVEL < 1.7 MG/DL (5.0-30.0); SODIUM LEVEL 139 MEQ/L (136-145); TOTAL PROTEIN 7.7 GM/DL (6.4-8.2)
[2020-07-23 16:01] LABS: AMPHETAMINES LEVEL URINE NEGATIVE (NEGATIVE); BARBITURATES URINE NEGATIVE (NEGATIVE); BENZODIAZEPINES URINE NEGATIVE (NEGATIVE); CANNABINOIDS URINE NEGATIVE (NEGATIVE); COCAINE METABOLITE URINE NEGATIVE (NEGATIVE); METHADONE URINE NEGATIVE (NEGATIVE); OPIATES URINE NEGATIVE (NEGATIVE); PHENCYCLIDINE URINE NEGATIVE (NEGATIVE)
[2020-07-23] MEDS ORDERED: SPIR12.9 INH (19:32)
[2020-07-23 22:40] LABS: RSV AMPLIFICATION NEGATIVE (NEGATIVE)
[2020-07-23] MEDS ORDERED: MAALOX 30 ML SUSP *UDC PO PRN (22:50)
[2020-07-23] MEDS ORDERED: MOM 30ML SUSPENSION UDC PO PRN (22:50)
[2020-07-23 23:37] VITALS: BP 120/92
[2020-07-24] MEDS: FLUoxetine 20 MG CAP PO SCH (09:26)
[2020-07-24] MEDS ORDERED: hydrOXYzine 50 MG TAB PO PRN (11:00)
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
[2020-07-24 16:39] VITALS: BP_SYST 130; BP_SYST 135; BP_DIAS 82; BP_DIAS 88
[2020-07-24] MEDS: traZODone 50 MG TAB PO PRN (23:18)
[2020-07-25 06:29] VITALS: BP 133/83
[2020-07-25 08:41] LABS: CHOLESTEROL RISK RATIO 3.377 (<5)
[2020-07-25] MEDS: FLUoxetine 20 MG CAP PO SCH (09:22)
[2020-07-25 16:14] VITALS: BP 138/90
[2020-07-26 06:33] VITALS: BP 140/96
[2020-07-26] MEDS: FLUoxetine 20 MG CAP PO SCH (08:31)
[2020-07-26] MEDS: ACETAMINOPHEN TAB 650MG DOSE (2X325MG) PO PRN (09:30)
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
[2020-07-26 16:13] VITALS: BP 140/90
[2020-07-27 06:38] VITALS: BP 137/88
[2020-07-27] MEDS: FLUoxetine 20 MG CAP PO SCH (09:34)
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
[2020-07-27] MEDS: ACETAMINOPHEN TAB 650MG DOSE (2X325MG) PO PRN (17:19)
[2020-07-27 17:52] VITALS: BP 124/79
[2020-07-27] MEDS: traZODone 50 MG TAB PO PRN (21:28)
[2020-07-28 06:45] VITALS: BP 122/88
[2020-07-28] MEDS: FLUoxetine 20 MG CAP PO SCH (08:52)
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
[2020-07-28 17:38] VITALS: BP 150/83
[2020-07-28] MEDS: traZODone 50 MG TAB PO PRN (21:24)
[2020-07-29 06:00] VITALS: BP 141/73
[2020-07-29] MEDS: FLUoxetine 20 MG CAP PO SCH (08:03)
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
== END 2020-07-29 12:00 | disposition home or self-care (01) | DRG 881 ==
LOC: M ED 13:52 → M ED INP 22:48 → M PSY 23:00
PROVIDERS: ADMIT Psychiatry & Neurology Psychiatry; ATTEND Psychiatry & Neurology Psychiatry
DX: F43.21 Adjustment disorder with depressed mood (principal); R45.851 Suicidal ideations; F60.1 Schizoid personality disorder; Z79.899 Other long term (current) drug therapy; E66.01 Morbid (severe) obesity due to excess calories

== ENCOUNTER 2020-08-16 10:58 | Emergency (ER) | payer MEDICARE, MEDICAID ==
[~2020-08-16] VITALS: Ht 180.3 cm; Wt 113.2 kg
[~2020-08-16 10:58] MED LIST changes: +SPIR12.9 INH
[2020-08-16] MEDS ORDERED: IBUPROFEN 600MG TAB PO ONE (11:55)
[2020-08-16 12:12] VITALS: BP 131/93
== END 2020-08-16 12:41 | disposition home or self-care (01) ==
LOC: EDBD 10:58 → M ED 10:58
DX: S80.01XA Contusion of right knee, initial encounter (principal); W01.0XXA Fall on same level from slipping, tripping and stumbling without subsequent striking against object, initial encounter; Y92.019 Unspecified place in single-family (private) house as the place of occurrence of the external cause; Y93.9 Activity, unspecified; Y99.9 Unspecified external cause status; J44.9 Chronic obstructive pulmonary disease, unspecified; F33.9 Major depressive disorder, recurrent, unspecified; F41.9 Anxiety disorder, unspecified; Z79.899 Other long term (current) drug therapy

== ENCOUNTER 2020-10-26 10:13 | Emergency (ER) | payer MEDICARE, MEDICAID ==
[~2020-10-26] VITALS: Ht 180.3 cm; Wt 114.6 kg
[2020-10-26 12:33] LABS: BASO % 0.2 % (0.0-1.0); EOS # 0.1 10^3/uL (0.0-0.5); EOS % 0.6 % (0.0-3.0); HEMATOCRIT 48.1 % (42.0-52.0); LYMPH # 0.5 10^3/uL (1.5-5.0); LYMPH % 5.1 % (24.0-44.0); MEAN CORPUSCULAR HGB CONC 33.3 g/dl (32.0-36.5); MEAN CORPUSCULAR VOLUME 87.3 fl (80.0-96.0); MONO # 0.4 10^3/uL (0.0-0.8); MONO % 4.3 % (2.0-8.0); NEUTROPHILS # 8.7 10^3/uL (1.5-8.5); NEUTROPHILS % 89.5 % (36.0-66.0); PLATELET COUNT, AUTOMATED 277 10^3/uL (150-450); RED BLOOD COUNT 5.51 10^6/uL (4.30-6.10); WHITE BLOOD COUNT 9.7 10^3/uL (4.0-10.0)
[2020-10-26 13:02] LABS: ALBUMIN 3.9 GM/DL (3.2-5.2); ALT/SGPT 43 U/L (12-78); BILIRUBIN,DIRECT 0.2 MG/DL (0.0-0.2); BILIRUBIN,TOTAL 0.6 MG/DL (0.2-1.0); BLOOD UREA NITROGEN 19 MG/DL (7-18); CALCIUM LEVEL 8.7 MG/DL (8.5-10.1); CARBON DIOXIDE LEVEL 29 MEQ/L (21-32); CHLORIDE LEVEL 105 MEQ/L (98-107); CREATININE FOR GFR 0.98 MG/DL (0.70-1.30); GLOMERULAR FILTRATION RATE > 60.0 (>60); GLUCOSE, FASTING 131 MG/DL (70-100); LIPASE 94 U/L (73-393); POTASSIUM SERUM 3.9 MEQ/L (3.5-5.1); SODIUM LEVEL 137 MEQ/L (136-145); TOTAL PROTEIN 7.8 GM/DL (6.4-8.2)
[2020-10-26] MEDS ORDERED: KETOROLAC 30 MG/ML 1ML VIAL IV ONE (14:00)
[2020-10-26] MEDS ORDERED: ONDANSETRON 4MG/2ML VIAL IV ONE (14:00)
[2020-10-26] MEDS ORDERED: NS 1,000 ML IV ONE (14:00)
[2020-10-26] MEDS ORDERED: fentaNYL 100 MCG/2 ML INJECTION (J3010) IV PRN (14:05)
[2020-10-26] MEDS ORDERED: oxyCODONE 5MG TAB PO PRN (14:05)
[2020-10-26] MEDS ORDERED: LR 1,000 ML IV SCH (14:05)
[2020-10-26] MEDS ORDERED: ONDANSETRON 4MG/2ML VIAL IV PRN (14:05)
[2020-10-26] MEDS ORDERED: ZOFR4TAB16 PO (15:25)
[2020-10-26 15:36] VITALS: BP 134/79
== END 2020-10-26 15:39 | disposition home or self-care (01) ==
LOC: M ED 10:13
DX: R10.84 Generalized abdominal pain (principal); R11.2 Nausea with vomiting, unspecified; J45.909 Unspecified asthma, uncomplicated; F32.9 Major depressive disorder, single episode, unspecified; F41.9 Anxiety disorder, unspecified; Z79.899 Other long term (current) drug therapy
CPT/HCPCS: 80048; 80076; 81001; 83690; 85025; 96361; 96374; 96375; 99283; J1885; J2405

== ENCOUNTER 2021-02-03 20:18 | Emergency (ER) | payer MEDICARE, MEDICAID ==
[~2021-02-03] VITALS: Ht 180.3 cm; Wt 108.0 kg
[2021-02-03 20:18] VITALS: BP 131/88
[~2021-02-03 20:18] MED LIST changes: +OMEP40CA4 PO; -OMEP40CA97 PO; +ZOFR4TAB16 PO
[2021-02-03 22:39] LABS: BASO % 0.1 % (0.0-1.0); EOS # 0.1 10^3/uL (0.0-0.5); EOS % 0.6 % (0.0-3.0); HEMATOCRIT 47.2 % (42.0-52.0); HEMOGLOBIN 15.5 g/dl (13.5-17.5); LYMPH # 1.4 10^3/uL (1.5-5.0); LYMPH % 18.1 % (24.0-44.0); MEAN CORPUSCULAR HEMOGLOBIN 28.8 pg (27.0-33.0); MEAN CORPUSCULAR HGB CONC 32.8 g/dl (32.0-36.5); MEAN CORPUSCULAR VOLUME 87.7 fl (80.0-96.0); MONO # 0.6 10^3/uL (0.0-0.8); MONO % 7.3 % (2.0-8.0); NEUTROPHILS # 5.8 10^3/uL (1.5-8.5); NEUTROPHILS % 73.6 % (36.0-66.0); PLATELET COUNT, AUTOMATED 316 10^3/uL (150-450); RED BLOOD COUNT 5.38 10^6/uL (4.30-6.10); WHITE BLOOD COUNT 7.9 10^3/uL (4.0-10.0)
[2021-02-03 23:09] LABS: ALBUMIN 3.9 GM/DL (3.2-5.2); ALT/SGPT 43 U/L (12-78); BILIRUBIN,DIRECT 0.2 MG/DL (0.0-0.2); BILIRUBIN,TOTAL 0.9 MG/DL (0.2-1.0); BLOOD UREA NITROGEN 12 MG/DL (7-18); CALCIUM LEVEL 9.1 MG/DL (8.5-10.1); CARBON DIOXIDE LEVEL 25 MEQ/L (21-32); CHLORIDE LEVEL 108 MEQ/L (98-107); CREATININE FOR GFR 1.17 MG/DL (0.70-1.30); GLOMERULAR FILTRATION RATE > 60.0 (>60); GLUCOSE, FASTING 103 MG/DL (70-100); LIPASE 119 U/L (73-393); POTASSIUM SERUM 3.5 MEQ/L (3.5-5.1); SODIUM LEVEL 142 MEQ/L (136-145); TOTAL PROTEIN 7.2 GM/DL (6.4-8.2)
== END 2021-02-04 00:42 | disposition left against medical advice (07) ==
LOC: M ED 20:18
DX: Z53.21 Procedure and treatment not carried out due to patient leaving prior to being seen by health care provider (principal)

== ENCOUNTER 2021-02-08 22:41 | Inpatient (IN) | payer MEDICARE, MEDICAID ==
[~2021-02-08] VITALS: Ht 180.3 cm; Wt 105.8 kg
[2021-02-09 00:18] LABS: HEMATOCRIT 44.3 % (42.0-52.0); HEMOGLOBIN 14.9 g/dl (13.5-17.5); MEAN CORPUSCULAR HEMOGLOBIN 29.3 pg (27.0-33.0); MEAN CORPUSCULAR HGB CONC 33.6 g/dl (32.0-36.5); PLATELET COUNT, AUTOMATED 308 10^3/uL (150-450); RED BLOOD COUNT 5.09 10^6/uL (4.30-6.10); WHITE BLOOD COUNT 5.9 10^3/uL (4.0-10.0)
[2021-02-09 00:39] LABS: AMPHETAMINES LEVEL URINE NEGATIVE (NEGATIVE); BARBITURATES URINE NEGATIVE (NEGATIVE); BENZODIAZEPINES URINE NEGATIVE (NEGATIVE); CANNABINOIDS URINE NEGATIVE (NEGATIVE); COCAINE METABOLITE URINE NEGATIVE (NEGATIVE); METHADONE URINE NEGATIVE (NEGATIVE); OPIATES URINE NEGATIVE (NEGATIVE); PHENCYCLIDINE URINE NEGATIVE (NEGATIVE)
[2021-02-09 00:55] LABS: ACETAMINOPHEN LEVEL < 2.0 UG/ML (10.0-30.0); ALBUMIN 4.1 GM/DL (3.2-5.2); ALT/SGPT 36 U/L (12-78); BILIRUBIN,DIRECT 0.2 MG/DL (0.0-0.2); BILIRUBIN,TOTAL 0.6 MG/DL (0.2-1.0); BLOOD UREA NITROGEN 16 MG/DL (7-18); CALCIUM LEVEL 8.9 MG/DL (8.5-10.1); CARBON DIOXIDE LEVEL 30 MEQ/L (21-32); CHLORIDE LEVEL 107 MEQ/L (98-107); CREATININE FOR GFR 1.09 MG/DL (0.70-1.30); ETHYL ALCOHOL (ETHANOL) < 0.003 % (0.000-0.010); GLOMERULAR FILTRATION RATE > 60.0 (>60); GLUCOSE, FASTING 95 MG/DL (70-100); POTASSIUM SERUM 3.9 MEQ/L (3.5-5.1); SALICYLATE LEVEL < 1.7 MG/DL (5.0-30.0); SODIUM LEVEL 143 MEQ/L (136-145); TOTAL PROTEIN 7.1 GM/DL (6.4-8.2)
[2021-02-09] MEDS ORDERED: LORazepam 2 MG TAB PO ONE (02:40)
[2021-02-09] MEDS ORDERED: FLUoxetine 20 MG CAP PO SCH (09:00)
[2021-02-09 14:17] LABS: RSV AMPLIFICATION NEGATIVE (NEGATIVE)
[2021-02-09] MEDS ORDERED: MIRT1TAB PO (14:56)
[2021-02-09] MEDS ORDERED: ONDA-83 PO (14:56)
[2021-02-09] MEDS ORDERED: OMEP40CA4 PO (14:56)
[2021-02-09] MEDS ORDERED: HOME MED LIST COMPLETE! XX SCH (15:00)
--- NOTE | 2021-02-09 15:20 | MHIPNPDOC ---
[facility] Progress Note Progress Note DATE OF SERVICE: 02/09/21 This typewriter assembly and parts inspector discussed the patient's case and history with Nolvia Patel, ED staff member and I thought he needed to be admitted because he was presenting with impulsiive behavior, where he had been seeing women through windows and had made suicidal threats. Vital Signs Vital Signs Date Time Temp Pulse Resp B/P (MAP) Pulse Ox O2 Delivery O2 Flow Rate FiO2 02/09/21 12:10 97.8 72 17 121/76 (91) 100 Room Air Laboratory Data 24H Labs Laboratory Tests 2 02/08/21 23:44: Nucleated Red Blood Cells % (auto) 0.0, Anion Gap 6L, Glomerular Filtration Rate > 60.0, Calcium Level 8.9, Total Bilirubin 0.6, Direct Bilirubin 0.2, Aspartate Amino Transf (AST/SGOT) 21, Alanine Aminotransferase (ALT/SGPT) 36, Alkaline Phosphatase 70, Total Protein 7.1, Albumin 4.1, Albumin/Globulin Ratio 1.4, Thyroid Stimulating Hormone (TSH) 1.900, Salicylates Level < 1.7L, Acetaminophen Level < 2.0L, Ethyl Alcohol Level < 0.003 02/08/21 23:49: Urine Opiates Screen NEGATIVE, Urine Methadone Screen NEGATIVE, Urine Barbiturates Screen NEGATIVE, Urine Phencyclidine Screen NEGATIVE, Urine Amphet amines Screen NEGATIVE, Urine Benzodiazepines Screen NEGATIVE, Urine Cocaine Metabolite Screen NEGATIVE, Urine Cannabinoids Screen NEGATIVE 02/09/21 13:23: Coronavirus (COVID-19)(PCR) NEGATIVE, Influenza Type A (RT-PCR) NEGATIVE, Influenza Type B (RT-PCR) NEGATIVE, Respiratory Syncytial Virus (PCR) NEGATIVE CBC/BMP Laboratory Tests 02/08/21 23:44 Current Medications Current Medications Medications (Trade) Dose Ordered Sig/Regina Route PRN Reason Start Time Stop Time Status Last Admin Dose Admin Aripiprazole (AbiLIFY) 5 mg DAILY PO 02/09/21 09:00 02/09/21 08:39 Fluoxetine HCl (PROzac) 40 mg DAILY PO 02/09/21 09:00 02/09/21 08:39 Home Med (Home Med List Complete!) ASDIRECTED XX 02/09/21 15:00 02/09/21 14:59 DC Allergies Coded Allergies: No Known Allergies (Verified , 02/08/21) MERLINE GUZMÁN MD Feb 09, 2021 15:20
[2021-02-09] MEDS ORDERED: ACETAMINOPHEN TAB 650MG DOSE (2X325MG) PO PRN (20:20)
[2021-02-09] MEDS ORDERED: MOM 30ML SUSPENSION UDC PO PRN (20:20)
[2021-02-09] MEDS ORDERED: OLANZapine ORAL DISINTEGRATING TAB 5MG PO PRN (20:20)
[2021-02-09] MEDS ORDERED: MAALOX 30 ML SUSP *UDC PO PRN (20:20)
[2021-02-09 22:27] VITALS: BP 126/100
[2021-02-09] MEDS: traZODone 50 MG TAB PO PRN (23:16)
[2021-02-10 06:49] VITALS: BP 120/88
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
[2021-02-10] MEDS ORDERED: DIVALPROEX 250MG *ER* TAB PO SCH (09:00)
--- NOTE | 2021-02-10 10:20 | HPEPDOC ---
[facility] Medical History & Physical Date of Admission Feb 10, 2021 Date of Service: Feb 10, 2021 History and Physical CHIEF COMPLAINT: " The group leader picked me up and brought me here" HISTORY OF PRESENT ILLNESS: 40-year-old male with a past medical history of asthma and depression was propriety police to the emergency room department for the concerns of patient looking side [employer] houses. Patient denies such allegations. However, upon review of the medical chart he was brought in by police on 9.41 status after making suicidal remarks. Police stated that they had received multiple complaints from different woman over the past few days that he was picking into people's windows. He then told the police that he had suicidal ideations with a plan for GSW. At this junction, he denied suicidal and homicidal homicidal and suicidal ideations. He he did endorse feeling sad/depressed. He denies headaches, blurry visions, chest pain, abdominal pain, nausea, vomiting, problem with bowel movements and urination PAST MEDICAL HISTORY: 1. Asthma 2. Depression PAST SURGICAL HISTORY: 1. Hernia repair 10 years ago SOCIAL HISTORY: Reportedly lives alone and works at [employer]. However, currently living with his parents to help some. He denies smoking, drinking, use of recreational drugs. FAMILY HISTORY: Father: Unspecified cancer Mother: Unspecified heart disease ALLERGIES: Please see below. REVIEW OF SYSTEMS: 10 point review of system was negative except for what is noted in the HPI HOME MEDICATIONS: Please see below. PHYSICAL EXAMINATION: VITAL SIGNS: Please see below General: Lying in bed, no acute distress Head/Neck/Throat: Trachea midline, mucous membranes moist Eyes: Sclera anicteric, no erythema or discharge appreciated bilaterally Thorax: Normal respiratory effort on room air, lungs clear to auscultation bila terally, no wheezes/rales/rhonchi Cardiovascular: Normal rate, regular rhythm, normal S1, S2; no S3, S4, rubs/gallops/murmurs Abdomen: Bowel sounds present, soft/nontender/nondistended Genitourinary: No CVA tenderness, no Alejo in place Musculoskeletal: Moving all extremities, no edema Skin: Warm, dry Neurologic: AAOx3, speech fluent and goal-directed, no focal deficits, grossly intact LABORATORY DATA: See below. IMAGING: No imaging to review during this hospitalization MICROBIOLOGY: Please see below. ASSESSMENT/PLAN: #Unspecified depressive disorder -Management as per psychiatry team #Asthma -No signs of acute exacerbation at this time. Recommend to continue with ambulatory inhaler once it is verified by pharmacy #DVT prophylaxis -Encourage ambulation This history and physical examination was done in the presence of a side hemmer. Medical team will sign off at this time. Vital Signs Vital Signs Date Time Temp Pulse Resp B/P (MAP) Pulse Ox O2 Delivery O2 Flow Rate FiO2 02/10/21 06:49 98.1 78 14 120/88 (99) 95 Room Air Laboratory Data Labs 24H Laboratory Tests 2 02/09/21 13:23: Coronavirus (COVID-19)(PCR) NEGATIVE, Influenza Type A (RT-PCR) NEGATIVE, Influenza Type B (RT-PCR) NEGATIVE, Respiratory Syncytial Virus (PCR) NEGATIVE Home Medications Scheduled Aripiprazole (Aripiprazole) 5 Mg Tablet, 5 MG PO DAILY Fluoxetine Hcl (Fluoxetine HCl) 40 Mg Capsule, 40 MG PO DAILY Fluticasone/Vilanterol (Breo Ellipta 200-25 Mcg INH) 1 Each Blst.w.dev, 1 PUFF INH DAILY Mirtazapine (Mirtazapine) 7.5 Mg Tablet, 7.5 MG PO QHS Tiotropium [employer] (Spiriva Respimat) 4 Gm Mist.inhal, 2 PUFFS INH DAILY Scheduled PRN Omeprazole (Omeprazole) 40 Mg Capsule.dr, 40 MG PO DAILY PRN for HEARTBURN Ondansetron HCl (Ondansetron HCl) 4 Mg Tablet, 4 MG PO Q4H PRN for NAUSEA OR VOMITING Allergies Coded Allergies: No Known Allergies (Verified , 02/08/21) A-FIB/CHADSVASC A-FIB History Current/History of A-Fib/PAF?: No VAUGHN BARAJAS M.D. Feb 10, 2021 10:14
[2021-02-10 16:05] VITALS: BP 120/71
[2021-02-10] MEDS: traZODone 50 MG TAB PO PRN (21:03)
[2021-02-10] MEDS: ARIPiprazole 10 MG TAB PO SCH (21:03)
[2021-02-11 06:43] VITALS: BP 148/86
[2021-02-11 07:47] LABS: CHOLESTEROL RISK RATIO 2.742 (<5)
--- NOTE | 2021-02-11 15:18 | MHIPNPDOC ---
[facility] Progress Note Progress Note DATE OF SERVICE: 02/11/21 HISTORY: Patient is a 40 -year-old , male, who has a past psychiatric history of reported depression, insomnia, anger issues who was brought by police on a 9.41 after making suicidal statements per police, patient states he did not make the statements. Per chart review patient was staring, peaking into a woman's window, patient denies this, despite previous documentation of this behavior. States when doesn't sleep takes walks around the block to get tired, reports gets 2-4 hours of sleep nightly for last 2-3 months. States has alot of energy. Says stressors include trying to help parents out "trying to keep their house clean", reports parents have alot of health issues and he also works at "[email or web address]". Says he works late nights and sleep can be poor even on days does not work. States he switches between watching TV and walking around the block to try and sleep. Denies expansive mood or grandiosity. States he has no memory of peeking into windows. States he used to hear voices a long time ago, but has not heard voices since age 26 y/o, reports has multiple family members that around that time which stressed him out at the time. However per chart review was reporting to [facility] December 2019 he had repeated command auditory hallucinations to kill himself. states "I need a pill for sleep". Reports depression started in highschool due to bullying. Denies he is currently suicidal and states he does not want to harm others. He has multiple previous admissions to [facility] recently in December 21 and July 23 2020 was his last admission he was diagnosed with adjustment disorder and cluster a traits on Abilify 5 mg daily, fluoxetine 40 mg daily and inhalers for allergies. Interval: Patient states he did not make any suicidal gestures attempts or have any suicidal ideation and does not know why he is here, per previous collateral from mother states he does not meet criteria for safety risk or admission. Patient is pretty withdrawn, continues to appear somewhat dysthymic, states they found the [employer] and that is being sorted out. Feels like he is finally sleeping as he reports now getting 8 hours of sleep and feeling pretty good during the day reportedly. Denies side effects from the Abilify. VITAL SIGNS: See below. NEW TEST RESULTS: Lipid panel unremarkable apart from low HDL CURRENT MEDICATIONS: See below. MENTAL STATUS EXAMINATION: General Appearance: Low-set ears, unkempt, appears stated age, hospital scubs/clothing, other (Glasses, short dark hair), poor eye contact Build: overweight Demeanor: average Eye Contact: avoidant Activity: average Behavior: cooperative Speech: clear, slow, low in volume Mood: "alright" Affect: Mildly dysthymic, blunted, appropriate Thought Process: circumstantial Thought Content (Delusions): none reported Thought Content (Other): none reported Thought Content (Aggressive): none reported Perception (Hallucinations): none reported Perception (Other): none reported Cognition (Impairment of): memory Cognition(Intelligence Est.): borderline Oriented: Awake, Alert, Oriented times three Insight: Limited Judgment: Limited Psychosis: Denies DIAGNOSES: Unspecified bipolar disorder ADHD per hx (mother reports dx at age 6 or 7) R/o borderline intellectual function R/o MDD, Pscychotic disorder, Bipolar disorder I/II R/o paraphilic disorder ASSESSMENT: Patient reports significant improvement in sleep with Abilify, this is different compared to the previous medications he is used for sleep which she reports have failed to maintain sleep poor of made it worse. Continues to report lacking memory of looking into people's windows stating that he just goes for walks and maybe got distracted. He is aware of acute stressors of cost for [employer] that he might have to injure and potential upcoming hearing. MANAGEMENT PLAN: Continue Abilify 10 mg nightly for impulsivity and mood stabilization. We will continue to coordinate with social work for possible discharge tomorrow. Per collateral has not been suicidal, patient denies any suicidal ideation or thoughts of using a gun. TIME SPENT: 15 minutes. Vital Signs Vital Signs Date Time Temp Pulse Resp B/P (MAP) Pulse Ox O2 Delivery O2 Flow Rate FiO2 02/11/21 06:43 96.9 71 18 148/86 (106) 96 Room Air Laboratory Data 24H Labs Laboratory Tests 2 02/11/21 07:01: Triglycerides Level 100, Total Cholesterol 96, LDL Cholesterol 41, Non-HDL Cholesterol (LDL + VLDL) 61, Total HDL Cholesterol 35L, Cholesterol/HDL Ratio 2.742 Current Medications Current Medications Medications (Trade) Dose Ordered Sig/Regina Route PRN Reason Start Time Stop Time Status Last Admin Dose Admin Acetaminophen (Tylenol Tab) 650 mg Q6HP PRN PO HEADACHE or MILD DISCOMFORT 02/09/21 20:20 Al Hydrox/Mg Hydrox/Simethicone (Mylanta) 30 ml Q4HP PRN PO HEARTBURN/INDIGESTION 02/09/21 20:20 Aripiprazole (AbiLIFY) 5 mg DAILY PO 02/09/21 09:00 02/09/21 16:00 DC 02/09/21 08:39 Aripiprazole (AbiLIFY) 10 mg QHS PO 02/10/21 21:00 02/10/21 21:03 Divalproex Sodium (Depakote Er) 750 mg DAILY PO 02/10/21 09:00 02/10/21 11:03 DC 02/10/21 10:51 Fluoxetine HCl (PROzac) 40 mg DAILY PO 02/09/21 09:00 02/09/21 16:00 DC 02/09/21 08:39 Home Med (Home Med List Complete!) ASDIRECTED XX 02/09/21 15:00 02/09/21 14:59 DC Magnesium Hydroxide (Milk Of Magnesia) 30 ml DAILYPRN PRN PO CONSTIPATION 02/09/21 20:20 Olanzapine (ZyPREXA ZYDIS) 5 mg Q6HP PRN PO ANXIETY/AGITATION 02/09/21 20:20 Trazodone HCl (Desyrel) 50 mg QHSP PRN PO INSOMNIA 02/09/21 20:20 02/10/21 21:03 Allergies Coded Allergies: No Known Allergies (Verified , 02/08/21) JEMAL CANTRELL MD Feb 11, 2021 15:18
[2021-02-11 18:58] VITALS: BP 136/92
[2021-02-11] MEDS: ARIPiprazole 10 MG TAB PO SCH (21:08)
[2021-02-11] MEDS: traZODone 50 MG TAB PO PRN (21:47)
[2021-02-12 06:41] VITALS: BP 139/63
[2021-02-12] MEDS ORDERED: TRAZ-252 PO (09:33)
[2021-02-12] MEDS ORDERED: ABIL10TA9 PO (09:33)
--- NOTE | 2021-02-12 13:51 | MHDSPDOC ---
[facility] Discharge Summary Discharge Summary DATE OF ADMISSION: Feb 09, 2021 at 20:16 DATE OF DISCHARGE: Feb 12, 2021 at 11:08 Discharge diagnoses: Unspecified bipolar disorder ADHD per hx (mother reports dx at age 6 or 7) R/o borderline intellectual function R/o MDD, Pscychotic disorder, Bipolar disorder I/II R/o paraphilic disorder Reason for admission: Patient is a 40 -year-old , male, who has a past psychiatric history of reported depression, insomnia, anger issues who was brought by police on a 9.41 after making suicidal statements per police, patient states he did not make the statements. Per chart review patient was staring, peaking into a woman's window, patient denies this, despite previous documentation of this behavior. States when doesn't sleep takes walks around the block to get tired, reports gets 2-4 hours of sleep nightly for last 2-3 months. States has alot of energy. Says stressors include trying to help parents out "trying to keep their house clean", reports parents have alot of health issues and he also works at "[employer]". Says he works late nights and sleep can be poor even on days does not work. States he switches between watching TV and walking around the block to try and sleep. Denies expansive mood or grandiosity. States he has no memory of peeking into windows. States he used to hear voices a long time ago, but has not heard voices since age 26 y/o, reports has multiple family members that around that time which stressed him out at the time. However per chart review was reporting to PSA December 2019 he had repeated command auditory hallucinations to kill himself. states "I need a pill for sleep". Reports depression started in highschool due to bullying. Denies he is currently suicidal and states he does not want to harm others. He has multiple previous admissions to [facility] recently in December 21 and July 23 2020 was his last admission he was diagnosed with adjustment disorder and cluster a traits on Abilify 5 mg daily, fluoxetine 40 mg daily and inhalers for allergies. Patient states he did not make any suicidal gestures attempts or have any suicidal ideation and does not know why he is here, per previous collateral from mother states he does not meet criteria for safety risk or admission. Patient is pretty withdrawn, continues to appear somewhat dysthymic, states they found the [employer] and that is being sorted out. Feels like he is finally sleeping as he reports now getting 8 hours of sleep and feeling pretty good during the day reportedly. Denies side effects from the Abilify. Vital signs: See below Consultants involved: See medical H&P by hospitalist Treatment and progress on the unit: Patient was admitted to the [facility] 9.39 legal status and was afforded the following treatment modalities: 1. Individual therapy 2. Group therapy 3. Medication management 4. Milieu therapy 5. Safe environment Hospital course: Patient was admitted to the [facility] on a 9.39 legal status. Was medically cleared prior to coming up to the [facility]. Patient reports he did not have any suicidal ideations, does not know why he was brought here, this was confirmed with his mother who is been staying with caring for 4 days. Reports that it was lack of sleep that led him to walk around the neighborhood to release some steam, but denies any grandiosity or psychotic symptoms bringing him in. Patient reports he just needed something to sleep, he tried multiple sleep medications without benefit. Was started on the Abilify at 10 mg nightly, which she reports helped with sleep. Denies any depression or suicidal thoughts. States he does not like the people's windows and is confused by this, mother feels he is not a danger to self or others per collateral. Patient found medications beneficial and tolerated them well. During stay denied suicidal ideation or homicidal ideation. Denied mood anxiety and intrusive thoughts which improved with treatment. Patient attended groups daily during stay. Patient symptoms improved with treatment. On day of discharge patient denied depression, anxiety, insomnia, suicidal or homicidal ideations intent or plan, hallucinations, delusions. Patient was discharged home with follow-up. Patient felt safe for discharge. Was offered continued stay on voluntary admission but refused. Prior to admission and stated he just wanted to go work at [employer] get back to work, maintaining goal oriented behavior and also wanting to go home to his mother and help take care of her. Nursing notes reviewed which showed he was not making suicidal statements or endorsing any SI. Was also attending groups daily. Discharge assessment: On today's interview patient is alert and oriented, dressed appropriately. Hygiene and grooming is well-kept. Smiles on approach and is pleasant and engaged on interview. Denies depression and anxiety. Denies suicidal homicidal ideation, intent or planning. Denies and is not observed with charity or psychotic symptoms of delusions, hallucinations, bizarre thinking, obsessions, paranoia, ruminations, illogical thoughts, flight of ideas or having poor insight or judgment. Patient has normal mentation, declines further hospitalization of voluntary status and meets criteria for discharge today, patient encouraged to return the hospital if symptoms worsen or change and encouraged to call unit if they feel they need provider's questions to be answered or help with medications or care. Mental status: General Appearance: Low-set ears, improved hygiene, appears stated age, hospital scubs/clothing, other (Glasses, short dark hair), improved eye contact Build: overweight Demeanor: average Eye Contact: avoidant Activity: average Behavior: cooperative Speech: clear, slow, low in volume Mood: "fine" Affect: euthymic, appropriate, mood congruent Thought Process: circumstantial Thought Content (Delusions): none reported Thought Content (Other): none reported Thought Content (Aggressive): none reported Perception (Hallucinations): none reported Perception (Other): none reported Cognition (Impairment of): memory Cognition(Intelligence Est.): borderline Oriented: Awake, Alert, Oriented times three Insight: Limited Judgment: Limited Psychosis: Denies Medications on discharge: see medication reconciliation: CSSRS on discharge: Wish to be : No nonspecific active suicidal thoughts: No lifetime attempts: 0 interrupted attempts: 0 aborted attempts: 0 preparatory acts or behavior: None Taking into consideration safety state, status, modifiable, non-modifiable risk factors patient is at low risk on discharge for suicide according to [place] suicide evaluation. Follow-up appointments: Follow Up Care Education Label * Medical * Additional information Patient declined medical follow up. He states he already has an established appointment for next week. Follow Up Care Education Label * Mental Health Appt 1 * Mental [facility] * Date Feb 16, 2021 * Time 11:00 * Address of Clinic or Practice [address] [place] [address] * Follow Up Care Education Label * Mental Health Appt 2 * [facility] * Date Feb 18, 2021 * Time 10:00 * Address of Clinic or Practice [address] [place] [address] * total time: 30 minutes ETOH/Disorder Med Rx ETOH/DRUG DISORDER RX: Offrd @ d/c & pt refused Vital Signs/I&Os Vital Signs Date Time Temp Pulse Resp B/P (MAP) Pulse Ox O2 Delivery O2 Flow Rate FiO2 02/12/21 06:41 97.5 51 16 139/63 (88) 98 Room Air Medications Scheduled Aripiprazole (Abilify) 10 Mg Tablet, 10 MG PO QHS for mood stabilization, #7 Fluoxetine Hcl (Fluoxetine HCl) 40 Mg Capsule, 40 MG PO DAILY, (Reported) Fluticasone/Vilanterol (Breo Ellipta 200-25 Mcg INH) 1 Each Blst.w.dev, 1 PUFF INH DAILY, (Reported) Mirtazapine (Mirtazapine) 7.5 Mg Tablet, 7.5 MG PO QHS, (Reported) Tiotropium [employer] (Spiriva Respimat) 4 Gm Mist.inhal, 2 PUFFS INH DAILY, (Reported) Scheduled PRN Omeprazole (Omeprazole) 40 Mg Capsule.dr, 40 MG PO DAILY PRN for HEARTBURN, (Reported) Ondansetron HCl (Ondansetron HCl) 4 Mg Tablet, 4 MG PO Q4H PRN for NAUSEA OR VOMITING, (Reported) Trazodone HCl (Trazodone HCl) 50 Mg Tablet, 50 MG PO QHSP PRN for INSOMNIA, #7 Allergies Coded Allergies: No Known Allergies (Verified , 02/08/21) JEMAL CANTRELL MD Feb 12, 2021 13:51
== END 2021-02-12 11:08 | disposition home or self-care (01) | DRG 885 ==
LOC: M ED 22:41 → M ED INP 02-09 20:16 → M PSY 02-09 22:24
PROVIDERS: ADMIT Psychiatry & Neurology Psychiatry; ATTEND Student in an Organized Health Care Education/Training Program
DX: F31.9 Bipolar disorder, unspecified (principal); R45.851 Suicidal ideations; F90.9 Attention-deficit hyperactivity disorder, unspecified type; F79 Unspecified intellectual disabilities; F65.9 Paraphilia, unspecified; J45.909 Unspecified asthma, uncomplicated; Z79.899 Other long term (current) drug therapy

== ENCOUNTER 2021-05-02 14:35 | Emergency (ER) | payer MEDICARE, MEDICAID ==
[~2021-05-02] VITALS: Ht 180.3 cm; Wt 112.4 kg
[~2021-05-02 14:35] MED LIST changes: +ABIL10TA9 PO; +MIRT1TAB PO; +ONDA-83 PO; +TRAZ-252 PO
[2021-05-02 14:41] VITALS: BP 132/82
--- OUTSIDE RECORDS SUMMARY | 2021-05-02 14:41 | CCD ---
Author Author Rajendra Leyva Organization Unknown Address [address] [place] [address] Phone Care Team Providers Care Chemical Milling Processor Name Role Phone LeyvaRussel dueñasmond PCP Allergies, Adverse Reactions, Alerts No Data in Section Problem List Concept Problem Description Status Start Date Created Date Resolv ed Date Snomed Code F33.3 Major Depressive Disorder, Recurrent epi sode, With psychotic features Active 03/16/2021 F43.23 Adjustment Disorder, With mixed anxiety and depressed mood Active 03/16/2021 Medications Rx Norm Medication Route Route Concept Start Date Stop Date Dosage Ankit quency Duration Formula Strength Dosage Form Dosage Form Code Dosage Description Medication Id Account Npid Author First Name Author Last Name Taxonomy Code Taxonomy Desc Phone Number [phone] fluoxetine by mouth [id number] 06/01/2020 05/17/2021 every morning 30 40 mg capsule 98595 [id number] Deo Leyva [id number] Psychia try [id number] 707353 aripiprazole by mouth [id number] 06/01/2020 05/17/2021 at bedtime 30 10 mg tablet 37015 [id number] Deo Leyva [id number] Psychiat ry [id number] 492534 trazodone by mouth [id number] 02/16/2021 05/17/2021 every night 30 50 mg tablet as needed 95298 [id number] Deo Leyva [id number] Psych iatry [id number] Social History Social History Element Description Concept Effective Date Smoking Status Unknown if ever smoked [id number] Immunizations No Data in Section Vital Signs No Data in Section Procedures Date Concept Id Description Targeted Site Concept Targeted Site Concept Type 03/16/2021 11378-16 [facility] Telemed E/M Lvl 2--Est pt CPT Patient has no history of implantable de vices Encounters Encounter Start Date End Date Encounter Type Description Diagnosis Di agnosis Desc Location Author First Name Author Last Name Npid Taxonomy Cod e Taxonomy Desc Phone Number Location Addr1 Location Addr2 Location City Location [place] Location Zip [id number] 03/16/2021 03/16/2021 11832-59 [facility] Telemed E/M Lvl 2--Est p t F33.3 Major depressv disorder, recurrent, severe w psych symptoms [facility] [phone] Psychiatry [id number] [address] [address] Plan of Treatment No Data in Section Lab Results No Data in Section Instructions No Data in Section Functional Cognitive Status No Data in Section Insurance Providers Insurance Id Policy Effective Date Policy Thru Date Company Kenneth trotter [id number] 2002 MEDICARE [id number] 2020 MEDICAID [id number] CRISIS
--- OUTSIDE RECORDS SUMMARY | 2021-05-02 14:41 | CCD ---
Author Author Rajendra Hernández Organization Unknown Address [address] [address] Phone Care Team Providers Care Grain Manager Name Role Phone Willa Hernández PCP Chief Complaint and Reason for Visit Chief Complaint Allergies, Adverse Reactions, Alerts No Data in Section Problem List Concept Problem Description Status Start Date Created Date Resolv ed Date Snomed Code F33.3 Major Depressive Disorder, Recurrent epi sode, With psychotic features Active 02/18/2021 F43.23 Adjustment Disorder, With mixed anxiety and depressed mood Active 02/18/2021 Medications Rx Norm Medication Route Route Concept Start Date Stop Date Dosage Ankit quency Duration Formula Strength Dosage Form Dosage Form Code Dosage Description Medication Id Account Npid Author First Name Author Last Name Taxonomy Code Taxonomy Desc Phone Number [phone] aripiprazole by mouth [id number] 06/01/2020 at bedtime 5 mg ta blet 36593 [id number] [id number] Deo Leyva [id number] Psychiatry [phone] [id number] fluoxetine by mouth [id number] 06/01/2020 03/01/2021 every morning 30 40 mg capsule 49748 [id number] Deo Leyva [id number] Psychia try [id number] 015001 mirtazapine by mouth [id number] 09/08/2020 03/01/2021 every night 30 7.5 mg tablet 00145 [id number] Deo Leyva [id number] Psychiat ry [id number] Social History Social History Element Description Concept Effective Date Smoking Status Unknown if ever smoked [id number] Immunizations No Data in Section Vital Signs No Data in Section Procedures Date Concept Id Description Targeted Site Concept Targeted Site Concept Type 02/18/2021 54147 Extended Individual Psychotherapy - 45 min CPT Patient has no history of implantable de vices Encounters Encounter Start Date End Date Encounter Type Description Diagnosis Di agnosis Desc Location Author First Name Author Last Name Npid Taxonomy Cod e Taxonomy Desc Phone Number Location Addr1 Location Addr2 Location [facility] Location Sta te Location Zip [id number] 02/18/2021 02/18/2021 03044 Extended Individual Psych otherapy - 45 min F33.3 Major depressv disorder, recurrent, severe w psych sym ptoms [facility] Edgar Crouch [phone] [id number] Social Wo rker [phone] [address] [place] [phone] Plan of Treatment No Data in Section Lab Results No Data in Section Instructions No Data in Section Insurance Providers Insurance Id Policy Effective Date Policy Thru Date Company N rose marie [id number] 2002 MEDICARE [id number] 2020 MEDICAID [id number] CRISIS
--- OUTSIDE RECORDS SUMMARY | 2021-05-02 14:41 | CCD ---
Author Author Rajendra Leyva Organization Unknown Address [address] [place] [address] Phone Care Team Providers Care Talent Development Director Name Role Phone LevyaRussel dueñasmond PCP Allergies, Adverse Reactions, Alerts No Data in Section Problem List Concept Problem Description Status Start Date Created Date Resolv ed Date Snomed Code F33.3 Major Depressive Disorder, Recurrent epi sode, With psychotic features Active 04/20/2021 F43.23 Adjustment Disorder, With mixed anxiety and depressed mood Active 04/20/2021 Medications Rx Norm Medication Route Route Concept Start Date Stop Date Dosage Ankit quency Duration Formula Strength Dosage Form Dosage Form Code Dosage Description Medication Id Account Npid Author First Name Author Last Name Taxonomy Code Taxonomy Desc Phone Number [phone] fluoxetine by mouth [id number] 06/01/2020 07/19/2021 every morning 30 40 mg capsule 92648 042886 [id number] Deo Leyva [id number] Psychia try [phone] 571805 aripiprazole by mouth W57511 06/01/2020 07/19/2021 at bedtime 30 10 mg tablet 14188 685158 [id number] Deo Leyva [id number] Psychiat ry 3388525407 004524 trazodone by mouth X25480 02/16/2021 07/19/2021 every night 30 50 mg tablet as needed 78440 897387 [id number] Deo Leyva [id number] Psych iatry [id number] Social History Social History Element Description Concept Effective Date Smoking Status Unknown if ever smoked [id number] Immunizations No Data in Section Vital Signs No Data in Section Procedures Date Concept Id Description Targeted Site Concept Targeted Site Concept Type 04/20/2021 64431-85 [facility] Telemed E/M Lvl 2--Est pt CPT Patient has no history of implantable de vices Encounters Encounter Start Date End Date Encounter Type Description Diagnosis Di agnosis Desc Location Author First Name Author Last Name Npid Taxonomy Cod e Taxonomy Desc Phone Number Location Addr1 Location Addr2 Location [facility] Location Sta te Location [facility] [id number] 04/20/2021 04/20/2021 71300-83 [facility] Telemed E/M Lvl 2--Est p t F33.3 Major depressv disorder, recurrent, severe w psych symptoms [facility] [id number] Psychiatry [id number] [address] [address] Plan of Treatment No Data in Section Lab Results No Data in Section Instructions No Data in Section Functional Cognitive Status No Data in Section Insurance Providers Insurance Id Policy Effective Date Policy Thru Date Company Kenneth trotter [id number] 2002 MEDICARE [id number] 2020 MEDICAID [id number] CRISIS
--- OUTSIDE RECORDS SUMMARY | 2021-05-02 14:41 | CCD ---
Author Author Rajendra Hernández Organization Unknown Address [address] [address] Phone Care Team Providers Care Photocopying Machine Operator Name Role Phone Willa Hernández PCP Allergies, Adverse Reactions, Alerts No Data in Section Problem List Concept Problem Description Status Start Date Created Date Resolv ed Date Snomed Code F33.3 Major Depressive Disorder, Recurrent epi sode, With psychotic features Active 03/30/2021 F43.23 Adjustment Disorder, With mixed anxiety and depressed mood Active 03/30/2021 Medications Rx Norm Medication Route Route Concept Start Date Stop Date Dosage Ankit quency Duration Formula Strength Dosage Form Dosage Form Code Dosage Description Medication Id Account Npid Author First Name Author Last Name Taxonomy Code Taxonomy Desc Phone Number [phone] fluoxetine by mouth [id number] 06/01/2020 05/17/2021 every morning 30 40 mg capsule 44551 571821 [id number] Deo Leyva [id number] Psychia try 5685763890 548848 aripiprazole by mouth H43751 06/01/2020 05/17/2021 at bedtime 30 10 mg tablet 88880 368563 [id number] Deo Leyva [id number] Psychiat ry 8791592711 176724 trazodone by mouth X40022 02/16/2021 05/17/2021 every night 30 50 mg tablet as needed 15993 231472 [id number] Deo Leyva [id number] Psych iatry [id number] Social History Social History Element Description Concept Effective Date Smoking Status Unknown if ever smoked [id number] Immunizations No Data in Section Vital Signs No Data in Section Procedures Date Concept Id Description Targeted Site Concept Targeted Site Concept Type 03/30/2021 44455 Brief Individual Psychotherapy - 30 min CPT Patient has no history of implantable de vices Encounters Encounter Start Date End Date Encounter Type Description Diagnosis Di agnosis Desc Location Author First Name Author Last Name Npid Taxonomy Cod e Taxonomy Desc Phone Number Location Addr1 Location Addr2 Location [facility] Location Sta te Location [place] [id number] 03/30/2021 03/30/2021 11101 Brief Individual Psychoth erapy - 30 min F33.3 Major depressv disorder, recurrent, severe w psych sym ptoms [facility] Edgar Crouch [id number] Inspector Machine Cut Glass [id number] [address] [address] Plan of Treatment No Data in Section Lab Results No Data in Section Instructions No Data in Section Insurance Providers Insurance Id Policy Effective Date Policy Thru Date Company N rose marie [id number] 2002 MEDICARE [id number] 2020 MEDICAID [id number] CRISIS
--- OUTSIDE RECORDS SUMMARY | 2021-05-02 14:41 | CCD ---
Author Author Rajendra Hernández Organization Unknown Address [address] [address] Phone Care Team Providers Care Loss Prevention Auditor Name Role Phone Willa Hernández PCP Allergies, [...] Name Taxonomy Code Taxonomy Desc Phone Number [phone] fluoxetine by mouth [id number] 06/01/2020 05/17/2021 every morning 30 40 mg capsule 00006 881267 [id number] Deo Leyva [id number] Psychia try 0054761273 627597 aripiprazole by mouth V45020 06/01/2020 05/17/2021 at bedtime 30 10 mg tablet 66165 464844 [id number] Deo Leyva [id number] Psychiat ry 6579642327 467781 trazodone by mouth [id number] 02/16/2021 05/17/2021 every night 30 50 mg tablet as needed 35472 758003 [id number] Deo Leyva [id number] Psych iatry 0527085024 Social History Social History Element Description Concept Effective Date Smoking Status Unknown if ever smoked [id number] 35061104 Immunizations No Data in Section Vital Signs No Data in Section Procedures Date Concept Id Description Targeted Site Concept Targeted Site Concept Type 03/30/2021 21576 Brief Individual Psychotherapy - 30 min CPT Patient has no history of implantable de vices Encounters Encounter Start Date End Date Encounter Type Description Diagnosis Di agnosis Desc Location Author First Name Author Last Name Npid Taxonomy Cod e Taxonomy Desc Phone Number Location Addr1 Location Addr2 Location [facility] Location Sta te Location Zip [id number] 03/30/2021 03/30/2021 08875 Brief Individual Psychoth erapy - 30 min F33.3 Major depressv disorder, recurrent, severe w psych sym ptoms [facility] Edgar Crouch [id number] Motor Vehicle 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
--- OUTSIDE RECORDS SUMMARY | 2021-05-02 14:41 | CCD | Continuity of Care Document ---
Author Author Rajendra GANDHI DPT Organization Unknown Address [address] [place] [address] Phone [phone] Care Team Providers Care Drill Press Set Up Operator Radial Name Role Phone Rajendra Miller DO AUTM [phone] Problems Description No Information Available Social History Type Date Description Comments Sex Unknown Tobacco Use Start: Unknown Patient has never smoked Allergies, Adverse Reactions, Alerts Description No Known Drug Allergies Medications Active Medications SIG Qnty Indications Ordering Provide r Date Ra Decongestant Inhaler Inhaler Unknown Immunizations Description No Information Available Vital Signs Date Vital Result Comment 09/01/2020 10:57am Height 70 inches 5'10" Weight 200.00 lb BMI (Body Mass Index) 28.7 kg/m2 Results Description No Information Available Procedures Date Code Description Status 01/27/2021 18708 Office/Outpatient Established Lo w MDM 20-29 Min Completed 01/27/2021 93326 Therapeutic Procedure, Each 15 M inutes Completed 01/01/2021 92433 Physical Therapy Eval - Low Comp lexity Completed 12/15/2020 12590 Office/Outpatient Established Lo w MDM 20-29 Min Completed 10/09/2020 63015 MRI Lower Extremity Any Joint Co mpleted 10/09/2020 85715 MRI Lower Extremity Any Joint Co mpleted 09/08/2020 42089 MRI Lower Extremity Any Joint Co mpleted 09/01/2020 89877 Office/Outpatient New Low MDM 30 -44 Minutes Completed Medical Devices Description No Information Available Encounters Type Date Location Provider Dx Diagnosis Office Visit 01/27/2021 11:15a [place] Wolf Abdi. S83.511D Sprain of anterior cruciate ligament of right knee, subs S83.411D Sprain of medial collateral ligament of right knee, subs Office Visit 12/15/2020 11:15a [place] Cedric Sorensen, P.A. S83.511A Sprain of anterior cruciate ligament of right knee, init S83.411A Sprain of medial collateral ligament of right knee, init Office Visit 09/01/2020 11:00a [place] Cedric Sorensen, P.A. S83.91xA Sprain of unspecified site of right knee, initial encounter M25.461 Effusion, right knee Assessments Date Code Description Provider 01/27/2021 S83.511D Sprain of anterior c ruciate ligament of right knee, subsequent encounter Fred Gandhi, PT, DPT 01/27/2021 S83.511D Sprain of anterior c ruciate ligament of right knee, subsequent encounter Cedric Sorensen, P.A. 01/27/2021 S83.411D Sprain of medial col lateral ligament of right knee, subsequent encounter Fred Gandhi, PT, DPT 01/27/2021 S83.411D Sprain of medial col lateral ligament of right knee, subsequent encounter Cedric Sorensen, P.A. 01/01/2021 S83.511A Sprain of anterior c ruciate ligament of right knee, initial encounter Cedric Sorensen, P.A. 01/01/2021 S83.511D Sprain of anterior c ruciate ligament of right knee, subsequent encounter Fred Gandhi, PT, DPT 01/01/2021 S83.411D Sprain of medial col lateral ligament of right knee, subsequent encounter Fred Gandhi, PT, DPT 12/15/2020 S83.511A Sprain of anterior c ruciate ligament of right knee, initial encounter Cedric Sorensen, P.A. 12/15/2020 S83.511A Sprain of anterior c ruciate ligament of right knee, initial encounter Cedric Sorensen, P.A. 12/15/2020 S83.411A Sprain of medial col lateral ligament of right knee, initial encounter Cedric Sorensen, P.A. 10/09/2020 S83.91xA Sprain of unspecified site of ri ght knee, initial encounter Maura Abdi 10/09/2020 S83.91xA Sprain of unspecified site of ri ght knee, initial encounter MRI 09/08/2020 S83.91xA Sprain of unspecified site of ri ght knee, initial encounter MRI 09/01/2020 S83.91xA Sprain of unspecified site of ri ght knee, initial encounter Maura Abdi 09/01/2020 M25.461 Effusion, right knee Maura Abdi Plan of Treatment No Information Available Functional Status Description No Information Available Mental Status Description No Information Available Referrals Refer to Dr Reason for Referral Status Appt Date Cedric Sorensen PA Physical Therapy Right Knee, per ins no auth req based on medical necessity, patient is going to [facility] passed to PT dept sw. Created [facility] [place] [address] [phone] Cedric Sorensen PA MRI NO AUTH REQUIRED FOR MRI OF RIGHT KNEE ([id number]) TO MRI. DG Created [facility] [place] [address] [phone] Cedric Sorensen PA MRI NO AUTH REQUIRED FOR MRI OF RIGHT KNEE ([id number]) TO MRI. DG Created [facility] [place] [address] [phone]
--- OUTSIDE RECORDS SUMMARY | 2021-05-02 14:41 | CCD ---
Author Author Rajendra Hernández Organization Unknown Address [address] [address] Phone Care Team Providers Care Respiratory Technician Name Role Phone Willa Hernández PCP Allergies, Adverse Reactions, Alerts No Data in Section Problem List Concept Problem Description Status Start Date Created Date Resolv ed Date Snomed Code F33.3 Major Depressive Disorder, Recurrent epi sode, With psychotic features Active 03/05/2021 F43.23 Adjustment Disorder, With mixed anxiety and depressed mood Active 03/05/2021 Medications Rx Norm Medication Route Route Concept Start Date Stop Date Dosage Ankit quency Duration Formula Strength Dosage Form Dosage Form Code Dosage Description Medication Id Account Npid Author First Name Author Last Name Taxonomy Code Taxonomy Desc Phone Number [phone] fluoxetine by mouth [id number] 06/01/2020 05/17/2021 every morning 30 40 mg capsule 55567 808186 [id number] Deo Leyva [id number] Psychia try 3077251160 786124 aripiprazole by mouth W18959 06/01/2020 05/17/2021 at bedtime 30 10 mg tablet 77315 496856 [id number] Deo Leyva [id number] Psychiat ry 5479231727 750155 trazodone by mouth U84211 02/16/2021 05/17/2021 every night 30 50 mg tablet as needed 14320 939655 [id number] Deo Leyva [id number] Psych iatry 4479529580 Social History Social History Element Description Concept Effective Date Smoking Status Unknown if ever smoked [id number] Immunizations No Data in Section Vital Signs No Data in Section Procedures Date Concept Id Description Targeted Site Concept Targeted Site Concept Type 03/04/2021 45719 Brief Individual Psychotherapy - 30 min CPT Patient has no history of implantable de vices Encounters Encounter Start Date End Date Encounter Type Description Diagnosis Di agnosis Desc Location Author First Name Author Last Name Npid Taxonomy Cod e Taxonomy Desc Phone Number Location Addr1 Location Addr2 Location [facility] Location Sta te Location Zip [address] 03/04/2021 03/04/2021 88125 Brief Individual Psychoth erapy - 30 min F33.3 Major depressv disorder, recurrent, severe w psych sym ptoms [facility] Edgar Crouch [id number] Metal Bonder [id number] [address] [address] Plan of Treatment No Data in Section Lab Results No Data in Section Instructions No Data in Section Insurance Providers Insurance Id Policy Effective Date Policy Thru Date Company N rose marie [id number] 2002 MEDICARE [id number] 2020 MEDICAID [id number] CRISIS
--- OUTSIDE RECORDS SUMMARY | 2021-05-02 14:41 | CCD | Continuity of Care Document ---
Author Author Rajendra SAWYER DPT Organization Unknown Address [address] [place] [address] Phone [phone] Care Team Providers Care Milk Tester Name Role Phone Rajendra Miller DO AUTM [phone] Problems Description No Information Available Social History Type Date Description Comments Sex Unknown Tobacco Use Start: Unknown Patient has never smoked Allergies and adverse reactions Description No Known Drug Allergies Medications Active Medications SIG Qnty Indications Ordering Provide r Date Ra Decongestant Inhaler Inhaler Unknown Immunizations Description No Information Available Vital Signs Date Vital Result Comment 09/01/2020 10:57am Height 70 inches 5'10" Weight 200.00 lb BMI (Body Mass Index) 28.7 kg/m2 Results Description No Information Available Procedures Date Code Description Status 03/03/2021 28897 Therapeutic Procedure, Each 15 M inutes Completed 01/27/2021 70021 Office/Outpatient Established Lo w MDM 20-29 Min Completed 01/27/2021 82193 Therapeutic Procedure, Each 15 M inutes Completed 01/01/2021 24977 Physical Therapy Eval - Low Comp lexity Completed 12/15/2020 82019 Office/Outpatient Established Lo w MDM 20-29 Min Completed 10/09/2020 69488 MRI Lower Extremity Any Joint Co mpleted 10/09/2020 44963 MRI Lower Extremity Any Joint Co mpleted Medical Devices Description No Information Available Encounters Type Date Location Provider Dx Diagnosis Office Visit 01/27/2021 11:15a Vivienne Sorensen, P.A. S83.511D Sprain of anterior cruciate ligament of right knee, subs S83.411D Sprain of medial collateral ligament of right knee, subs Office Visit 12/15/2020 11:15a Erika Levian, P.A. S83.511A Sprain of anterior cruciate ligament of right knee, init S83.411A Sprain of medial collateral ligament of right knee, init Assessments Date Code Description Provider 03/03/2021 S83.511D Sprain of anterior c ruciate ligament of right knee, subsequent encounter Fred Sawyer, PT, DPT 03/03/2021 S83.411D Sprain of medial col lateral ligament of right knee, subsequent encounter Fred Sawyer, PT, DPT 01/27/2021 S83.511D Sprain of anterior c ruciate ligament of right knee, subsequent encounter Fred Sawyer, PT, DPT 01/27/2021 S83.511D Sprain of anterior c ruciate ligament of right knee, subsequent encounter Cedric Sorensen, P.A. 01/27/2021 S83.411D Sprain of medial col lateral ligament of right knee, subsequent encounter Fred Sawyer, PT, DPT 01/27/2021 S83.411D Sprain of medial col lateral ligament of right knee, subsequent encounter Cedric Sorensen, P.A. 01/01/2021 S83.511A Sprain of anterior c ruciate ligament of right knee, initial encounter Cedric Sorensen, P.A. 01/01/2021 S83.511D Sprain of anterior c ruciate ligament of right knee, subsequent encounter Fred Sawyer, PT, DPT 01/01/2021 S83.411D Sprain of medial col lateral ligament of right knee, subsequent encounter Fred Sawyer, PT, DPT 12/15/2020 S83.511A Sprain of anterior [...] of ri ght knee, initial encounter MRI Plan of Treatment Future Appointment(s):* 03/17/2021 11:00 am - Kelli Hill, UNIT OPERATOR at Physical Therapy Functional Status Description No Information Available Mental Status Description No Information Available Referrals Refer to Dr Reason for Referral Status Appt Date Cedric Sorensen, PA Physical Therapy Right Knee, per ins no auth req based on medical necessity, patient is going to [facility] passed to PT dept sw. Created [address] [place] [address] [address] [place] [address] [phone]
--- OUTSIDE RECORDS SUMMARY | 2021-05-02 14:41 | CCD ---
Author Author Rajendra Hernández Organization Unknown Address [address] [address] Phone Care Team Providers Care Onion Farmer Name Role Phone Willa Hernández PCP Allergies, Adverse Reactions, Alerts No Data in Section Problem List Concept Problem Description Status Start Date Created Date Resolv ed Date Snomed Code F33.3 Major Depressive Disorder, Recurrent epi sode, With psychotic features Active 04/12/2021 F43.23 Adjustment Disorder, With mixed anxiety and depressed mood Active 04/12/2021 Medications Rx Norm Medication Route Route Concept Start Date Stop Date Dosage Ankit quency Duration Formula Strength Dosage Form Dosage Form Code Dosage Description Medication Id Account Npid Author First Name Author Last Name Taxonomy Code Taxonomy Desc Phone Number [phone] trazodone by mouth H88346 02/16/2021 06/14/2021 every night 30 50 mg tablet as needed 58195 310935 [id number] Deo Leyva [id number] Psych iatry 5134953288 758700 aripiprazole by mouth A03709 06/01/2020 06/14/2021 at bedtime 30 10 mg tablet 92180 458728 [id number] Deo Leyva [id number] Psychiat ry 4996656787 522710 fluoxetine by mouth T98060 06/01/2020 06/14/2021 every morning 30 40 mg capsule 84206 160421 [id number] Deo Leyva [id number] Psychia try 5707803990 Social History Social History Element Description Concept Effective Date Smoking Status Unknown if ever smoked [id number] 96764055 Immunizations No Data in Section Vital Signs No Data in Section Procedures Date Concept Id Description Targeted Site Concept Targeted Site Concept Type 04/12/2021 47377 Extended Individual Psychotherapy - 45 min CPT Patient has no history of implantable de vices Encounters Encounter Start Date End Date Encounter Type Description Diagnosis Di agnosis Desc Location Author First Name Author Last Name Npid Taxonomy Cod e Taxonomy Desc Phone Number Location Addr1 Location Addr2 Location [facility] Location Sta te Location Zip [id number] 04/12/2021 04/12/2021 78243 Extended Individual Psych otherapy - 45 min F33.3 Major depressv disorder, recurrent, severe w psych sym ptoms [facility] Edgar Crouch [id number] Social Wo rker [id number] [address] [place] [phone] Plan of Treatment No Data in Section Lab Results No Data in Section Instructions No Data in Section Insurance Providers Insurance Id Policy Effective Date Policy Thru Date Company N rose marie [id number] 2002 MEDICARE [id number] 2020 MEDICAID [id number] CRISIS
--- OUTSIDE RECORDS SUMMARY | 2021-05-02 14:41 | CCD ---
Author Author Rajendra Hernández Organization Unknown Address [address] [address] Phone Care Team Providers Care Gas Station Service Attendant Name Role Phone Willa Hernández PCP Allergies, Adverse Reactions, Alerts No Data in Section Problem List Concept Problem Description Status Start Date Created Date Resolv ed Date Snomed Code F33.3 Major Depressive Disorder, Recurrent epi sode, With psychotic features Active 03/19/2021 F43.23 Adjustment Disorder, With mixed anxiety and depressed mood Active 03/19/2021 Medications Rx Norm Medication Route Route Concept Start Date Stop Date Dosage Ankit quency Duration Formula Strength Dosage Form Dosage Form Code Dosage Description Medication Id Account Npid Author First Name Author Last Name Taxonomy Code Taxonomy Desc Phone Number [phone] fluoxetine by mouth I88297 06/01/2020 05/17/2021 every morning 30 40 mg capsule 02563 192781 [id number] Deo Leyva [id number] Psychia try 0948980320 178541 aripiprazole by mouth O08990 06/01/2020 05/17/2021 at bedtime 30 10 mg tablet 42445 688138 [id number] Deo Leyva [id number] Psychiat ry 7124013263 294619 trazodone by mouth I29319 02/16/2021 05/17/2021 every night 30 50 mg tablet as needed 94075 460574 [id number] Deo Leyva [id number] Psych iatry 7650750955 Social History Social History Element Description Concept Effective Date Smoking Status Unknown if ever smoked [id number] 59784758 Immunizations No Data in Section Vital Signs No Data in Section Procedures Date Concept Id Description Targeted Site Concept Targeted Site Concept Type 03/19/2021 28968 Extended Individual Psychotherapy - 45 min CPT Patient has no history of implantable de vices Encounters Encounter Start Date End Date Encounter Type Description Diagnosis Di agnosis Desc Location Author First Name Author Last Name Npid Taxonomy Cod e Taxonomy Desc Phone Number Location Addr1 Location Addr2 Location [facility] Location Sta te Location Zip [address] 03/19/2021 03/19/2021 00276 Extended Individual Psych otherapy - 45 min F33.3 Major depressv disorder, recurrent, severe w psych sym ptoms [facility] Edgar Crouch [id number] Social Wo rker [id number] [address] [place] [phone] Plan of Treatment No Data in Section Lab Results No Data in Section Instructions No Data in Section Insurance Providers Insurance Id Policy Effective Date Policy Thru Date Company N rose marie [id number] 2002 MEDICARE [id number] 2020 MEDICAID [id number] CRISIS
== END 2021-05-02 16:31 | disposition left against medical advice (07) ==
LOC: M ED 14:35
DX: Z53.21 Procedure and treatment not carried out due to patient leaving prior to being seen by health care provider (principal)

== ENCOUNTER 2021-09-14 22:47 | Emergency (ER) | payer MEDICARE, MEDICAID ==
[~2021-09-14] VITALS: Ht 180.3 cm; Wt 114.3 kg
[~2021-09-14 22:47] MED LIST changes: -MONT10TA10; +MONT10TA97
[2021-09-15] MEDS ORDERED: KETOROLAC 30 MG/ML 1ML VIAL IV ONE (01:45)
[2021-09-15] MEDS ORDERED: diphenhydrAMINE 50MG/ML VIAL (J1200) IV ONE (01:45)
[2021-09-15] MEDS ORDERED: METOCLOPRAMIDE INJ 10MG/2ML VIAL (J2765 PER 1) IV ONE (01:45)
[2021-09-15] MEDS ORDERED: NS 1,000 ML IV ONE (01:45)
[2021-09-15 03:00] LABS: RSV AMPLIFICATION NEGATIVE (NEGATIVE)
[2021-09-15] MEDS ORDERED: NIRM1TAB PO (04:01)
[2021-09-15 04:30] VITALS: BP 131/70
== END 2021-09-15 04:40 | disposition home or self-care (01) ==
LOC: M ED 22:47
DX: U07.1 COVID-19 (principal); R51.9 Headache, unspecified; J45.909 Unspecified asthma, uncomplicated; Z79.899 Other long term (current) drug therapy
CPT/HCPCS: 87631; 96361; 96374; 96375; 99284; J1200; J1885; J2765

== ENCOUNTER 2024-08-02 14:29 | Emergency (ER) | payer MEDICARE, MEDICAID ==
[~2024-08-02] VITALS: Ht 180.3 cm; Wt 128.9 kg
[~2024-08-02 14:29] MED LIST changes: +NIRM1TAB PO
[2024-08-02 16:26] LABS: BASO % 0.1 % (0.0-1.0); EOS # 0.1 10^3/uL (0.0-0.5); EOS % 0.4 % (0.0-3.0); HEMATOCRIT 48.5 % (42.0-52.0); LYMPH # 0.7 10^3/uL (1.5-5.0); LYMPH % 4.8 % (24.0-44.0); MEAN CORPUSCULAR HEMOGLOBIN 29.3 pg (27.0-33.0); MEAN CORPUSCULAR VOLUME 88.8 fl (80.0-96.0); MONO # 0.6 10^3/uL (0.0-0.8); MONO % 4.2 % (2.0-8.0); NEUTROPHILS # 12.9 10^3/uL (1.5-8.5); NEUTROPHILS % 90.1 % (36.0-66.0); PLATELET COUNT, AUTOMATED 305 10^3/uL (150-450); RED BLOOD COUNT 5.46 10^6/uL (4.30-6.10); WHITE BLOOD COUNT 14.3 10^3/uL (4.0-10.0)
[2024-08-02] MEDS: NS (Normal Saline) 0.9% 1,000 ML IV ONE (16:42)
[2024-08-02] MEDS: ONDANSETRON 4MG 2ML VIAL IV ONE (16:42)
[2024-08-02 16:53] LABS: ALBUMIN 3.9 G/DL (3.2-5.2); BILIRUBIN,DIRECT 0.2 MG/DL (<0.4); BILIRUBIN,TOTAL 0.7 MG/DL (0.3-1.2); TOTAL PROTEIN 7.3 G/DL (5.7-8.2)
[2024-08-02] MEDS ORDERED: ISOVUE-370 76% 100ML VIAL As Ordered ONE (17:16)
[2024-08-02] MEDS ORDERED: ONDA-282 PO (18:33)
[2024-08-02 18:49] VITALS: BP 130/87; TEMP 97; O2SAT 96
== END 2024-08-02 18:53 | disposition home or self-care (01) ==
LOC: M ED 14:29
DX: K52.9 Noninfective gastroenteritis and colitis, unspecified (principal); K76.0 Fatty (change of) liver, not elsewhere classified; R11.2 Nausea with vomiting, unspecified; J45.909 Unspecified asthma, uncomplicated; F41.9 Anxiety disorder, unspecified; F32.A Depression, unspecified; Z79.899 Other long term (current) drug therapy; Z79.83 Long term (current) use of bisphosphonates
CPT/HCPCS: 36415; 74177; 80047; 80076; 83690; 85025; 87486; 87581; 87633; 87798; 96361; 96374; 99284; J2405; Q9967

== ENCOUNTER 2024-08-22 14:31 | Emergency (ER) | payer MEDICARE, MEDICAID ==
[~2024-08-22] VITALS: Ht 180.3 cm; Wt 132.0 kg
[~2024-08-22 14:31] MED LIST changes: +ONDA-282 PO
[2024-08-22 18:44] LABS: BASO % 0.2 % (0.0-1.0); EOS # 0.2 10^3/uL (0.0-0.5); EOS % 2.1 % (0.0-3.0); HEMATOCRIT 46.7 % (42.0-52.0); HEMOGLOBIN 15.7 g/dl (13.5-17.5); LYMPH # 2.9 10^3/uL (1.5-5.0); LYMPH % 26.1 % (24.0-44.0); MEAN CORPUSCULAR HGB CONC 33.6 g/dl (32.0-36.5); MEAN CORPUSCULAR VOLUME 86.2 fl (80.0-96.0); MONO # 0.9 10^3/uL (0.0-0.8); MONO % 7.7 % (2.0-8.0); NEUTROPHILS # 7.1 10^3/uL (1.5-8.5); NEUTROPHILS % 63.5 % (36.0-66.0); PLATELET COUNT, AUTOMATED 321 10^3/uL (150-450); RED BLOOD COUNT 5.42 10^6/uL (4.30-6.10); WHITE BLOOD COUNT 11.1 10^3/uL (4.0-10.0)
[2024-08-22 19:07] LABS: ALBUMIN 3.7 G/DL (3.2-5.2); BILIRUBIN,DIRECT 0.1 MG/DL (<0.4); BILIRUBIN,TOTAL 0.3 MG/DL (0.3-1.2)
[2024-08-22] MEDS ORDERED: ISOVUE-370 76% 100ML VIAL As Ordered ONE (19:11)
[2024-08-22 20:17] VITALS: BP 141/98; TEMP 98.2; O2SAT 97
== END 2024-08-22 20:48 | disposition home or self-care (01) ==
LOC: M ED 14:31
DX: K40.90 Unilateral inguinal hernia, without obstruction or gangrene, not specified as recurrent (principal); K42.9 Umbilical hernia without obstruction or gangrene; K76.0 Fatty (change of) liver, not elsewhere classified; I10 Essential (primary) hypertension; J45.909 Unspecified asthma, uncomplicated; F41.9 Anxiety disorder, unspecified; F32.A Depression, unspecified; Z79.899 Other long term (current) drug therapy; Z79.83 Long term (current) use of bisphosphonates
CPT/HCPCS: 36415; 71045; 74177; 80047; 80076; 83690; 85025; 99284; Q9967

== ENCOUNTER 2024-09-04 21:13 | Emergency (ER) | payer MEDICARE, MEDICAID ==
[~2024-09-04] VITALS: Ht 180.3 cm; Wt 127.7 kg
[2024-09-04 23:11] VITALS: BP 151/92; TEMP 98.1; O2SAT 97
[2024-09-04 23:27] LABS: BASO % 0.4 % (0.0-1.0); EOS # 0.3 10^3/uL (0.0-0.5); EOS % 3.7 % (0.0-3.0); HEMATOCRIT 44.8 % (42.0-52.0); HEMOGLOBIN 15.2 g/dl (13.5-17.5); LYMPH # 2.1 10^3/uL (1.5-5.0); LYMPH % 25.7 % (24.0-44.0); MEAN CORPUSCULAR HEMOGLOBIN 29.6 pg (27.0-33.0); MEAN CORPUSCULAR HGB CONC 33.9 g/dl (32.0-36.5); MEAN CORPUSCULAR VOLUME 87.2 fl (80.0-96.0); MONO # 0.6 10^3/uL (0.0-0.8); MONO % 7.3 % (2.0-8.0); NEUTROPHILS # 5.1 10^3/uL (1.5-8.5); NEUTROPHILS % 62.7 % (36.0-66.0); PLATELET COUNT, AUTOMATED 282 10^3/uL (150-450); RED BLOOD COUNT 5.14 10^6/uL (4.30-6.10); WHITE BLOOD COUNT 8.1 10^3/uL (4.0-10.0)
[2024-09-04 23:40] LABS: INR 0.92; PROTHROMBIN TIME 12.7 SECONDS (12.5-14.5)
[2024-09-04 23:52] LABS: LIPASE 66 U/L (12-53)
[2024-09-04 23:54] LABS: ALBUMIN 3.6 G/DL (3.2-5.2); ALKALINE PHOSPHATASE 86 U/L (40-129); ALT/SGPT 58 U/L (7.0-40); AST/SGOT 28 U/L (<34); BILIRUBIN,DIRECT 0.1 MG/DL (<0.4); BILIRUBIN,TOTAL 0.4 MG/DL (0.3-1.2); BLOOD UREA NITROGEN 15 MG/DL (9-23); CALCIUM LEVEL 8.6 MG/DL (8.5-10.1); CARBON DIOXIDE LEVEL 27 MMOL/L (20-31); CHLORIDE LEVEL 104 MMOL/L (98-107); CREATININE FOR GFR 0.95 MG/DL (0.70-1.30); GLOMERULAR FILTRATION RATE > 90.0 (>60); GLUCOSE, FASTING 138 MG/DL (60-100); POTASSIUM SERUM 3.8 MMOL/L (3.5-5.1); SODIUM LEVEL 139 MMOL/L (136-145); TOTAL PROTEIN 6.5 G/DL (5.7-8.2)
[2024-09-04 23:55] LABS: CPK CREATINE PHOSPHOKINASE 62 U/L (46-171); MB/CK RELATIVE INDEX 1.61 (< OR =4)
== END 2024-09-05 00:28 | disposition left against medical advice (07) ==
LOC: M ED 21:13
DX: Z53.21 Procedure and treatment not carried out due to patient leaving prior to being seen by health care provider (principal)

== ENCOUNTER 2024-09-19 13:09 | Emergency (ER) | payer MEDICARE, MEDICAID ==
[~2024-09-19] VITALS: Ht 180.3 cm; Wt 129.3 kg
[2024-09-19] MEDS ORDERED: PRED20TA PO (15:23)
[2024-09-19 15:31] VITALS: BP 129/96; TEMP 98; O2SAT 98
== END 2024-09-19 15:25 | disposition home or self-care (01) ==
LOC: M ED 13:09
DX: J20.4 Acute bronchitis due to parainfluenza virus (principal); J45.909 Unspecified asthma, uncomplicated; F32.A Depression, unspecified; E66.9 Obesity, unspecified; Z79.899 Other long term (current) drug therapy; Z79.52 Long term (current) use of systemic steroids; Z79.83 Long term (current) use of bisphosphonates

== ENCOUNTER 2024-12-02 04:25 | Emergency (ER) | payer MEDICAID, MEDICARE ==
[~2024-12-02] VITALS: Ht 180.3 cm; Wt 128.0 kg
[~2024-12-02 04:25] MED LIST changes: +PRED20TA PO
[2024-12-02 04:28] VITALS: BP 134/87; TEMP 96.8; O2SAT 97
== END 2024-12-02 05:49 | disposition left against medical advice (07) ==
LOC: M ED 04:25
DX: Z53.21 Procedure and treatment not carried out due to patient leaving prior to being seen by health care provider (principal)

== ENCOUNTER 2024-12-06 01:30 | Emergency (ER) | payer MEDICARE, MEDICAID ==
[~2024-12-06] VITALS: Ht 180.3 cm; Wt 72.7 kg
[2024-12-06 01:34] VITALS: BP 114/98; TEMP 97.3; O2SAT 99
== END 2024-12-06 01:40 | disposition left against medical advice (07) ==
LOC: M ED 01:30
DX: Z53.21 Procedure and treatment not carried out due to patient leaving prior to being seen by health care provider (principal)

== ENCOUNTER 2024-12-13 02:00 | Emergency (ER) | payer MEDICARE, MEDICAID ==
[~2024-12-13] VITALS: Ht 180.3 cm; Wt 128.7 kg
[2024-12-13] MEDS: KETOROLAC 60 MG/2 ML VIAL IM ONE (03:21)
[2024-12-13] MEDS ORDERED: predniSONE 20 MG TAB PO ONE (06:00)
[2024-12-13] MEDS ORDERED: MELO15TA28 PO (06:29)
[2024-12-13 06:37] VITALS: BP 134/82; TEMP 97; O2SAT 96
== END 2024-12-13 06:35 | disposition home or self-care (01) ==
LOC: M ED 02:00
DX: M54.50 Low back pain, unspecified (principal); M79.671 Pain in right foot; F41.9 Anxiety disorder, unspecified; F32.A Depression, unspecified; F51.01 Primary insomnia; Z79.899 Other long term (current) drug therapy; Z79.52 Long term (current) use of systemic steroids; Z79.83 Long term (current) use of bisphosphonates
CPT/HCPCS: 96372; 99283; J1885